=== PATIENT | male | born 1970 | race Caucasian/White ===

== ENCOUNTER 2016-10-22 10:48 | Inpatient (IN) | payer OTHER ==
[2016-10-04 09:49] VITALS: BMI 25.0
--- NOTE | 2016-10-04 10:17 | PAT Medication Instructions ---
Service Date Oct 04, 2016. Current Home Medication List Cholecalciferol (Vitamin D), 2 TAB PO QAM Diazepam (Valium), 5 MG PO TID PRN for PAIN/ANXIETY Fluoxetine (Prozac), 20 MG PO TID Levetiracetam (Keppra), 500 MG PO BID [place] Carbonate ([place] Carbonate), 1,200 MG PO BID Naproxen (Aleve), 220 MG PO BID PRN for Pain Quetiapine Fumarate Xr (Seroquel Xr), 200 MG PO HS [Tylenol #4], 1 TAB PO QID Medication Instructions For Your Scheduled Surgery - Hold the following medications the morning of surgery: Cholecalciferol (Vitamin D), 2 TAB PO QAM Naproxen (Aleve), 220 MG PO BID PRN for Pain - Take the following medications the morning of surgery with a sip of water OTHERWISE NOTHING TO EAT OR DRINK AFTER MIDNIGHT: [Tylenol #4], 1 TAB PO QID (may take if needed up to 4 hours prior to surgery) Diazepam (Valium), 5 MG PO TID PRN for PAIN/ANXIETY Fluoxetine (Prozac), 20 MG PO TID Levetiracetam (Keppra), 500 MG PO BID [place] Carbonate ([place] Carbonate), 1,200 MG PO BID - Take the following medications as scheduled the night before surgery: [Tylenol #4], 1 TAB PO QID Diazepam (Valium), 5 MG PO TID PRN for PAIN/ANXIETY Fluoxetine (Prozac), 20 MG PO TID Levetiracetam (Keppra), 500 MG PO BID [place] Carbonate ([place] Carbonate), 1,200 MG PO BID Quetiapine Fumarate Xr (Seroquel Xr), 200 MG PO HS Naproxen (Aleve), 220 MG PO BID PRN for Pain If you have any questions please call us at [phone] or [phone] or [phone]
--- NOTE | 2016-10-04 10:46 | DIAGNOSTIC IMAGING REPORT ---
CHEST PREADMISSION(PA/LAT) CLINICAL HISTORY: Preoperative evaluation. COMPARISON STUDY: No previous studies for comparison. FINDINGS: Intracanalicular electrodes and a cervical spine fusion are noted. There is no pneumothorax or pleural effusion. Cardiac size is normal. Mediastinal contours are normal. There is no evidence of pulmonary edema. IMPRESSION: No acute cardiopulmonary findings. Electronically signed by: Castro Méndez M.D. 10/04/2016 10:44 AM Dictated Date/Time: 10/04/2016 10:43 AM
[2016-10-04 11:07] LABS: BASO % 0.3 %; BASO ABS # 0.04 K/uL (0-0.2); COMPLETE YES; HEMATOCRIT 37.5 % (42-52); IG% 0.3 %; LYMPH % 24.4 %; LYMPH ABS # 2.89 K/uL (1.2-3.4); MEAN CELL VOLUME 94.7 fL (80-100); MEAN CORPUSCULAR HEMOGLOBIN 31.8 pg (25-34); MEAN CORPUSCULAR HGB CONC 33.6 g/dl (32-36); MEAN PLATELET VOLUME 10.3 fL (7.4-10.4); MONO % 8.8 %; NEUT % 63.2 %; PLATELET COUNT 271 K/uL (130-400); RED BLOOD COUNT 3.96 M/uL (4.7-6.1); WHITE BLOOD COUNT 11.84 K/uL (4.8-10.8)
[2016-10-04 11:12] LABS: URINE APPEARANCE CLEAR (CLEAR); URINE BILIRUBIN NEG (NEG); URINE COLOR YELLOW; URINE NITRITE NEG (NEG); URINE SPECIFIC GRAVITY 1.026 (1.000-1.030); UROBILINOGEN NEG (NEG)
[2016-10-04 11:19] LABS: PARTIAL THROMBOPLASTIN RATIO 1.1; PROTHROMBIN TIME (PATIENT) 10.7 SECONDS (9.0-12.0)
[2016-10-04 11:24] LABS: MANUAL MICROSCOPIC REQUIRED? NO; REVIEW REQ? NO
[2016-10-04 11:25] LABS: BUN/CREATININE RATIO 19.9 (10-20); CALCIUM 8.5 mg/dl (8.5-10.1); CREATININE 0.72 mg/dl (0.60-1.40); POTASSIUM 4.6 mmol/L (3.5-5.1)
--- NOTE | 2016-10-16 10:49 | HISTORY & PHYSICAL EXAMINATION ---
DATE OF ADMISSION: 10/17/2016 CHIEF COMPLAINT: Back pain, working diagnosis and accurate diagnosis of a severely degenerative segment lumbar spine L4-L5 above a prior fusion. Also, a spinal pain stimulator pump in place as well. HISTORY OF PRESENT ILLNESS: Artie is a pleasant gentleman. He is only 46. Fairly debilitating low back pain severely degenerative segment L4-L5. Prior surgery lumbar spinal elements. He is being preoped for tomorrow's removal of spinal cord stimulator, removal of hardware, and posterior lumbar interbody fusion at L4-5 and L5-S1. He has had ongoing pain for multiple years, failing to improve, mechanical in nature, some radicular component. PAST SURGICAL HISTORY: Include lumbar spine and cervical surgery, appendectomy. ALLERGIES: No allergies. MEDICATIONS: Include lithium, Keppra, Tylenol #4, Prozac and valium. PAST MEDICAL HISTORY: Positive for osteoarthritis, spine and neck problems. No kidney issues or liver problems. No history of carcinoma. Some nausea and vomiting after anesthesia. No cardiac disease, no diabetes, thyroid disease or blood disorder. Does have a seizure disorder and depression. REVIEW OF SYSTEMS: Denies any blurred vision, double vision, tinnitus, vertigo. No angina, palpitations. No asthma, wheezing. No nausea, vomiting or bowel and bladder incontinence. PHYSICAL EXAMINATION: GENERAL: 5' 7, 155 pounds in distress with regard to his spine. VITAL SIGNS: Blood pressure 130/80, pulse of 80, respiratory rate 16. HEAD, EYES, EARS, NOSE, AND THROAT: Normal. HEART AND LUNGS: Normal. ABDOMEN: Soft, nontender. NEUROLOGIC: He has a palpable spinal cord stimulator off the midline cervical inches. He also has a well-healed lumbar spine incision. He has pain with flexion and extension. He has no gross deficit neurologically. Images reviewed demonstrating good fusion of L5-S1, severely degenerative segment at L4-L5, some instability and the stimulator in place. DISPOSITION: Includes surgery tomorrow [facility], removal of stimulator battery pack at the very least along with a PLIF procedure L4-5 and L5-S1, which is a posterior lumbar interbody fusion L4-L5 and L5-S1. In addition will be removal of hardware from a posterior approach.
[2016-10-16 15:04] VITALS: BMI 25.0
[~2016-10-22] VITALS: Ht 170.2 cm; Wt 74.5 kg
[~2016-10-22 10:48] MED LIST: CEFAZOLIN 2000 MG/60 ML D5W 60 ML IV SCH; CEFAZOLIN 2000 MG/60 ML D5W IV SCH; CHOL100010 PO; DIAZ-165 PO; FLUO20CA35 PO; LACTATED RINGER'S 1000ML 1,000 ML IV SCH; LEVE500T13 PO; LITH600C PO; NAPR1TAB9 PO; NSS 1000ML IV SCH; QUET200T2 PO; SODIUM CHLORIDE 0.9% 1000ML 1,000 ML IV SCH; TYLENOL #4 PO
[2016-10-22] MEDS ORDERED: LIDOCAINE HCL 2% 2 ML VIAL (20MG/ML) ONE (11:13)
[2016-10-22] MEDS ORDERED: PROPOFOL IV EMULSION 10 MG/ML 20 ML VIAL IV ONE (11:13)
[2016-10-22] MEDS ORDERED: DEXAMETHASONE SOD INJ 4 MG/ML VIAL ONE (11:13)
[2016-10-22] MEDS ORDERED: GLYCOPYRROLATE INJ 0.2 MG/ML VIAL ONE ×2 (11:13→15:26)
[2016-10-22] MEDS ORDERED: FENTANYL CITRATE INJ 50 MCG/1 ML 2 ML VIAL ONE ×2 (11:13→14:55)
[2016-10-22] MEDS ORDERED: MIDAZOLAM HCL 1 MG/ML 2ML VIAL ONE (11:13)
[2016-10-22] MEDS ORDERED: ONDANSETRON INJ 2 MG/ML 2 ML VIAL ONE (11:13)
[2016-10-22] MEDS ORDERED: ROCURONIUM BROMIDE 10 MG/ML 5 ML VIAL ONE ×2 (11:13→15:00)
[2016-10-22] MEDS ORDERED: EpHEDrine SULFATE INJ 50 MG/ML AMP IV PRN (11:15)
[2016-10-22] MEDS ORDERED: ONDANSETRON INJ 2 MG/ML 2 ML VIAL IV PRN ×2 (11:15→16:30)
[2016-10-22] MEDS ORDERED: ATROPINE SULFATE 0.1 MG/ML 5ML SYR IV PRN (11:15)
[2016-10-22 11:25] VITALS: BP 113/70; PULSE 61; TEMP 36.7; O2SAT 96; Ht 170.2 cm; Wt 74.5 kg
[2016-10-22] MEDS ORDERED: NEOSTIGMINE METHYLSULFATE 5 MG/5 ML SYR ONE (11:29)
--- NOTE | 2016-10-22 13:00 | History & Physical Bridge Note ---
H&P Re-Evaluation Bridge Note: I have examined the patient, reviewed the History & Physical and in the interval since the performance of the History & Physical I have noted the following changes of clinical significance: No changes noted
[2016-10-22] MEDS ORDERED: GELATIN SPONGE SZ 100 ONE ×2 (13:15→14:47)
[2016-10-22] MEDS ORDERED: BUPIVACAINE/EPINEPHRINE 0.5% MPF 1:200,000 30 ML VIAL ONE (13:15)
[2016-10-22] MEDS ORDERED: THROMBIN FOR SOLN 20000 UNIT KIT ONE (13:15)
[2016-10-22] MEDS ORDERED: BACITRACIN 50000 UNIT VIAL ONE (13:15)
[2016-10-22] MEDS ORDERED: VANCOMYCIN HCL 1000MG/20ML VIAL ONE (13:15)
[2016-10-22] MEDS ORDERED: ACETAMINOPHEN 1000 MG/100 ML IV IV ONE (13:56)
[2016-10-22] MEDS ORDERED: HYDROmorphone INJ 2 MG/ML SYR/VIAL ONE (14:51)
--- NOTE | 2016-10-22 16:17 | DIAGNOSTIC IMAGING REPORT ---
LUMBAR SPINE, INTRAOPERATIVE FLUOROSCOPY HISTORY: Lumbar laminectomy/fusion. FLUOROSCOPY TIME: 8 seconds. FINDINGS: Intraoperative fluoroscopy was provided for the lumbar spine. 1 fluoroscopic spot images were obtained. IMPRESSION: Fluoroscopy provided for a low lumbar laminectomy/fusion.. Electronically signed by: Ion Simmons M.D. 10/22/2016 4:15 PM Dictated Date/Time: 10/22/2016 4:15 PM
[2016-10-22] MEDS ORDERED: METOCLOPRAMIDE HCL INJ 5 MG/ML 2 ML VIAL IV PRN (16:30)
[2016-10-22] MEDS ORDERED: ACETAMINOPHEN 325 MG TAB PO PRN (16:30)
[2016-10-22] MEDS ORDERED: HYDROmorphone HCL 0.5MG/ML 50 ML CASSETTE IV PRN (16:30)
[2016-10-22] MEDS ORDERED: MAGNESIUM HYDROXIDE SUSP 30 ML UDC PO PRN (16:30)
[2016-10-22] MEDS ORDERED: SODIUM CHLORIDE 0.9% 1000ML 1,000 ML IV SCH (16:30)
[2016-10-22] MEDS ORDERED: NALOXONE HCL 0.4 MG/1 ML VIAL/CARP IV PRN (16:30)
[2016-10-22] MEDS ORDERED: PROMETHAZINE HCL INJ 12.5 MG in SODIUM CHLORIDE 0.9% 50ML 50 ML IV PRN (16:30)
--- NOTE | 2016-10-22 16:31 | [facility] Post Operative Brief Note ---
Immediate Operative Summary Operative Date Oct 22, 2016. Pre-Operative Diagnosis Severely degenerative segment lumbar spine L4-L5 Post-Operative Diagnosis Severely degenerative segment lumbar spine L4-L5 Procedure(s) Performed Spinal Cord Stimulator Removal; Hardware Removal; L4-L5, L5-S1 Posterior Lumbar Interbody Fusion L4-L5, Reinstrumentation at L4-S1 Surgeon Dr. Alcala Sales Engineer Account Manager Surgeon(s) Leonel Barnett PA-C Estimated Blood Loss 450 ml Findings stenosis and instability Specimens A: Explanted Spine hardware B: Stimulator Complication(s) None Disposition Recovery Room / PACU
[2016-10-22] MEDS ORDERED: ESMOLOL HCL 10 MG/ML 10 ML VIAL ONE (16:33)
[2016-10-22] MEDS: FENTANYL CITRATE INJ 50 MCG/1 ML 2 ML VIAL IV PRN ×4 (16:42→16:57)
[2016-10-22] MEDS ORDERED: HYDROmorphone HCL 0.5MG/ML 50 ML CASSETTE ONE (16:54)
[2016-10-22] MEDS: HYDROmorphone INJ 1 MG/ML SYR IV PRN ×4 (17:05→17:25)
[2016-10-22] MEDS ORDERED: HYDROmorphone INJ 1 MG/ML SYR ONE (17:19)
--- NOTE | 2016-10-22 17:45 | Anesthesiology Progress Note ---
Anesthesia Post Op Note Date & Time Oct 22, 2016 at 17:45 Vital Signs Pain Intensity: 5 Vital Signs Past 12 Hours Date Time Temp Pulse Resp B/P Pulse Ox O2 Delivery O2 Flow Rate FiO2 10/22/16 17:40 78 14 129/74 97 Nasal Cannula 4 10/22/16 17:30 70 12 119/68 96 Nasal Cannula 4 10/22/16 17:20 82 14 114/66 97 Nasal Cannula 4 10/22/16 17:10 80 12 129/77 97 Nasal Cannula 4 10/22/16 17:00 72 12 128/74 95 Nasal Cannula 4 10/22/16 16:50 82 13 136/76 98 Mask 10 10/22/16 16:40 82 18 143/69 100 Mask 10 10/22/16 16:31 37.3 80 17 134/76 98 Mask 10 10/22/16 11:25 36.7 61 18 113/70 96 Room Air Notes Mental Status: alert / awake / arousable, participated in evaluation Pt Amnestic to Procedure: Yes Nausea / Vomiting: adequately controlled Pain: adequately controlled Airway Patency, RR, SpO2: stable & adequate BP & HR: stable & adequate Hydration State: stable & adequate Anesthetic Complications: no major complications apparent
[2016-10-22 19:30] VITALS: BP 115/68; PULSE 56; TEMP 36.7; O2SAT 97
[2016-10-22 20:00] VITALS: BP 110/68; PULSE 54; TEMP 36.5; O2SAT 98
[2016-10-22] MEDS ORDERED: NURSING VERBAL MED ORDER ONE (20:30)
[2016-10-22] MEDS: LORAZEPAM INJ 1 MG in SYRINGE 0 ML IV PRN (20:49)
[2016-10-22] MEDS: NICOTINE 21 MG/24 HR TDSY TD SCH (20:54)
[2016-10-22] MEDS: SODIUM CHLORIDE 0.9% 1000ML 1,000 ML IV SCH (20:54)
[2016-10-22 20:57] VITALS: BP 111/70; PULSE 57; TEMP 36.5; O2SAT 97
[2016-10-22] MEDS: FLUOXETINE HCL 20 MG CAP PO SCH (20:59)
[2016-10-22] MEDS: LEVETIRACETAM 500 MG TAB PO SCH (21:00)
[2016-10-22] MEDS: QUETIAPINE FUMARATE 200 MG TABCR PO SCH (21:00)
[2016-10-22] MEDS: DIAZEPAM 5MG TAB PO PRN (21:04)
[2016-10-22] MEDS: KETOROLAC TROMETHAMINE 30 MG/ML VIAL IV. SCH (21:06)
[2016-10-22] MEDS: DEXAMETHASONE INJ 10 MG in SYRINGE 0 ML IV SCH (21:07)
[2016-10-22] MEDS: CEFAZOLIN IV 1,000 MG in DEXTROSE 5% 50ML 50 ML IV SCH (21:07)
[2016-10-22] MEDS: LITHIUM CARBONATE 300 MG TAB PO SCH (21:08)
[2016-10-22 22:00] VITALS: BP 111/65; PULSE 56; TEMP 36.7; O2SAT 97
[2016-10-22 23:30] VITALS: BP 106/55; PULSE 55; TEMP 36.7; O2SAT 96
[2016-10-23 03:00] VITALS: BP 97/61; PULSE 58; TEMP 36.8; O2SAT 97
[2016-10-23] MEDS: KETOROLAC TROMETHAMINE 30 MG/ML VIAL IV. SCH ×4 (03:22→21:55)
[2016-10-23] MEDS: LORAZEPAM INJ 1 MG in SYRINGE 0 ML IV PRN ×2 (03:22→10:00)
[2016-10-23] MEDS: CEFAZOLIN IV 1,000 MG in DEXTROSE 5% 50ML 50 ML IV SCH ×2 (05:44→14:05)
[2016-10-23] MEDS: DEXAMETHASONE INJ 10 MG in SYRINGE 0 ML IV SCH ×3 (05:56→21:53)
[2016-10-23] MEDS: DIAZEPAM 5MG TAB PO PRN ×2 (05:57→14:02)
[2016-10-23] MEDS ORDERED: BISACODYL 5 MG TABEC PO PRN (06:00)
[2016-10-23] MEDS ORDERED: BISACODYL 10 MG SUPP PR PRN (06:00)
[2016-10-23 06:23] LABS: HEMATOCRIT 32.6 % (42-52)
[2016-10-23 07:05] VITALS: BP 94/56; PULSE 51; TEMP 36.7; O2SAT 95
--- NOTE | 2016-10-23 07:06 | OPERATIVE REPORT ---
DATE OF OPERATION: 10/22/2016 PREOPERATIVE DIAGNOSIS: Instability L4-L5, loosened hardware L4-L5, L5-S1, stenosis L4-L5. Painful spinal implants, lumbar spine. Painful spinal cord stimulator. ESTIMATED BLOOD LOSS: 400 mL. SURGEON: Michael Alcala DO [employer] OPERATOR: Leonel Barnett PA-C PROCEDURE: Removal of prior implants including the spinal cord stimulator, removal of pedicle screw instrumentation and reinsertion and pedicle screw instrumentation of sacrum L5 and L4. Posterior lumbar interbody fusion L4-L5, posterolateral fusion L4-L5 and sacrum. DESCRIPTION OF PROCEDURE: The patient was taken to the operating room, a general intubated anesthetic provided to the patient, placed prone, prepped and draped sterile. We made a skin incision, fascial incision. We dissected down to the spine itself, taking soft tissue out over the facet joints and transverse processes plus the old implants. I put in a deep self-retaining retractor. We performed our removal of the implants first, this was at L5 and S1. They were slightly loose in inspection. We then were able to decompress the spine which was decompression of L3 and L4, and L4 to L5 lumbar spine, which should be decompression of L4 and L5 nerve roots bilaterally, partial facetectomy. We then were able to retract the dura over the left hand side, do a discectomy at L4-L5, foraminotomy, we also took out the disc at this level, we put an interbody cage at this level; it was 26 mm length, it was 8 mm in height and 10 mm across. It filled nicely the vacated discectomy site. We then went over the left hand side and soft tissue, made a skin incision, fascial incision and removed a prominent, old spinal cord stimulator. We irrigated and closed that wound with Vicryl and staple gun. After we instrumented the spine safely at sacrum 5 and 4 we locked down the construct. The construct was by the [employer]. We secured the notch. We double-tightened everything, irrigated and debrided. We then put bone graft out of the transverse process to a 4-5 to initiate diffusion. This was done bilaterally, posterolateral fusion. We then placed some vancomycin deep to the wound; the Hemovac drain deep as well. Closed fascia with #1 Vicryl suture, 2-0 in the subcuticular layer and 3-0 nylon on the skin. Sterile dressings were applied. The patient returned to the PACU stable. No complications. I attest to the content of the Intraoperative Record and any orders documented therein. Any exceptio ns are noted below.
[2016-10-23] MEDS ORDERED: OXYCODONE/ACETAMINOPHEN 5-325 TAB PO PRN (08:00)
[2016-10-23] MEDS ORDERED: DC PCA PRN (08:00)
[2016-10-23] MEDS ORDERED: HYDROmorphone INJ 1 MG/ML SYR IV PRN (08:00)
[2016-10-23] MEDS: LITHIUM CARBONATE 300 MG TAB PO SCH ×2 (08:07→21:54)
[2016-10-23] MEDS: FLUOXETINE HCL 20 MG CAP PO SCH ×3 (08:07→21:53)
[2016-10-23] MEDS: NICOTINE 21 MG/24 HR TDSY TD SCH (08:07)
[2016-10-23] MEDS: LEVETIRACETAM 500 MG TAB PO SCH ×2 (08:08→21:53)
[2016-10-23] MEDS: SODIUM CHLORIDE 0.9% 1000ML 1,000 ML IV SCH ×2 (08:08→21:00)
[2016-10-23] MEDS: POLYETHYLENE (MIRALAX) 17 GM PACK PO SCH (08:13)
[2016-10-23] MEDS: OXYCODONE/ACETAMINOPHEN 5-325 TAB PO PRN ×3 (08:14→18:26)
[2016-10-23] MEDS: LORAZEPAM 1 MG TAB PO PRN (10:00)
--- NOTE | 2016-10-23 10:02 | Anesthesiology Progress Note ---
Anesthesia Post Op Note Date & Time Oct 23, 2016 at 10:02 Vital Signs Pain Intensity: 7.0 Vital Signs Past 12 Hours Date Time Temp Pulse Resp B/P Pulse Ox O2 Delivery O2 Flow Rate FiO2 10/23/16 07:05 36.7 51 19 94/56 95 10/23/16 03:00 36.8 58 16 97/61 97 Room Air 10/22/16 23:30 36.7 55 16 106/55 96 Nasal Cannula 2.0 Notes Mental Status: alert / awake / arousable, participated in evaluation Pt Amnestic to Procedure: Yes Nausea / Vomiting: adequately controlled Pain: adequately controlled Airway Patency, RR, SpO2: stable & adequate BP & HR: stable & adequate Hydration State: stable & adequate Anesthetic Complications: no major complications apparent
--- NOTE | 2016-10-23 10:32 | Discharge Instructions ---
Discharge Instructions Date of Service Oct 23, 2016. Admission Reason for Admission: Lumbar Spondylosis, Lumbar Spinal Stenosis Discharge Discharge Diagnosis / Problem: instability Discharge Goals Goal(s): Improve function Activity Recommendations Activity Limitations: as noted below Lifting Limitations: gradually increase as tolerated Exercise/Sports Limitations: until after follow-up appointment May Resume Sexual Activity: after follow-up appointment Shower/Bathe: keep incision dry . Instructions / Follow-Up Instructions / Follow-Up MEDICATIONS: Please take your prescriptions as instructed at your pre-op appointment. SPECIAL CARE: The following information is intended to answer some of the common questions and concerns regarding your surgery. Each patient is an individual and receives individual counselling throughout the course of treatment, from diagnosis to surgery all the way through recovery. What follows is not an exhaustive list, but should be a useful guide to some of the common questions and concerns patients have regarding their surgeries. These are not provided to keep you from calling us; rather, they give you something accurate and concrete to reference as you recover from your procedure. If you need us, we are available to you. As always, if you are not sure about something, call us at [phone]. MEDICAL EMERGENCIES: For these conditions, call 911 or go to your local hospital-based Emergency Department - not [facility] or equivalent. * Paralysis * Severe chest pain or difficulty breathing * Swelling or redness of either leg Spine procedures can be rather complex and though complications are rare, they do occur. In such cases, effective advice regarding emergency situations cannot always be addressed over the telephone. You may be referred to the emergency department for more effective management of your problem. Activity Limitations: It is important to give your body time to heal, so please limit your activities : * In general, don't do anything that moves your spine too much. You should avoid contact sports, twisting or heavy lifting while you recover. * 5-10 pounds is all you should attempt to lift. * You should not plan on driving for approximately 3 weeks and you should avoid traveling more than 30-45 minutes at a time. Longer trips should be broken down with walking breaks spaced appropriately. * Physical therapy is not usually required. * Walking and good posture practices will help you recover and regain your function. * Avoid straining or sudden changes in position. * In general, the goal is to take it easy and recover. Don't cause any new problems. Just relax. Showers: * Do not take a bath, use a Jacuzzi or hot tub or otherwise submerge your incision. * It is usually safe to take a shower 4-5 days after your surgery. * Your incision does not require any special creams or ointments. * Simply clean it with soap and water, dry and re-dress with a clean bandage afterwards. Incision: * Keep incision clean, dry and protected until your first follow-up appointment. * Some amount of drainage and redness is normal. Any drainage should be fairly clear and not have a foul odor. * If you feel anything is wrong or you have excessive drainage, please call us. * Your stitches and chace will be removed 10-14 days after your surgery. At the time of your first post-op visit. * Neck surgeries are typically closed with a suture underneath the skin. The steri-strips over the incision should be maintained until we see you in the office. Bracing: * You may be provided with a back or neck brace to encourage good posture and prevent injury. It will remind you not to do too much as you heal and will alert others to the fact that you have had a surgery. * Back braces may be removed for showers and when you are resting at home. They must be worn when you are walking around for any period of time or for travel. * For neck surgery, you will likely be provided with two cervical collars. The soft collar ([place] or foam rubber) is worn most commonly throughout the day and while sleeping. The plastic collar (provided at the hospital) is for showering/bathing. * Except while eating, collars should remain in place. More specifically, bracing is provided for a purpose and should be worn. * Please obtain your brace or collars prior to your operation and bring them to the hospital with you on the day of surgery. * You should also bring your collars to your post-op appointment with Dr. Alcala. You should always take good care of your body and practice healthy habits, especially following surgery. You should: * Follow your doctor's treatment plan * Sit and stand properly with good posture (ears over shoulders, shoulders over hips) Don't slouch * Learn to lift correctly * Exercise regularly (low-impact aerobic exercise is especially good, but check with your doctor first) * Generally, be up and walking for 5-10 minutes at a time at least 3-4 times per day from the day you get home * Increasing walking to tolerance until you can walk for 20-30 minutes at a time * Attain and maintain a healthy body weight * Eat healthy foods ( a well-balanced, low-fat diet rich in fruits and vegetables) and get enough calcium * Avoid excessive use of alcohol When to call our office - If you notice any of the following: * Increased pain not relieve by pain medicine * Fevers greater then 100 degrees F, chills or flu symptoms * Increased redness around incision * Drainage from the incision that is not clear * Any foul smelling drainage * Swelling or fluid collection beneath the skin Miscellaneous: * In the hospital, you may be given a walker or cane for support while walking. These are temporary needs and are intended to prevent injuries due to falls. You may discontinue them when you feel strong and steady enough on your feet. * Sleep in a comfortable position. We find that many patients find a lounge chair or recliner with several pillows to be beneficial in the early post-operative period. * The support stockings should be used for 7-10 days and may be discontinued when you are back to walking more and conducting usual household activities. No problem is insignificant. We are here to help you and get you well. Contact us at [phone]. Definitions: Foraminotomy: If part of the disc or a bone spur (osteophyte) is pressing on a nerve as it leaves the vertebra (through an exit called the foramen), a foraminotomy may be done. Otomy means "to make an opening." A foraminotomy is making the opening of the foramen larger, so the nerve can exit without being compressed. Laminotomy: Similar to the foraminotomy, a laminotomy makes a larger opening, this time in your bony plate protecting your spinal canal and spinal cord (the lamina). The lamina may be pressing on your nerve, so the surgeon may make more room for the nerves using a laminotomy. Laminectomy: Sometimes, a laminotomy is not sufficient. The surgeon may need to remove all or part of the lamina. This procedure is called a laminectomy. This can often be done at many levels without any harmful effects. Current Hospital Diet Patient's current hospital diet: Regular Diet Discharge Diet Recommended Diet: Regular Diet Procedures Procedures Performed: Spinal Cord Stimulator Removal; Hardware Removal; L4-L5, L5-S1 Posterior Lumbar Interbody Fusion L4-L5, Reinstrumentation at L4-S1 Pending Studies Studies pending at discharge: no Medical Emergencies . Who to Call and When: Medical Emergencies: If at any time you feel your situation is an emergency, please call 911 immediately. . Non-Emergent Contact Non-Emergency issues call your: Surgeon . "Provider Documentation" section prepared by Michael Alcala. VTE Core Measure Inpt VTE Proph given/why not?: Treatment not indicated
--- NOTE | 2016-10-23 10:44 | PROGRESS NOTE ---
DATE: 10/23/2016 SUBJECTIVE: No chest pain, shortness of breath, confusion. Calf tenderness negative. OBJECTIVE: Temperature 36.7. Hematocrit 32.6. ASSESSMENT: Status post lumbar spine reconstructive surgery. DISPOSITION: Includes up and ambulatory today. Dressings change tomorrow. We will hopefully get him home tomorrow, 10/24/2016.
[2016-10-23 15:20] VITALS: BP 120/70; PULSE 85; TEMP 36.9; O2SAT 96
[2016-10-23] MEDS: HYDROmorphone INJ 1 MG/ML SYR IV PRN ×2 (19:50→23:12)
[2016-10-23] MEDS: QUETIAPINE FUMARATE 200 MG TABCR PO SCH (21:53)
[2016-10-23] MEDS ORDERED: NURSING VERBAL MED ORDER ONE (22:30)
[2016-10-23 23:36] VITALS: BP 123/68; PULSE 61; TEMP 37.1; O2SAT 97
[2016-10-24] MEDS: LORAZEPAM INJ 1 MG in SYRINGE 0 ML IV PRN (00:43)
[2016-10-24] MEDS: DEXAMETHASONE INJ 10 MG in SYRINGE 0 ML IV SCH (05:42)
[2016-10-24] MEDS: HYDROmorphone INJ 1 MG/ML SYR IV PRN ×2 (05:44→10:44)
[2016-10-24 07:09] VITALS: BP 124/74; PULSE 66; TEMP 36.4; O2SAT 99
[2016-10-24] MEDS: FLUOXETINE HCL 20 MG CAP PO SCH ×2 (07:25→14:34)
[2016-10-24] MEDS: LITHIUM CARBONATE 300 MG TAB PO SCH (07:26)
[2016-10-24] MEDS: LEVETIRACETAM 500 MG TAB PO SCH (07:26)
[2016-10-24] MEDS: DIAZEPAM 5MG TAB PO PRN (07:26)
[2016-10-24] MEDS: OXYCODONE/ACETAMINOPHEN 5-325 TAB PO PRN (07:27)
[2016-10-24] MEDS: POLYETHYLENE (MIRALAX) 17 GM PACK PO SCH (07:30)
[2016-10-24] MEDS: LORAZEPAM 1 MG TAB PO PRN (09:55)
[2016-10-24] MEDS: NICOTINE 21 MG/24 HR TDSY TD SCH (10:29)
[2016-10-24] MEDS ORDERED: NURSING VERBAL MED ORDER ONE (10:45)
[2016-10-24] MEDS ORDERED: HYDR4TAB78 PO (10:47)
[2016-10-24] MEDS ORDERED: KETOROLAC TROMETHAMINE 30 MG/ML VIAL IV. SCH (11:00)
[2016-10-24] MEDS ORDERED: HYDROmorphone HCL 2 MG TAB PO PRN (11:00)
[2016-10-24] MEDS ORDERED: ATV/1 PO (14:13)
--- NOTE | 2016-10-24 14:44 | DISCHARGE SUMMARY ---
DATE OF DISCHARGE: 10/22/2016. Alert, oriented. Pain controlled. No shortness of breath or chest pain. Neurologically intact, some decreased range of motion. ASSESSMENT: Status post lumbar spine reconstructive surgery. DISPOSITION: Includes instructions, precautions, education to the patient in the office and here. Discharged home with medications, support, dressing to be kept clean and dry at all times. We will see him back in the office in approximately 10 days. He should have a follow-up appointment.
[2016-10-24 15:18] VITALS: BP 119/68; PULSE 81; TEMP 36.9; O2SAT 96
[2016-10-24 15:49] VITALS: BP 119/68; PULSE 81; TEMP 36.9; O2SAT 96
[2017-06-23] MEDS ORDERED: OXYC-57 PO (11:53)
[2017-06-23] MEDS ORDERED: LEVE500T13 PO (11:53)
[2017-06-23] MEDS ORDERED: LMC25 PO (11:53)
== END 2016-10-24 16:45 | disposition home or self-care (01) | DRG 460 ==
LOC: ENRESERVTM → ENRESERVDT → C.ACU 10:48 → C.3E 13:00
PROVIDERS: ADMIT Orthopaedic Surgery Orthopaedic Surgery of the Spine; ATTEND Orthopaedic Surgery Orthopaedic Surgery of the Spine
PROC: 0SG0071 Fusion of Lumbar Vertebral Joint with Autologous Tissue Substitute, Posterior Approach, Posterior Column, Open Approach (ICD-10-PCS; principal; 2016-10-22 12:30)
PROC: 0ST20ZZ Resection of Lumbar Vertebral Disc, Open Approach (ICD-10-PCS; principal; 2016-10-22 12:30)
PROC: 00PV0MZ Removal of Neurostimulator Lead from Spinal Cord, Open Approach (ICD-10-PCS; principal; 2016-10-22 12:30)
PROC: 0SG00AJ Fusion of Lumbar Vertebral Joint with Interbody Fusion Device, Posterior Approach, Anterior Column, Open Approach (ICD-10-PCS; principal; 2016-10-22 12:30)
PROC: 0SG3071 Fusion of Lumbosacral Joint with Autologous Tissue Substitute, Posterior Approach, Posterior Column, Open Approach (ICD-10-PCS; principal; 2016-10-22 12:30)
PROC: 01NB0ZZ Release Lumbar Nerve, Open Approach (ICD-10-PCS; principal; 2016-10-22 12:30)
PROC: 0SP304Z Removal of Internal Fixation Device from Lumbosacral Joint, Open Approach (ICD-10-PCS; principal; 2016-10-22 12:30)
DX: T84.038A Mechanical loosening of other internal prosthetic joint, initial encounter (principal); Y79.2 Prosthetic and other implants, materials and accessory orthopedic devices associated with adverse incidents; M51.36 Other intervertebral disc degeneration, lumbar region; M53.2X6 Spinal instabilities, lumbar region; M48.06 Spinal stenosis, lumbar region; Z46.2 Encounter for fitting and adjustment of other devices related to nervous system and special senses; G40.909 Epilepsy, unspecified, not intractable, without status epilepticus; M19.90 Unspecified osteoarthritis, unspecified site; F41.9 Anxiety disorder, unspecified; F32.9 Major depressive disorder, single episode, unspecified; F17.200 Nicotine dependence, unspecified, uncomplicated; Z98.1 Arthrodesis status; Z79.899 Other long term (current) drug therapy

== ENCOUNTER 2017-06-21 15:54 | Inpatient (IN) | payer OTHER ==
[~2017-06-21] VITALS: Ht 172.7 cm; Wt 68.0 kg
[~2017-06-21 15:54] MED LIST changes: -CEFAZOLIN 2000 MG/60 ML D5W 60 ML IV SCH; -CEFAZOLIN 2000 MG/60 ML D5W IV SCH; -LACTATED RINGER'S 1000ML 1,000 ML IV SCH; -NSS 1000ML IV SCH; -SODIUM CHLORIDE 0.9% 1000ML 1,000 ML IV SCH
[2017-06-21] MEDS ORDERED: LEVETIRACETAM IV 1,000 MG in DEXTROSE 5% 100ML 100 ML IV ONE (16:15)
--- NOTE | 2017-06-21 16:33 | DIAGNOSTIC IMAGING REPORT ---
CHEST ONE VIEW PORTABLE HISTORY: 46 years-old Male SEIZURE acute seizure COMPARISON: Chest radiograph 10/04/2016. TECHNIQUE: Portable AP view of the chest FINDINGS: Cardiomediastinal and hilar silhouettes are within normal limits. Stimulator lead is noted overlying the spine with distal tip at the level of T9. No pneumothorax, pleural effusion, focal airspace consolidation or overt pulmonary edema. Bones of the chest appear grossly intact. IMPRESSION: No acute cardiopulmonary process. The above report was generated using voice recognition software. It may contain grammatical, syntax or spelling errors. Electronically signed by: Kash Messer M.D. 06/21/2017 4:32 PM Dictated Date/Time: 06/21/2017 4:30 PM
[2017-06-21 16:56] LABS: BASO % 0.2 %; BASO ABS # 0.02 K/uL (0-0.2); COMPLETE YES; EOS % 1.1 %; IG% 0.3 %; LYMPH % 20.4 %; LYMPH ABS # 2.41 K/uL (1.2-3.4); MEAN CORPUSCULAR HEMOGLOBIN 31.3 pg (25-34); MEAN PLATELET VOLUME 9.5 fL (7.4-10.4); MONO % 8.6 %; NEUT % 69.4 %; PLATELET COUNT 369 K/uL (130-400); RED BLOOD COUNT 4.35 M/uL (4.7-6.1); WHITE BLOOD COUNT 11.81 K/uL (4.8-10.8)
[2017-06-21 17:14] LABS: BUN/CREATININE RATIO 10.7 (10-20); CALCIUM 9.4 mg/dl (8.5-10.1); CREATININE 0.78 mg/dl (0.60-1.40); MAGNESIUM 2.1 mg/dl (1.8-2.4)
[2017-06-21] MEDS ORDERED: FOLI1TAB7 PO (17:16)
[2017-06-21] MEDS ORDERED: LAMO25TA PO (17:19)
[2017-06-21 17:25] LABS: THYROID STIMULATING HORMONE 0.652 uIu/ml (0.300-4.500)
[2017-06-21] MEDS ORDERED: LORA-741 PO (17:29)
[2017-06-21] MEDS ORDERED: MELO15TA4 PO (17:30)
[2017-06-21] MEDS ORDERED: PANT40TA PO (17:31)
[2017-06-21] MEDS ORDERED: QUET400T PO (17:33)
[2017-06-21] MEDS ORDERED: CHOL20007 PO (17:35)
[2017-06-21] MEDS ORDERED: KETOROLAC TROMETHAMINE 30 MG/ML VIAL IV STA (18:28)
--- NOTE | 2017-06-21 18:30 | DIAGNOSTIC IMAGING REPORT ---
HEAD WITHOUT CONTRAST (CT) CLINICAL HISTORY: 46 years-old Male with SEIZURE. Acute seizure TECHNIQUE: Multiple axial CT images of the head were obtained without contrast. A dose lowering technique was utilized adhering to the principles of ALARA. CT DOSE: 537.48 mGy.cm COMPARISON: None. FINDINGS: No acute intracranial hemorrhage, midline shift, intracranial mass, hydrocephalus, territorial ischemia or abnormal extra-axial collection. The calvarium is intact. The mastoid air cells, and middle ear cavities are clear. Mild mucosal thickening of the ethmoid air cells. IMPRESSION: No acute intracranial abnormality. The above report was generated using voice recognition software. It may contain grammatical, syntax or spelling errors. Electronically signed by: Kash Messer M.D. 06/21/2017 6:29 PM Dictated Date/Time: 06/21/2017 6:28 PM
[2017-06-21 18:31] LABS: INR 0.9 (0.9-1.1); PARTIAL THROMBOPLASTIN RATIO 1.1; PROTHROMBIN TIME (PATIENT) 10.1 SECONDS (9.0-12.0)
[2017-06-21] MEDS ORDERED: ONDANSETRON INJ 2 MG/ML 2 ML VIAL IV STA (19:39)
--- NOTE | 2017-06-21 20:10 | EMERGENCY ROOM VISIT NOTE ---
History Report prepared by Demetris: Shiv Bravo Under the Supervision of: Dr. Colin Alonso D.O. First contact with patient: 15:56 Chief Complaint: SEIZURE Stated Complaint: SEIZURE / EVAL History of Present Illness The patient is a 46 year old male who presents to the Emergency Room with complaints of intermittent seizures for the past couple of days. The patient states that he has had 9 grand mal seizures since last night, and his last seizure was this morning just prior to arrival. The patient's states that they last 3-5 minutes, and he does not lose control of his bladder. He additionally states that he has a headache, blurry vision, and some nausea. The patient states that he was admitted to [facility] for a week for his seizures last week for a week, and he states that his Keppra dosing was increased to 1000mg twice a day, and he was recently started on 25mg Lamictal, and he is decreasing his lithium and is currently on 300mg. He states that his seizures started in 1999, and they think that they are due to the multiple concussions that he has had. Prior to the past few weeks, the patient has not had a seizure in the past while. Pt denies weakness, numbness, fevers, chest pain, shortness of breath, vomiting, diarrhea, pain with urination, and melena. Source of History: patient Onset: past couple of days Position: other (global) Quality: other (seizure) Timing: intermittent Associated Symptoms: + headache, + nausea Note: Associated symptoms: Blurry vision Review of Systems Pt denies headache, change in vision, fevers, chest pain, shortness of breath, nausea, vomiting, diarrhea, pain with urination, and melena. Past Medical & Surgical Medical Problems: (1) Lumbar stenosis Social History Smoking Status: Current Every Day Smoker Marital Status: Housing Status: lives with family Occupation Status: disabled Current/Historical Medications Scheduled Cholecalciferol (Vitamin D3), 2,000 UNITS PO DAILY Folic Acid (Folvite), 1 MG PO DAILY Lamotrigine (Lamictal), 25 MG PO BID Levetiracetam (Keppra), 1,000 MG PO BID [place] Carbonate ([place] Carbonate), 600 MG PO HS Meloxicam (Mobic), 15 MG PO DAILY Pantoprazole (Protonix), 40 MG PO DAILY Quetiapine Fumarate Xr (Seroquel Xr Tab), 400 MG PO HS Scheduled PRN Lorazepam (Ativan), 0.5 MG PO BID PRN for Anxiety Allergies Coded Allergies: Bupropion (Verified Allergy, Mild, SEIZURE, 10/22/16) Sucralfate (Verified Allergy, Mild, HIVES, 10/22/16) Topiramate (Verified Allergy, Mild, SEVERE HEADACHE, 10/22/16) Valproic Acid (Verified Allergy, Mild, MAKE HIM FEEL LIKE HE GOES CRAZY AND UNABLE TO FUNCTION, 10/22/16) Physical Exam Vital Signs Date Time Temp Pulse Resp B/P (MAP) Pulse Ox O2 Delivery O2 Flow Rate FiO2 06/21/17 18:34 82 18 129/76 98 Room Air 06/21/17 16:16 99 Room Air 06/21/17 16:15 99 Room Air 06/21/17 16:10 84 06/21/17 16:01 37.4 82 20 138/82 97 Room Air Physical Exam GENERAL: Sitting up in bed, alert, well appearing, well nourished, no distress, non-toxic EYE EXAM: normal conjunctiva. PERRL and EOM's intact. OROPHARYNX: no exudate, no erythema, lips, buccal mucosa, and tongue normal and mucous membranes are moist HEAD: Small abrasion over the right occiput. NECK: supple, no nuchal rigidity, no adenopathy, non-tender LUNGS: Clear to auscultation. Normal chest wall mechanics HEART: no murmurs, S1 normal and S2 normal ABDOMEN: abdomen soft, non-tender, normo-active bowel sounds, no masses, no rebound or guarding. BACK: Back is symmetrical on inspection and there is no deformity, no midline tenderness, no CVA tenderness. SKIN: no rashes and no bruising UPPER EXTREMITIES: upper extremities are grossly normal. LOWER EXTREMITIES: No pitting edema. NEURO EXAM: Normal sensorium, cranial nerves II-XII intact, normal speech, no weakness of arms, no weakness of legs. Gross sensation intact. Medical Decision & Procedures ER Provider Diagnostic Interpretation: Radiology results as stated below per my review and the radiologist's interpretation: HEAD WITHOUT CONTRAST (CT) CLINICAL HISTORY: 46 years-old Male with SEIZURE. Acute seizure TECHNIQUE: Multiple axial CT images of the head were obtained without contrast. A dose lowering technique was utilized adhering to the principles of ALARA. CT DOSE: 537.48 mGy.cm COMPARISON: None. FINDINGS: No acute intracranial hemorrhage, midline shift, intracranial mass, hydrocephalus, territorial ischemia or abnormal extra-axial collection. The calvarium is intact. The mastoid air cells, and middle ear cavities are clear. Mild mucosal thickening of the ethmoid air cells. IMPRESSION: No acute intracranial abnormality. The above report was generated using voice recognition software. It may contain grammatical, syntax or spelling errors. Electronically signed by: Kash Messer M.D. 06/21/2017 6:29 PM Dictated Date/Time: 06/21/2017 6:28 PM CHEST ONE VIEW PORTABLE HISTORY: 46 years-old Male SEIZURE acute seizure COMPARISON: Chest radiograph 10/04/2016. TECHNIQUE: Portable AP view of the chest FINDINGS: Cardiomediastinal and hilar silhouettes are within normal limits. Stimulator lead is noted overlying the spine with distal tip at the level of T9. No pneumothorax, pleural effusion, focal airspace consolidation or overt pulmonary edema. Bones of the chest appear grossly intact. IMPRESSION: No acute cardiopulmonary process. The above report was generated using voice recognition software. It may contain grammatical, syntax or spelling errors. Electronically signed by: Kash Messer M.D. 06/21/2017 4:32 PM Dictated Date/Time: 06/21/2017 4:30 PM Laboratory Results 06/21/17 16:41 Red Blood Count 4.35, Mean Corpuscular Volume 92.0, Mean Corpuscular Hemoglobin 31.3, Mean Corpuscular Hemoglobin Concent 34.0, Mean Platelet Volume 9.5, Neutrophils (%) (Auto) 69.4, Lymphocytes (%) (Auto) 20.4, Monocytes (%) (Auto) 8.6, Eosinophils (%) (Auto) 1.1, Basophils (%) (Auto) 0.2, Neutrophils # (Auto) 8.19, Lymphocytes # (Auto) 2.41, Monocytes # (Auto) 1.02, Eosinophils # (Auto) 0.13, Basophils # (Auto) 0.02 06/21/17 16:41 Test 06/21/17 16:41 White Blood Count 11.81 K/uL (4.8-10.8) Red Blood Count 4.35 M/uL (4.7-6.1) Hemoglobin 13.6 g/dL (14.0-18.0) Hematocrit 40.0 % (42-52) Mean Corpuscular Volume 92.0 fL (80-100) Mean Corpuscular Hemoglobin 31.3 pg (25-34) Mean Corpuscular Hemoglobin Concent 34.0 g/dl (32-36) Platelet Count 369 K/uL (130-400) Mean Platelet Volume 9.5 fL (7.4-10.4) Neutrophils (%) (Auto) 69.4 % Lymphocytes (%) (Auto) 20.4 % Monocytes (%) (Auto) 8.6 % Eosinophils (%) (Auto) 1.1 % Basophils (%) (Auto) 0.2 % Neutrophils # (Auto) 8.19 K/uL (1.4-6.5) Lymphocytes # (Auto) 2.41 K/uL (1.2-3.4) Monocytes # (Auto) 1.02 K/uL (0.11-0.59) Eosinophils # (Auto) 0.13 K/uL (0-0.5) Basophils # (Auto) 0.02 K/uL (0-0.2) RDW Standard Deviation 44.1 fL (36.4-46.3) RDW Coefficient of Variation 13.1 % (11.5-14.5) Immature Granulocyte % (Auto) 0.3 % Immature Granulocyte # (Auto) 0.04 K/uL (0.00-0.02) Prothrombin Time 10.1 SECONDS (9.0-12.0) Prothromb Time International Ratio 0.9 (0.9-1.1) Activated Partial Thromboplast Time 27.6 SECONDS (21.0-31.0) Partial Thromboplastin Ratio 1.1 Anion Gap 5.0 mmol/L (3-11) Est Creatinine Clear Calc Drug Dose 108.1 ml/min Estimated GFR () 125.5 Estimated GFR (Non- 108.3 BUN/Creatinine Ratio 10.7 (10-20) Calcium Level 9.4 mg/dl (8.5-10.1) Magnesium Level 2.1 mg/dl (1.8-2.4) Total Creatine Kinase 53 U/L (39-308) Thyroid Stimulating Hormone (TSH) 0.652 uIu/ml (0.300-4.500) [place] Level 0.5 mMOL/L (0.6-1.2) Laboratory results per my review. Medications Administered Medications (Trade) Dose Ordered Sig/Guido Route Start Time Stop Time Status Last Admin Dose Admin Levetiracetam 1000 mg/Dextrose 110 ml @ 440 mls/hr ONE ONCE IV 06/21/17 16:15 06/21/17 16:29 DC 06/21/17 16:45 440 MLS/HR Ketorolac Tromethamine (Toradol Inj) 30 mg NOW STAT IV 06/21/17 18:28 06/21/17 18:29 DC 06/21/17 18:32 30 MG Ondansetron HCl (Zofran Inj) 4 mg NOW STAT IV 06/21/17 19:39 06/21/17 19:40 DC 06/21/17 19:42 4 MG ECG Indication: other (seizure) Rate (beats per minute): 83 Rhythm: sinus rhythm Findings: peaked T-waves (anterior), other (normal axis) ED Course ED COURSE: Vital signs were reviewed and showed situational hypertension The patients medical record was reviewed The above diagnostic studies were performed and reviewed. ED treatments and interventions as stated above. 1556: The patient was evaluated in room A9. A complete history and physical examination was performed. 1737: I discussed the patient's case with the neurologist. They recommend increasing the Keppra to 1500mg and for the patient to be evaluated by the hospitalist. 1806: I reevaluated the patient, and he was doing well 181: I discussed the patient's case with Dr. Donnelly, and he recommends holding off until the night doctor comes in for evaluation. 1820: Upon reevaluation, the patient is doing well.I discussed my findings with the patient and he understands and agrees with the treatment plan. Based on the patients age, coexisting illnesses, exam and lab findings the decision to treat as an inpatient was made. The patient remained stable while under my care. The patient will be evaluated for further management. 1934: I reviewed the patient's case with Dr. Vickers. He will evaluate the patient for further management. Medical Decision Differential diagnosis includes etiologies such as infection, hypoglycemia, electrolyte abnormalities, cardiac sources, intracerebral event, trauma, toxicologic, neurologic, as well as others were entertained. Patient is a 46-year-old male who presents to ER with family. He has a seizure disorder and has been seizure free for several years up until about 2 weeks. Last week he had multiple seizures and admission to [place]. Today he presents following having about 9 seizures over the course of 24 hours. These are tonic- clonic seizures. Witnessed by and mom. Patient fully intact. No seizure activity in the ER. CBC along with BMP, TSH and CK is normal. Sandborn was 0.5. CT head was negative. EKG unremarkable. Discussed with family. Patient was bolused/loaded with Keppra. Discussed with neurology and internal medicine patient was admitted for status epilepticus. Medication Reconcilliation Current Medication List: was personally reviewed by me Blood Pressure Screening Patient's blood pressure: Elevated blood pressure Blood pressure disposition: Elevated BP felt to be situational Consults Time Called: 1931 Consulting Physician: Dr. Vickers Returned Call: 1934 I reviewed the patient's case with Dr. Vickers. He will evaluate the patient for further management. Impression Primary Impression: Status epilepticus Scribe Attestation The scribe's documentation has been prepared under my direction and personally reviewed by me in its entirety. I confirm that the note above accurately reflects all work, treatment, procedures, and medical decision making performed by me. Departure Information Dispostion Being Evaluated By Hospitalist Michael Brandon D.O. (PCP) Patient Instructions My [facility]
[2017-06-21] MEDS ORDERED: MAGNESIUM HYDROXIDE SUSP 30 ML UDC PO PRN (20:30)
[2017-06-21] MEDS ORDERED: ACETAMINOPHEN 325 MG TAB PO PRN (20:30)
[2017-06-21] MEDS ORDERED: POLYETHYLENE (MIRALAX) 17 GM PACK PO PRN (20:30)
[2017-06-21] MEDS ORDERED: ONDANSETRON INJ 2 MG/ML 2 ML VIAL IV PRN (20:30)
[2017-06-21] MEDS ORDERED: ALUMINUM/MAGNESIUM/SIMETH (MAALOX MAX) 30 ML UDC PO PRN (20:30)
--- NOTE | 2017-06-21 21:03 | Critical Care Consultation ---
Critical Care Consultation Date of Consultation: Jun 21, 2017. Attending Physician: Social History Smoking Status: Current Every Day Smoker Marital Status: Housing Status: lives with family Occupation Status: disabled Allergies Coded Allergies: Bupropion (Verified Allergy, Mild, SEIZURE, 10/22/16) Sucralfate (Verified Allergy, Mild, HIVES, 10/22/16) Topiramate (Verified Allergy, Mild, SEVERE HEADACHE, 10/22/16) Valproic Acid (Verified Allergy, Mild, MAKE HIM FEEL LIKE HE GOES CRAZY AND UNABLE TO FUNCTION, 10/22/16) Home Medications Scheduled Cholecalciferol (Vitamin D3), 2,000 UNITS PO DAILY Folic Acid (Folvite), 1 MG PO DAILY Lamotrigine (Lamictal), 25 MG PO BID Levetiracetam (Keppra), 1,000 MG PO BID [place] Carbonate ([place] Carbonate), 600 MG PO HS Meloxicam (Mobic), 15 MG PO DAILY Pantoprazole (Protonix), 40 MG PO DAILY Quetiapine Fumarate Xr (Seroquel Xr Tab), 400 MG PO HS Scheduled PRN Lorazepam (Ativan), 0.5 MG PO BID PRN for Anxiety Current Inpatient Medications Current Inpatient Medications Medications (Trade) Dose Ordered Sig/Guido Route Start Time Stop Time Status Last Admin Dose Admin Acetaminophen (Tylenol Tab) 650 mg Q4H PRN PO 06/21/17 20:30 07/21/17 20:29 UNV Al Hydrox/Mg Hydrox/Simethicone (Maalox Max Susp) 15 ml Q4H PRN PO 06/21/17 20:30 07/21/17 20:29 UNV Magnesium Hydroxide (Milk Of Magnesia Susp) 30 ml Q12H PRN PO 06/21/17 20:30 07/21/17 20:29 UNV Zolpidem Tartrate (Ambien Tab) 5 mg HSZ PRN PO 06/21/17 20:30 07/21/17 20:29 UNV Ondansetron HCl (Zofran Inj) 4 mg Q6H PRN IV 06/21/17 20:30 07/21/17 20:29 UNV Polyethylene (Miralax Powder Packet) 17 gm DAILY PRN PO 06/21/17 20:30 07/21/17 20:29 UNV Ketorolac Tromethamine (Toradol Inj) 30 mg Q6H PRN IV 06/21/17 20:30 06/26/17 20:29 UNV Folic Acid (Folvite Tab) 1 mg DAILY PO 06/22/17 09:00 07/22/17 08:59 UNV Lamotrigine (Lamictal Tab) 25 mg BID PO 06/21/17 21:00 07/21/17 20:59 UNV Levetiracetam (Keppra Tab) 1,000 mg BID PO 06/21/17 21:00 07/21/17 20:59 UNV Lorazepam (Ativan Tab) 0.5 mg BID PRN PO 06/21/17 20:30 07/21/17 20:29 UNV Pantoprazole Sodium (Protonix Tab) 40 mg DAILY PO 06/22/17 09:00 07/22/17 08:59 UNV Quetiapine Fumarate (seroQUEL XR TAB) 400 mg HS PO 06/21/17 21:00 07/21/17 20:59 UNV Non-Formulary Medication (Cholecalciferol (Vitamin D3)) 2,000 units DAILY PO 06/22/17 09:00 07/22/17 08:59 UNV Non-Formulary Medication ([place] Carbonate ) 600 mg HS PO 06/21/17 21:00 07/21/17 20:59 UNV Physical Exam Date Time Temp Pulse Resp B/P (MAP) Pulse Ox O2 Delivery O2 Flow Rate FiO2 06/21/17 20:41 88 20 117/75 96 Room Air 06/21/17 18:34 82 18 129/76 98 Room Air 06/21/17 16:16 99 Room Air 06/21/17 16:15 99 Room Air 06/21/17 16:10 84 06/21/17 16:01 37.4 82 20 138/82 97 Room Air Laboratory Results Last 24 Hours Test 06/21/17 16:23 06/21/17 16:41 Bedside Glucose 108 mg/dl White Blood Count 11.81 K/uL Red Blood Count 4.35 M/uL Hemoglobin 13.6 g/dL Hematocrit 40.0 % Mean Corpuscular Volume 92.0 fL Mean Corpuscular Hemoglobin 31.3 pg Mean Corpuscular Hemoglobin Concent 34.0 g/dl Platelet Count 369 K/uL Mean Platelet Volume 9.5 fL Neutrophils (%) (Auto) 69.4 % Lymphocytes (%) (Auto) 20.4 % Monocytes (%) (Auto) 8.6 % Eosinophils (%) (Auto) 1.1 % Basophils (%) (Auto) 0.2 % Neutrophils # (Auto) 8.19 K/uL Lymphocytes # (Auto) 2.41 K/uL Monocytes # (Auto) 1.02 K/uL Eosinophils # (Auto) 0.13 K/uL Basophils # (Auto) 0.02 K/uL RDW Standard Deviation 44.1 fL RDW Coefficient of Variation 13.1 % Immature Granulocyte % (Auto) 0.3 % Immature Granulocyte # (Auto) 0.04 K/uL Prothrombin Time 10.1 SECONDS Prothromb Time International Ratio 0.9 Activated Partial Thromboplast Time 27.6 SECONDS Partial Thromboplastin Ratio 1.1 Sodium Level 138 mmol/L Potassium Level 4.0 mmol/L Chloride Level 103 mmol/L Carbon Dioxide Level 30 mmol/L Anion Gap 5.0 mmol/L Blood Urea Nitrogen 8 mg/dl Creatinine 0.78 mg/dl Est Creatinine Clear Calc Drug Dose 108.1 ml/min Estimated GFR () 125.5 Estimated GFR (Non- 108.3 BUN/Creatinine Ratio 10.7 Random Glucose 97 mg/dl Calcium Level 9.4 mg/dl Magnesium Level 2.1 mg/dl Total Creatine Kinase 53 U/L Thyroid Stimulating Hormone (TSH) 0.652 uIu/ml [place] Level 0.5 mMOL/L
[2017-06-21 21:30] VITALS: BP 115/75; PULSE 83; TEMP 37.3; O2SAT 98; Ht 172.7 cm; Wt 68.0 kg
[2017-06-21 21:58] LABS: URINE APPEARANCE CLEAR (CLEAR); URINE BILIRUBIN NEG (NEG); URINE COLOR YELLOW; URINE NITRITE NEG (NEG); URINE PH 7.5 (4.5-7.5); URINE SPECIFIC GRAVITY 1.017 (1.000-1.030); UROBILINOGEN NEG (NEG)
[2017-06-21 22:08] LABS: MANUAL MICROSCOPIC REQUIRED? NO; REVIEW REQ? NO
[2017-06-21] MEDS: LEVETIRACETAM 500 MG TAB PO SCH (22:15)
[2017-06-21] MEDS: QUETIAPINE FUMARATE 200 MG TABCR PO SCH (22:15)
[2017-06-21] MEDS: LITHIUM CARBONATE 300 MG TAB PO SCH (22:15)
[2017-06-21] MEDS: ZOLPIDEM TARTRATE 5 MG TAB PO PRN (22:18)
[2017-06-21] MEDS: KETOROLAC TROMETHAMINE 30 MG/ML VIAL IV PRN (22:19)
[2017-06-22] VITALS (7 sets, daily range): BP systolic 94–117; BP diastolic 58–68; PULSE 68–89; TEMP 36.5–37.1; O2SAT 96–99
--- NOTE | 2017-06-22 00:56 | History and Physical ---
History & Physical Date & Time of Service: Jun 22, 2017 at 00:37 Chief Complaint: Seizure Primary Care Physician: Michael Velasquez D.O. History of Present Illness Source: patient, hospital records This is a 46 yo m that is presenting to us after suffering from multiple seizures over the past 24 hours. The patient was diagnosed with seizure disorder in 1999 and has been relatively well controlled. In the recent weeks patient has been suffering from more frequent seizures. He was recently admitted to [facility] for these seizures and patient's medications were changed. He is currently being changed from lithium ( for his bipolar disorder) to lamictal ( doses are not per standard dose pack but lower). Since his discharge the patient has not been sleeping at all, the notes that he has had probably 5 hours of sleep over the past 5 days. He does have bouts of insomnia like this however he has been archer during this time as well. He and family notes this is not reflective of his "typical law". Last night he started to have frequent seizure and were either grand mal or a "smaller seizure". He would have a post ictal state after each episode. Patient had 9 overnight and when the patient had another in the afternoon the family decided to bring him to the hospital for evaluation. Family notes he had an EEG at [facility] which was [facility] and he is unable to obtain an MRI as he has a history of severe DDD requiring a stimulator. This was removed however the remnants of the stimulator are not MRI compatible. Patient was oriented x 3 during the interview. Past Medical/Surgical History Seizure disorder Bipolar disorder DDD with radiculopathy h/o back surgery and stimulator placement Family History Patient reports no known family medical history. Social History Smoking Status: Current Every Day Smoker Smokeless Tobacco Use: No Drug Use: none Marital Status: Housing status: lives with family Occupational Status: disabled Immunizations History of Influenza Vaccine: Unknown History of Tetanus Vaccine?: Unknown History of Pneumococcal: Unknown History of Hepatitis B Vaccine: Unknown Multi-Drug Resistant Organisms History of MDRO: No Allergies Coded Allergies: Bupropion (Verified Allergy, Mild, SEIZURE, 10/22/16) Sucralfate (Verified Allergy, Mild, HIVES, 10/22/16) Topiramate (Verified Allergy, Mild, SEVERE HEADACHE, 10/22/16) Valproic Acid (Verified Allergy, Mild, MAKE HIM FEEL LIKE HE GOES CRAZY AND UNABLE TO FUNCTION, 10/22/16) Home Medications Scheduled Cholecalciferol (Vitamin D3), 2,000 UNITS PO DAILY Folic Acid (Folvite), 1 MG PO DAILY Lamotrigine (Lamictal), 25 MG PO BID Levetiracetam (Keppra), 1,000 MG PO BID [place] Carbonate ([place] Carbonate), 600 MG PO HS Meloxicam (Mobic), 15 MG PO DAILY Pantoprazole (Protonix), 40 MG PO DAILY Quetiapine Fumarate Xr (Seroquel Xr Tab), 400 MG PO HS Scheduled PRN Lorazepam (Ativan), 0.5 MG PO BID PRN for Anxiety Review of Systems Constitutional: No fever Eyes: No worsening of vision ENT: No hearing loss Respiratory: No cough, No sputum, No wheezing, No shortness of breath, No dyspnea on exertion, No dyspnea at rest Cardiovascular: No chest pain Abdomen: No pain, No nausea, No vomiting, No diarrhea, No constipation Musculoskeletal: + joint pain, + muscle pain, + problem reported (left LE radiculopathy BL) Neurologic: + weakness, + numbness/tingling, + balance problems, No memory loss Psychiatric: No depression symptoms Endocrine: + fatigue Hematologic / Lymphatic: No abnormal bleeding/bruising Integumentary: No rash Physical Exam Vital Signs Date Time Temp Pulse Resp B/P (MAP) Pulse Ox O2 Delivery O2 Flow Rate FiO2 06/22/17 00:23 37.0 77 20 117/65 (82) 97 Room Air 06/22/17 00:00 Room Air 06/21/17 22:00 Room Air 06/21/17 21:30 37.3 83 18 115/75 98 Room Air 06/21/17 20:41 88 20 117/75 96 Room Air 06/21/17 18:34 82 18 129/76 98 Room Air 06/21/17 16:16 99 Room Air 06/21/17 16:15 99 Room Air 06/21/17 16:10 84 06/21/17 16:01 37.4 82 20 138/82 97 Room Air General Appearance: no apparent distress Head: normocephalic, atraumatic Eyes: normal inspection, PERRL, EOMI, sclerae normal ENT: normal ENT inspection Neck: supple Respiratory/Chest: normal breath sounds, no respiratory distress, no accessory muscle use Cardiovascular: regular rate, rhythm, no murmur, normal peripheral pulses Abdomen/GI: normal bowel sounds, non tender, soft Back: no CVA tenderness Extremities/Musculoskelatal: no calf tenderness, no pedal edema, normal range of motion Neurologic/Psych: inter com servicer II-XII nml as tested, alert, normal mood/affect, oriented x 3, + pertinent finding (altered sensation in the left LE which is BL ) Skin: normal color, warm/dry, no rash Lymphatic: no adenopathy Diagnostics Laboratory Results Results Past 24 Hours Test 06/21/17 16:23 06/21/17 16:41 06/21/17 21:16 Range/Units Bedside Glucose 108 70-99 mg/dl White Blood Count 11.81 4.8-10.8 K/uL Red Blood Count 4.35 4.7-6.1 M/uL Hemoglobin 13.6 14.0-18.0 g/dL Hematocrit 40.0 42-52 % Mean Corpuscular Volume 92.0 80-100 fL Mean Corpuscular Hemoglobin 31.3 25-34 pg Mean Corpuscular Hemoglobin Concent 34.0 32-36 g/dl Platelet Count 369 130-400 K/uL Mean Platelet Volume 9.5 7.4-10.4 fL Neutrophils (%) (Auto) 69.4 % Lymphocytes (%) (Auto) 20.4 % Monocytes (%) (Auto) 8.6 % Eosinophils (%) (Auto) 1.1 % Basophils (%) (Auto) 0.2 % Neutrophils # (Auto) 8.19 1.4-6.5 K/uL Lymphocytes # (Auto) 2.41 1.2-3.4 K/uL Monocytes # (Auto) 1.02 0.11-0.59 K/uL Eosinophils # (Auto) 0.13 0-0.5 K/uL Basophils # (Auto) 0.02 0-0.2 K/uL RDW Standard Deviation 44.1 36.4-46.3 fL RDW Coefficient of Variation 13.1 11.5-14.5 % Immature Granulocyte % (Auto) 0.3 % Immature Granulocyte # (Auto) 0.04 0.00-0.02 K/uL Prothrombin Time 10.1 9.0-12.0 SECONDS Prothromb Time International Ratio 0.9 0.9-1.1 Activated Partial Thromboplast Time 27.6 21.0-31.0 SECONDS Partial Thromboplastin Ratio 1.1 Sodium Level 138 136-145 mmol/L Potassium Level 4.0 3.5-5.1 mmol/L Chloride Level 103 98-107 mmol/L Carbon Dioxide Level 30 21-32 mmol/L Anion Gap 5.0 3-11 mmol/L Blood Urea Nitrogen 8 7-18 mg/dl Creatinine 0.78 0.60-1.40 mg/dl Est Creatinine Clear Calc Drug Dose 108.1 ml/min Estimated GFR () 125.5 Estimated GFR (Non- 108.3 BUN/Creatinine Ratio 10.7 10-20 Random Glucose 97 70-99 mg/dl Calcium Level 9.4 8.5-10.1 mg/dl Magnesium Level 2.1 1.8-2.4 mg/dl Total Creatine Kinase 53 39-308 U/L Thyroid Stimulating Hormone (TSH) 0.652 0.300-4.500 uIu/ml [place] Level 0.5 0.6-1.2 mMOL/L Urine Color YELLOW Urine Appearance CLEAR CLEAR Urine pH 7.5 4.5-7.5 Urine Specific [place] 1.017 1.000-1.030 Urine Protein NEG NEG Urine Glucose (UA) NEG NEG Urine Ketones NEG NEG Urine Occult Blood NEG NEG Urine Nitrite NEG NEG Urine Bilirubin NEG NEG Urine Urobilinogen NEG NEG Urine Leukocyte Esterase NEG NEG Diagnostic Radiology CHEST ONE VIEW PORTABLE HISTORY: 46 years-old Male SEIZURE acute seizure COMPARISON: Chest radiograph 10/04/2016. TECHNIQUE: Portable AP view of the chest FINDINGS: Cardiomediastinal and hilar silhouettes are within normal limits. Stimulator lead is noted overlying the spine with distal tip at the level of T9. No pneumothorax, pleural effusion, focal airspace consolidation or overt pulmonary edema. Bones of the chest appear grossly intact. IMPRESSION: No acute cardiopulmonary process. HEAD WITHOUT CONTRAST (CT) CLINICAL HISTORY: 46 years-old Male with SEIZURE. Acute seizure TECHNIQUE: Multiple axial CT images of the head were obtained without contrast. A dose lowering technique was utilized adhering to the principles of ALARA. CT DOSE: 537.48 mGy.cm COMPARISON: None. FINDINGS: No acute intracranial hemorrhage, midline shift, intracranial mass, hydrocephalus, territorial ischemia or abnormal extra-axial collection. The calvarium is intact. The mastoid air cells, and middle ear cavities are clear. Mild mucosal thickening of the ethmoid air cells. IMPRESSION: No acute intracranial abnormality. Impression Assessment and Plan This is a 46 yo m that is suffering from uncontrolled seizure disorder Seizure disorder, uncontrolled - Tele admission - neuro checks and seizure precautions - unable to obtain MRI based on contraindications - EEG in am - Keppra 1000 mg bid - Ativan prn Bipolar disorder/ Anxiety - Continue Seroquel 400 mg daily - Continue with the taper for [place] and scheduled increase in Lamictal DDD with radiculopathy - Toradol prn - patient may benefit from Lyrica vs gabapentin - pain clinic consult GERD - continue protonix DVT prophylaxis - SCD Attending Addendum: I have physically seen and examined this patient, have directed the resident's medical activities, and agree with the H&P as noted above with the following exceptions as noted. The patient is awake, alert and oriented 3, looks unkempt, normocephalic and atraumatic, lying in bed and in no acute distress. HEENT--PERRL, EOMI, mucous membranes and oropharynx normal. Neck--supple, no JVD or bruits, thyroid normal, trachea midline, no adenopathy. Heart--normal S1 and S2, no extra beats, no murmurs, rubs or gallops. Lungs--clear bilaterally with good air movement, no respiratory distress, no accessory muscle use. Abdomen--normal bowel sounds and soft, nontender and nondistended, no hernias or masses, no organomegaly. Extremities--no cyanosis, clubbing or edema. There are good distal pulses b/l. Dermatologic--normal skin turgor, normal color, warm and dry, no abnormal lymph nodes, no rash. Neurologic--cranial nerves II through XII grossly intact. Rheumatologic--normal range of motion. Psychiatric--normal affect. Assessment and Plan: Seizure disorder was observed seizure activity-- The patient will be admitted to telemetry for frequent neuro checks and monitoring Outpatient dosing is been Keppra 1000 mg by mouth twice a day Neurology recommendation to the ED was to give 1000 mg IV loading dose, and then increase Keppra to 1500 mg by mouth twice a day starting tomorrow. Continue Lamictal at current dose Neurology consult Bipolar disorder-- Continue Seroquel 20 mg by mouth daily Plans for lithium is to continue taper Plan for Lamictal is to gradually increase Lumbar degenerative disc disease with radiculopathy-- Given Toradol 30 mg IV every 6 hours when necessary Reported morphine has no effect on him Patient prefers and requests Dilaudid GERD-- Continue Protonix Level of Care Telemetry Advanced Directives Existing Advance Directive: No Existing Living Will: No Existing Power of Aids Social Worker: No Resuscitation Status FULL RESUSCITATION VTE Prophylaxis VTE Risk Assessment Done? Y/N: Yes Risk Level: Moderate Given or contraindicated: SCD's Social Service Consult None Apply Note Total Time: Critical Care 30 - 74 minutes Additional Copies To Michael Velasquez D.O.
[2017-06-22 01:45] LABS: BENZODIAZEPINE, URINE NEG (NEG); COCAINE,URINE NEG (NEG); PHENCYCLIDINE, URINE NEG (NEG)
[2017-06-22] MEDS ORDERED: INFLUENZA ADMINISTRATION CHARGE ONE (03:00)
[2017-06-22] MEDS ORDERED: INFLUENZA VIRUS QUAD VACCINE 0.5 ML SYR IM. ONE (03:00)
[2017-06-22] MEDS: LORAZEPAM 0.5 MG TAB PO PRN ×2 (03:25→17:10)
[2017-06-22] MEDS: KETOROLAC TROMETHAMINE 30 MG/ML VIAL IV PRN ×4 (03:49→22:59)
[2017-06-22] MEDS ORDERED: HYDROmorphone INJ 0.5 MG/0.5 ML SYR IV STA (06:23)
[2017-06-22] MEDS ORDERED: NURSING VERBAL MED ORDER ONE ×3 (06:30→11:15)
[2017-06-22 06:55] LABS: BASO % 0.3 %; BASO ABS # 0.03 K/uL (0-0.2); COMPLETE YES; EOS % 2.7 %; HEMATOCRIT 38.3 % (42-52); IG% 0.3 %; LYMPH % 28.8 %; LYMPH ABS # 3.43 K/uL (1.2-3.4); MEAN CELL VOLUME 92.3 fL (80-100); MEAN CORPUSCULAR HEMOGLOBIN 31.1 pg (25-34); MEAN CORPUSCULAR HGB CONC 33.7 g/dl (32-36); MEAN PLATELET VOLUME 9.7 fL (7.4-10.4); MONO % 11.9 %; PLATELET COUNT 347 K/uL (130-400); RED BLOOD COUNT 4.15 M/uL (4.7-6.1); WHITE BLOOD COUNT 11.89 K/uL (4.8-10.8)
[2017-06-22 07:33] LABS: ALB/GLOB RATIO 1.1 (0.9-2); BUN/CREATININE RATIO 14.5 (10-20); CALCIUM 8.5 mg/dl (8.5-10.1); CREATININE 0.77 mg/dl (0.60-1.40); MAGNESIUM 2.2 mg/dl (1.8-2.4); POTASSIUM 3.7 mmol/L (3.5-5.1)
[2017-06-22] MEDS: CHOLECALCIFEROL 1000 INTER.UNIT TAB PO SCH (08:03)
[2017-06-22] MEDS: PANTOprazole SOD 40 MG TAB PO SCH (08:03)
[2017-06-22] MEDS: LEVETIRACETAM 500 MG TAB PO SCH (08:04)
[2017-06-22] MEDS: MAGNESIUM OXIDE 400 MG TAB PO PRN ×3 (08:14→22:59)
--- NOTE | 2017-06-22 10:03 | Neurology Consultation ---
Neurology Consultation Date of Consultation: Jun 22, 2017. Attending Physician: Mark Vickers M.D. Primary Care Physician: Michael Velasquez D.O. Reason for Consultation: Seizure disorder History of Present Illness Source: patient, family, hospital records The patient is a 46-year-old male with a history of seizure disorder diagnosed 17 years ago and characterized by a variety of seizure types including generalized tonic-clonic seizures as well as suspected partial complex seizures. He has followed previously with the [facility] neurology practice and has been prescribed Keppra for many years. The patient and family reports that his seizures have typically been fairly well-controlled. However, over the past few weeks, he has been experiencing some increase in seizure activity. According to his , who is at bedside, his partial seizure characterized by intermittent lapse in awareness, lasting up to about 1 minute, and followed by some confusion. No obvious convulsive activity occurs during these particular spells, however. She also describes generalized tonic-clonic seizures which consists of stiffening of the limbs followed by violent shaking of the arms and legs. These episodes are rarely associated with significant injury although he has hit his head with some of these. He may have bit his tongue with one of these episodes in the past as well. No incontinence. The etiology of his seizures remains uncertain although he does have a history of multiple concussions. The patient and family deny any known family history of epilepsy or seizure disorder in any immediate family member. He was admitted to [facility] recently for seizures. His Keppra was reportedly increased at that time. History also notable for bipolar disorder for which the patient is prescribed lithium, Seroquel, and most recently Lamictal. There are plans to taper down the lithium. The patient and family admit that there had been some ongoing problems with noncompliance with his medications further complicated by chronic insomnia. The patient is uncertain whether or not he has been taking his Keppra as recommended. His family reports that they were told his Keppra level was 0 during his recent admission to [facility]. These records are not available. Past medical history also notable for chronic low back pain with a history of 2 lumbar spinal surgeries including spinal fusion. He has also undergone placement of a spinal cord stimulator which was subsequently removed although he reports a history of retained stimulator wires which reportedly precluded obtaining a brain MRI. He is currently disabled on the basis of his chronic low back pain. 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 The patient and family recall having an EEG completed recently at [place]. They were told this study was normal. The patient and family also indicate they were not very pleased with his care at [facility] recently and they are probably not going to follow-up with Dr. Banuelos. A CT of the head completed in the emergency department is unremarkable. Please see imaging below for further details. CBC and basic metabolic panel are normal. Electrocardiogram reveals sinus rhythm, 83 bpm. Past Medical/Surgical History Medical Problems: (1) Status epilepticus Status: Acute Family History No known family history of epilepsy or seizure disorder Social History Smokeless Tobacco Use: No Drug Use: none Marital Status: Housing Status: lives with family Occupation Status: disabled Allergies Coded Allergies: Bupropion (Verified Allergy, Mild, SEIZURE, 10/22/16) Sucralfate (Verified Allergy, Mild, HIVES, 10/22/16) Topiramate (Verified Allergy, Mild, SEVERE HEADACHE, 10/22/16) Valproic Acid (Verified Allergy, Mild, MAKE HIM FEEL LIKE HE GOES CRAZY AND UNABLE TO FUNCTION, 10/22/16) Current Inpatient Medications Current Inpatient Medications Medications (Trade) Dose Ordered Sig/Guido Route Start Time Stop Time Status Last Admin Dose Admin Acetaminophen (Tylenol Tab) 650 mg Q4H PRN PO 06/21/17 20:30 07/21/17 20:29 06/22/17 04:51 650 MG Al Hydrox/Mg Hydrox/Simethicone (Maalox Max Susp) 15 ml Q4H PRN PO 06/21/17 20:30 07/21/17 20:29 Magnesium Hydroxide (Milk Of Magnesia Susp) 30 ml Q12H PRN PO 06/21/17 20:30 07/21/17 20:29 Zolpidem Tartrate (Ambien Tab) 5 mg HSZ PRN PO 06/21/17 20:30 07/21/17 20:29 06/21/17 22:18 5 MG Ondansetron HCl (Zofran Inj) 4 mg Q6H PRN IV 06/21/17 20:30 07/21/17 20:29 Polyethylene (Miralax Powder Packet) 17 gm DAILY PRN PO 06/21/17 20:30 07/21/17 20:29 Ketorolac Tromethamine (Toradol Inj) 30 mg Q6H PRN IV 06/21/17 20:30 06/26/17 20:29 06/22/17 08:15 30 MG Folic Acid (Folvite Tab) 1 mg DAILY PO 06/22/17 09:00 07/22/17 08:59 06/22/17 08:04 1 MG Lamotrigine (Lamictal Tab) 25 mg BID PO 06/21/17 21:00 07/21/17 20:59 06/22/17 08:04 25 MG Levetiracetam (Keppra Tab) 1,000 mg BID PO 06/21/17 21:00 07/21/17 20:59 06/22/17 08:04 1,000 MG Lorazepam (Ativan Tab) 0.5 mg BID PRN PO 06/21/17 20:30 07/21/17 20:29 06/22/17 03:25 0.5 MG Pantoprazole Sodium (Protonix Tab) 40 mg DAILY PO 06/22/17 09:00 07/22/17 08:59 06/22/17 08:03 40 MG Quetiapine Fumarate (seroQUEL XR TAB) 400 mg HS PO 06/21/17 21:00 07/21/17 20:59 06/21/17 22:15 400 MG Cholecalciferol (Vitamin D Tab) 2,000 inter.unit DAILY PO 06/22/17 09:00 07/22/17 08:59 06/22/17 08:03 2,000 INTER.UNIT Portis Carbonate (Portis Carbonate Tab) 600 mg HS PO 06/21/17 21:00 07/21/17 20:59 06/21/17 22:15 600 MG Magnesium Oxide (Mag-Ox Tab) 400 mg Q6H PRN PO 06/22/17 08:15 07/22/17 08:14 06/22/17 08:14 400 MG Review of Systems Constitutional: No fever or chills Eyes: Patient complains of blurry vision, both eyes, no diplopia or eye pain ENT: No vertigo or hearing loss Cardiovascular: No chest pain or palpitations Respiratory: No coughing wheezing or shortness of breath Musculoskeletal: Chronic low back pain as described in the history of present illness Neurological: As per history of present illness, patient also complains of frequent headaches Psychiatric: Patient endorses history of bipolar disorder which she believes has been fairly stable recently, on medication Skin: No rash Hematologic: No excessive bruising or swollen glands The full 10 point review of systems was obtained in this patient with pertinent positives and negatives as described in the history of present illness and otherwise listed above. All remaining systems reviewed and are negative. Physical Exam Vital Signs (Past 24 Hrs): Date Time Temp Pulse Resp B/P (MAP) Pulse Ox O2 Delivery O2 Flow Rate FiO2 06/22/17 08:55 36.5 80 16 109/68 (82) 96 Room Air 06/22/17 04:06 37.1 83 16 94/58 (70) 99 Room Air 06/22/17 04:05 Room Air 06/22/17 00:23 37.0 77 20 117/65 (82) 97 Room Air 06/22/17 00:00 Room Air 06/21/17 22:00 Room Air 06/21/17 21:30 37.3 83 18 115/75 98 Room Air 06/21/17 20:41 88 20 117/75 96 Room Air 06/21/17 18:34 82 18 129/76 98 Room Air 06/21/17 16:16 99 Room Air 06/21/17 16:15 99 Room Air 06/21/17 16:10 84 06/21/17 16:01 37.4 82 20 138/82 97 Room Air The patient is a well-developed, well-nourished, middle-aged male. He is lying comfortably in bed, no acute distress. Patient is alert and oriented to person place and time. Recent and remote memory intact. Attention and concentration normal. Patient exhibits a normal spontaneous speech pattern and age appropriate fund of knowledge and normal vocabulary. Visual carrion full to confrontation. Visual acuity normal. Pupils equal round reactive to light and accommodation. Eye movements normal. Facial sensation intact. There is normal facial symmetry and strength. Hearing intact to finger rub bilaterally. Palate elevates to midline. Shoulder shrug intact bilaterally. Tongue protrudes to midline. Sensation intact to vibration, temperature, light touch, and proprioception in all 4 limbs. Deep tendon reflexes are intact and symmetrical for the arms and legs bilaterally. There is no dysdiadochokinesia or dysmetria with finger to nose or heel to ferro bilaterally. Ophthalmoscopic examination reveals normal-appearing optic nerves and posterior segments. No papilledema or hemorrhages. Carotid pulses normal bilaterally, no bruits to auscultation. Gait and station not tested due to safety concerns. Muscle strength and tone normal for the arms and legs bilaterally. No atrophy. No abnormal movements observed. Laboratory Results Past 24 Hours: 06/22/17 06:09 Red Blood Count 4.15, Mean Corpuscular Volume 92.3, Mean Corpuscular Hemoglobin 31.1, Mean Corpuscular Hemoglobin Concent 33.7, Mean Platelet Volume 9.7, Neutrophils (%) (Auto) 56.0, Lymphocytes (%) (Auto) 28.8, Monocytes (%) (Auto) 11.9, Eosinophils (%) (Auto) 2.7, Basophils (%) (Auto) 0.3, Neutrophils # (Auto ) 6.67, Lymphocytes # (Auto) 3.43, Monocytes # (Auto) 1.41, Eosinophils # (Auto ) 0.32, Basophils # (Auto) 0.03 06/22/17 06:09 Test 06/21/17 16:23 06/21/17 16:41 06/21/17 21:16 06/22/17 01:15 Bedside Glucose 108 mg/dl (70-99) Prothrombin Time 10.1 SECONDS (9.0-12.0) Prothromb Time International Ratio 0.9 (0.9-1.1) Activated Partial Thromboplast Time 27.6 SECONDS (21.0-31.0) Partial Thromboplastin Ratio 1.1 Total Creatine Kinase 53 U/L (39-308) Thyroid Stimulating Hormone (TSH) 0.652 uIu/ml (0.300-4.500) Portis Level 0.5 mMOL/L (0.6-1.2) Urine Color YELLOW Urine Appearance CLEAR (CLEAR) Urine pH 7.5 (4.5-7.5) Urine Specific Penelope 1.017 (1.000-1.030) Urine Protein NEG (NEG) Urine Glucose (UA) NEG (NEG) Urine Ketones NEG (NEG) Urine Occult Blood NEG (NEG) Urine Nitrite NEG (NEG) Urine Bilirubin NEG (NEG) Urine Urobilinogen NEG (NEG) Urine Leukocyte Esterase NEG (NEG) Urine Opiates Screen NEG (NEG) Urine Methadone, Qualitative NEG (NEG) Urine Barbiturates NEG (NEG) Urine Phencyclidine (PCP) Level NEG (NEG) Ur Amphetamine/Methamphetamine NEG (NEG) MDMA (Ecstasy) Screen NEG (NEG) Urine Benzodiazepines Screen NEG (NEG) Urine Cocaine Metabolite NEG (NEG) Urine Marijuana (THC) POS (NEG) Test 06/22/17 06:09 White Blood Count 11.89 K/uL (4.8-10.8) Red Blood Count 4.15 M/uL (4.7-6.1) Hemoglobin 12.9 g/dL (14.0-18.0) Hematocrit 38.3 % (42-52) Mean Corpuscular Volume 92.3 fL (80-100) Mean Corpuscular Hemoglobin 31.1 pg (25-34) Mean Corpuscular Hemoglobin Concent 33.7 g/dl (32-36) Platelet Count 347 K/uL (130-400) Mean Platelet Volume 9.7 fL (7.4-10.4) Neutrophils (%) (Auto) 56.0 % Lymphocytes (%) (Auto) 28.8 % Monocytes (%) (Auto) 11.9 % Eosinophils (%) (Auto) 2.7 % Basophils (%) (Auto) 0.3 % Neutrophils # (Auto) 6.67 K/uL (1.4-6.5) Lymphocytes # (Auto) 3.43 K/uL (1.2-3.4) Monocytes # (Auto) 1.41 K/uL (0.11-0.59) Eosinophils # (Auto) 0.32 K/uL (0-0.5) Basophils # (Auto) 0.03 K/uL (0-0.2) RDW Standard Deviation 44.7 fL (36.4-46.3) RDW Coefficient of Variation 13.4 % (11.5-14.5) Immature Granulocyte % (Auto) 0.3 % Immature Granulocyte # (Auto) 0.03 K/uL (0.00-0.02) Anion Gap 7.0 mmol/L (3-11) Est Creatinine Clear Calc Drug Dose 115.9 ml/min Estimated GFR () 126.1 Estimated GFR (Non- 108.8 BUN/Creatinine Ratio 14.5 (10-20) Calcium Level 8.5 mg/dl (8.5-10.1) Magnesium Level 2.2 mg/dl (1.8-2.4) Total Bilirubin 0.4 mg/dl (0.2-1) Aspartate Amino Transf (AST/SGOT) 10 U/L (15-37) Alanine Aminotransferase (ALT/SGPT) 23 U/L (12-78) Alkaline Phosphatase 73 U/L (45-117) Total Protein 6.3 gm/dl (6.4-8.2) Albumin 3.3 gm/dl (3.4-5.0) Globulin 3.0 gm/dl (2.5-4.0) Albumin/Globulin Ratio 1.1 (0.9-2) Imaging I reviewed the images swells and radiologist's interpretation of the CT of the head completed in the emergency department. There is no evidence of hemorrhage or acute process. There is no hydrocephalus. Brain parenchyma appears normal. Impression This is a 46-year-old male with a history of seizure disorder diagnosed 17 years ago. His history suggests that he experiences both generalized tonic- clonic seizures as well as partial complex seizures. It does not sound like his epilepsy has been electrically diagnosed or confirmed with a positive EEG previously. The etiology of his seizures is presumed to be related to his history of multiple concussions. Of course, nonepileptic seizures cannot be excluded in this patient. His history is also notable for bipolar disorder, chronic insomnia, medication noncompliance, and chronic low back pain for which he is disabled. Plan Although medication compliance has been questioned this patient, I would increase his dosage of Keppra to 1500 mg twice daily. He will need a follow-up Keppra level in 5-7 days. Although a routine inpatient EEG has been ordered for this patient, this test is probably not going to be very helpful. I would recommend that he have an outpatient ambulatory EEG. As this patient has a history of spinal cord stimulator placement and removal, with retained stimulator wires, we are unable to obtain a brain MRI. He does not require additional inpatient testing from a neurological standpoint. His medications for bipolar disorder should be continued. Lamictal is reportedly a recent addition and should be uptitrated according to his existing instructions. It sounds like this medication will be managed by his primary care physician. The importance of medication compliance needs to be stressed with this patient given the complexity of his neurological and psychiatric illness. Unfortunately, I do not have anything to offer this patient for his chronic low back pain. He reports that he has already been prescribed gabapentin, Lyrica, and Cymbalta in the past and has not done very well with epidural steroid injections or physical therapy. He will need to establish with a comprehensive pain management clinic.
[2017-06-22] MEDS ORDERED: MoRPHine SULFATE 2 MG/ML CARP ONE (11:17)
--- NOTE | 2017-06-22 14:13 | EEG Procedure Note ---
EEG Procedure Note Date of Service Jun 22, 2017. Start / End Times Start Time: 11:31 End Time: 11:[address] Nowak History seizure disorder, recent seizures Home Medication List Scheduled Cholecalciferol (Vitamin D3), 2,000 UNITS PO DAILY Folic Acid (Folvite), 1 MG PO DAILY Lamotrigine (Lamictal), 25 MG PO BID Levetiracetam (Keppra), 1,000 MG PO BID [place] Carbonate ([place] Carbonate), 600 MG PO HS Meloxicam (Mobic), 15 MG PO DAILY Pantoprazole (Protonix), 40 MG PO DAILY Quetiapine Fumarate Xr (Seroquel Xr Tab), 400 MG PO HS Scheduled PRN Lorazepam (Ativan), 0.5 MG PO BID PRN for Anxiety Inpatient Medication List Current Inpatient Medications Medications (Trade) Dose Ordered Sig/Guido Route Start Time Stop Time Status Last Admin Dose Admin Acetaminophen (Tylenol Tab) 650 mg Q4H PRN PO 06/21/17 20:30 07/21/17 20:29 06/22/17 04:51 650 MG Al Hydrox/Mg Hydrox/Simethicone (Maalox Max Susp) 15 ml Q4H PRN PO 06/21/17 20:30 07/21/17 20:29 Magnesium Hydroxide (Milk Of Magnesia Susp) 30 ml Q12H PRN PO 06/21/17 20:30 07/21/17 20:29 Zolpidem Tartrate (Ambien Tab) 5 mg HSZ PRN PO 06/21/17 20:30 07/21/17 20:29 06/21/17 22:18 5 MG Ondansetron HCl (Zofran Inj) 4 mg Q6H PRN IV 06/21/17 20:30 07/21/17 20:29 Polyethylene (Miralax Powder Packet) 17 gm DAILY PRN PO 06/21/17 20:30 07/21/17 20:29 Ketorolac Tromethamine (Toradol Inj) 30 mg Q6H PRN IV 06/21/17 20:30 06/26/17 20:29 06/22/17 08:15 30 MG Folic Acid (Folvite Tab) 1 mg DAILY PO 06/22/17 09:00 07/22/17 08:59 12/3/17 08:04 1 MG Lamotrigine (Lamictal Tab) 25 mg BID PO 06/21/17 21:00 07/21/17 20:59 06/22/17 08:04 25 MG Lorazepam (Ativan Tab) 0.5 mg BID PRN PO 06/21/17 20:30 07/21/17 20:29 06/22/17 03:25 0.5 MG Pantoprazole Sodium (Protonix Tab) 40 mg DAILY PO 06/22/17 09:00 07/22/17 08:59 06/22/17 08:03 40 MG Quetiapine Fumarate (seroQUEL XR TAB) 400 mg HS PO 06/21/17 21:00 07/21/17 20:59 06/21/17 22:15 400 MG Cholecalciferol (Vitamin D Tab) 2,000 inter.unit DAILY PO 06/22/17 09:00 07/22/17 08:59 06/22/17 08:03 2,000 INTER.UNIT [place] Carbonate ([place] Carbonate Tab) 600 mg HS PO 06/21/17 21:00 07/21/17 20:59 06/21/17 22:15 600 MG Magnesium Oxide (Mag-Ox Tab) 400 mg Q6H PRN PO 06/22/17 08:15 07/22/17 08:14 06/22/17 08:14 400 MG Levetiracetam (Keppra Tab) 1,500 mg BID PO 06/22/17 21:00 07/21/17 20:59 Description This is a 21 electrode EEG with a single channel dedicated to limited EKG. The electrodes were placed in accordance with the International 10-20 system. There is a posterior dominant background rhythm of 9-10 Hz that is symmetrically distributed and attenuates with eye opening. Photic stimulation is unremarkable. There is a minimal degree of admixed theta activity in the latter part of the recording. There is no focal slowing. There are no epileptiform abnormalities. Interpretation This is a normal appearing awake EEG. Clinical Correlation This normal awake EEG does not exclude a diagnosis of epilepsy. Please see today's neurology consultation for further details.
[2017-06-22] MEDS ORDERED: MoRPHine SULFATE 2 MG/ML CARP IV PRN (16:45)
--- NOTE | 2017-06-22 17:52 | Progress Note ---
Subjective Date of Service: Jun 22, 2017. Subjective Pt evaluation today including: conversation w/ patient, conversation w/ family , physical exam, chart review, lab review, review of studies, review of inpatient medication list Problem List Medical Problems: (1) Status epilepticus Status: Acute Review of Systems Constitutional: No see HPI, No fever, No chills, No sweats, No weight loss, No weakness, No fatigue, No problem reported Eyes: No see HPI, No worsening of vision, No eye pain, No redness, No discharge , No diplopia, No problem reported ENT: No see HPI, No hearing loss, No unusual epistaxis, No nasal symptoms, No sore throat, No tinnitus, No dental problems, No trouble swallowing, No problem reported Respiratory: No see HPI, No cough, No sputum, No wheezing, No shortness of breath, No dyspnea on exertion, No dyspnea at rest, No hemoptysis, No problem reported Cardiac: No see HPI, No chest pain, No orthopnea, No PND, No edema, No claudication, No palpitations, No problem reported Abdomen: No see HPI, No pain, No nausea, No vomiting, No diarrhea, No constipation, No GI bleeding, No problem reported Musculoskeletal: + joint pain, + muscle pain, + problem reported (back pain), No see HPI, No swelling, No calf pain Male : No see HPI, No dysuria, No urinary frequency, No incontinence, No nocturia more than once/night, No slowing stream, No hematuria, No sexual dysfunction, No problem reported Neurologic: No see HPI, No memory loss, No paralysis, No weakness, No numbness/ tingling, No vertigo, No balance problems, No problem reported Psychiatric: + depression symptoms, No see HPI, No anhedonism, No anxiety, No insomnia, No substance abuse, No problem reported Heme: No see HPI, No abnormal bleeding/bruising, No clotting problems, No swollen lymph nodes, No night sweats, No problem reported Endo: No see HPI, No fatigue, No excessive thirst, No excessive urination, No problem reported Skin: No see HPI, No rash, No itch, No new/changing skin lesions, No color change, No bleeding, No problem reported Medications Current Inpatient Medications Medications (Trade) Dose Ordered Sig/Guido Route Start Time Stop Time Status Last Admin Dose Admin Acetaminophen (Tylenol Tab) 650 mg Q4H PRN PO 12/2/17 20:30 07/21/17 20:29 06/22/17 04:51 650 MG Al Hydrox/Mg Hydrox/Simethicone (Maalox Max Susp) 15 ml Q4H PRN PO 06/21/17 20:30 07/21/17 20:29 Magnesium Hydroxide (Milk Of Magnesia Susp) 30 ml Q12H PRN PO 06/21/17 20:30 07/21/17 20:29 Zolpidem Tartrate (Ambien Tab) 5 mg HSZ PRN PO 06/21/17 20:30 07/21/17 20:29 06/21/17 22:18 5 MG Ondansetron HCl (Zofran Inj) 4 mg Q6H PRN IV 06/21/17 20:30 07/21/17 20:29 06/22/17 15:39 4 MG Polyethylene (Miralax Powder Packet) 17 gm DAILY PRN PO 06/21/17 20:30 07/21/17 20:29 Ketorolac Tromethamine (Toradol Inj) 30 mg Q6H PRN IV 06/21/17 20:30 06/26/17 20:29 06/22/17 15:46 30 MG Folic Acid (Folvite Tab) 1 mg DAILY PO 06/22/17 09:00 07/22/17 08:59 06/22/17 08:04 1 MG Lamotrigine (Lamictal Tab) 25 mg BID PO 06/21/17 21:00 07/21/17 20:59 06/22/17 08:04 25 MG Lorazepam (Ativan Tab) 0.5 mg BID PRN PO 06/21/17 20:30 07/21/17 20:29 06/22/17 17:10 0.5 MG Pantoprazole Sodium (Protonix Tab) 40 mg DAILY PO 06/22/17 09:00 07/22/17 08:59 06/22/17 08:03 40 MG Quetiapine Fumarate (seroQUEL XR TAB) 400 mg HS PO 06/21/17 21:00 07/21/17 20:59 06/21/17 22:15 400 MG Cholecalciferol (Vitamin D Tab) 2,000 inter.unit DAILY PO 06/22/17 09:00 07/22/17 08:59 06/22/17 08:03 2,000 INTER.UNIT [place] Carbonate ([place] Carbonate Tab) 600 mg HS PO 06/21/17 21:00 07/21/17 20:59 06/21/17 22:15 600 MG Magnesium Oxide (Mag-Ox Tab) 400 mg Q6H PRN PO 06/22/17 08:15 07/22/17 08:14 06/22/17 15:46 400 MG Levetiracetam (Keppra Tab) 1,500 mg BID PO 06/22/17 21:00 07/21/17 20:59 Morphine Sulfate (MoRPHine SULFATE INJ) 2 mg Q24H PRN IV 06/22/17 16:45 07/06/17 16:44 Objective Vital Signs Date Time Temp Pulse Resp B/P (MAP) Pulse Ox O2 Delivery O2 Flow Rate FiO2 06/22/17 16:00 Room Air 06/22/17 15:34 36.8 78 18 107/64 (78) 98 Room Air 06/22/17 12:00 36.5 68 16 105/65 (78) 98 Room Air 06/22/17 12:00 Room Air 06/22/17 08:55 36.5 80 16 109/68 (82) 96 Room Air 06/22/17 08:00 Room Air 06/22/17 04:06 37.1 83 16 94/58 (70) 99 Room Air 06/22/17 04:05 Room Air 06/22/17 00:23 37.0 77 20 117/65 (82) 97 Room Air 06/22/17 00:00 Room Air 06/21/17 22:00 Room Air 06/21/17 21:30 37.3 83 18 115/75 98 Room Air 06/21/17 20:41 88 20 117/75 96 Room Air 06/21/17 18:34 82 18 129/76 98 Room Air Physical Exam General Appearance: WD/WN, no apparent distress Eyes: normal inspection, EOMI ENT: normal ENT inspection, hearing grossly normal Neck: supple Respiratory/Chest: chest non-tender, lungs clear, normal breath sounds, no respiratory distress, no accessory muscle use Cardiovascular: regular rate, rhythm, no edema, no gallop, no JVD, no murmur Abdomen: non tender, soft, no organomegaly, no pulsatile mass Extremities: normal range of motion, non-tender, normal inspection, no pedal edema, no calf tenderness 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, no motor/sensory deficits, alert, normal mood/affect, oriented x 3 Skin: normal color, warm/dry, no rash Laboratory Results Last 24 Hours Test 06/21/17 21:16 06/22/17 01:15 06/22/17 06:09 Urine Color YELLOW Urine Appearance CLEAR Urine pH 7.5 Urine Specific [place] 1.017 Urine Protein NEG Urine Glucose (UA) NEG Urine Ketones NEG Urine Occult Blood NEG Urine Nitrite NEG Urine Bilirubin NEG Urine Urobilinogen NEG Urine Leukocyte Esterase NEG Urine Opiates Screen NEG Urine Methadone, Qualitative NEG Urine Barbiturates NEG Urine Phencyclidine (PCP) Level NEG Ur Amphetamine/Methamphetamine NEG MDMA (Ecstasy) Screen NEG Urine Benzodiazepines Screen NEG Urine Cocaine Metabolite NEG Urine Marijuana (THC) POS White Blood Count 11.89 K/uL Red Blood Count 4.15 M/uL Hemoglobin 12.9 g/dL Hematocrit 38.3 % Mean Corpuscular Volume 92.3 fL Mean Corpuscular Hemoglobin 31.1 pg Mean Corpuscular Hemoglobin Concent 33.7 g/dl Platelet Count 347 K/uL Mean Platelet Volume 9.7 fL Neutrophils (%) (Auto) 56.0 % Lymphocytes (%) (Auto) 28.8 % Monocytes (%) (Auto) 11.9 % Eosinophils (%) (Auto) 2.7 % Basophils (%) (Auto) 0.3 % Neutrophils # (Auto) 6.67 K/uL Lymphocytes # (Auto) 3.43 K/uL Monocytes # (Auto) 1.41 K/uL Eosinophils # (Auto) 0.32 K/uL Basophils # (Auto) 0.03 K/uL RDW Standard Deviation 44.7 fL RDW Coefficient of Variation 13.4 % Immature Granulocyte % (Auto) 0.3 % Immature Granulocyte # (Auto) 0.03 K/uL Sodium Level 135 mmol/L Potassium Level 3.7 mmol/L Chloride Level 102 mmol/L Carbon Dioxide Level 26 mmol/L Anion Gap 7.0 mmol/L Blood Urea Nitrogen 11 mg/dl Creatinine 0.77 mg/dl Est Creatinine Clear Calc Drug Dose 115.9 ml/min Estimated GFR () 126.1 Estimated GFR (Non- 108.8 BUN/Creatinine Ratio 14.5 Random Glucose 104 mg/dl Calcium Level 8.5 mg/dl Magnesium Level 2.2 mg/dl Total Bilirubin 0.4 mg/dl Aspartate Amino Transf (AST/SGOT) 10 U/L Alanine Aminotransferase (ALT/SGPT) 23 U/L Alkaline Phosphatase 73 U/L Total Protein 6.3 gm/dl Albumin 3.3 gm/dl Globulin 3.0 gm/dl Albumin/Globulin Ratio 1.1 Assessment and Plan 46 years old man presented with breakthrough seizures Uncontrolled seizure disorder with breakthrough seizures Neurologist consult appreciated increased Keppra to 1500 mg twice daily. Keppra level in 5-7 days. neuro check Ativan prn seizure seizure precautions ambulatory EEG unable to obtain MRI based on contraindications Bipolar disorder / anxiety continue seroquel , slowly taper lithium after obtaining level, and can increase lamictal lithium level is ordered Chronic lower back pain Toradol prn consult pain management GERD, continue PPI DVT prophylaxis , heparin SQ / SCD
[2017-06-22] MEDS ORDERED: LORAZEPAM 2 MG/ML 1 ML VIAL IV PRN (18:00)
[2017-06-22] MEDS: LEVETIRACETAM 250 MG TAB PO SCH (20:53)
[2017-06-22] MEDS: QUETIAPINE FUMARATE 200 MG TABCR PO SCH (20:54)
[2017-06-22] MEDS: LITHIUM CARBONATE 300 MG TAB PO SCH (20:54)
[2017-06-22] MEDS: ZOLPIDEM TARTRATE 5 MG TAB PO PRN (20:54)
[2017-06-23] MEDS: ZOLPIDEM TARTRATE 5 MG TAB PO PRN (00:05)
[2017-06-23 03:33] VITALS: BP 113/63; PULSE 82; TEMP 36.5; O2SAT 98
[2017-06-23] MEDS: OXYCODONE/ACETAMINOPHEN 5-325 TAB PO PRN ×2 (06:04→11:09)
[2017-06-23 06:12] LABS: BASO % 0.1 %; BASO ABS # 0.02 K/uL (0-0.2); COMPLETE YES; EOS % 2.2 %; IG% 0.3 %; LYMPH ABS # 1.92 K/uL (1.2-3.4); MEAN CELL VOLUME 92.7 fL (80-100); MEAN CORPUSCULAR HEMOGLOBIN 31.8 pg (25-34); MEAN CORPUSCULAR HGB CONC 34.3 g/dl (32-36); MEAN PLATELET VOLUME 9.6 fL (7.4-10.4); MONO % 9.2 %; NEUT % 77.2 %; PLATELET COUNT 328 K/uL (130-400); RED BLOOD COUNT 3.99 M/uL (4.7-6.1); WHITE BLOOD COUNT 17.53 K/uL (4.8-10.8)
[2017-06-23 06:44] LABS: CALCIUM 8.4 mg/dl (8.5-10.1); CREATININE 0.8 mg/dl (0.60-1.40); POTASSIUM 3.9 mmol/L (3.5-5.1)
[2017-06-23 06:47] LABS: ALB/GLOB RATIO 1.2 (0.9-2)
[2017-06-23 07:08] VITALS: BP 106/59; PULSE 71; TEMP 36.5; O2SAT 97
[2017-06-23] MEDS: CHOLECALCIFEROL 1000 INTER.UNIT TAB PO SCH (08:22)
[2017-06-23] MEDS: PANTOprazole SOD 40 MG TAB PO SCH (08:22)
[2017-06-23] MEDS: LEVETIRACETAM 250 MG TAB PO SCH (08:23)
[2017-06-23] MEDS ORDERED: NICOTINE 21 MG/24 HR TDSY TD SCH (09:00)
[2017-06-23] MEDS: KETOROLAC TROMETHAMINE 30 MG/ML VIAL IV PRN (09:16)
[2017-06-23] MEDS: MAGNESIUM OXIDE 400 MG TAB PO PRN (09:16)
--- NOTE | 2017-06-23 09:25 | Pain Management Consultation ---
Pain Management Consultation Date of Consultation Jun 23, 2017. Reason for Consultation Chronic low back pain Pain Location 1 - 2 - History Mr. Concepcion is a 46-year-old white male who is admitted due to multiple seizures over the preceding 24 hours prior to admission. Patient has history of chronic seizure disorder diagnosed in 1999. Patient also has chronic history of bipolar disorder. He reports a history of chronic low back and left lower extremity pain. He most recently underwent a repeat surgical intervention performed by Dr. Alcala in October 2016. Dr. Alcala performed hardware removal with revision and an L4-S1 interbody fusion as well as spinal cord stimulator removal. Patient reports no improvement in his low back or left lower extremity radicular pain since the time of the surgical intervention. He indicates his pain is 80% axial 20% radicular nature right greater than left-sided. He reported stimulator was implanted many years ago which failed to provide him with symptomatic pain relief upon implantation. He further reported malfunctioning of the stimulator which led to the removal by Dr. Alcala. There is reportedly residual stimulator lead present and therefore is unable to pursue MRI scanning. He describes his pain as deep and aching and fairly constant the axial lumbar spine and intermittent in the left lower extremity traveling in the lateral and anterior thigh stopping at the level of the knee. Aggravating factors include all of his ADL activities. He reports multiple prior injection procedures performed in his lumbar spine without relief of symptoms or only temporary relief. He reports prior history of use of multiple opiates and multiple anti-neuropathic medications in an attempt to diminish his symptoms. He had reported some benefit from use of OxyContin in the past but reported all of the medications had failed. He reports prior use of Lyrica and gabapentin and currently remains on Keppra therapy due to his seizure disorder. He was recently prescribed Tylenol No. 4 by his PCP for approximate one week upon discharge from [facility] but denies chronic opiate therapy at this time. Patient reports some chronic weakness the left lower extremity but he denies footdrop or falling. Patient has no bowel or bladder incontinence and denies saddle anesthesias. He denies right lower extremity radicular symptoms. Patient has no further constitutional complaints at this time. Plan of care discussed with Dr. Mcmahon. Past Medical/Surgical History (1) Bipolar disorder (2) History of lumbosacral spine surgery (3) history of spinal cord stimulator with removal (4) Lumbar stenosis (5) Status epilepticus (6) Seizure Family History Patient reports no known family medical history. Social / Work History Smoking Status: Current every day smoker Smokeless Tobacco Use: No Alcohol Use: none Drug Use: marijuana Marital Status: Housing Status: lives with family Occupation: disabled Allergies Coded Allergies: Bupropion (Verified Allergy, Mild, SEIZURE, 10/22/16) Sucralfate (Verified Allergy, Mild, HIVES, 10/22/16) Topiramate (Verified Allergy, Mild, SEVERE HEADACHE, 10/22/16) Valproic Acid (Verified Allergy, Mild, MAKE HIM FEEL LIKE HE GOES CRAZY AND UNABLE TO FUNCTION, 10/22/16) Medications Current Inpatient Medications Medications (Trade) Dose Ordered Sig/Guido Route Start Time Stop Time Status Last Admin Dose Admin Acetaminophen (Tylenol Tab) 650 mg Q4H PRN PO 06/21/17 20:30 07/21/17 20:29 06/22/17 04:51 650 MG Al Hydrox/Mg Hydrox/Simethicone (Maalox Max Susp) 15 ml Q4H PRN PO 06/21/17 20:30 07/21/17 20:29 Magnesium Hydroxide (Milk Of Magnesia Susp) 30 ml Q12H PRN PO 06/21/17 20:30 07/21/17 20:29 Zolpidem Tartrate (Ambien Tab) 5 mg HSZ PRN PO 06/21/17 20:30 07/21/17 20:29 06/23/17 00:05 5 MG Ondansetron HCl (Zofran Inj) 4 mg Q6H PRN IV 06/21/17 20:30 07/21/17 20:29 06/22/17 15:39 4 MG Polyethylene (Miralax Powder Packet) 17 gm DAILY PRN PO 06/21/17 20:30 07/21/17 20:29 Ketorolac Tromethamine (Toradol Inj) 30 mg Q6H PRN IV 06/21/17 20:30 06/26/17 20:29 06/22/17 22:59 30 MG Folic Acid (Folvite Tab) 1 mg DAILY PO 06/22/17 09:00 07/22/17 08:59 06/23/17 08:22 1 MG Lamotrigine (Lamictal Tab) 25 mg BID PO 06/21/17 21:00 07/21/17 20:59 06/23/17 08:22 25 MG Lorazepam (Ativan Tab) 0.5 mg BID PRN PO 06/21/17 20:30 07/21/17 20:29 06/22/17 17:10 0.5 MG Pantoprazole Sodium (Protonix Tab) 40 mg DAILY PO 06/22/17 09:00 07/22/17 08:59 06/23/17 08:22 40 MG Quetiapine Fumarate (seroQUEL XR TAB) 400 mg HS PO 06/21/17 21:00 07/21/17 20:59 06/22/17 20:54 400 MG Cholecalciferol (Vitamin D Tab) 2,000 inter.unit DAILY PO 06/22/17 09:00 07/22/17 08:59 06/23/17 08:22 2,000 INTER.UNIT [place] Carbonate ([place] Carbonate Tab) 600 mg HS PO 06/21/17 21:00 07/21/17 20:59 06/22/17 20:54 600 MG Magnesium Oxide (Mag-Ox Tab) 400 mg Q6H PRN PO 06/22/17 08:15 07/22/17 08:14 06/22/17 22:59 400 MG Levetiracetam (Keppra Tab) 1,500 mg BID PO 06/22/17 21:00 07/21/17 20:59 06/23/17 08:23 1,500 MG Morphine Sulfate (MoRPHine SULFATE INJ) 2 mg Q24H PRN IV 06/22/17 16:45 07/06/17 16:44 06/22/17 19:46 2 MG Lorazepam (Ativan Inj) 0.5 mg Q4H PRN IV 06/22/17 18:00 07/22/17 17:59 Nicotine (Nicoderm Cq 21MG Patch) 1 patch QAM TD 06/23/17 09:00 07/23/17 08:59 06/23/17 08:23 1 PATCH Miscellaneous (Remove Nicoderm Patch) 1 ea HS N/A 06/23/17 21:00 07/23/17 20:59 Oxycodone/ Acetaminophen (Percocet 5-325mg Tab) 1 tab Q4H PRN PO 06/23/17 00:15 07/07/17 00:14 06/23/17 06:04 1 TAB Review of Systems Patient denies complaints related to cardiac, pulmonary, GI, , endocrine, neurologic, hepatic, renal, ENT, dermatologic or musculoskeletal other than those described above in history of present illness. Physical Exam Height & Weight: Height 5 feet, 8.00 inches. Weight 68.000 (Kilograms) 149 (Pounds) Last Vital Signs Documentation Date Time Temp Pulse Resp B/P (MAP) Pulse Ox O2 Delivery O2 Flow Rate FiO2 06/23/17 07:08 36.5 71 14 106/59 (75) 97 Room Air Exam: General: Patient is lying quietly upon entering the room in no acute distress. Speech and thought process appropriate. Alert and oriented 3. Cognition intact. Mood and affect appropriate. Back/spine: Complete loss of lumbar lordosis. Well-healed midline surgical incision extending of the entire lumbar spine without evidence of skin breakdown. Moderately tender over the right paravertebral lumbar region with no focal facet joint tenderness. No evidence facet joint tenderness bilaterally. No appreciable spasm. Nontender in the quadratus lumborum or gluteal musculature. Spinal cord stimulator generator removal incisional site of pressure in the left lumbosacral region without evidence of skin breakdown. Patient was able to logroll without limitation or obvious discomfort towards the left. Lower extremities: SLR negative bilaterally with slight increased axial low back pain. Sensation intact without deficits. Strength testing 4+/5 with dorsiflexion on the left. All other strength appeared to be 5/5 and equal bilaterally. Nontender over the greater trochanter. No evidence of edema, erythema or skin breakdown. Neurologic: Cranial nerves grossly intact. Ambulatory function not witnessed. Laboratory Laboratory Results (Last CBC): 06/23/17 05:51 Red Blood Count 3.99 L, Mean Corpuscular Volume 92.7, Mean Corpuscular Hemoglobin 31.8, Mean Corpuscular Hemoglobin Concent 34.3, Mean Platelet Volume 9.6, Neutrophils (%) (Auto) 77.2, Lymphocytes (%) (Auto) 11.0, Monocytes (%) ( Auto) 9.2, Eosinophils (%) (Auto) 2.2, Basophils (%) (Auto) 0.1, Neutrophils # ( Auto) 13.53 H, Lymphocytes # (Auto) 1.92, Monocytes # (Auto) 1.61 H, Eosinophils # (Auto) 0.39, Basophils # (Auto) 0.02 Past Records Previous Records: personally reviewed by me [facility] Monitoring [facility] Search Results: patient reviewed within database Drug Monitoring Findings: Patient has evidence of 31 prescription was over the past 12 months with 7 prescribers and 2 pharmacy utilized upon review of PDMP. Opioid Risk Assessment Risk assessment performed, moderate risk identified Patient is at increased risk of opiate misuse/abuse due to his comorbid medical conditions as well as recent urine screening testing positive for marijuana. Assessment 1. Chronic lumbago secondary to lumbar postlaminectomy syndrome 2. History of spinal cord simulator implantation with recent removal with residual lead 3. Seizure disorder 4. Bipolar disorder 5. Marijuana use Recommendations 1. Patient is a poor candidate for interventional procedure as he has failed multiple interventional treatments in the past. 2. Due to ongoing use of Keppra 1500 mg twice a day would not recommend initiating Lyrica versus gabapentin 3. Would caution chronic opiate therapy use in this patient due to her comorbid medical conditions as he has increased risk of opiate misuse/abuse. Close monitoring with frequent pill count and urine screening would be recommended. 4. Would not recommend changing current inpatient analgesic regimen. 5. Would recommend he undergo reevaluation with his surgeon upon discharge. Additional Copies To Michael Velasquez D.O.
--- NOTE | 2017-06-23 11:11 | Neurology Progress Notes ---
Neurology Progress Note Date of Service Jun 23, 2017. Subjective Patient has had no seizures since his loading dose of increase levetiracetam yesterday. He has no side effects and is not feeling sleepy are groggy. He does get intermittent migrainous headaches and has headache currently. Nursing reports no seizures over night or this morning. Objective Date Time Temp Pulse Resp B/P (MAP) Pulse Ox O2 Delivery O2 Flow Rate FiO2 06/23/17 08:00 Room Air 06/23/17 07:08 36.5 71 14 106/59 (75) 97 Room Air 06/23/17 04:02 Room Air 06/23/17 03:33 36.5 82 15 113/63 (80) 98 Room Air 06/23/17 00:00 Room Air 06/22/17 23:55 36.9 89 23 116/66 (83) 97 Room Air 06/22/17 20:04 Room Air 06/22/17 19:21 36.9 77 18 94/60 (71) 96 Room Air 06/22/17 16:00 Room Air 06/22/17 15:34 36.8 78 18 107/64 (78) 98 Room Air 06/22/17 12:00 36.5 68 16 105/65 (78) 98 Room Air 06/22/17 12:00 Room Air Last 24 Hours Test 06/22/17 18:09 06/23/17 05:51 [place] Level 0.6 mMOL/L White Blood Count 17.53 K/uL Red Blood Count 3.99 M/uL Hemoglobin 12.7 g/dL Hematocrit 37.0 % Mean Corpuscular Volume 92.7 fL Mean Corpuscular Hemoglobin 31.8 pg Mean Corpuscular Hemoglobin Concent 34.3 g/dl Platelet Count 328 K/uL Mean Platelet Volume 9.6 fL Neutrophils (%) (Auto) 77.2 % Lymphocytes (%) (Auto) 11.0 % Monocytes (%) (Auto) 9.2 % Eosinophils (%) (Auto) 2.2 % Basophils (%) (Auto) 0.1 % Neutrophils # (Auto) 13.53 K/uL Lymphocytes # (Auto) 1.92 K/uL Monocytes # (Auto) 1.61 K/uL Eosinophils # (Auto) 0.39 K/uL Basophils # (Auto) 0.02 K/uL RDW Standard Deviation 45.2 fL RDW Coefficient of Variation 13.2 % Immature Granulocyte % (Auto) 0.3 % Immature Granulocyte # (Auto) 0.06 K/uL Sodium Level 136 mmol/L Potassium Level 3.9 mmol/L Chloride Level 104 mmol/L Carbon Dioxide Level 27 mmol/L Anion Gap 5.0 mmol/L Blood Urea Nitrogen 14 mg/dl Creatinine 0.80 mg/dl Est Creatinine Clear Calc Drug Dose 111.0 ml/min Estimated GFR () 124.2 Estimated GFR (Non- 107.1 BUN/Creatinine Ratio 17.0 Random Glucose 107 mg/dl Calcium Level 8.4 mg/dl Total Bilirubin 0.4 mg/dl Aspartate Amino Transf (AST/SGOT) 8 U/L Alanine Aminotransferase (ALT/SGPT) 23 U/L Alkaline Phosphatase 71 U/L Total Protein 5.9 gm/dl Albumin 3.2 gm/dl Globulin 2.7 gm/dl Albumin/Globulin Ratio 1.2 Exam: He is awake and alert. Speech is normal without aphasia or dysarthria. Mood and affect are normal appropriate. Thought processes are intact. He has no facial droop. Extraocular muscles are intact without nystagmus. He has no abnormal involuntary movements. Limb movement seem symmetrical. Current Inpatient Medications Medications (Trade) Dose Ordered Sig/Guido Route Start Time Stop Time Status Last Admin Dose Admin Acetaminophen (Tylenol Tab) 650 mg Q4H PRN PO 06/21/17 20:30 07/21/17 20:29 06/22/17 04:51 650 MG Al Hydrox/Mg Hydrox/Simethicone (Maalox Max Susp) 15 ml Q4H PRN PO 06/21/17 20:30 07/21/17 20:29 Magnesium Hydroxide (Milk Of Magnesia Susp) 30 ml Q12H PRN PO 06/21/17 20:30 07/21/17 20:29 Zolpidem Tartrate (Ambien Tab) 5 mg HSZ PRN PO 06/21/17 20:30 07/21/17 20:29 06/23/17 00:05 5 MG Ondansetron HCl (Zofran Inj) 4 mg Q6H PRN IV 06/21/17 20:30 07/21/17 20:29 06/22/17 15:39 4 MG Polyethylene (Miralax Powder Packet) 17 gm DAILY PRN PO 06/21/17 20:30 07/21/17 20:29 Ketorolac Tromethamine (Toradol Inj) 30 mg Q6H PRN IV 06/21/17 20:30 06/26/17 20:29 06/23/17 09:16 30 MG Folic Acid (Folvite Tab) 1 mg DAILY PO 06/22/17 09:00 07/22/17 08:59 06/23/17 08:22 1 MG Lorazepam (Ativan Tab) 0.5 mg BID PRN PO 06/21/17 20:30 07/21/17 20:29 06/22/17 17:10 0.5 MG Pantoprazole Sodium (Protonix Tab) 40 mg DAILY PO 06/22/17 09:00 07/22/17 08:59 06/23/17 08:22 40 MG Quetiapine Fumarate (seroQUEL XR TAB) 400 mg HS PO 06/21/17 21:00 07/21/17 20:59 06/22/17 20:54 400 MG Cholecalciferol (Vitamin D Tab) 2,000 inter.unit DAILY PO 06/22/17 09:00 07/22/17 08:59 06/23/17 08:22 2,000 INTER.UNIT [place] Carbonate ([place] Carbonate Tab) 600 mg HS PO 06/21/17 21:00 07/21/17 20:59 06/22/17 20:54 600 MG Magnesium Oxide (Mag-Ox Tab) 400 mg Q6H PRN PO 06/22/17 08:15 07/22/17 08:14 06/23/17 09:16 400 MG Morphine Sulfate (MoRPHine SULFATE INJ) 2 mg Q24H PRN IV 06/22/17 16:45 07/06/17 16:44 06/22/17 19:46 2 MG Lorazepam (Ativan Inj) 0.5 mg Q4H PRN IV 06/22/17 18:00 07/22/17 17:59 Nicotine (Nicoderm Cq 21MG Patch) 1 patch QAM TD 06/23/17 09:00 07/23/17 08:59 06/23/17 08:23 1 PATCH Miscellaneous (Remove Nicoderm Patch) 1 ea HS N/A 06/23/17 21:00 07/23/17 20:59 Oxycodone/ Acetaminophen (Percocet 5-325mg Tab) 1 tab Q4H PRN PO 06/23/17 00:15 07/07/17 00:14 06/23/17 06:04 1 TAB Levetiracetam (Keppra Tab) 1,500 mg BID PO 06/23/17 21:00 07/23/17 20:59 Lamotrigine (Lamictal Tab) 50 mg BID PO 06/23/17 21:00 07/23/17 20:59 Impression 1. Epilepsy The patient has a history of seizure disorder not adequately controlled recently. He had been on tramadol which likely resulted in increased seizures but this was discontinued a week or so ago. Levetiracetam has been increased to 1500 milligrams twice daily. No seizures have been since then. He is also on lamotrigine 25 milligrams twice daily for psychiatric issues. 2. Bipolar disorder on lithium chronically. 3. History of migrainous headaches. Plan 1. Increase lamotrigine to 50 milligrams twice daily. Do this for 1 week, then increase to 75 milligrams twice daily for 1 week, then increase to 100 milligrams twice daily. This could help prevent seizures, stabilizes mood, and prevent headaches. 2. For now, keep levetiracetam 1500 milligrams twice daily. As an outpatient, once stabilized this could be lowered if needed. 3. Return to clinic within the next week or so for follow-up. Consider additional testing and monitoring then. I have spoken with regarding this case I spent a total of 35 minutes, reviewing records, and at the bedside discussing his case and treatment options with the patient, his , and his mother.
[2017-06-23] MEDS ORDERED: LMC25 PO (11:53)
[2017-06-23] MEDS ORDERED: OXYC-57 PO (11:53)
[2017-06-23] MEDS ORDERED: LEVE500T13 PO (11:53)
--- NOTE | 2017-06-23 11:58 | Discharge Summary ---
Discharge Summary Date of Service Jun 23, 2017. Discharge Summary Admission Date: Jun 21, 2017 at 20:29 Discharge Date: Jun 23, 2017 Discharge Disposition: Home Principal Diagnosis: Generalized Tonic Clonic Seizures (Epilepsy) Problems/Secondary Diagnoses: Chronic Lumbalgo secondary to lumbar postlaminectomy syndrome, Seizure disorder , Bipolar disorder, marijuana use Immunizations: Have You Had Influenza Vaccine: Unknown History of Tetanus Vaccine?: Unknown History of Pneumococcal: Unknown History of Hepatitis B Vaccine: Unknown Consultations: Neurology Consultation Date of Consultation: Jun 22, 2017. Attending Physician: Mark Vickers M.D. Primary Care Physician: Michael Velasquez D.O. Reason for Consultation: Seizure disorder History of Present Illness Source: patient, family, hospital records The patient is a 46-year-old male with a history of seizure disorder diagnosed 17 years ago and characterized by a variety of seizure types including generalized tonic-clonic seizures as well as suspected partial complex seizures. He has followed previously with the [facility] neurology practice and has been prescribed Keppra for many years. The patient and family reports that his seizures have typically been fairly well-controlled. However, over the past few weeks, he has been experiencing some increase in seizure activity. According to his , who is at bedside, his partial seizure characterized by intermittent lapse in awareness, lasting up to about 1 minute, and followed by some confusion. No obvious convulsive activity occurs during these particular spells, however. She also describes generalized tonic-clonic seizures which consists of stiffening of the limbs followed by violent shaking of the arms and legs. These episodes are rarely associated with significant injury although he has hit his head with some of these. He may have bit his tongue with one of these episodes in the past as well. No incontinence. The etiology of his seizures remains uncertain although he does have a history of multiple concussions. The patient and family deny any known family history of epilepsy or seizure disorder in any immediate family member. He was admitted to [facility] recently for seizures. His Keppra was reportedly increased at that time. History also notable for bipolar disorder for which the patient is prescribed lithium, Seroquel, and most recently Lamictal. There are plans to taper down the lithium. The patient and family admit that there had been some ongoing problems with noncompliance with his medications further complicated by chronic insomnia. The patient is uncertain whether or not he has been taking his Keppra as recommended. His family reports that they were told his Keppra level was 0 during his recent admission to [facility]. These records are not available. Past medical history also notable for chronic low back pain with a history of 2 lumbar spinal surgeries including spinal fusion. He has also undergone placement of a spinal cord stimulator which was subsequently removed although he reports a history of retained stimulator wires which reportedly precluded obtaining a brain MRI. He is currently disabled on the basis of his chronic low back pain. 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 The patient and family recall having an EEG completed recently at [place]. They were told this study was normal. The patient and family also indicate they were not very pleased with his care at [facility] recently and they are probably not going to follow-up with Dr. Banuelos. A CT of the head completed in the emergency department is unremarkable. Please see imaging below for further details. CBC and basic metabolic panel are normal. Electrocardiogram reveals sinus rhythm, 83 bpm. 1. Epilepsy The patient has a history of seizure disorder not adequately controlled recently. He had been on tramadol which likely resulted in increased seizures but this was discontinued a week or so ago. Levetiracetam has been increased to 1500 milligrams twice daily. No seizures have been since then. He is also on lamotrigine 25 milligrams twice daily for psychiatric issues. 2. Bipolar disorder on lithium chronically. 3. History of migrainous headaches. Plan 1. Increase lamotrigine to 50 milligrams twice daily. Do this for 1 week, then increase to 75 milligrams twice daily for 1 week, then increase to 100 milligrams twice daily. This could help prevent seizures, stabilizes mood, and prevent headaches. 2. For now, keep levetiracetam 1500 milligrams twice daily. As an outpatient, once stabilized this could be lowered if needed. 3. Return to clinic within the next week or so for follow-up. Consider additional testing and monitoring then. I have spoken with regarding this case I spent a total of 35 minutes, reviewing records, and at the bedside discussing his case and treatment options with the patient, his , and his mother. Note From Dr. Lim Although medication compliance has been questioned this patient, I would increase his dosage of Keppra to 1500 mg twice daily. He will need a follow-up Keppra level in 5-7 days. Although a routine inpatient EEG has been ordered for this patient, this test is probably not going to be very helpful. I would recommend that he have an outpatient ambulatory EEG. As this patient has a history of spinal cord stimulator placement and removal, with retained stimulator wires, we are unable to obtain a brain MRI. He does not require additional inpatient testing from a neurological standpoint. His medications for bipolar disorder should be continued. Lamictal is reportedly a recent addition and should be uptitrated according to his existing instructions. It sounds like this medication will be managed by his primary care physician. The importance of medication compliance needs to be stressed with this patient given the complexity of his neurological and psychiatric illness. Unfortunately, I do not have anything to offer this patient for his chronic low back pain. He reports that he has already been prescribed gabapentin, Lyrica, and Cymbalta in the past and has not done very well with epidural steroid injections or physical therapy. He will need to establish with a comprehensive pain management clinic. Pain Medicine Assessment 1. Chronic lumbago secondary to lumbar postlaminectomy syndrome 2. History of spinal cord simulator implantation with recent removal with residual lead 3. Seizure disorder 4. Bipolar disorder 5. Marijuana use Recommendations 1. Patient is a poor candidate for interventional procedure as he has failed multiple interventional treatments in the past. 2. Due to ongoing use of Keppra 1500 mg twice a day would not recommend initiating Lyrica versus gabapentin 3. Would caution chronic opiate therapy use in this patient due to her comorbid medical conditions as he has increased risk of opiate misuse/abuse. Close monitoring with frequent pill count and urine screening would be recommended. 4. Would not recommend changing current inpatient analgesic regimen. 5. Would recommend he undergo reevaluation with his surgeon upon discharge. Medication Reconciliation New Medications: Lamotrigine (Lamotrigine) 25 Mg Tab 50 MG PO BID for 30 Days, #120 TAB 0 Refills 50mg Twice a day for 1 week, then up it to 75 milligrams twice daily for 1 week, then up it to 100 milligrams twice daily. Levetiracetam (Keppra) 500 Mg Tab 1500 MG PO BID for 30 Days, #180 TAB 1 Refill Take 3 tablets BY MOUTH 2 TIMES A DAY Oxycodone/Acetaminophen 5MG/325MG (Percocet 5MG/325MG) Tab 1 TAB PO Q6H PRN for Pain for 10 Days, #30 TAB Take 1 tablet by mouth q6h prn for severe pain Continued Medications: Cholecalciferol (Vitamin D3) 2,000 Unit Tab 2000 UNITS PO DAILY, TAB Folic Acid (Folvite) 1 Mg Tab 1 MG PO DAILY, TAB Dresden Carbonate (Dresden Carbonate) 600 Mg Cap 600 MG PO HS, CAP BEGIN 06/16/17 : ONE TAB @ BEDTIME X 2 WEEKS, THEN DECREASE TO 300MG @ BEDTIME X 2 WEEKS, THEN STOP. Lorazepam (Ativan) 0.5 Mg Tab 0.5 MG PO BID PRN for Anxiety, TAB Meloxicam (Mobic) 15 Mg Tab 15 MG PO DAILY, TAB TAKE WITH FOOD Pantoprazole (Protonix) 40 Mg Tab 40 MG PO DAILY Quetiapine Fumarate Xr (Seroquel Xr Tab) 400 Mg Tabcr 400 MG PO HS, TAB Discontinued Medications: Lamotrigine (Lamictal) 25 Mg Tab 25 MG PO BID, TAB BEGIN 06/18/17, TAKE ONE TWICE DAILY X 2 WEEKS, THEN INCREASE TO 2 TABS TWICE DAILY X 2 WEEKS, THE INCREASE TO 100MG TWICE DAILY. Levetiracetam (Keppra) 500 Mg Tab 1000 MG PO BID, TAB Discharge Exam Review of Systems: Constitutional: No fever, No chills Respiratory: No cough, No sputum Cardiovascular: No chest pain, No orthopnea Abdomen: No pain, No nausea Musculoskeletal: + joint pain, + muscle pain Genitourinary - Male: No hematuria Neurologic: No memory loss, No paralysis Psychiatric: No depression symptoms Endocrine: No fatigue, No excessive thirst Integumentary: No rash Hospital Course History of Present Illness Source: patient, hospital records This is a 46 yo m that is presenting to us after suffering from multiple seizures over the past 24 hours. The patient was diagnosed with seizure disorder in 1999 and has been relatively well controlled. In the recent weeks patient has been suffering from more frequent seizures. He was recently admitted to [facility] for these seizures and patient's medications were changed. He is currently being changed from lithium ( for his bipolar disorder) to lamictal ( doses are not per standard dose pack but lower). Since his discharge the patient has not been sleeping at all, the notes that he has had probably 5 hours of sleep over the past 5 days. He does have bouts of insomnia like this however he has been archer during this time as well. He and family notes this is not reflective of his "typical law". Last night he started to have frequent seizure and were either grand mal or a "smaller seizure". He would have a post ictal state after each episode. Patient had 9 overnight and when the patient had another in the afternoon the family decided to bring him to the hospital for evaluation. Family notes he had an EEG at [facility] which was WNl and he is unable to obtain an MRI as he has a history of severe DDD requiring a stimulator. This was removed however the remnants of the stimulator are not MRI compatible. Patient was oriented x 3 during the interview Total Time Spent: Greater than 30 minutes This includes examination of the patient, discharge planning, medication reconciliation, and communication with other providers. Discharge Instructions Please refer to the electronic Patient Visit Report (Discharge Instructions) for additional information.
--- NOTE | 2017-06-23 12:04 | Discharge Instructions ---
Discharge Instructions Date of Service Jun 23, 2017. Admission Reason for Admission: Seizure Discharge Discharge Diagnosis / Problem: Seizure Discharge Goals Goal(s): Decrease discomfort, Improve function, Increase independence Activity Recommendations Activity Limitations: resume your previous activity No driving. Instructions / Follow-Up Instructions / Follow-Up F/U with neurology Dr. Lim Neurology may order EEG as outpatient. F/U with Primary care provider in about 10 days. Current Hospital Diet Patient's current hospital diet: Regular Diet Discharge Diet Recommended Diet: Regular Diet Pending Studies Studies pending at discharge: no Medical Emergencies . Who to Call and When: Medical Emergencies: If at any time you feel your situation is an emergency, please call 911 immediately. . Non-Emergent Contact Non-Emergency issues call your: Primary Care Provider Call Non-Emergent contact if: your pain is not controlled . . "Provider Documentation" section prepared by Jovani Celaya. . VTE Core Measure Inpt VTE Proph given/why not?: SCD's [place] Drug Monitoring Program Search Results: patient reviewed within database
[2017-06-23 12:08] VITALS: BP 106/59; PULSE 71; TEMP 36.5; O2SAT 97
[2017-06-23] MEDS ORDERED: LEVETIRACETAM 500 MG TAB PO SCH (21:00)
== END 2017-06-23 12:43 | disposition home or self-care (01) | DRG 101 ==
LOC: EDBD 15:54 → C.EDA 15:55 → EEVIPCON 20:29 → C.2E 20:29 → ENRESERV 20:32
PROVIDERS: ADMIT Hospitalist; ATTEND Internal Medicine Sports Medicine
DX: G40.401 Other generalized epilepsy and epileptic syndromes, not intractable, with status epilepticus (principal); M48.061 Spinal stenosis, lumbar region without neurogenic claudication; F17.200 Nicotine dependence, unspecified, uncomplicated; F31.9 Bipolar disorder, unspecified; K21.9 Gastro-esophageal reflux disease without esophagitis; M96.1 Postlaminectomy syndrome, not elsewhere classified; F12.10 Cannabis abuse, uncomplicated

== ENCOUNTER → 2017-10-07 | Outpatient (CLI) | payer OTHER ==
[~2017-10-07] MED LIST changes: -CHOL100010 PO; -DIAZ-165 PO; +ESZO1TAB16 PO; -FLUO20CA35 PO; +IBUP-1459 PO; +LAMO100T PO; -LEVE500T13 PO; +LEVE750T PO; -LITH600C PO; +LORA-741 PO; -NAPR1TAB9 PO; -QUET200T2 PO; -TYLENOL #4 PO
--- NOTE | 2017-10-07 11:50 | DIAGNOSTIC IMAGING REPORT ---
LUMBAR SPINE WITHOUT CLINICAL HISTORY: 47 years-old Male presenting with LUMBAR RADICULOPATHY. TECHNIQUE: Multidetector CT of the lumbar spine was performed without the use of intravenous contrast. IV contrast: None. A dose lowering technique was used consistent with the principles of ALARA (as low as reasonably achievable). COMPARISON: None. CT DOSE (mGy.cm): The estimated cumulative dose is 623.25 mGy.cm. FINDINGS: Summer Clerk topogram: Posterior lumbar fusion hardware noted. Posterior transpedicular screw and cornelia fixation of L4-S1. No hardware complication. The operative levels demonstrate normal height and alignment. Partial osseous fusion across the surgically fused levels. Postsurgical changes of L4-5 laminectomy is also noted. The vertebral bodies levels are labeled on the images for purposes of reporting. There is slight retrolisthesis of L3 on L4. The nonoperative levels otherwise maintain normal height and alignment. Intervertebral disc spaces at the nonoperative levels are preserved though anterior osteophytosis is noted at L3-4. No osseous neural foraminal narrowing. No osseous spinal canal narrowing. An epidural catheter enters the spinal canal at the L1-2 level. The catheter terminates superior to the [id number]. Paraspinal soft tissues within normal limits allowing for noncontrast technique. IMPRESSION: Postsurgical changes of L4-S1 posterior lumbar fusion with L4-5 laminectomies. No osseous neural foraminal or spinal canal narrowing. Mild adjacent level degenerative change at L3-4. Electronically signed by: Abhay Braun M.D. 10/07/2017 11:49 AM Dictated Date/Time: 10/07/2017 11:44 AM
== END | disposition home or self-care (01) ==
LOC: C.CTS 11:24
PROVIDERS: ATTEND Physician Assistant Medical
DX: M54.16 Radiculopathy, lumbar region (principal)

== ENCOUNTER 2017-11-23 17:09 | Emergency (ER) | payer OTHER ==
[~2017-11-23] VITALS: Ht 170.2 cm; Wt 71.0 kg
[~2017-11-23 17:09] MED LIST changes: -ESZO1TAB16 PO; -IBUP-1459 PO; -LAMO100T PO; -LORA-741 PO
[2017-11-23 17:13] VITALS: TEMP 37.3; Ht 170.2 cm; Wt 71.0 kg
[2017-11-23] MEDS ORDERED: LIDODERM (LIDOCAINE) PATCH 5% TD STA (17:34)
[2017-11-23] MEDS ORDERED: SODIUM CHLORIDE 0.9% 1000ML 1,000 ML IV STA (17:34)
[2017-11-23] MEDS ORDERED: ACETAMINOPHEN IV 100 ML IV STA (17:34)
[2017-11-23] MEDS ORDERED: OPTIRAY 320 IV PRN (17:45)
--- NOTE | 2017-11-23 17:59 | EMERGENCY ROOM VISIT NOTE ---
History Report prepared by Demetris: Yolanda Cat Under the Supervision of: Dr. Josh Mckeon M.D. First contact with patient: 17:22 Chief Complaint: FALL Stated Complaint: FELL DOWN STAIRS, LOSS OF CONSCIOUSNESS, VOMITING History of Present Illness The patient is a 47 year old male who presents to the Emergency Room with complaints of episode of a fall occurring this afternoon between 2 and 3 pm. The patient reports he woke up at the bottom of his basement stairs which is 8 stairs in length. Per , the patient and her were taking a nap at around 2 pm. The patient woke up before her to go do laundry in their basement. The patient woke up his from her nap at around 3 pm to tell her that he fell down the stairs. The patient is unsure of how long he was at the bottom of the stairs. The patient reports the last thing he remembers is waking up at the bottom of the stairs. Per , the patient is more confused and "quiet" than his baseline. The patient has a spinal fusion in his lower back and problems with his hip. He reports sometimes his hip "gets weak" and he falls. He reports he is going to start going to go to the pain clinic to get "shots" in his hip. The patient has a history of seizures and he takes Keppra and Lamictal. The patient does not believe he had a seizure. He believes his hip caused him to fall down the stairs. He notes neck pain, hip pain, right toe pain, and back pain. He denies any abdominal pain. Source of History: patient, spouse/significant other Onset: between 2-3 pm Position: other (generalized) Quality: other (fall) Timing: other (episode) Associated Symptoms: + LOC, + neck pain, + back pain, No abdominal pain Review of Systems See HPI for pertinent positives and negatives. A total of ten systems were reviewed and were otherwise negative. Past Medical & Surgical Medical Problems: (1) Anxiety disorder (2) Arthritis (3) Bipolar disorder (4) Depression (5) Gastroesophageal reflux (6) history of spinal cord stimulator with removal (7) Lumbar stenosis (8) Seizure Surgical Problems: (1) History of appendectomy (2) History of cervical spinal surgery (3) History of lumbosacral spine surgery Family History Patient reports no known family medical history. Social History Smoking Status: Current Every Day Smoker Drug Use: none Marital Status: Housing Status: lives with family Occupation Status: disabled Current/Historical Medications Scheduled Eszopiclone (Lunesta), 3 MG PO HS Lamotrigine (Lamictal), 200 MG PO BID Levetiracetam (Keppra), 500 MG PO BID Scheduled PRN Ibuprofen (Motrin), 400 MG PO BID PRN for Pain Lidocaine (Lidocaine), 1 PATCH TD DAILY PRN for Pain Lorazepam (Ativan), 0.5 MG PO BID PRN for Anxiety Allergies Coded Allergies: Buspirone (Verified Allergy, Intermediate, Dizziness and agitation, 11/23/17 ) Bupropion (Verified Allergy, Mild, SEIZURE, 10/14/17) Sucralfate (Verified Allergy, Mild, HIVES, 10/14/17) Topiramate (Verified Allergy, Mild, SEVERE HEADACHE, 10/14/17) Valproic Acid (Verified Allergy, Mild, MAKE HIM FEEL LIKE HE GOES CRAZY AND UNABLE TO FUNCTION, 10/14/17) Tramadol (Verified Allergy, Unknown, Seizure, 11/23/17) Physical Exam Vital Signs Date Time Temp Pulse Resp B/P (MAP) Pulse Ox O2 Delivery O2 Flow Rate FiO2 11/23/17 20:45 73 16 110/77 97 11/23/17 20:03 64 16 106/65 94 Room Air 11/23/17 19:28 68 20 111/75 97 Room Air 11/23/17 18:43 56 18 118/66 96 Room Air 11/23/17 18:12 77 18 101/94 97 Room Air 11/23/17 18:01 61 11/23/17 17:13 37.3 66 18 118/73 97 Room Air Physical Exam GENERAL: Awake, alert, fatigued and uncomfortable-appearing, in no distress HENT: Normocephalic, atraumatic. Oropharynx unremarkable. Dry MM. EYES: Normal conjunctiva. Sclera non-icteric. NECK: Supple. No nuchal rigidity. FROM. No JVD. RESPIRATORY: Clear to auscultation. CARDIAC: Regular rate, normal rhythm. Extremities warm and well perfused. Pulses equal. ABDOMEN: Soft, non-distended. No tenderness to palpation. No rebound or guarding. No masses. RECTAL: Deferred. MUSCULOSKELETAL:Mild tenderness to the left hip with full ROM. Chest examination reveals no tenderness. Tenderness throughout CTL spine as well as upper bilateral back. The back is symmetrical on inspection without obvious abnormality. There is no CVA tenderness to palpation. No joint edema. LOWER EXTREMITIES: Calves are equal size bilaterally and non-tender. No edema. No discoloration. NEURO: Normal sensorium. No sensory or motor deficits noted. Tenderness to right great toe. SKIN: No rash or jaundice noted. Medical Decision & Procedures ER Provider Diagnostic Interpretation: Radiology results as stated below per my review and radiologist interpretation: R TOE(S) MIN 2 VIEWS FINDINGS: Mild to moderate degenerative changes of the first MTP joint. Bipartite medial hallux sesamoid. Mild soft tissue swelling about the first digit without acute fracture, dislocation or opaque foreign body. IMPRESSION: 1. Soft tissue swelling without acute fracture or dislocation. 2. Degenerative changes as above. The above report was generated using voice recognition software. It may contain grammatical, syntax or spelling errors. Electronically signed by: Kash Messer M.D. CHEST CT WITH CONTRAST, ABDOMEN AND PELVIS CT WITH CONTRAST HISTORY: Acute abdominal and chest pain status post fall pain fall TECHNIQUE: Multiaxial CT images of the chest, abdomen and pelvis were performed following the intravenous administration of contrast. A dose lowering technique was utilized adhering to the principles of ALARA. COMPARISON: None. FINDINGS: CT CHEST: Thyroid is homogeneous. No pathologic adenopathy. Heart is normal in size without pericardial effusion. Coronary arterial calcifications are noted. No thoracic aortic aneurysm or dissection. The imaged great vessels appear patent. The opacified pulmonary arterial tree is unremarkable. No pneumothorax or pleural effusion. Minimal paraseptal emphysematous changes of the lung apices with mild upper lobe prominent centrilobular emphysema. Mild dependent subsegmental bibasilar atelectasis. Central airways are patent. Soft tissues are unremarkable. No acute fracture. The ribs appear intact. No spinal or sternal fracture. Single lead from a spinal stenotic device is noted within the region of the posterior pleural space with distal tip terminating at the level of T10. The lead appears intact. CT ABDOMEN/PELVIS: Contracted gallbladder. Mild periportal edema, likely related to overhydration. Subcentimeter calcified granuloma of the hepatic dome. Spleen, pancreas and adrenal glands are within normal limits. Kidneys, ureters and bladder are unremarkable. Small bilateral fat filled hernias. No aortic aneurysm or pathologic adenopathy. No bowel obstruction or focal bowel wall thickening. No ascites or mesenteric inflammatory changes. Mild to moderate stool volume throughout the colon. Posterior changes about the cecum suggests prior appendectomy. Multiple nondilated fluid-filled loops of small bowel the central abdomen suggest ileus or enteritis. Bones appear intact. Discectomy changes with posterior interbody cornelia and screw fusion at L4-S1. Spinal stimulator lead is noted entering the region of the posterior epidural space at T12-L1. No associated battery pack. Hardware appears intact without fracture or malalignment. No acute fracture or dislocation. IMPRESSION: 1. No acute intrathoracic, intra-abdominal or intrapelvic abnormality identified. 2. No pneumoperitoneum or pneumothorax. No evidence of acute solid organ injury. 3. Mild emphysema. 4. Prior appendectomy. 5. Additional findings as above. Electronically signed by: Kash Messer M.D. CERVICAL SPINE W/O CT DOSE: 1048.49 mGy.cm CLINICAL HISTORY: 47 years-old Male with pain fall. Acute neck pain status post fall COMPARISON: CT head of same day. TECHNIQUE: Multiple axial CT images of the cervical spine were obtained without contrast. A dose lowering technique was utilized adhering to the principles of ALARA. FINDINGS: Anterior fusion with second changes at C5-C6 with bony fusion of the vertebral bodies. Moderate intervertebral disc space narrowing with circumferential disc osteophyte complex at C4-C5. Moderate to severe left-sided facet arthrosis at C7-T1 and T1-T2. Slight kyphotic curvature centered at C4-C5. No acute fracture or subluxation. Mastoid air cells and middle ear cavities are clear. No high-grade central canal narrowing. Lung apices are clear with minimal paraseptal emphysematous changes. Soft tissues are unremarkable. No prevertebral soft tissue swelling. IMPRESSION: 1. No acute fracture or subluxation. 2. Anterior fusion with discectomy changes at C5-C6. 3. Minimal paraseptal emphysema of the lung apices. The above report was generated using voice recognition software. It may contain grammatical, syntax or spelling errors. Electronically signed by: Kash Messer M.D. ] CHEST CT WITH CONTRAST, ABDOMEN AND PELVIS CT WITH CONTRAST HISTORY: Acute abdominal and chest pain status post fall pain fall TECHNIQUE: Multiaxial CT images of the chest, abdomen and pelvis were performed following the intravenous administration of contrast. A dose lowering technique was utilized adhering to the principles of ALARA. COMPARISON: None. FINDINGS: CT CHEST: Thyroid is homogeneous. No pathologic adenopathy. Heart is normal in size without pericardial effusion. Coronary arterial calcifications are noted. No thoracic aortic aneurysm or dissection. The imaged great vessels appear patent. The opacified pulmonary arterial tree is unremarkable. No pneumothorax or pleural effusion. Minimal paraseptal emphysematous changes of the lung apices with mild upper lobe prominent centrilobular emphysema. Mild dependent subsegmental bibasilar atelectasis. Central airways are patent. Soft tissues are unremarkable. No acute fracture. The ribs appear intact. No spinal or sternal fracture. Single lead from a spinal stenotic device is noted within the region of the posterior pleural space with distal tip terminating at the level of T10. The lead appears intact. CT ABDOMEN/PELVIS: Contracted gallbladder. Mild periportal edema, likely related to overhydration. Subcentimeter calcified granuloma of the hepatic dome. Spleen, pancreas and adrenal glands are within normal limits. Kidneys, ureters and bladder are unremarkable. Small bilateral fat filled hernias. No aortic aneurysm or pathologic adenopathy. No bowel obstruction or focal bowel wall thickening. No ascites or mesenteric inflammatory changes. Mild to moderate stool volume throughout the colon. Posterior changes about the cecum suggests prior appendectomy. Multiple nondilated fluid-filled loops of small bowel the central abdomen suggest ileus or enteritis. Bones appear intact. Discectomy changes with posterior interbody cornelia and screw fusion at L4-S1. Spinal stimulator lead is noted entering the region of the posterior epidural space at T12-L1. No associated battery pack. Hardware appears intact without fracture or malalignment. No acute fracture or dislocation. IMPRESSION: 1. No acute intrathoracic, intra-abdominal or intrapelvic abnormality identified. 2. No pneumoperitoneum or pneumothorax. No evidence of acute solid organ injury. 3. Mild emphysema. 4. Prior appendectomy. 5. Additional findings as above. Electronically signed by: Kash Messer M.D. HEAD WITHOUT CONTRAST (CT) CLINICAL HISTORY: 47 years-old Male with pain fall. Acute head injury status post fall TECHNIQUE: Multiple axial CT images of the head were obtained without contrast. A dose lowering technique was utilized adhering to the principles of ALARA. COMPARISON: CT head 06/21/2017. FINDINGS: No acute intracranial hemorrhage, midline shift, intracranial mass, hydrocephalus, territorial ischemia or abnormal extra-axial collection. The calvarium is intact. The paranasal sinuses, mastoid air cells, and middle ear cavities are clear. IMPRESSION: No acute intracranial abnormality. The above report was generated using voice recognition software. It may contain grammatical, syntax or spelling errors. Electronically signed by: Kash Messer M.D. THORACIC SPINE WITHOUT, LUMBAR SPINE WITHOUT HISTORY: 47 years-old Male pain fall acute thoracic lumbar spine pain status post fall COMPARISON: CT chest, abdomen and pelvis of same day TECHNIQUE: Multiple axial CT images of the thoracic and lumbar spine were obtained without the use of IV contrast. A dose lowering technique was used consistent with the principals of ALARA. FINDINGS: CT THORACIC SPINE: Mild levoscoliosis of the upper thoracic spine. No acute fracture or subluxation identified. Imaged ribs also appear intact. Mild multilevel endplate spurring without significant intervertebral disc space narrowing, central canal or foraminal narrowing identified. Single spinal stimulator lead overlies the posterior epidural space of the thoracic spine entering the central canal at T12-L1 with distal tip at the level of T8-T9. Mild edematous changes of the lungs. No acute paraspinal or intrathoracic abnormality. Fusion hardware of the cervical spine partially imaged. CT LUMBAR SPINE: Prior posterior decompression with discectomy and interbody cornelia and screw fusion at L4-S1. The hardware appears intact without evidence of complication. Moderate endplate spurring at L4. Mild multilevel endplate spurring with small posterior disc bulging and minimal facet arthrosis. Posterior disc bulge at L3-L4 flattens the ventral thecal sac without central canal narrowing. There is however mild to moderate left and moderate right foraminal narrowing at this level. No sacral fracture. The iliac bones appear intact. Single Spinal stimulator lead as above is noted with proximal portion within the subcutaneous tissues posterior to L3. There is an additional fractured catheter fragment measuring 3.2 cm within the adjacent subcutaneous tissues nicely seen on image 132 series 5. No acute process of the imaged intra-abdominal or intrapelvic structures. IMPRESSION: 1. No acute fracture or subluxation of the thoracic or lumbar spine. 2. Mild levoscoliosis of the upper thoracic spine with mild multilevel degenerative changes as above. 3. Prior posterior decompression with discectomy and interbody cornelia and screw fusion at L4-S1. No evidence of hardware complication or malalignment. 4. Fractured spinal stimulator lead within the region of the posterior epidural space of the thoracic spine as above with 3.2 cm fractured catheter component within the subcutaneous tissues posterior to the L3 vertebral body as above. 5. Mild emphysema. The above report was generated using voice recognition software. It may contain grammatical, syntax or spelling errors. Electronically signed by: Kash Messer M.D THORACIC SPINE WITHOUT, LUMBAR SPINE WITHOUT HISTORY: 47 years-old Male pain fall acute thoracic lumbar spine pain status post fall COMPARISON: CT chest, abdomen and pelvis of same day TECHNIQUE: Multiple axial CT images of the thoracic and lumbar spine were obtained without the use of IV contrast. A dose lowering technique was used consistent with the principals of JIMBO. FINDINGS: CT THORACIC SPINE: Mild levoscoliosis of the upper thoracic spine. No acute fracture or subluxation identified. Imaged ribs also appear intact. Mild multilevel endplate spurring without significant intervertebral disc space narrowing, central canal or foraminal narrowing identified. Single spinal stimulator lead overlies the posterior epidural space of the thoracic spine entering the central canal at T12-L1 with distal tip at the level of T8-T9. Mild edematous changes of the lungs. No acute paraspinal or intrathoracic abnormality. Fusion hardware of the cervical spine partially imaged. CT LUMBAR SPINE: Prior posterior decompression with discectomy and interbody cornelia and screw fusion at L4-S1. The hardware appears intact without evidence of complication. Moderate endplate spurring at L4. Mild multilevel endplate spurring with small posterior disc bulging and minimal facet arthrosis. Posterior disc bulge at L3-L4 flattens the ventral thecal sac without central canal narrowing. There is however mild to moderate left and moderate right foraminal narrowing at this level. No sacral fracture. The iliac bones appear intact. Single Spinal stimulator lead as above is noted with proximal portion within the subcutaneous tissues posterior to L3. There is an additional fractured catheter fragment measuring 3.2 cm within the adjacent subcutaneous tissues nicely seen on image 132 series 5. No acute process of the imaged intra-abdominal or intrapelvic structures. IMPRESSION: 1. No acute fracture or subluxation of the thoracic or lumbar spine. 2. Mild levoscoliosis of the upper thoracic spine with mild multilevel degenerative changes as above. 3. Prior posterior decompression with discectomy and interbody cornelia and screw fusion at L4-S1. No evidence of hardware complication or malalignment. 4. Fractured spinal stimulator lead within the region of the posterior epidural space of the thoracic spine as above with 3.2 cm fractured catheter component within the subcutaneous tissues posterior to the L3 vertebral body as above. 5. Mild emphysema. The above report was generated using voice recognition software. It may contain grammatical, syntax or spelling errors. Electronically signed by: Kash Messer M.D. Laboratory Results 11/23/17 17:49 Red Blood Count 4.27, Mean Corpuscular Volume 92.0, Mean Corpuscular Hemoglobin 31.9, Mean Corpuscular Hemoglobin Concent 34.6, Mean Platelet Volume 9.5, Neutrophils (%) (Auto) 59.5, Lymphocytes (%) (Auto) 27.2, Monocytes (%) (Auto) 11.8, Eosinophils (%) (Auto) 1.1, Basophils (%) (Auto) 0.3, Neutrophils # (Auto ) 4.43, Lymphocytes # (Auto) 2.02, Monocytes # (Auto) 0.88, Eosinophils # (Auto ) 0.08, Basophils # (Auto) 0.02 11/23/17 17:49 Test 11/23/17 17:49 11/23/17 18:30 White Blood Count 7.44 K/uL (4.8-10.8) Red Blood Count 4.27 M/uL (4.7-6.1) Hemoglobin 13.6 g/dL (14.0-18.0) Hematocrit 39.3 % (42-52) Mean Corpuscular Volume 92.0 fL (80-100) Mean Corpuscular Hemoglobin 31.9 pg (25-34) Mean Corpuscular Hemoglobin Concent 34.6 g/dl (32-36) Platelet Count 288 K/uL (130-400) Mean Platelet Volume 9.5 fL (7.4-10.4) Neutrophils (%) (Auto) 59.5 % Lymphocytes (%) (Auto) 27.2 % Monocytes (%) (Auto) 11.8 % Eosinophils (%) (Auto) 1.1 % Basophils (%) (Auto) 0.3 % Neutrophils # (Auto) 4.43 K/uL (1.4-6.5) Lymphocytes # (Auto) 2.02 K/uL (1.2-3.4) Monocytes # (Auto) 0.88 K/uL (0.11-0.59) Eosinophils # (Auto) 0.08 K/uL (0-0.5) Basophils # (Auto) 0.02 K/uL (0-0.2) RDW Standard Deviation 43.5 fL (36.4-46.3) RDW Coefficient of Variation 13.1 % (11.5-14.5) Immature Granulocyte % (Auto) 0.1 % Immature Granulocyte # (Auto) 0.01 K/uL (0.00-0.02) Anion Gap 6.0 mmol/L (3-11) Est Creatinine Clear Calc Drug Dose 99.3 ml/min Estimated GFR () 119.7 Estimated GFR (Non- 103.3 BUN/Creatinine Ratio 12.2 (10-20) Calcium Level 9.3 mg/dl (8.5-10.1) Total Bilirubin 0.4 mg/dl (0.2-1) Direct Bilirubin 0.2 mg/dl (0-0.2) Aspartate Amino Transf (AST/SGOT) 16 U/L (15-37) Alanine Aminotransferase (ALT/SGPT) 27 U/L (12-78) Alkaline Phosphatase 81 U/L (45-117) Total Protein 7.8 gm/dl (6.4-8.2) Albumin 4.6 gm/dl (3.4-5.0) Lipase 92 U/L (73-393) Urine Color YELLOW Urine Appearance CLEAR (CLEAR) Urine pH 7.5 (4.5-7.5) Urine Specific [place] 1.010 (1.000-1.030) Urine Protein NEG (NEG) Urine Glucose (UA) NEG (NEG) Urine Ketones NEG (NEG) Urine Occult Blood NEG (NEG) Urine Nitrite NEG (NEG) Urine Bilirubin NEG (NEG) Urine Urobilinogen NEG (NEG) Urine Leukocyte Esterase NEG (NEG) Laboratory results reviewed by me Medications Administered Medications (Trade) Dose Ordered Sig/Guido Route Start Time Stop Time Status Last Admin Dose Admin Sodium Chloride 1,000 ml @ 999 mls/hr Q1H1M STAT IV 11/23/17 17:34 5/6/18 18:34 DC 11/23/17 17:51 999 MLS/HR Acetaminophen 100 ml @ 400 mls/hr NOW STAT IV 11/23/17 17:34 11/23/17 17:48 DC 11/23/17 17:51 400 MLS/HR Lidocaine (Lidoderm Patch 5%) 1 patch NOW STAT TD 11/23/17 17:34 11/23/17 17:39 DC 11/23/17 17:50 1 PATCH Ketorolac Tromethamine (Toradol Inj) 15 mg NOW STAT IV 11/23/17 19:46 11/23/17 19:47 DC 11/23/17 20:01 15 MG ECG Per My Interpretation Indication: syncope Rate (beats per minute): 64 Rhythm: sinus with SA Findings: no acute ischemic change, other (normal axis) ED Course 1722: The patient was evaluated in room C4. A complete history and physical exam was performed. 2014: I updated the patient on his test results. He is resting comfortably. 2023: I reevaluated the patient. Discussed results and discharge instructions: He verbalized understanding and agreement. The patient is ready for discharge. Medical Decision I reviewed the patient's past medical history, medications, and the nursing notes as described above. Differential diagnosis: Etiologies such as fracture, dislocation, intra-abdominal, pneumothorax, intrathoracic , intracranial, neurologic, vasovagal event, infection, hypoglycemia, electrolyte abnormalities, cardiac sources, intracerebral event, toxicologic, neurologic, as well as others were entertained. The patient is a 47-year-old gentleman with a past medical history of seizure disorder as well as chronic back pain status post multiple fusions and failed pain stimulator followed by pain clinic who presents emergency department after having a fall down his eighth steps with LOC per hpi. While the patient is fatigued and uncomfortable but no acute distress, afebrile stable vital signs. EKG unremarkable. 5 out of 5 strength and SILT bilateral lower extremities. Patient has tenderness throughout the CTL spine. No step-offs. No contusions or hematomas. Patient is neuro intact including insert exam cerebellar. CT of the head, chest, abdomen pelvis and CT L-spine unremarkable for acute findings. Labs unremarkable. Plan for PCP follow-up. Findings and plan for follow-up reviewed with patient. Patient agreeable and d/c'd per discharge instructions. Medication Reconcilliation Current Medication List: was personally reviewed by me Blood Pressure Screening Patient's blood pressure: Normal blood pressure Impression Primary Impression: Fall Additional Impressions: Muscular aches Concussion Scribe Attestation The scribe's documentation has been prepared under my direction and personally reviewed by me in its entirety. I confirm that the note above accurately reflects all work, treatment, procedures, and medical decision making performed by me. Departure Information Dispostion Home / Self-Care Prescriptions Lidocaine (Lidocaine) 1 Patch Tdsy 1 PATCH TD DAILY Y for Pain, #10 PATCH Prov: Josh Mckeon M.D. 11/23/17 Referrals Michael Velasquez D.O. (PCP) Forms HOME CARE DOCUMENTATION FORM, IMPORTANT VISIT INFORMATION Patient Instructions ED Concussion, ED Fall Uncertain Cause, ED Muscle Aching, My [facility] Additional Instructions Please follow up with your primary care physician in the next 1-3 days for re- evaluation. Your symptoms most likely related to muscular strain/aching after fall. The cause of your fall is unclear at this time but may be related to your chronic back pain. You may also have a mild concussion. Otherwise, your exam, EKG, lab results, and CT scan of your head, chest, abdomen and pelvis, entire spine did not show signs of an emergent condition at this time. Continue your current medications. Lidoderm patch for additional pain relief as needed. Avoid sensory stimulus to minimize concussion symptoms. Drink plenty of fluids to ensure hydration. Return to the emergency department for worsening symptoms as described in the accompanying instructions. Problem Qualifiers
[2017-11-23 18:02] LABS: BASO % 0.3 %; BASO ABS # 0.02 K/uL (0-0.2); EOS % 1.1 %; EOS ABS # 0.08 K/uL (0-0.5); HEMATOCRIT 39.3 % (42-52); HEMOGLOBIN 13.6 g/dL (14.0-18.0); IG# 0.01 K/uL (0.00-0.02); LYMPH % 27.2 %; LYMPH ABS # 2.02 K/uL (1.2-3.4); MEAN CORPUSCULAR HEMOGLOBIN 31.9 pg (25-34); MEAN CORPUSCULAR HGB CONC 34.6 g/dl (32-36); MEAN PLATELET VOLUME 9.5 fL (7.4-10.4); MONO % 11.8 %; MONO ABS # 0.88 K/uL (0.11-0.59); NEUT % 59.5 %; NEUT ABS # 4.43 K/uL (1.4-6.5); PLATELET COUNT 288 K/uL (130-400); RED CELL DISTRIBUTION WIDTH CV 13.1 % (11.5-14.5); RED CELL DISTRIBUTION WIDTH SD 43.5 fL (36.4-46.3); WHITE BLOOD COUNT 7.44 K/uL (4.8-10.8)
--- NOTE | 2017-11-23 18:15 | DIAGNOSTIC IMAGING REPORT ---
R TOE(S) MIN 2 VIEWS HISTORY: 47 years-old Male right great toe pain fall acute right great toe pain status post fall COMPARISON: None available TECHNIQUE: 3 views of the right great toe FINDINGS: Mild to moderate degenerative changes of the first MTP joint. Bipartite medial hallux sesamoid. Mild soft tissue swelling about the first digit without acute fracture, dislocation or opaque foreign body. IMPRESSION: 1. Soft tissue swelling without acute fracture or dislocation. 2. Degenerative changes as above. The above report was generated using voice recognition software. It may contain grammatical, syntax or spelling errors. Electronically signed by: Kash Messer M.D. 11/23/2017 6:14 PM Dictated Date/Time: 11/23/2017 6:13 PM
[2017-11-23 18:18] LABS: ALBUMIN 4.6 gm/dl (3.4-5.0); CALCIUM 9.3 mg/dl (8.5-10.1); CREATININE 0.86 mg/dl (0.60-1.40); POTASSIUM 3.8 mmol/L (3.5-5.1)
[2017-11-23 18:21] LABS: TOTAL PROTEIN 7.8 gm/dl (6.4-8.2)
--- NOTE | 2017-11-23 19:31 | DIAGNOSTIC IMAGING REPORT ---
HEAD WITHOUT CONTRAST (CT) CLINICAL HISTORY: 47 years-old Male with pain fall. Acute head injury status post fall TECHNIQUE: Multiple axial CT images of the head were obtained without contrast. A dose lowering technique was utilized adhering to the principles of ALARA. COMPARISON: CT head 06/21/2017. FINDINGS: No acute intracranial hemorrhage, midline shift, intracranial mass, hydrocephalus, territorial ischemia or abnormal extra-axial collection. The calvarium is intact. The paranasal sinuses, mastoid air cells, and middle ear cavities are clear. IMPRESSION: No acute intracranial abnormality. The above report was generated using voice recognition software. It may contain grammatical, syntax or spelling errors. Electronically signed by: Kash Messer M.D. 11/23/2017 7:29 PM Dictated Date/Time: 11/23/2017 7:28 PM
--- NOTE | 2017-11-23 19:34 | DIAGNOSTIC IMAGING REPORT ---
CERVICAL SPINE W/O CT DOSE: 1048.49 mGy.cm CLINICAL HISTORY: 47 years-old Male with pain fall. Acute neck pain status post fall COMPARISON: CT head of same day. TECHNIQUE: Multiple axial CT images of the cervical spine were obtained without contrast. A dose lowering technique was utilized adhering to the principles of ALARA. FINDINGS: Anterior fusion with second changes at C5-C6 with bony fusion of the vertebral bodies. Moderate intervertebral disc space narrowing with circumferential disc osteophyte complex at C4-C5. Moderate to severe left-sided facet arthrosis at C7-T1 and T1-T2. Slight kyphotic curvature centered at C4-C5. No acute fracture or subluxation. Mastoid air cells and middle ear cavities are clear. No high-grade central canal narrowing. Lung apices are clear with minimal paraseptal emphysematous changes. Soft tissues are unremarkable. No prevertebral soft tissue swelling. IMPRESSION: 1. No acute fracture or subluxation. 2. Anterior fusion with discectomy changes at C5-C6. 3. Minimal paraseptal emphysema of the lung apices. The above report was generated using voice recognition software. It may contain grammatical, syntax or spelling errors. Electronically signed by: Kash Messer M.D. 11/23/2017 7:33 PM Dictated Date/Time: 11/23/2017 7:30 PM
[2017-11-23] MEDS ORDERED: KETOROLAC TROMETHAMINE 30 MG/ML VIAL IV STA (19:46)
--- NOTE | 2017-11-23 19:55 | DIAGNOSTIC IMAGING REPORT ---
CHEST CT WITH CONTRAST, ABDOMEN AND PELVIS CT WITH CONTRAST HISTORY: Acute abdominal and chest pain status post fall pain fall TECHNIQUE: Multiaxial CT images of the chest, abdomen and pelvis were performed following the intravenous administration of contrast. A dose lowering technique was utilized adhering to the principles of ALARA. COMPARISON: None. FINDINGS: CT CHEST: Thyroid is homogeneous. No pathologic adenopathy. Heart is normal in size without pericardial effusion. Coronary arterial calcifications are noted. No thoracic aortic aneurysm or dissection. The imaged great vessels appear patent. The opacified pulmonary arterial tree is unremarkable. No pneumothorax or pleural effusion. Minimal paraseptal emphysematous changes of the lung apices with mild upper lobe prominent centrilobular emphysema. Mild dependent subsegmental bibasilar atelectasis. Central airways are patent. Soft tissues are unremarkable. No acute fracture. The ribs appear intact. No spinal or sternal fracture. Single lead from a spinal stenotic device is noted within the region of the posterior pleural space with distal tip terminating at the level of T10. The lead appears intact. CT ABDOMEN/PELVIS: Contracted gallbladder. Mild periportal edema, likely related to overhydration. Subcentimeter calcified granuloma of the hepatic dome. Spleen, pancreas and adrenal glands are within normal limits. Kidneys, ureters and bladder are unremarkable. Small bilateral fat filled hernias. No aortic aneurysm or pathologic adenopathy. No bowel obstruction or focal bowel wall thickening. No ascites or mesenteric inflammatory changes. Mild to moderate stool volume throughout the colon. Posterior changes about the cecum suggests prior appendectomy. Multiple nondilated fluid-filled loops of small bowel the central abdomen suggest ileus or enteritis. Bones appear intact. Discectomy changes with posterior interbody cornelia and screw fusion at L4-S1. Spinal stimulator lead is noted entering the region of the posterior epidural space at T12-L1. No associated battery pack. Hardware appears intact without fracture or malalignment. No acute fracture or dislocation. IMPRESSION: 1. No acute intrathoracic, intra-abdominal or intrapelvic abnormality identified. 2. No pneumoperitoneum or pneumothorax. No evidence of acute solid organ injury. 3. Mild emphysema. 4. Prior appendectomy. 5. Additional findings as above. Electronically signed by: Kash Messer M.D. 11/23/2017 7:53 PM Dictated Date/Time: 11/23/2017 7:43 PM
--- NOTE | 2017-11-23 20:04 | DIAGNOSTIC IMAGING REPORT ---
THORACIC SPINE WITHOUT, LUMBAR SPINE WITHOUT HISTORY: 47 years-old Male pain fall acute thoracic lumbar spine pain status post fall COMPARISON: CT chest, abdomen and pelvis of same day TECHNIQUE: Multiple axial CT images of the thoracic and lumbar spine were obtained without the use of IV contrast. A dose lowering technique was used consistent with the principals of JIMBO. FINDINGS: CT THORACIC SPINE: Mild levoscoliosis of the upper thoracic spine. No acute fracture or subluxation identified. Imaged ribs also appear intact. Mild multilevel endplate spurring without significant intervertebral disc space narrowing, central canal or foraminal narrowing identified. Single spinal stimulator lead overlies the posterior epidural space of the thoracic spine entering the central canal at T12-L1 with distal tip at the level of T8-T9. Mild edematous changes of the lungs. No acute paraspinal or intrathoracic abnormality. Fusion hardware of the cervical spine partially imaged. CT LUMBAR SPINE: Prior posterior decompression with discectomy and interbody cornelia and screw fusion at L4-S1. The hardware appears intact without evidence of complication. Moderate endplate spurring at L4. Mild multilevel endplate spurring with small posterior disc bulging and minimal facet arthrosis. Posterior disc bulge at L3-L4 flattens the ventral thecal sac without central canal narrowing. There is however mild to moderate left and moderate right foraminal narrowing at this level. No sacral fracture. The iliac bones appear intact. Single Spinal stimulator lead as above is noted with proximal portion within the subcutaneous tissues posterior to L3. There is an additional fractured catheter fragment measuring 3.2 cm within the adjacent subcutaneous tissues nicely seen on image 132 series 5. No acute process of the imaged intra-abdominal or intrapelvic structures. IMPRESSION: 1. No acute fracture or subluxation of the thoracic or lumbar spine. 2. Mild levoscoliosis of the upper thoracic spine with mild multilevel degenerative changes as above. 3. Prior posterior decompression with discectomy and interbody cornelia and screw fusion at L4-S1. No evidence of hardware complication or malalignment. 4. Fractured spinal stimulator lead within the region of the posterior epidural space of the thoracic spine as above with 3.2 cm fractured catheter component within the subcutaneous tissues posterior to the L3 vertebral body as above. 5. Mild emphysema. The above report was generated using voice recognition software. It may contain grammatical, syntax or spelling errors. Electronically signed by: Kash Messer M.D. 11/23/2017 8:03 PM Dictated Date/Time: 11/23/2017 7:54 PM
[2017-11-23] MEDS ORDERED: LDDP5 TD (20:13)
[2017-11-23 20:45] VITALS: BP 110/77; PULSE 73; O2SAT 97
[2017-11-25] MEDS ORDERED: ESZO1TAB16 PO (13:21)
[2017-11-25] MEDS ORDERED: LAMO100T PO (13:21)
[2017-11-25] MEDS ORDERED: IBUP-1459 PO (14:03)
[2017-11-25] MEDS ORDERED: LORA-741 PO (17:29)
[2017-11-25] MEDS ORDERED: LEVE500T13 PO (17:48)
== END 2017-11-23 20:46 | disposition home or self-care (01) ==
LOC: C.EDB 17:10 → C.EDC 20:46
DX: S06.0X9A Concussion with loss of consciousness of unspecified duration, initial encounter (principal); W10.9XXA Fall (on) (from) unspecified stairs and steps, initial encounter; Y92.008 Other place in unspecified non-institutional (private) residence as the place of occurrence of the external cause; M79.1 Myalgia; Z98.1 Arthrodesis status; M54.5 Low back pain; G89.29 Other chronic pain; G40.909 Epilepsy, unspecified, not intractable, without status epilepticus; Z79.899 Other long term (current) drug therapy; F41.9 Anxiety disorder, unspecified; F31.9 Bipolar disorder, unspecified; M19.90 Unspecified osteoarthritis, unspecified site; K21.9 Gastro-esophageal reflux disease without esophagitis; F17.210 Nicotine dependence, cigarettes, uncomplicated; Z88.8 Allergy status to other drugs, medicaments and biological substances

== ENCOUNTER 2017-11-25 20:22 | Emergency (ER) | payer OTHER ==
[~2017-11-25] VITALS: Ht 170.2 cm; Wt 67.3 kg
[~2017-11-25 20:22] MED LIST changes: +ESZO1TAB16 PO; +IBUP-1459 PO; +LAMO100T PO; +LDDP5 TD; +LEVE500T13 PO; -LEVE750T PO; +LORA-741 PO
[2017-11-25 20:26] VITALS: TEMP 36.8; Ht 170.2 cm; Wt 67.3 kg
[2017-11-25] MEDS ORDERED: MoRPHine SULFATE 4 MG/ML 1 ML CARP\\VIAL IV STA (20:38)
[2017-11-25] MEDS ORDERED: ONDANSETRON INJ 2 MG/ML 2 ML VIAL IV STA (20:38)
[2017-11-25] MEDS ORDERED: ACETAMINOPHEN 325 MG TAB PO STA (20:38)
[2017-11-25] MEDS ORDERED: SODIUM CHLORIDE 0.9% 1000ML 1,000 ML IV STA (20:38)
[2017-11-25 21:20] LABS: HEMATOCRIT 39.9 % (42-52); HEMOGLOBIN 14.1 g/dL (14.0-18.0); MEAN CELL VOLUME 91.7 fL (80-100); MEAN CORPUSCULAR HEMOGLOBIN 32.4 pg (25-34); MEAN CORPUSCULAR HGB CONC 35.3 g/dl (32-36); MEAN PLATELET VOLUME 9.7 fL (7.4-10.4); PLATELET COUNT 298 K/uL (130-400); RED CELL DISTRIBUTION WIDTH SD 43.7 fL (36.4-46.3); WHITE BLOOD COUNT 7.44 K/uL (4.8-10.8)
--- NOTE | 2017-11-25 21:25 | EMERGENCY ROOM VISIT NOTE ---
History Report prepared by Demetris: Rashi Rodriguez Under the Supervision of: Dr. Filippo Overton M.D. First contact with patient: 20:29 Chief Complaint: HEADACHE Stated Complaint: HEADACHE, VOMITING, CONFUSION, DIZZY History of Present Illness The patient is a 47 year old male who presents to the Emergency Room with complaints of a constant headache beginning a few days ago. The patient states he was evaluated in the ED two days ago. He reports he is back because his symptoms have been constant and have not gone away. The patient notes in addition to his headache, he has been experiencing confusion, vision changes, vomiting, and the inability to sleep. He states he cannot eat anything because he vomits it back up. The patient reports he called his neurologist and PCP and was told to come back to the ED. The patient states he has been taking Motrin for pain, and it is not working. Review of EMR states the patient was here on the 23 of November. He had a CT of the head, neck, chest, abdomen/pelvis, thoracic spine, and lumbar spine. All of his scans were negative for acute injury. Source of History: patient Onset: few days ago Position: head Quality: ache Timing: constant Associated Symptoms: + vomiting Note: Associated symptoms: vision changes, confusion, inability to sleep Review of Systems See HPI for pertinent positives & negatives. A total of 10 systems reviewed and were otherwise negative. Past Medical & Surgical Medical Problems: (1) Anxiety disorder (2) Arthritis (3) Bipolar disorder (4) Depression (5) Gastroesophageal reflux (6) history of spinal cord stimulator with removal (7) Lumbar stenosis (8) Seizure Surgical Problems: (1) History of appendectomy (2) History of cervical spinal surgery (3) History of lumbosacral spine surgery Family History Cancer FH: heart disease Hypertension Kidney disease Kidney stones Social History Smoking Status: Current Every Day Smoker Drug Use: none Marital Status: Housing Status: lives with family Occupation Status: disabled Current/Historical Medications Scheduled Eszopiclone (Lunesta), 3 MG PO HS Lamotrigine (Lamictal), 200 MG PO BID Levetiracetam (Keppra), 500 MG PO BID Ondasetron Odt (Zofran Odt), 4 MG SL Q6H Scheduled PRN Ibuprofen (Motrin), 400 MG PO BID PRN for Pain Lorazepam (Ativan), 0.5 MG PO BID PRN for Anxiety Allergies Coded Allergies: Buspirone (Verified Allergy, Intermediate, Dizziness and agitation, 11/23/17 ) Bupropion (Verified Allergy, Mild, SEIZURE, 10/14/17) Sucralfate (Verified Allergy, Mild, HIVES, 10/14/17) Topiramate (Verified Allergy, Mild, SEVERE HEADACHE, 10/14/17) Valproic Acid (Verified Allergy, Mild, MAKE HIM FEEL LIKE HE GOES CRAZY AND UNABLE TO FUNCTION, 10/14/17) Tramadol (Verified Allergy, Unknown, Seizure, 11/23/17) Physical Exam Vital Signs Date Time Temp Pulse Resp B/P (MAP) Pulse Ox O2 Delivery O2 Flow Rate FiO2 11/25/17 23:15 57 15 107/64 95 11/25/17 22:12 57 20 101/63 95 Room Air 11/25/17 20:26 36.8 66 20 118/75 96 Room Air Physical Exam GENERAL: Patient is in no acute distress. HEENT: No acute trauma, normocephalic atraumatic, mucous membranes moist, no nasal congestion, no scleral icterus. Pupils are equal and reactive to light. NECK: No stridor, no adenopathy, no meningismus, trachea is midline. LUNGS: Clear to auscultation bilaterally, no wheeze, no rhonchi, breath sounds equal. HEART: Without murmurs gallops or rubs, regular rate and rhythm. ABDOMEN: Soft, nontender, bowel sounds positive, no hernias, no peritonitis. EXTREMITIES: No cyanosis or edema, full range of motion of all the joints without pain or difficulty, no signs for acute trauma. NEUROLOGIC: Oriented x 3, no acute motor or sensory deficits, no focal weakness. No cerebellar deficit. SKIN: No rash, no jaundice, no diaphoresis. Medical Decision & Procedures ER Provider Diagnostic Interpretation: CT results as stated below per my review and radiologist interpretation: CT HEAD WITHOUT CONTRAST (CT) CLINICAL HISTORY: headache, trauma COMPARISON STUDY: 11/23/2017 TECHNIQUE: Axial CT of the brain is performed from the vertex to the skull base. IV contrast was not administered for this examination. A dose lowering technique was utilized adhering to the principles of ALARA. CT DOSE: 614.27 mGy.cm FINDINGS: No intra or extra-axial mass lesions are visualized. There is no CT evidence of acute cortical infarction. There is no evidence of midline shift. There is no acute hemorrhage. No calvarial fractures are visualized. There is no evidence of pathologic ventricular dilatation. There is no evidence of acute sinusitis IMPRESSION: No acute intracranial findings Electronically signed by: Wally Perez M.D. 11/25/2017 9:37 PM Dictated Date/Time: 11/25/2017 9:35 PM Laboratory Results 11/25/17 21:07 11/25/17 21:07 Test 11/25/17 21:07 Red Blood Count 4.35 M/uL (4.7-6.1) Mean Corpuscular Volume 91.7 fL (80-100) Mean Corpuscular Hemoglobin 32.4 pg (25-34) Mean Corpuscular Hemoglobin Concent 35.3 g/dl (32-36) RDW Standard Deviation 43.7 fL (36.4-46.3) RDW Coefficient of Variation 13.0 % (11.5-14.5) Mean Platelet Volume 9.7 fL (7.4-10.4) Anion Gap 6.0 mmol/L (3-11) Est Creatinine Clear Calc Drug Dose 93.8 ml/min Estimated GFR () 115.9 Estimated GFR (Non- 100.0 BUN/Creatinine Ratio 13.0 (10-20) Calcium Level 9.1 mg/dl (8.5-10.1) Laboratory results reviewed by me. Medications Administered Medications (Trade) Dose Ordered Sig/Guido Route Start Time Stop Time Status Last Admin Dose Admin Sodium Chloride 1,000 ml @ 999 mls/hr Q1H1M STAT IV 11/25/17 20:38 11/25/17 21:38 DC 11/25/17 21:10 999 MLS/HR Ondansetron HCl (Zofran Inj) 4 mg NOW STAT IV 11/25/17 20:38 11/25/17 20:41 DC 11/25/17 21:11 4 MG Acetaminophen (Tylenol Tab) 650 mg NOW STAT PO 11/25/17 20:38 11/25/17 20:41 DC 11/25/17 21:11 650 MG Morphine Sulfate (MoRPHine SULFATE INJ) 4 mg NOW STAT IV 11/25/17 20:38 11/25/17 20:41 DC 11/25/17 21:10 4 MG Ondansetron HCl (ZOFRAN ODT 4MG Home Pack) 1 homepack UD ONCE PO 11/25/17 23:00 11/25/17 23:01 DC 11/25/17 23:09 1 HOMEPACK Oxycodone HCl (Roxicodone Immediate Rel 5MG Home Pack) 1 homepack UD ONCE PO 11/25/17 23:00 11/25/17 23:01 DC 11/25/17 23:09 1 HOMEPACK ED Course 2033: The patient was evaluated in room C06. A complete history and physical exam was performed. 2037: Ordered Morphine Sulfate 4mg IV, Acetaminophen 650mg PO, Ondansetron HCl 4mg IV, Sodium Chloride 1000 ml @ 999 mls/hr IV 2251: Reevaluated the patient. Discussed results and discharge instructions: he verbalized understanding and agreement. The patient is ready for discharge when he receives his medication. 2299: Ordered Oxycodone HCl 1 homepack PO, Ondansetron HCl 1 homepack PO Medical Decision The patient is a 47 year old male who presents to the ED with complaints of constant headache. Differential diagnoses considered include concussion, dehydration, electrolyte imbalance, intracranial bleeding, skull fracture, post concussive syndrome. There is no leukocytosis or concerning anemia. No significant electrolyte abnormality, no kidney failure. Brain CT shows no acute bleed or mass-effect. On exam, the patient had no focal neurologic deficits. He was not febrile or toxic. The patient was given IV saline, IV Zofran and IV morphine. He seems more comfortable. He did receive oral Tylenol. The patient has a headache and symptoms from what I believe is a concussion. He was referred back to neurology and I did suggest seeing a concussion clinic. Patient was given a prescription for Zofran, he will use [id number] pain meds as before. He was given a home pack of oxycodone for severe discomfort. No narcotic prescriptions were written. Patient was encouraged to return if worsening. Medication Reconcilliation Current Medication List: was personally reviewed by me Blood Pressure Screening Patient's blood pressure: Normal blood pressure Blood pressure disposition: Did not require urgent referral Impression Primary Impression: Concussion Additional Impression: Headache Scribe Attestation The scribe's documentation has been prepared under my direction and personally reviewed by me in its entirety. I confirm that the note above accurately reflects all work, treatment, procedures, and medical decision making performed by me. Departure Information Dispostion Home / Self-Care Prescriptions Ondasetron Odt (ZOFRAN ODT) 4 Mg Tab 4 MG SL Q6H for Nausea, #15 TAB Prov: Filippo Overton M.D. 11/25/17 Referrals No Doctor, Assigned (PCP) Forms HOME CARE DOCUMENTATION FORM, IMPORTANT VISIT INFORMATION Patient Instructions Concussion, My [facility] Additional Instructions motrin or tylenol for pain oxy ir 1 tab as needed for severe pain every 4 hours stay well hydrated rest zofran 1 tab every 6 hours for nausea follow with neurology consider talking with [place] or [facility] orthopedics for there concussion treatments Problem Qualifiers
--- NOTE | 2017-11-25 21:38 | DIAGNOSTIC IMAGING REPORT ---
CT HEAD WITHOUT CONTRAST (CT) CLINICAL HISTORY: headache, trauma COMPARISON STUDY: 11/23/2017 TECHNIQUE: Axial CT of the brain is performed from the vertex to the skull base. IV contrast was not administered for this examination. A dose lowering technique was utilized adhering to the principles of ALARA. CT DOSE: 614.27 mGy.cm FINDINGS: No intra or extra-axial mass lesions are visualized. There is no CT evidence of acute cortical infarction. There is no evidence of midline shift. There is no acute hemorrhage. No calvarial fractures are visualized. There is no evidence of pathologic ventricular dilatation. There is no evidence of acute sinusitis IMPRESSION: No acute intracranial findings Electronically signed by: Wally Perez M.D. 11/25/2017 9:37 PM Dictated Date/Time: 11/25/2017 9:35 PM
[2017-11-25 22:08] LABS: CALCIUM 9.1 mg/dl (8.5-10.1); CREATININE 0.91 mg/dl (0.60-1.40)
[2017-11-25] MEDS ORDERED: ONDA4TAB10 SL (22:58)
[2017-11-25] MEDS ORDERED: ONDANSETRON HOME PACK 4MG OD TAB PO ONE (23:00)
[2017-11-25] MEDS ORDERED: OXYCODONE IR HOME PACK PO ONE (23:00)
[2017-11-25 23:15] VITALS: BP 107/64; PULSE 57; O2SAT 95
== END 2017-11-25 23:15 | disposition home or self-care (01) ==
LOC: C.EDB 20:23 → C.EDC 23:15
DX: S06.0X0D Concussion without loss of consciousness, subsequent encounter (principal); X58.XXXD Exposure to other specified factors, subsequent encounter; F41.9 Anxiety disorder, unspecified; F31.9 Bipolar disorder, unspecified; K21.9 Gastro-esophageal reflux disease without esophagitis; G40.909 Epilepsy, unspecified, not intractable, without status epilepticus; F17.210 Nicotine dependence, cigarettes, uncomplicated; Z79.899 Other long term (current) drug therapy; Z88.8 Allergy status to other drugs, medicaments and biological substances

== ENCOUNTER 2018-03-03 14:13 | Emergency (ER) | payer OTHER ==
[~2018-03-03] VITALS: Ht 170.2 cm; Wt 65.1 kg
[~2018-03-03 14:13] MED LIST changes: -LDDP5 TD; +ONDA4TAB10 SL
[2018-03-03 14:25] VITALS: Ht 170.2 cm; Wt 65.1 kg
[2018-03-03 15:00] LABS: BASO % 0.4 %; BASO ABS # 0.02 K/uL (0-0.2); EOS ABS # 0.11 K/uL (0-0.5); HEMATOCRIT 42.4 % (42-52); HEMOGLOBIN 14.9 g/dL (14.0-18.0); IG# 0.01 K/uL (0.00-0.02); LYMPH % 32.2 %; LYMPH ABS # 1.73 K/uL (1.2-3.4); MEAN CELL VOLUME 95.3 fL (80-100); MEAN CORPUSCULAR HEMOGLOBIN 33.5 pg (25-34); MEAN CORPUSCULAR HGB CONC 35.1 g/dl (32-36); MEAN PLATELET VOLUME 9.6 fL (7.4-10.4); MONO % 12.7 %; MONO ABS # 0.68 K/uL (0.11-0.59); NEUT % 52.5 %; NEUT ABS # 2.82 K/uL (1.4-6.5); PLATELET COUNT 274 K/uL (130-400); RED CELL DISTRIBUTION WIDTH CV 13.2 % (11.5-14.5); RED CELL DISTRIBUTION WIDTH SD 45.7 fL (36.4-46.3); WHITE BLOOD COUNT 5.37 K/uL (4.8-10.8)
[2018-03-03 15:28] LABS: ALBUMIN 4.1 gm/dl (3.4-5.0); CALCIUM 8.9 mg/dl (8.5-10.1); CREATININE 0.78 mg/dl (0.60-1.40); POTASSIUM 3.8 mmol/L (3.5-5.1); TOTAL PROTEIN 7.3 gm/dl (6.4-8.2)
[2018-03-03] MEDS ORDERED: QUET1TAB11 PO (16:33)
[2018-03-03] MEDS ORDERED: QUET1TAB34 PO (16:35)
[2018-03-03] MEDS ORDERED: LORAZEPAM 1 MG TAB SL STA (16:42)
--- NOTE | 2018-03-03 16:42 | EMERGENCY ROOM VISIT NOTE ---
History Report prepared by Demetris: Jean Carlos Vergara Under the Supervision of: Dr. Colin Alonso D.O. First contact with patient: 14:29 Chief Complaint: MENTAL HEALTH EVALUATION Stated Complaint: DEPRESSION, HALLUCINATIONS History of Present Illness The patient is a 47 year old male who presents to the Emergency Room with complaints of worsening auditory hallucinations that he has been experiencing for the past month. The patient's fiance notes that he has been following with a psychologist and was recently referred to a psychiatrist who started him on Seroquel. This dosage was then increased further and he is still having problems with insomnia. The patient notes that he is hearing voices that are telling him to hurt people, but not kill them. The states that the patient told her tearfully this morning that the voices were "more commanding as to hurt people." He adds that the voices are telling to hurt anybody he sees. The patient has a history of PTSD, bipolar disorder, depression, and OCD. He has absolutely no physical complaints at this time. He is voluntary for a psychiatric inpatient stay. Source of History: patient Onset: 1 month Position: head Quality: other (auditory hallucinations) Timing: worsening Note: No physical complaints. Review of Systems See HPI for pertinent positives & negatives. A total of 10 systems reviewed and were otherwise negative. Past Medical & Surgical Medical Problems: (1) Anxiety disorder (2) Arthritis (3) Bipolar disorder (4) Depression (5) Gastroesophageal reflux (6) history of spinal cord stimulator with removal (7) Lumbar stenosis (8) Seizure Surgical Problems: (1) History of appendectomy (2) History of cervical spinal surgery (3) History of lumbosacral spine surgery Family History Cancer FH: heart disease Hypertension Kidney disease Kidney stones Social History Smoking Status: Current Every Day Smoker Drug Use: none Marital Status: Housing Status: lives with family Occupation Status: disabled Current/Historical Medications Scheduled Lamotrigine (Lamictal), 200 MG PO BID Levetiracetam (Keppra), 500 MG PO BID Quetiapine Fumarate (Seroquel), 600 MG PO HS Scheduled PRN Quetiapine Fumarate (Seroquel), 100 MG PO Q8 PRN for UNDECIDED Allergies Coded Allergies: Buspirone (Verified Allergy, Intermediate, Dizziness and agitation, ) Bupropion (Verified Allergy, Mild, SEIZURE, 01/14/18) Sucralfate (Verified Allergy, Mild, HIVES, 01/14/18) Topiramate (Verified Allergy, Mild, SEVERE HEADACHE, 01/14/18) Valproic Acid (Verified Allergy, Mild, MAKE HIM FEEL LIKE HE GOES CRAZY AND UNABLE TO FUNCTION, 01/14/18) Tramadol (Verified Allergy, Unknown, Seizure, 01/14/18) Physical Exam Vital Signs Date Time Temp Pulse Resp B/P (MAP) Pulse Ox O2 Delivery O2 Flow Rate FiO2 03/03/18 14:25 36.8 72 16 123/78 98 Room Air Physical Exam GENERAL: Sitting up in bed, alert, well appearing, well nourished, no distress, non-toxic EYE EXAM: normal conjunctiva. OROPHARYNX: no exudate, no erythema, lips, buccal mucosa, and tongue normal and mucous membranes are moist NECK: supple, no nuchal rigidity, no adenopathy, non-tender LUNGS: Clear to auscultation. Normal chest wall mechanics HEART: no murmurs, S1 normal and S2 normal ABDOMEN: abdomen soft, non-tender, normo-active bowel sounds, no masses, no rebound or guarding. BACK: Back is symmetrical on inspection and there is no deformity, no midline tenderness, no CVA tenderness. SKIN: no rashes and no bruising UPPER EXTREMITIES: upper extremities are grossly normal. LOWER EXTREMITIES: No pitting edema. NEURO EXAM: Normal sensorium, cranial nerves II-XII grossly intact, normal speech, no gross weakness of arms, no gross weakness of legs. PSYCH: Flat affect. Patient confirms auditory hallucinations. Positive homicidal , negative suicidal. Medical Decision & Procedures Laboratory Results 03/03/18 14:47 Red Blood Count 4.45, Mean Corpuscular Volume 95.3, Mean Corpuscular Hemoglobin 33.5, Mean Corpuscular Hemoglobin Concent 35.1, Mean Platelet Volume 9.6, Neutrophils (%) (Auto) 52.5, Lymphocytes (%) (Auto) 32.2, Monocytes (%) (Auto) 12.7, Eosinophils (%) (Auto) 2.0, Basophils (%) (Auto) 0.4, Neutrophils # (Auto ) 2.82, Lymphocytes # (Auto) 1.73, Monocytes # (Auto) 0.68, Eosinophils # (Auto ) 0.11, Basophils # (Auto) 0.02 03/03/18 14:47 Test 03/03/18 14:33 03/03/18 14:47 Urine Color YELLOW Urine Appearance CLEAR (CLEAR) Urine pH 7.5 (4.5-7.5) Urine Specific [place] 1.004 (1.000-1.030) Urine Protein NEG (NEG) Urine Glucose (UA) NEG (NEG) Urine Ketones NEG (NEG) Urine Occult Blood NEG (NEG) Urine Nitrite NEG (NEG) Urine Bilirubin NEG (NEG) Urine Urobilinogen NEG (NEG) Urine Leukocyte Esterase NEG (NEG) Urine Opiates Screen NEG (NEG) Urine Methadone, Qualitative NEG (NEG) Urine Barbiturates NEG (NEG) Urine Phencyclidine (PCP) Level NEG (NEG) Ur Amphetamine/Methamphetamine NEG (NEG) MDMA (Ecstasy) Screen NEG (NEG) Urine Benzodiazepines Screen NEG (NEG) Urine Cocaine Metabolite NEG (NEG) Urine Marijuana (THC) NEG (NEG) White Blood Count 5.37 K/uL (4.8-10.8) Red Blood Count 4.45 M/uL (4.7-6.1) Hemoglobin 14.9 g/dL (14.0-18.0) Hematocrit 42.4 % (42-52) Mean Corpuscular Volume 95.3 fL (80-100) Mean Corpuscular Hemoglobin 33.5 pg (25-34) Mean Corpuscular Hemoglobin Concent 35.1 g/dl (32-36) Platelet Count 274 K/uL (130-400) Mean Platelet Volume 9.6 fL (7.4-10.4) Neutrophils (%) (Auto) 52.5 % Lymphocytes (%) (Auto) 32.2 % Monocytes (%) (Auto) 12.7 % Eosinophils (%) (Auto) 2.0 % Basophils (%) (Auto) 0.4 % Neutrophils # (Auto) 2.82 K/uL (1.4-6.5) Lymphocytes # (Auto) 1.73 K/uL (1.2-3.4) Monocytes # (Auto) 0.68 K/uL (0.11-0.59) Eosinophils # (Auto) 0.11 K/uL (0-0.5) Basophils # (Auto) 0.02 K/uL (0-0.2) RDW Standard Deviation 45.7 fL (36.4-46.3) RDW Coefficient of Variation 13.2 % (11.5-14.5) Immature Granulocyte % (Auto) 0.2 % Immature Granulocyte # (Auto) 0.01 K/uL (0.00-0.02) Anion Gap 7.0 mmol/L (3-11) Est Creatinine Clear Calc Drug Dose 107.8 ml/min Estimated GFR () 124.6 Estimated GFR (Non- 107.5 BUN/Creatinine Ratio 8.5 (10-20) Calcium Level 8.9 mg/dl (8.5-10.1) Total Bilirubin 0.3 mg/dl (0.2-1) Direct Bilirubin 0.1 mg/dl (0-0.2) Aspartate Amino Transf (AST/SGOT) 13 U/L (15-37) Alanine Aminotransferase (ALT/SGPT) 27 U/L (12-78) Alkaline Phosphatase 79 U/L (45-117) Total Protein 7.3 gm/dl (6.4-8.2) Albumin 4.1 gm/dl (3.4-5.0) Thyroid Stimulating Hormone (TSH) 0.558 uIu/ml (0.300-4.500) Ethyl Alcohol mg/dL < 3.0 mg/dl (0-3) Laboratory results per my review. Medications Administered Medications (Trade) Dose Ordered Sig/Guido Route Start Time Stop Time Status Last Admin Dose Admin Lorazepam (Ativan Tab) 1 mg NOW STAT SL 03/03/18 16:42 03/03/18 16:43 DC 03/03/18 17:06 1 MG ED Course ED COURSE: Vital signs were reviewed and showed normal vitals. The patients medical record was reviewed The above diagnostic studies were performed and reviewed. ED treatments and interventions as stated above. 1432: The patient was evaluated in room A6. A complete history and physical examination was performed. 1624: the patient has been accepted by [facility] facility. The patient will be transferred 1630: Upon reevaluation, the patient is comfortable. I discussed my findings with the patient and he understands and agrees with the treatment plan. Based on the patients age, coexisting illnesses, exam and lab findings the decision to treat as an inpatient was made. He will go to [place] for inpatient psych. Medical Decision Patient is a 47-year-old male who presents the ER for homicidal ideations associated with depression and not sleeping. Patient does have a history of bipolar disorder. Labs were obtained. CBC along with BMP, LFTs, bilirubin TSH were unremarkable. Alcohol negative. Urine tox negative. UA was negative. Patient was updated at bedside. Agreeable on 2 1. Patient was referred to [place] and once except will be transferred on a 201 for homicidal ideations. Patient was not aggressive on the ER. He was given a dose of Ativan due to anxiety. Currently awaiting placement. Medication Reconcilliation Current Medication List: was personally reviewed by me Blood Pressure Screening Patient's blood pressure: Normal blood pressure Impression Primary Impression: Mood disorder Additional Impression: Homicidal thoughts Scribe Attestation The scribe's documentation has been prepared under my direction and personally reviewed by me in its entirety. I confirm that the note above accurately reflects all work, treatment, procedures, and medical decision making performed by me. Departure Information Dispostion Mental Health Acute Care Referrals Michael Velasquez D.O. (PCP) Patient Instructions My [facility] Problem Qualifiers
--- NOTE | 2018-03-03 17:45 | EMERGENCY ROOM VISIT NOTE ---
ED Visit Note First contact with patient: 17:[address] Alonso. Patient having auditory hallucinations. Awaiting psych placement. 190: Vital signs stable. Patient accepted to the [facility]. Awaiting transport.
[2018-03-03 19:32] VITALS: BP 123/78; PULSE 72; TEMP 36.8; O2SAT 98
== END 2018-03-03 19:32 ==
LOC: C.EDB 14:14 → C.EDA 19:32
DX: Z00.8 Encounter for other general examination (principal); R45.850 Homicidal ideations; F41.9 Anxiety disorder, unspecified; F31.9 Bipolar disorder, unspecified; G40.909 Epilepsy, unspecified, not intractable, without status epilepticus; Z79.899 Other long term (current) drug therapy; F32.9 Major depressive disorder, single episode, unspecified; F17.210 Nicotine dependence, cigarettes, uncomplicated; Z88.8 Allergy status to other drugs, medicaments and biological substances

== ENCOUNTER 2018-09-07 22:24 | Inpatient (IN) ==
[2018-09-07] MEDS ORDERED: SODIUM CHLORIDE 0.9% 1000ML 1,000 ML IV SCH (23:00)
[2018-09-07 23:15] LABS: Basophils # (auto) 0.02 K/uL (0-0.2); Basophils % (auto) 0.2 %; Eosinophils # (auto) 0.07 K/uL (0-0.5); Eosinophils % (auto) 0.7 %; Hematocrit (blood only) 37.4 % (42-52); Hemoglobin 12.8 g/dL (14.0-18.0); Immature Granulocytes # (auto) 0.02 K/uL (0.00-0.02); Immature Granulocytes % (auto) 0.2 %; Lymphocytes # (auto) 1.61 K/uL (1.2-3.4); Lymphocytes % (auto) 16.2 %; Mean Corpuscular Hgb Conc 34.2 g/dL (32-36); Mean Corpuscular Volume 91.9 fL (80-100); Mean Platelet Volume 9.6 fL (7.4-10.4); Monocytes # (auto) 0.88 K/uL (0.11-0.59); Monocytes % (auto) 8.9 %; Neutrophils # (auto) 7.32 K/uL (1.4-6.5); Neutrophils % (auto) 73.8 %; Platelet Count 256 K/uL (130-400); RDW Coefficient of Variation 13.4 % (11.5-14.5); RDW Standard Deviation 44.6 fL (36.4-46.3); Red Blood Count 4.07 M/uL (4.7-6.1); White Blood Count 9.92 K/uL (4.8-10.8)
[2018-09-07 23:41] LABS: Alanine Aminotransferase 24 U/L (12-78); Albumin Globulin Ratio 1.4 (0.9-2); Alkaline Phosphatase 88 U/L (45-117); Aspartate Aminotransferase 16 U/L (15-37); Bilirubin,Total 0.3 mg/dl (0.2-1); Blood Urea Nitrogen 6 mg/dl (7-18); Calcium 8.2 mg/dl (8.5-10.1); Carbon Dioxide 28 mmol/L (21-32); Chloride 106 mmol/L (98-107); Creatine Kinase 178 U/L (39-308); Est GFR (African American) 128.6; Globulin 2.8 gm/dl (2.5-4.0); Glucose 95 mg/dl (70-99); Magnesium 1.8 mg/dl (1.8-2.4); Potassium 3.6 mmol/L (3.5-5.1); Sodium 141 mmol/L (136-145); Total Protein 6.8 gm/dl (6.4-8.2)
[2018-09-07 23:43] LABS: Troponin I < 0.015 ng/ml (0-0.045)
[2018-09-07] MEDS ORDERED: levETIRAcetam 500 MG TAB PO ONE (23:57)
[2018-09-08] MEDS ORDERED: ONDANSETRON INJ 2 MG/ML 2 ML VIAL IV STA (00:05)
[2018-09-08] MEDS ORDERED: ONDANSETRON HOME PACK 4MG OD TAB PO ONE (00:05)
[2018-09-08] MEDS ORDERED: lamoTRIgine 100 MG TAB PO STA (03:38)
[2018-09-08] MEDS ORDERED: QUETIAPINE FUMARATE 300 MG TABLET PO ONE (03:39)
[2018-09-08 04:46] LABS: Appearance Urine Clear (Clear); Bilirubin Urine Negative (Negative); Blood Urine Negative (Negative); Color Urine Yellow; Glucose Urine UA Negative (Negative); Ketones Urine 1+ (Negative); Leukocyte Esterase Urine Negative (Negative); Nitrite Urine Negative (Negative); Protein Urine Negative (Negative); Specific Gravity Urine 1.018 (1.000-1.030); Urobilinogen Urine Negative (Negative)
[2018-09-08] MEDS: ACETAMINOPHEN SOL 650 MG/20.3 ML UDC PO PRN ×2 (04:54→21:32)
[2018-09-08 05:09] LABS: Amphetamines+Metham, Urine Neg (Neg); Barbiturates, Urine Neg (Neg); Benzodiazepine, Urine Neg (Neg); Cocaine, Urine Neg (Neg); MDMA (Ecstacy), Urine Neg (Neg); Methadone, Urine Neg (Neg); Opiate, Urine Neg (Neg); Phencyclidine, Urine Neg (Neg)
--- NOTE | 2018-09-08 05:29 | History & Physical Report ---
Date of Service September 08, 2018 Assessment & Plan (1) Seizure disorder: Seizure disorder/bipolar disorder with anxiety and depression-- The general feeling is patient's increased seizures today were related to smoking marijuana. Continue usual medications of lamotrigine, levetiracetam and quetapine. At Dr. Up's direction, the ED is given patient additional 500 mg orally of Keppra tonight. He will be placed in observation to the telemetry unit with seizure precautions. Present on Admission?: Yes (2) Bipolar disorder: See above Present on Admission?: Yes (3) Anxiety disorder: See above Present on Admission?: Yes (4) Depression: See above Present on Admission?: Yes History of Present Illness Chief Complaint: The patient presented to the emergency department with a reported number of 4 seizures prior to arrival, and then had an additional seizure while in the ED. Primary Care Provider: NO PCP The patient is a 48-year-old male with a past medical history including seizure disorder, who had a total of 5 seizures today. He reports he took his antiseizure medications as directed. He also admits to smoking marijuana today , which he thought would help his seizure disorder. Dr. Montejo was contacted by the ED staff, and his feeling was the patient should be admitted to the hospital for follow-up. Allergies Allergy/AdvReac Type Severity Reaction Status Date / Time buspirone Allergy Intermediate Dizziness Verified 09/07/18 23:30 and agitation bupropion Allergy Mild SEIZURE Verified 09/07/18 23:30 sucralfate Allergy Mild HIVES Verified 09/07/18 23:30 topiramate Allergy Mild SEVERE Verified 09/07/18 23:30 HEADACHE valproic acid Allergy Mild MAKE HIM Verified 09/07/18 23:30 FEEL LIKE HE GOES CRAZY AND UNABLE TO FUNCTION tramadol Allergy Unknown Seizure Verified 09/07/18 23:30 Home Medications Home Medications Medication Instructions Recorded Confirmed Type lamotrigine 100 mg PO BID 09/07/18 09/07/18 History lamotrigine 400 mg PO BID 09/07/18 09/07/18 History levetiracetam 500 mg PO BID 09/07/18 09/07/18 History levetiracetam [Keppra] 750 mg PO BID #60 tab 09/07/18 Rx quetiapine 900 mg PO HS 09/07/18 09/07/18 History Past Med/Surg History Social History Current Living Situation: Spouse Feels Safe at Home: Yes Safety Concerns: Feels Safe At This Time Smoking Status: Current every day smoker Tobacco Type: cigarettes Cigarettes per Day: 20 Hx Alcohol Use: No Hx Substance Use: No Beliefs That Will Affect Care: None Preferred Language: Filipino Communication Ability: Effective Housefellow Required: No Review of Systems The patient denies chest pain, palpitations, shortness of breath, dyspnea on exertion, cough, lower extremity swelling, sore throat, fevers, chills, sweats, nausea, vomiting, diarrhea , constipation, abdominal pain, pelvic pain, blood in urine or stool, dysuria, urinary frequency or urgency, rash, abnormal bruising or bleeding, imbalance, focal or generalized weakness, numbness or tingling in arms or legs, generalized arthralgias or myalgias, back or neck pain, or night sweats. The review of systems is otherwise negative other than for that already noted above, and at least 10 systems have been reviewed. Physical Exam 2 Vital Signs (Past 24 Hours): Last Vital Signs Temp 36.8 C 09/08/18 03:29 Pulse 71 09/08/18 03:29 Resp 16 09/08/18 03:29 BP 126/80 09/08/18 03:29 Pulse Ox 97 09/08/18 03:29 Physical Exam: The patient is awake, alert and oriented 3, normocephalic and atraumatic, lying in bed and in no acute distress. HEENT--PERRL, EOMI, mucous membranes and oropharynx normal. Neck--supple. No JVD. No bruits. Thyroid normal, trachea midline, no adenopathy. Heart--normal S1 and S2. No murmurs, rubs or gallops. Lungs--clear bilaterally, no respiratory distress, no accessory muscle use. Abdomen--normal bowel sounds and soft. Nontender. Nondistended. Extremities--no cyanosis or clubbing. No edema. There are good distal pulses b/ l. Dermatologic--normal skin turgor, normal color, no abnormal lymph nodes, no rash. Neurologic--cranial nerves II through XII grossly intact. Rheumatologic--normal range of motion. Psychiatric--normal affect. Results & Data Laboratory Results Laboratory Results WBC 9.92 K/uL (4.8-10.8) 09/07/18 23:02 RBC 4.07 M/uL (4.7-6.1) L 09/07/18 23:02 Hgb 12.8 g/dL (14.0-18.0) L 09/07/18 23:02 Hct 37.4 % (42-52) L 09/07/18 23:02 MCV 91.9 fL (80-100) 09/07/18 23:02 MCH 31.4 pg (25-34) 09/07/18 23:02 MCHC 34.2 g/dL (32-36) 09/07/18 23:02 RDW Std Deviation 44.6 fL (36.4-46.3) 09/07/18 23:02 RDW Coeff of [place] 13.4 % (11.5-14.5) 09/07/18 23:02 Plt Count 256 K/uL (130-400) 09/07/18 23:02 MPV 9.6 fL (7.4-10.4) 09/07/18 23:02 Immature Gran % (Auto) 0.2 % 09/07/18 23:02 Neut % (Auto) 73.8 % 09/07/18 23:02 Lymph % (Auto) 16.2 % 09/07/18 23:02 [place] % (Auto) 8.9 % 09/07/18 23:02 Eos % (Auto) 0.7 % 09/07/18 23:02 Baso % (Auto) 0.2 % 09/07/18 23:02 Immature Gran # (Auto) 0.02 K/uL (0.00-0.02) 09/07/18 23:02 Neut # (Auto) 7.32 K/uL (1.4-6.5) H 09/07/18 23:02 Lymph # (Auto) 1.61 K/uL (1.2-3.4) 09/07/18 23:02 [place] # (Auto) 0.88 K/uL (0.11-0.59) H 09/07/18 23:02 Eos # (Auto) 0.07 K/uL (0-0.5) 09/07/18 23:02 Baso # (Auto) 0.02 K/uL (0-0.2) 09/07/18 23:02 Sodium 141 mmol/L (136-145) 09/07/18 23:02 Potassium 3.6 mmol/L (3.5-5.1) 09/07/18 23:02 Chloride 106 mmol/L (98-107) 09/07/18 23:02 Carbon Dioxide 28 mmol/L (21-32) 09/07/18 23:02 Anion Gap 7.0 (3-11) 09/07/18 23:02 BUN 6 mg/dl (7-18) L 09/07/18 23:02 Creatinine 0.71 mg/dl (0.6-1.4) 09/07/18 23:02 Est Cr Clr Drug Dosing Not Reportable 09/07/18 23:02 Est GFR ( Amer) 128.6 09/07/18 23:02 Est GFR (Non-Af Amer) 111.0 09/07/18 23:02 BUN/Creatinine Ratio 9.0 (10-20) L 09/07/18 23:02 Glucose 95 mg/dl (70-99) 09/07/18 23:02 Calcium 8.2 mg/dl (8.5-10.1) L 09/07/18 23:02 Magnesium 1.8 mg/dl (1.8-2.4) 09/07/18 23:02 Total Bilirubin 0.3 mg/dl (0.2-1) 09/07/18 23:02 AST 16 U/L (15-37) 09/07/18 23:02 ALT 24 U/L (12-78) 09/07/18 23:02 Alkaline Phosphatase 88 U/L (45-117) 09/07/18 23:02 Total Creatine Kinase 178 U/L (39-308) 09/07/18 23:02 Troponin I < 0.015 ng/ml (0-0.045) 09/07/18 23:02 Total Protein 6.8 gm/dl (6.4-8.2) 09/07/18 23:02 Albumin 4.0 gm/dl (3.4-5.0) 09/07/18 23:02 Globulin 2.8 gm/dl (2.5-4.0) 09/07/18 23:02 Albumin/Globulin Ratio 1.4 (0.9-2) 09/07/18 23:02 Urine Color Yellow 09/08/18 04:30 Urine Appearance Clear (Clear) 09/08/18 04:30 Urine pH 7.0 (4.5-7.5) 09/08/18 04:30 Ur Specific [place] 1.018 (1.000-1.030) 09/08/18 04:30 Urine Protein Negative (Negative) 09/08/18 04:30 Urine Glucose (UA) Negative (Negative) 09/08/18 04:30 Urine Ketones 1+ (Negative) H 09/08/18 04:30 Urine Blood Negative (Negative) 09/08/18 04:30 Urine Nitrite Negative (Negative) 09/08/18 04:30 Urine Bilirubin Negative (Negative) 09/08/18 04:30 Urine Urobilinogen Negative (Negative) 09/08/18 04:30 Ur Leukocyte Esterase Negative (Negative) 09/08/18 04:30 Urine Opiates Screen Neg (Neg) 09/08/18 04:30 Ur Methadone, Qual Neg (Neg) 09/08/18 04:30 Urine Barbiturates Neg (Neg) 09/08/18 04:30 Ur Phencyclidine (PCP) Neg (Neg) 09/08/18 04:30 U Amphetamin/Meth Scrn Neg (Neg) 09/08/18 04:30 MDMA (Ecstasy) Screen Neg (Neg) 09/08/18 04:30 U Benzodiazepines Scrn Neg (Neg) 09/08/18 04:30 Ur Cocaine Metabolite Neg (Neg) 09/08/18 04:30 U Marijuana (THC) Screen Pos (Neg) H 09/08/18 04:30 Medications Administered Home Medications Medication Instructions Recorded Confirmed lamotrigine 100 mg PO BID 09/07/18 09/07/18 lamotrigine 400 mg PO BID 09/07/18 09/07/18 levetiracetam 500 mg PO BID 09/07/18 09/07/18 quetiapine 900 mg PO HS 09/07/18 09/07/18 Previous Rx's Medication Instructions Recorded levetiracetam [Keppra] 750 mg PO BID #60 tab 09/07/18 Code Status & VTE Plan Code Status Full code VTE Prophylaxis Plan VTE Prophylaxis will be ordered: Yes
[2018-09-08] MEDS ORDERED: ONDANSETRON INJ 2 MG/ML 2 ML VIAL ONE (05:37)
--- NOTE | 2018-09-08 06:02 | Emergency Department Note ---
History of Present Illness General Chief complaint: Headache Stated complaint: SEIZURES, VOMITING, HEADACHE, DIZZINESS History of Present Illness Maximum Pain Intensity: 8 This 48 yo presents to the ER complaining of seizures and headache Location: Generalized Quality: Shaky Severity: Moderate Duration: Tonight Timing: Tonight Context: Patient had 4 seizures and came in Modifying factors: better with nothing; worse with nothing Patient is on Lamictal and Keppra. He has not missed a dose. Patient states he is on medical marijuana for his PTSD and chronic pain. He smokes this every few days. He did this this morning. Patient states tonight around 8 PM his whole body started shaking and jerking. This lasted for a few minutes and happened 4 times. He was concerned and came in. Patient denies illness, chest pain, dyspnea, abdominal pain, fevers, cough, congestion or any other medical complaints. He does have a headache. Patient states he did not fall. He did not lose consciousness. He was not postictal. Home Medications Home Medications Medication Instructions Recorded Confirmed Type lamotrigine 100 mg PO BID 09/07/18 09/07/18 History lamotrigine 400 mg PO BID 09/07/18 09/07/18 History levetiracetam 500 mg PO BID 09/07/18 09/07/18 History levetiracetam [Keppra] 750 mg PO BID #60 tab 09/07/18 Rx quetiapine 900 mg PO HS 09/07/18 09/07/18 History Allergies Allergy/AdvReac Type Severity Reaction Status Date / Time buspirone Allergy Intermediate Dizziness Verified 09/07/18 23:30 and agitation bupropion Allergy Mild SEIZURE Verified 09/07/18 23:30 sucralfate Allergy Mild HIVES Verified 09/07/18 23:30 topiramate Allergy Mild SEVERE Verified 09/07/18 23:30 HEADACHE valproic acid Allergy Mild MAKE HIM Verified 09/07/18 23:30 FEEL LIKE HE GOES CRAZY AND UNABLE TO FUNCTION tramadol Allergy Unknown Seizure Verified 09/07/18 23:30 Past Med/Surg History Medical History Seizure disorder Anxiety disorder Social History Current Living Situation: Spouse Feels Safe at Home: Yes Safety Concerns: Feels Safe At This Time Smoking Status: Current every day smoker Tobacco Type: cigarettes Cigarettes per Day: 20 Hx Alcohol Use: No Hx Substance Use: No Beliefs That Will Affect Care: None Preferred Language: Bruneian Communication Ability: Effective Dye Operator Required: No Review of Systems All systems reviewed & are unremarkable except as noted in HPI & below Physical Exam Vital Signs Vital Signs - 24 hr 09/07/18 22:28 09/08/18 00:15 09/08/18 00:30 Temperature 36.9 C Temperature Source Oral Sepsis Recent Fever Within 48 Hours No Sepsis Action Taken by Nursing No Action Required Pulse Rate 86 79 Pulse Rate [Apical] 85 Pulse Rhythm [Apical] Pulse Strength [Apical] Respiratory Rate 20 20 13 Respiratory Effort / Characteristics Non-Labored Spontaneous Respiratory Depth Normal Respiratory Pattern Blood Pressure 130/82 133/86 Blood Pressure [Right Arm] 123/80 Blood Pressure Mean 98 101 Blood Pressure Mean [Right Arm] 94 Blood Pressure Position Sitting Blood Pressure Position [Right Arm] Pulse Oximetry 98 96 95 Oxygen Delivery Method Room Air Room Air 09/08/18 01:00 09/08/18 01:30 09/08/18 02:00 Temperature Temperature Source Sepsis Recent Fever Within 48 Hours Sepsis Action Taken by Nursing Pulse Rate 83 82 80 Pulse Rate [Apical] Pulse Rhythm [Apical] Pulse Strength [Apical] Respiratory Rate 21 22 Respiratory Effort / Characteristics Respiratory Depth Respiratory Pattern Blood Pressure 121/76 118/73 113/76 Blood Pressure [Right Arm] Blood Pressure Mean 91 88 88 Blood Pressure Mean [Right Arm] Blood Pressure Position Blood Pressure Position [Right Arm] Pulse Oximetry 94 94 94 Oxygen Delivery Method Room Air Room Air Room Air 09/08/18 03:29 Temperature 36.8 C Temperature Source Oral Sepsis Recent Fever Within 48 Hours Sepsis Action Taken by Nursing Pulse Rate Pulse Rate [Apical] 71 Pulse Rhythm [Apical] Regular Pulse Strength [Apical] Normal Respiratory Rate 16 Respiratory Effort / Characteristics Non-Labored Spontaneous Respiratory Depth Normal Respiratory Pattern Regular Blood Pressure Blood Pressure [Right Arm] 126/80 Blood Pressure Mean Blood Pressure Mean [Right Arm] 95 Blood Pressure Position Blood Pressure Position [Right Arm] Lying Pulse Oximetry 97 Oxygen Delivery Method Room Air VITALS: Vitals are noted on the nurse's note and reviewed by myself. Vital signs stable. GENERAL: White male, in no acute distress, nondiaphoretic, well-developed well- nourished. SKIN: The skin was without rashes, erythema, edema, or bruising. There is no tenting of the skin. Capillary reflex less than 2 seconds. HEAD: Normocephalic atraumatic. EARS: External auditory canals clear, tympanic membranes pearly flowers without erythema or effusion bilaterally. EYES: Pupils equal round and reactive to light and accommodation. Conjunctivae without injection, sclerae without icterus. Extraocular movements intact. NOSE: Patent, turbinates without inflammation or discharge. MOUTH: Mucous membranes moist. Pharynx without erythema or exudate. Uvula midline. Airway patent. Tongue does not deviate. NECK: Supple without nuchal rigidity. No lymphadenopathy. No thyromegaly. Cervical spine is nontender. No JVD. HEART: Regular rate and rhythm LUNGS: Clear to auscultation bilaterally without wheezes, rales or rhonchi. No retractions or accessory muscle use. ABDOMEN: Positive bowel sounds x 4. Normal tympanic percussion. Soft, nontender, without masses or organomegaly. Meehan sign negative. No guarding or rebound tenderness. No CVA tenderness MUSCULOSKELETAL: No muscle atrophy, erythema, or edema noted. NEURO: Patient was alert and oriented to person place and time. Normal sensation to light and sharp touch. No focal neurological deficits. Course Administered Medications Acetaminophen (Tylenol) 650 mg PO Q6 PRN PRN Reason: Pain Stop: 10/08/18 04:40 Last Admin: 09/08/18 04:54 Dose: 650 mg Discontinued Medications Sodium Chloride (Nss 1000ml) 1,000 mls @ 999 mls/hr IV .Q1H1M MELISSA Stop: 09/08/18 00:00 Last Infusion: 09/08/18 00:05 Dose: 0 mls/hr Admin: 09/07/18 23:07 Dose: 999 mls/hr Lamotrigine (Lamictal) 500 mg PO NOW STA Stop: 09/08/18 03:39 Last Admin: 09/08/18 04:34 Dose: 500 mg Levetiracetam (Keppra) 500 mg PO ONE ONE Stop: 09/07/18 23:58 Last Admin: 09/08/18 00:44 Dose: 500 mg Ondansetron HCl (Zofran Odt 4mg Home Pack) 1 homepack PO NOW ONE Stop: 09/08/18 00:06 Last Admin: 09/08/18 00:10 Dose: 1 homepack Ondansetron HCl (Zofran) 4 mg IV NOW STA Stop: 09/08/18 00:06 Last Admin: 09/08/18 00:10 Dose: 4 mg Ondansetron HCl (Zofran) Confirm Administered Dose 4 mg .ROUTE .STK-MED ONE Stop: 09/08/18 05:38 Last Admin: 09/08/18 05:39 Dose: 4 mg Quetiapine Fumarate (Seroquel) 900 mg PO ONE ONE Stop: 09/08/18 03:40 Last Admin: 09/08/18 04:33 Dose: 900 mg Medical Decision Making Medical Records Attestation: I reviewed the patient's medical records. Home Medications Current Medication List: was personally reviewed by me Laboratory Data Attestation: I reviewed the patient's lab results. Result diagrams: 09/07/18 23:02 09/07/18 23:02 Lab Results 09/07/18 09/07/18 09/08/18 Range/Units 23:02 23:02 04:30 WBC 9.92 (4.8-10.8) K/uL RBC 4.07 L (4.7-6.1) M/uL Hgb 12.8 L (14.0-18.0) g/dL Hct 37.4 L (42-52) % MCV 91.9 (80-100) fL MCH 31.4 (25-34) pg MCHC 34.2 (32-36) g/dL RDW Std Deviation 44.6 (36.4-46.3) fL RDW Coeff of Argelia 13.4 (11.5-14.5) % Plt Count 256 (130-400) K/uL MPV 9.6 (7.4-10.4) fL Immature Gran % (Auto) 0.2 % Neut % (Auto) 73.8 % Lymph % (Auto) 16.2 % Sumner % (Auto) 8.9 % Eos % (Auto) 0.7 % Baso % (Auto) 0.2 % Immature Gran # (Auto) 0.02 (0.00-0.02) K/uL Neut # (Auto) 7.32 H (1.4-6.5) K/uL Lymph # (Auto) 1.61 (1.2-3.4) K/uL Sumner # (Auto) 0.88 H (0.11-0.59) K/uL Eos # (Auto) 0.07 (0-0.5) K/uL Baso # (Auto) 0.02 (0-0.2) K/uL Sodium 141 (136-145) mmol/L Potassium 3.6 (3.5-5.1) mmol/L Chloride 106 (98-107) mmol/L Carbon Dioxide 28 (21-32) mmol/L Anion Gap 7.0 (3-11) BUN 6 L (7-18) mg/dl Creatinine 0.71 (0.6-1.4) mg/dl Est Cr Clr Drug Dosing Not Reportable Est GFR ( Amer) 128.6 Est GFR (Non-Af Amer) 111.0 BUN/Creatinine Ratio 9.0 L (10-20) Glucose 95 (70-99) mg/dl Calcium 8.2 L (8.5-10.1) mg/dl Magnesium 1.8 (1.8-2.4) mg/dl Total Bilirubin 0.3 (0.2-1) mg/dl AST 16 (15-37) U/L ALT 24 (12-78) U/L Alkaline Phosphatase 88 (45-117) U/L Total Creatine Kinase 178 (39-308) U/L Troponin I < 0.015 (0-0.045) ng/ml Total Protein 6.8 (6.4-8.2) gm/dl Albumin 4.0 (3.4-5.0) gm/dl Globulin 2.8 (2.5-4.0) gm/dl Albumin/Globulin Ratio 1.4 (0.9-2) Urine Color Urine Appearance (Clear) Urine pH (4.5-7.5) Ur Specific [place] (1.000-1.030) Urine Protein (Negative) Urine Glucose (UA) (Negative) Urine Ketones (Negative) Urine Blood (Negative) Urine Nitrite (Negative) Urine Bilirubin (Negative) Urine Urobilinogen (Negative) Ur Leukocyte Esterase (Negative) Urine Opiates Screen Neg (Neg) Ur Methadone, Qual Neg (Neg) Urine Barbiturates Neg (Neg) Ur Phencyclidine (PCP) Neg (Neg) U Amphetamin/Meth Scrn Neg (Neg) MDMA (Ecstasy) Screen Neg (Neg) U Benzodiazepines Scrn Neg (Neg) Ur Cocaine Metabolite Neg (Neg) U Marijuana (THC) Screen Pos H (Neg) 09/08/18 Range/Units 04:30 WBC (4.8-10.8) K/uL RBC (4.7-6.1) M/uL Hgb (14.0-18.0) g/dL Hct (42-52) % MCV (80-100) fL MCH (25-34) pg MCHC (32-36) g/dL RDW Std Deviation (36.4-46.3) fL RDW Coeff of Argelia (11.5-14.5) % Plt Count (130-400) K/uL MPV (7.4-10.4) fL Immature Gran % (Auto) % Neut % (Auto) % Lymph % (Auto) % Sumner % (Auto) % Eos % (Auto) % Baso % (Auto) % Immature Gran # (Auto) (0.00-0.02) K/uL Neut # (Auto) (1.4-6.5) K/uL Lymph # (Auto) (1.2-3.4) K/uL Sumner # (Auto) (0.11-0.59) K/uL Eos # (Auto) (0-0.5) K/uL Baso # (Auto) (0-0.2) K/uL Sodium (136-145) mmol/L Potassium (3.5-5.1) mmol/L Chloride (98-107) mmol/L Carbon Dioxide (21-32) mmol/L Anion Gap (3-11) BUN (7-18) mg/dl Creatinine (0.6-1.4) mg/dl Est Cr Clr Drug Dosing Est GFR ( Amer) Est GFR (Non-Af Amer) BUN/Creatinine Ratio (10-20) Glucose (70-99) mg/dl Calcium (8.5-10.1) mg/dl Magnesium (1.8-2.4) mg/dl Total Bilirubin (0.2-1) mg/dl AST (15-37) U/L ALT (12-78) U/L Alkaline Phosphatase (45-117) U/L Total Creatine Kinase (39-308) U/L Troponin I (0-0.045) ng/ml Total Protein (6.4-8.2) gm/dl Albumin (3.4-5.0) gm/dl Globulin (2.5-4.0) gm/dl Albumin/Globulin Ratio (0.9-2) Urine Color Yellow Urine Appearance Clear (Clear) Urine pH 7.0 (4.5-7.5) Ur Specific [place] 1.018 (1.000-1.030) Urine Protein Negative (Negative) Urine Glucose (UA) Negative (Negative) Urine Ketones 1+ H (Negative) Urine Blood Negative (Negative) Urine Nitrite Negative (Negative) Urine Bilirubin Negative (Negative) Urine Urobilinogen Negative (Negative) Ur Leukocyte Esterase Negative (Negative) Urine Opiates Screen (Neg) Ur Methadone, Qual (Neg) Urine Barbiturates (Neg) Ur Phencyclidine (PCP) (Neg) U Amphetamin/Meth Scrn (Neg) MDMA (Ecstasy) Screen (Neg) U Benzodiazepines Scrn (Neg) Ur Cocaine Metabolite (Neg) U Marijuana (THC) Screen (Neg) MDM Narrative Prior records/ancillary studies reviewed. Patient placed in seizure precautions immediately upon arrival. Nursing notes reviewed. Additional history obtained from family The patient's history was concerning for a possible seizure. Differential diagnosis: Etiologies such as infection, hypoglycemia, electrolyte abnormalities, cardiac sources, intracerebral event, trauma, toxicologic, neurologic, as well as others were entertained. Physical examination: As above. No signs of trauma. ER treatment provided: IV fluids, Keppra On reassessment the patient felt better. Diagnostics interpretation by me: ECG: Normal sinus, normal intervals, no acute ST-T wave changes. Impression normal sinus rhythm interpreted by myself. I think arrhythmia is unlikely. EKG shows normal sinus rhythm with no interval abnormalities such as QT prolongation or WPW. There are no findings to suggest Brugada syndrome. Cardiac monitoring in the emergency department reveals no tachycardic or bradycardic dysrhythmia. Hypertrophic cardiomyopathy was considered but there are no clear historical elements pointing toward this. EKG is not suggestive. The QRS voltage is not extremely large and there are no suggestive Q waves. The labs revealed stable H&H Imaging studies: Head scan with no acute findings per radiology Consultation: A consultation was placed with the neurologist, Dr. Up. The case was discussed and diagnostics were reviewed. He recommends increasing the Keppra to 750 twice daily and outpatient follow-up.. Dr. Matt was consulted and will evaluate the patient for possible admission. The patient has a history of seizures and experienced another episode. Patient was getting ready for discharge but had another shaking episode and refused to leave. Medicine was consulted. Patient is requesting admission. Patient will be evaluated by medicine. No concerning physical findings or historical points were noted. Advanced diagnostics were deemed unnecessary. By the evaluation outlined above emergent etiologies such as infection, hypoglycemia, electrolyte abnormalities, cardiac sources, intracerebral event, toxicologic, neurologic,as well as others were deemed relatively unlikely. The pt informed about the findings as listed above. All questions were answered and pleased with the treatment. Case reviewed with my attending The chart was completed utilizing [employer] Speech voice recognition software. Grammatical errors, random word insertions, pronoun errors, and incomplete sentences are an occassional consequence of this system due to software limitations, ambient noise, and hardware issues. Any formal questions or concerns about the content, text, or information contained within the body of this dictation should be directly addressed to the physician engineer third assistant for clarification. Impression & Plan Seizure Discharge Plan Visit Data *Final* Discharge Date/Time: 09/08/18 02:31 Chief Complaint: Headache Stated Complaint: SEIZURES, VOMITING, HEADACHE, DIZZINESS ED Provider: Colin Alonso ED Midlevel Provider: Veronica Mark Discharge Problem: Seizure Patient Disposition: Admitted As Inpatient Condition: Good Discharge Instructions Interventions: ED Discharge Assessment Last Done: 09/08/18 02:31
[2018-09-08] MEDS ORDERED: PROMETHAZINE HCL 12.5 MG in SODIUM CHLORIDE 0.9% 50 ML IV STA (06:35)
--- NOTE | 2018-09-08 06:35 | CT Scan Report ---
CT head/brain wo con CLINICAL HISTORY: Headache, seizure. COMPARISON STUDY: 11/25/2017 TECHNIQUE: Axial CT of the brain is performed from the vertex to the skull base. IV contrast was not administered for this examination. A dose lowering technique was utilized adhering to the principles of ALARA. CT DOSE: 537.48 mGy.cm FINDINGS: No intra or extra-axial mass lesions are visualized. There is no CT evidence of acute cortical infarc tion. There is no evidence of midline shift. There is no acute hemorrhage. No calvarial fractures ar e visualized. There is no evidence of pathologic ventricular dilatation. There is no evidence of acute sinusitis IMPRESSION: No acute intracranial findings Electronically signed by: Wally Perez M.D. 09/08/2018 6:34 AM
--- NOTE | 2018-09-08 08:31 | Neurology Consultation ---
Date of Consultation September 08, 2018 Assessment & Plan (1) Seizure disorder: Patient has a history of seizure disorder, mostly generalized tonic- clonic type, but also history of complex partial seizures. His seizures over the last 24 hours do not seem to be epileptic and are likely pseudoseizures or myoclonic jerking (he was awake and alert with positive recall during generalized tonic-clonic events). He has never had a positive EEG as an outpatient. Nevertheless, seizures will more likely occur with high doses of Seroquel or other neuroleptics/antidepressants. Smoking marijuana a earlier in the day likely did not affect his seizures or spells. Pseudoseizures could be increased because the patient was by himself for the last few days and in pain and not sleeping well. He has had a history of head trauma and this could have triggered a seizure disorder. (2) Bipolar disorder: Patient has a history of bipolar disorder, depression and anxiety, and PTSD. He has trouble sleeping because of chronic pain and this as to his mood issues and desire to take medication in order to sleep. I suspect he is sleeping a lot during the day because of all the Seroquel. He is certainly sleepy this morning and this is more likely events over the last 24 hours as opposed to a true postictal state (although this cannot entirely be excluded). He is followed by Psychiatry, Dr. Kaiser. I am not certain why he is allowed to take up to 900 milligrams of Seroquel each day for sleep. There may be something not the correctly interpreted from his psychiatrist regarding the medication. His mother and , however, verify the this is the case. (3) Lumbar stenosis: Patient has a history of lumbar spine surgery and chronic low back pain. He has had a history of multiple procedures, surgeries, and pain management techniques for his lumbar spine. He is known to have L4 radiculopathy bilaterally by EMG about 1 year ago. Currently his neurologic examination is stable without focal deficits. However , he has a little brisker reflexes on the left than the right. He has no meningeal signs or encephalopathy. Recommendations: 1. Decrease levetiracetam to 500 milligrams twice daily. 2. Increase lamotrigine to 225 milligrams twice daily (he was only on 200 milligrams twice a day as an outpatient). 3. Decrease Seroquel to no more than 50-100 milligrams each evening. This should be more than adequate to help his mood/psychosis. Otherwise more would increase his likelihood of having seizures and create significant sedation particularly during the day. 4. Consider other alternatives for sleep including low-dose benzodiazepine such as clonazepam. 5. Hold off on Psychiatry consultation for now until we see how he does over the next couple of days but could consider psychiatry consult in future if needed. 6. Hold on spine consultation for now, but may want to obtain MRI of the lumbar spine with without contrast to evaluate deficits. 7. Increase activity including physical therapy. Overall, I spent a total of 120 minutes with this case including records review , direct evaluation the patient at bedside, and discussion of the case with the patient at bedside, his mother at bedside, his over the phone at bedside, clinical staff, and Dr. Alvarado regarding differential diagnosis and treatment options. History of Present Illness Reason for Consultation: Patient is a 48-year-old, who I was asked to see the request of Dr. Vickers, for neurologic consultation regarding seizures and other issues. Requesting Physician: Dr. Vickers Attending Physician: Dr. Alvarado History of Present Illness His mother is present at the bedside and helps add to the history. His is in [place] and I have spoken to her over the phone and she adds history. Seizure started somewhere around 1998. The consensus is they started when he was on Wellbutrin for his mood. He has had a history of multiple head injuries over time and he is not able to give details regarding his head injury or seizures. In 2006 he was involved in a work incident. He was in a ditch when a very large [place] fell on injuring his back. He has been on disability since 2007. In 2007 he underwent a lumbar fusion procedure at L4-5 by a doctor Maggie (?) From [facility]. He has had chronic low back pain since. He had nerves burned in the past by pain management which were of some help initially and he had a spinal stimulator implanted which ultimately did not help. In October of 2016, Dr. Alcala removed the spinal stimulator and Re-did the screws at L4-5. In June of 2017, the patient was admitted to our institution for generalized tonic-clonic seizures. EEG was unremarkable. He was on Lamictal low dose and high doses of levetiracetam. It was noted that increase levetiracetam gave him irritability and this was lowered as Lamictal was increased. I saw the patient at that time and he was stable with no seizures and discharged. EMG and nerve conduction studies of both legs in June of 2017 showed L4 radiculopathy of a chronic active nature bilaterally. 24 hour ambulatory EEG in August of 2017 was unremarkable as well. Patient last saw Dr. Lim April 22, 2018. He has not had a seizure since June of 2017. He has been on Lamictal 200 milligrams twice daily and levetiracetam 500 milligrams twice daily. In February of 2018, the patient was put on low-dose Seroquel by his psychiatrist Dr. Kaiser because of decreased sleep and some auditory hallucinations. The low -dose Seroquel resolved his auditory hallucinations but as time went by the Seroquel dose was escalated because of lack of sleep. Currently, he has been allowed to take up to a total of 900 milligrams each night for sleep. His mother and and even the patient himself were not sure how much he takes each night. He does not sleep because he has pain in his back. Pain in his back also creates anxiety of not sleeping. In the morning of September 07, 2018, he smoked marijuana because of pain. He does this every few days. That evening around 2000 hours, while he was sitting watching TV, he had the 1st of 4 episodes over 30 minutes. Each episode consisted of generalized shaking of all 4 limbs legs greater than arms lasting a minute or 2. He was perfectly awake and alert and recalled everything during the events. After the 1st event he noted a bifrontal headache and some nausea. He does not have vomiting. After the 4th episode he came to the emergency room. He arrived September 07 at 2228 with a temperature 36.9, pulse 86 and regular, respiratory rate 20, blood pressure 130/82, and O2 saturation 98 percent. He was described as having a normal mental status and no focal neurologic signs. His speech was unremarkable. Laboratory studies revealed some mild anemia on CBC and a glucose of 130 but a normal CK of 178 and normal urinalysis. All other chemistry was normal. CT scan of the head was unremarkable. Tox screen was positive for marijuana. I discussed the case with Kami Mark PA-C, and we elected to increase Keppra to 750 milligrams twice a day and keep Lamictal alone (but we were under the misinterpretation that the patient was taking 500 milligrams of Lamictal twice daily). However, the patient had another spell and refused to go home. They are not certain how much Seroquel he has been taking each night the last few nights because his left to visit a grandchild several days ago. Patient's mother has been with the patient since admission in claims he had another spell in the middle of the night. Nursing has no knowledge of this event. They have not noticed any abnormal involuntary movements. The patient complains of low back pain and a mild bifrontal headache. Allergies Allergy/AdvReac Type Severity Reaction Status Date / Time buspirone Allergy Intermediate Dizziness Verified 09/07/18 23:30 and agitation bupropion Allergy Mild SEIZURE Verified 09/07/18 23:30 sucralfate Allergy Mild HIVES Verified 09/07/18 23:30 topiramate Allergy Mild SEVERE Verified 09/07/18 23:30 HEADACHE valproic acid Allergy Mild MAKE HIM Verified 09/07/18 23:30 FEEL LIKE HE GOES CRAZY AND UNABLE TO FUNCTION tramadol Allergy Unknown Seizure Verified 09/07/18 23:30 Home Medications Home Medications Medication Instructions Recorded Confirmed Type lamotrigine 100 mg PO BID 09/07/18 09/07/18 History lamotrigine 400 mg PO BID 09/07/18 09/07/18 History levetiracetam 500 mg PO BID 09/07/18 09/07/18 History levetiracetam [Keppra] 750 mg PO BID #60 tab 09/07/18 Rx quetiapine 900 mg PO HS 09/07/18 09/07/18 History Patient History Medical History Seizure disorder Anxiety disorder Surgical History History of lumbar fusion Family History Mother Hypertension Father Osteoarthritis Social History Current Living Situation: Spouse current occupational status: disabled current occupation: [employer] in 2007 Feels Safe at Home: Yes Safety Concerns: Feels Safe At This Time Smoking Status: Current every day smoker Tobacco Type: cigarettes Years Smoked : 30 Cigarettes per Day: 20 Hx Alcohol Use: Yes Alcohol Intake Frequency Comment: Six-pack of beer every 1- 2 months. Hx Substance Use: Yes substance use type: marijuana Beliefs That Will Affect Care: None Preferred Language: Georgian Communication Ability: Effective Technology Professional Required: No Review of Systems Constitutional: + fatigue and + daytime sleepiness; no fever Eyes: no diplopia, no eye pain and no worsening vision Ear, Nose, Mouth, Throat: no ear pain, no tinnitus, no hearing loss and no dysphagia Respiratory: no cough and no dyspnea Cardiovascular: no chest pain, no dyspnea and no palpitations Gastrointestinal: no abdominal pain, no nausea and no vomiting Genitourinary (Male): no dysuria, no urinary frequency and no urinary incontinence Musculoskeletal: + back pain, + neck pain and + radicular pain; no myalgia, no muscle weakness and no muscle atrophy Integumentary: no rash and no lesions Neurologic: + headache(s); no gait abnormality, no falls, no localized weakness , no generalized weakness, no tingling, no numbness, no tremor(s), no abnormal movements, no dizziness, no abnormal speech, no behavioral changes, no confusion and no memory loss Psychiatric: + depression, + abnormal sleep pattern and + anxiety; no difficulty concentrating, no confusion and no hallucinations Endocrine: + fatigue; no flushing Hematologic / Lymphatic: no easy bleeding and no easy bruising Allergy / Immunological: no urticaria Physical Exam 2 Vital Signs (Past 24 Hours): Last Vital Signs Temp 36.4 C L 09/08/18 07:14 Pulse 81 09/08/18 07:14 Resp 16 09/08/18 07:14 BP 138/82 09/08/18 07:14 Pulse Ox 98 09/08/18 07:14 Physical Exam: The patient is right-handed. The patient is drowsy/sleepy, but easily aroused with voice. He will answer questions but when left alone he drifts back to sleep. Speech is normal without any aphasia or dysarthria. Mentation and thought processes seem intact, with full orientation and normal fund of knowledge. Attention and concentration are normal. Mood and affect are normal and appropriate. General appearance and grooming are normal. Short and long-term memory seem intact to conversation. The discs are sharp with positive venous pulsations bilaterally. There are no exudates, hemorrhages, or blood vessel changes seen. Pupils are 4 mm bilaterally and reactive to light. Extraocular eye muscles are intact without nystagmus. Visual acuity and visual carrion seem normal grossly to confrontation. There are no deficits to sensation in the face in all 3 distributions of the fifth cranial nerve bilaterally. Corneal reflexes are positive bilaterally. Facial strength and symmetry was normal bilaterally. Hearing seems intact grossly to voice and finger rub bilaterally. Palate moves well without asymmetry. There is normal sternocleidomastoid and trapezius (shoulder shrug) strength bilaterally. Tongue is midline with good strength bilaterally. Neck has a full range of motion without discomfort. There are no cervical bruits bilaterally. There are no cranial or ocular bruits. Heart is without murmur. There is a regular rhythm and rate. Cervical, thoracic, and lumbar spine are mildly tender to palpation in the paraspinal muscles. Gait is not tested but stance sitting up in bed is quite good. The With outstretched arms there is no drift. There are no resting, postural, or action tremors. There is no ataxia with finger to nose testing. There is good facility in the hands. No other abnormal involuntary movements are noted. Motor strength is 5/5 diffusely in the arms bilaterally including deltoids, biceps, triceps, brachioradialis, wrist flexors and extensors, gi tech, and intrinsic hand muscles. Motor strength is 5/5 diffusely in the legs bilaterally including hip flexors, quadriceps, hamstrings, gastrocnemius, tibialis anterior , tibialis posterior, and Peroneii muscles bilaterally. Toe extensors are normal and there is good bulk in the extensor digitorum brevis muscles bilaterally. The limbs have good tone without rigidity or spasticity. There is no atrophy noted in the muscles. Muscle bulk is normal, there is no tenderness to palpation , no myotonia to percussion, and no fasciculations seen. Sensory examination is intact to touch and pin throughout all 4 limbs diffusely. Reflexes are 2/4 in the right biceps, triceps, brachioradialis, quadriceps, and Achilles tendons and on the left reflexes are closer to 3/4 diffusely. Toes are downgoing with plantar stimulation bilaterally. Peripheral pulses are present and of normal quality distally in all 4 limbs. There is no peripheral edema noted in the limbs.
[2018-09-08 08:33] LABS: Basophils # (auto) 0.01 K/uL (0-0.2); Basophils % (auto) 0.1 %; Eosinophils # (auto) 0.04 K/uL (0-0.5); Eosinophils % (auto) 0.4 %; Hemoglobin 12.4 g/dL (14.0-18.0); Immature Granulocytes # (auto) 0.03 K/uL (0.00-0.02); Immature Granulocytes % (auto) 0.3 %; Lymphocytes # (auto) 1.06 K/uL (1.2-3.4); Lymphocytes % (auto) 10.6 %; Mean Corpuscular Hgb Conc 33.5 g/dL (32-36); Mean Platelet Volume 9.3 fL (7.4-10.4); Monocytes # (auto) 0.81 K/uL (0.11-0.59); Monocytes % (auto) 8.1 %; Neutrophils # (auto) 8.09 K/uL (1.4-6.5); Neutrophils % (auto) 80.5 %; Platelet Count 212 K/uL (130-400); RDW Coefficient of Variation 13.6 % (11.5-14.5); RDW Standard Deviation 46.4 fL (36.4-46.3); Red Blood Count 3.98 M/uL (4.7-6.1); White Blood Count 10.04 K/uL (4.8-10.8)
[2018-09-08 08:42] LABS: Partial Thromboplastin Ratio 0.9; Partial Thromboplastin Time 24.3 Seconds (21.0-31.0); Prothrombin Time 10.4 Seconds (9.0-12.0)
[2018-09-08] MEDS ORDERED: lamoTRIgine 100 MG TAB PO SCH ×2 (09:00)
[2018-09-08 09:07] LABS: Albumin Level 3.8 gm/dl (3.4-5.0); BUN Creatinine Ratio 7.8 (10-20); Calcium 8.2 mg/dl (8.5-10.1); Creatinine Clr Calc Pharmacy 121.4 ml/min; Est GFR (African American) 127.8; Est GFR (Non-African American) 110.3; Potassium 3.4 mmol/L (3.5-5.1)
[2018-09-08 09:10] LABS: Albumin Globulin Ratio 1.4 (0.9-2); Bilirubin,Total 0.5 mg/dl (0.2-1); Globulin 2.7 gm/dl (2.5-4.0); Total Protein 6.5 gm/dl (6.4-8.2)
[2018-09-08] MEDS: levETIRAcetam 500 MG TAB PO SCH ×2 (09:42→21:26)
[2018-09-08] MEDS: NICOTINE 7 MG/24 HR TDSY TD SCH (09:43)
[2018-09-08] MEDS: ONDANSETRON INJ 2 MG/ML 2 ML VIAL IV PRN ×3 (09:52→22:28)
--- NOTE | 2018-09-08 18:01 | Hospitalist Progress Note ---
Date of Service September 08, 2018 Assessment & Plan (1) Seizure disorder: Appreciate neurology input. Patient seems to have multiple reasons to have a seizure threshold lower, and may or may not have been taking his medications correctly. We will restart his meds at the prescribed dosing by neurology. Follow him closely. (2) Bipolar disorder: Need to discuss this more with the patient, but the mother notes that the patient was diagnosed as bipolar just because of getting angry easily. She does not recall a manic episode, and it sounds like she is always been in doubt of whether or not this was his real diagnosis. Certainly will be reducing the Seroquel for now and following (3) Anxiety disorder: See above (4) Depression: See above (5) Insomnia: Continue Seroquel at reduced dose. We will add Valium as a short-term backup plan for insomnia given that this would also hopefully help with the back pain some. (6) Chronic back pain: He was too somnolent to really get a good history or exam from him today. I do harbor suspicion is that he probably has a lot of biomechanical pain that if this is addressed he may have improvement in his symptoms. Valium as above, once every chance to talk to him about it Voltaren gel. Anticipate a trial of OMT (7) Nausea and vomiting: Follow, this easily could be related to medication as well. Subjective Seen in follow-up from electronic tech admission. Patient quite sleepy and does not really wake up, mother talks to me for a solid 40 minutes, noting that he has been dizzy and weak and not acting like himself and vomiting, she notes that she thinks she is on too much Seroquel, and she is not sure if he is taking his antiseizure medicines right either. She notes that previously he had pillboxes but lately he and his have been just taking their medicines more or less by memory, and she is not sure if that is working well. She notes that she saw him have seizures last night in the ER. She notes that he has been suffering with chronic back pain for quite a while, and mostly because of this he has a lot of difficulty with insomnia, sometimes going for a week without sleeping. Physical Exam 2 Vital Signs (Past 24 Hours): Last Vital Signs Temp 36.8 C 09/08/18 14:32 Pulse 92 H 09/08/18 14:32 Resp 18 09/08/18 14:32 BP 127/78 09/08/18 14:32 Pulse Ox 96 09/08/18 14:32 Physical Exam: He is sleeping in no distress, she has no focal neuro deficits. Breathing is unlabored without accessory muscles good effort. Skin shows no rashes no pallor or icterus.
[2018-09-08] MEDS ORDERED: QUETIAPINE FUMARATE 300 MG TABLET PO SCH (21:00)
[2018-09-08] MEDS: lamoTRIgine 100 MG TAB PO SCH (21:26)
[2018-09-08] MEDS: QUETIAPINE FUMARATE 200 MG TAB PO SCH (21:30)
[2018-09-09] MEDS: ONDANSETRON INJ 2 MG/ML 2 ML VIAL IV PRN ×2 (03:39→09:43)
[2018-09-09] MEDS: lamoTRIgine 100 MG TAB PO SCH ×3 (08:04→21:26)
[2018-09-09] MEDS: levETIRAcetam 500 MG TAB PO SCH ×2 (08:04→21:26)
[2018-09-09] MEDS: NICOTINE 7 MG/24 HR TDSY TD SCH (08:06)
[2018-09-09 08:22] LABS: Basophils # (auto) 0.01 K/uL (0-0.2); Basophils % (auto) 0.1 %; Eosinophils % (auto) 1.3 %; Hematocrit (blood only) 36.9 % (42-52); Hemoglobin 12.5 g/dL (14.0-18.0); Immature Granulocytes # (auto) 0.02 K/uL (0.00-0.02); Immature Granulocytes % (auto) 0.3 %; Lymphocytes # (auto) 2.44 K/uL (1.2-3.4); Lymphocytes % (auto) 32.3 %; Mean Corpuscular Hgb Conc 33.9 g/dL (32-36); Mean Corpuscular Volume 91.8 fL (80-100); Mean Platelet Volume 9.7 fL (7.4-10.4); Monocytes # (auto) 0.76 K/uL (0.11-0.59); Monocytes % (auto) 10.1 %; Neutrophils # (auto) 4.23 K/uL (1.4-6.5); Neutrophils % (auto) 55.9 %; Platelet Count 265 K/uL (130-400); RDW Coefficient of Variation 13.5 % (11.5-14.5); RDW Standard Deviation 44.9 fL (36.4-46.3); Red Blood Count 4.02 M/uL (4.7-6.1); White Blood Count 7.56 K/uL (4.8-10.8)
[2018-09-09 08:35] LABS: BUN Creatinine Ratio 6.7 (10-20); Calcium 8.6 mg/dl (8.5-10.1); Creatinine Clr Calc Pharmacy 113.5 ml/min; Est GFR (African American) 124.4; Est GFR (Non-African American) 107.3; Potassium 3.1 mmol/L (3.5-5.1)
[2018-09-09] MEDS: lamoTRIgine 25 MG TAB PO SCH ×2 (09:40→21:25)
--- NOTE | 2018-09-09 12:07 | Neurology Progress Note ---
Date of Service September 09, 2018 Assessment & Plan (1) Seizure disorder: Patient has a history of seizure disorder, mostly generalized tonic- clonic type, but also history of complex partial seizures. His seizures over the last 24 hours do not seem to be epileptic and are likely pseudoseizures or myoclonic jerking (he was awake and alert with positive recall during generalized tonic-clonic events). He had another brief spell this morning witnessed by his mother, and I cannot be sure if this was a pseudo seizure or actual brief seizure. I certainly suspect pseudoseizures as the prime diagnosis. He has never had a positive EEG as an outpatient. Nevertheless, seizures will more likely occur with high doses of Seroquel or other neuroleptics/antidepressants. Smoking marijuana a earlier in the day likely did not affect his seizures or spells. Pseudoseizures could be increased because the patient was by himself for the last few days and in pain and not sleeping well. He has had a history of head trauma and this could have triggered a seizure disorder. (2) Bipolar disorder: Patient has a history of bipolar disorder, depression and anxiety, and PTSD. He has trouble sleeping because of chronic pain and this as to his mood issues and desire to take medication in order to sleep. I suspect he is sleeping a lot during the day because of all the Seroquel. He is certainly sleepy this morning and this is more likely events over the last 24 hours as opposed to a true postictal state (although this cannot entirely be excluded). He is followed by Psychiatry, Dr. Kaiser. I am not certain why he is allowed to take up to 900 milligrams of Seroquel each day for sleep. There may be something not the correctly interpreted from his psychiatrist regarding the medication. His mother and , however, verify the this is the case. His mood seems stable since admission. (3) Lumbar stenosis: Patient has a history of lumbar spine surgery and chronic low back pain. He has had a history of multiple procedures, surgeries, and pain management techniques for his lumbar spine. He is known to have L4 radiculopathy bilaterally by EMG about 1 year ago. Currently his neurologic examination is stable without focal deficits. However , he has a little brisker reflexes on the left than the right. He has no meningeal signs or encephalopathy. Recommendations: 1. Continue levetiracetam at 500 milligrams twice daily. 2. Increase lamotrigine to 250 milligrams twice daily. I would keep it at this dose for the next 2-3 weeks. 3. Seroquel can be continued at 4 milligrams at bedtime. 4. Valium can be continued as needed for sleep. 5. Hold off on Psychiatry consultation for now until we see how he does over the next couple of days but could consider psychiatry consult in future if needed. 6. Hold on spine consultation for now, but may want to obtain MRI of the lumbar spine with without contrast to evaluate deficits. 7. Increase activity including physical therapy. Overall, I spent a total of 35 minutes with this case including records review, direct evaluation the patient at bedside, and discussion of the case with the patient at bedside, his mother at bedside, clinical staff, and Dr. Alvarado regarding differential diagnosis and treatment options. Subjective The patient has had an episode of brief stiffening and posturing , noted by the mother, at around 6 a.m. today. Nursing did not notice anything and there was no reports of seizures overnight anyway. He was reportedly groggy after this. He started to get a headache and some nausea and some tunnel vision like a typical migraine. Vital signs are stable. CBC was unremarkable. Chem profile was unremarkable although potassium was slightly low. Physical Exam 2 Vital Signs (Past 24 Hours): Last Vital Signs Temp 36.6 C 09/09/18 11:19 Pulse 90 09/09/18 11:19 Resp 18 09/09/18 11:19 BP 141/81 H 09/09/18 11:19 Pulse Ox 93 09/09/18 11:19 Physical Exam: He is awake and alert. Speech is without aphasia or dysarthria. He is much more alert and oriented and cooperative than he was yesterday. Extraocular eye muscles are intact without nystagmus. There is no facial droop. With outstretched arms there is no drift. Strength is 5/5 diffusely in all major muscle groups. There is no tremor or ataxia. He has no abnormal involuntary activity.
[2018-09-09] MEDS ORDERED: POTASSIUM CHLORIDE 10 MEQ TABCR PO STA (15:59)
[2018-09-09] MEDS ORDERED: FAMOTIDINE 20 MG TAB PO ONE (16:24)
--- NOTE | 2018-09-09 16:28 | Hospitalist Progress Note ---
Date of Service September 09, 2018 Assessment & Plan (1) Seizure disorder: Appreciate neurology input. Ongoing workup and management per neurology. (2) Bipolar disorder: On Seroquel for this. He did seem to be suffering side effects from the higher dosing, this is been reduced to 400 mg and so far is doing okay. Obviously follow his mood closely. Also follow his sleep. (3) Anxiety disorder: See above (4) Depression: See above (5) Insomnia: Continue Seroquel at reduced dose as above noted. He did sleep well last night. Valium is a short-term backup as needed refractory insomnia, especially because it will hopefully help with back spasms. 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 -Trial of OMT -Voltaren gel (7) Nausea and vomiting: Follow, this easily could be related to medication as well. Continue supportive care. For now give Zofran scheduled, okay to give Phenergan as needed refractory nausea, will also give a dose of Pepcid. (8) Somatic dysfunction of lumbar region: As well as cervical -OMT as above -Anticipate outpatient referral for ongoing OMT Subjective Awake and alert. Slept fairly well last night. Does have some nausea, but has not vomited today. He is able to drink water without nausea, he notes kemal chasity made him nauseated, he also notes nausea after eating. The nausea and vomiting is only ongoing since Friday. He has no abdominal pain. He has no diarrhea no hematemesis. Today is a headache, it is frontal and intense, he has intermittent double vision and blurred vision, however he does note that his glasses help the blurred vision. The glasses do not seem to help the double vision. He has not had a migraine in about 15 years His back pain is chronic and ongoing for years, he relates it is mostly in his low back in the lumbar region, some of it does radiate down his left leg pretty much everywhere and occasionally his left leg gets numb and weak Review of Systems All systems reviewed & are unremarkable except as noted in HPI & below Physical Exam 2 Vital Signs (Past 24 Hours): Last Vital Signs Temp 37.0 C 09/09/18 14:49 Pulse 83 09/09/18 15:29 Resp 18 09/09/18 14:49 BP 112/71 09/09/18 14:49 Pulse Ox 95 09/09/18 14:49 Physical Exam: In general he is awake alert oriented x3, fatigued appearing but no distress. HEENT normocephalic atraumatic mucous membranes are moist. Abdomen is soft nondistended nontender no masses or organomegaly, no guarding no rebound no rigidity. Neuro shows no focal deficits, EOMI. Osteopathic/ musculoskeletal shows right greater than left suboccipital hypertonicity and decreased range of motion/tendernessinhibitory pressure with improvement in soft tissue texture but not pain or headache. Bilateral left worse than right lumbar paraspinals hypertonic, tender, decreased range of motioninhibitory pressure/ligamentous articular strainsome improvement in tissue texture. He also had a tight left piriformis.
[2018-09-09] MEDS: ONDANSETRON INJ 2 MG/ML 2 ML VIAL IV SCH ×2 (16:49→22:14)
[2018-09-09] MEDS: DICLOFENAC SOD 1% GEL 100 GM TUBE EXT SCH ×2 (17:41→21:23)
[2018-09-09] MEDS: QUETIAPINE FUMARATE 200 MG TAB PO SCH (21:24)
[2018-09-10] MEDS: ONDANSETRON INJ 2 MG/ML 2 ML VIAL IV SCH ×4 (03:54→21:17)
[2018-09-10] MEDS ORDERED: ACETAMINOPHEN 325 MG TAB PO ONE (09:07)
[2018-09-10] MEDS ORDERED: methylPREDNISolone 80 MG in SYRINGE 0 ML IV ONE (09:15)
--- NOTE | 2018-09-10 09:16 | Neurology Progress Note ---
Date of Service September 10, 2018 Assessment & Plan (1) Seizure disorder: Patient has a history of seizure disorder, mostly generalized tonic- clonic type, but also history of complex partial seizures. He has had no seizure activity over the last 24 hours. His seizures on admission did not seem to be epileptic and are likely pseudoseizures or some type of myoclonic jerking (he was awake and alert with positive recall during generalized tonic-clonic events). He has never had a positive EEG as an outpatient. Nevertheless, seizures will more likely occur with high doses of Seroquel or other neuroleptics/antidepressants. Smoking marijuana a earlier in the day of his admission likely did not affect his seizures or spells. Pseudoseizures could be increased because the patient was by himself for the last few days, in pain, and not sleeping well. He has had a history of head trauma and this could have triggered a seizure disorder. Patient has had migrainous like symptomatology with headache pain and nausea over the last 24 hours. Zofran helps nauseous some but he still has the headache. (2) Bipolar disorder: Patient has a history of bipolar disorder, depression and anxiety, and PTSD. He has trouble sleeping because of chronic pain and this adds to his mood issues and desire to take medication in order to sleep. I suspect he was sleeping a lot during the day because of all the Seroquel. He is certainly much more alert today even compared to yesterday which was improved compared to admission. He is followed by Psychiatry, Dr. Kaiser. I am not certain why he was allowed to take up to 900 milligrams of Seroquel each day for sleep. He is doing very well on 400 milligrams of Seroquel each evening and he has been sleeping reasonably well in the hospital. There may be something incorrectly interpreted from his psychiatrist regarding the medication. His mother and , however, verify the this is the case. His mood has been stable since admission. (3) Lumbar stenosis: Patient has a history of lumbar spine surgery and chronic low back pain. He has had a history of multiple procedures, surgeries, and pain management techniques for his lumbar spine. He is known to have L4 radiculopathy bilaterally by EMG about 1 year ago. Currently his neurologic examination is stable without focal deficits. He has no meningeal signs or encephalopathy. Recommendations: 1. Continue levetiracetam at 500 milligrams twice daily. 2. Continue lamotrigine to 250 milligrams twice daily. I would keep it at this dose for now. 3. Seroquel can be continued at 400 milligrams at bedtime. 4. Avoid benzodiazepines as an outpatient. 5. Steroids to break the headache cycle. I have discussed this with Dr. Alvarado (equivalent of 60 milligrams prednisone IV). Continue Zofran as needed. 6. Hold on spine consultation for now, but may want to obtain MRI of the lumbar spine, as an outpatient, with without contrast to evaluate deficits. 7. Increase activity including physical therapy. 8. I can follow up as outpatient if desired. Overall, I spent a total of 45 minutes with this case including records review, direct evaluation the patient at bedside, and discussion of the case with the patient at bedside, his mother at bedside, clinical staff, and Dr. Alvarado regarding differential diagnosis and treatment options. Subjective The patient has had seizure-like episodes over the last 24 hours. His mother confirms this. Nursing did not notice anything and there was no reports of seizures overnight. He admits to be more weak and alert this morning. He continues to have headache pain of a bifrontal stabbing nature which radiates cross the top of the head posteriorly. When he stands up he feels lightheaded a but he does not have any significant photophobia or sonophobia. He does have the persistent nausea and Zofran helps some. Vital signs are stable and he is afebrile. Physical Exam 2 Vital Signs (Past 24 Hours): Last Vital Signs Temp 36.8 C 09/10/18 07:15 Pulse 78 09/10/18 07:15 Resp 18 09/10/18 07:15 BP 106/65 09/10/18 07:15 Pulse Ox 96 09/10/18 07:15 Physical Exam: He is awake and alert. Speech is without aphasia or dysarthria. Mood and affect seem normal appropriate any is pleasant and cooperative. Thought processes seem quite intact to conversation today. Extraocular eye muscles are intact without nystagmus. Pupils are symmetrical and reactive. There is no facial droop. Tongue is midline. Visual field examination seems normal. There is normal sternocleidomastoid and trapezius strength. Sensory examination seems unremarkable bilaterally in the face. Gait is narrow base and he limps favoring each leg (back pain). Turns are cautious but stable. Stance with eyes open is reasonable although he has some lightheadedness. Coordination in the arms is normal without tremor or ataxia. Tone is symmetrical in the limbs and strength is 5/5 diffusely in all major muscle groups both proximally distally. Reflexes are symmetrical and toes are neutral to downgoing to plantar stimulation bilaterally.
[2018-09-10] MEDS ORDERED: PROMETHAZINE HCL 12.5 MG in SODIUM CHLORIDE 0.9% 50 ML IV ONE (09:30)
[2018-09-10] MEDS: lamoTRIgine 100 MG TAB PO SCH ×2 (09:35→21:16)
[2018-09-10] MEDS: DICLOFENAC SOD 1% GEL 100 GM TUBE EXT SCH ×5 (09:35→21:18)
[2018-09-10] MEDS: levETIRAcetam 500 MG TAB PO SCH ×2 (09:35→21:16)
[2018-09-10] MEDS: lamoTRIgine 25 MG TAB PO SCH ×2 (09:35→21:17)
[2018-09-10] MEDS: NICOTINE 7 MG/24 HR TDSY TD SCH (10:04)
[2018-09-10] MEDS ORDERED: KETOROLAC 30 MG/ML VIAL IV STA ×2 (12:00→19:31)
[2018-09-10] MEDS ORDERED: methylPREDNISolone 40 MG in SYRINGE 0 ML IV SCH (12:30)
[2018-09-10] MEDS: PROMETHAZINE HCL 12.5 MG in SODIUM CHLORIDE 0.9% 50 ML IV PRN (16:17)
--- NOTE | 2018-09-10 17:33 | Hospitalist Progress Note ---
Date of Service September 10, 2018 Assessment & Plan (1) Seizure disorder: Appreciate neurology input. Ongoing anticonvulsants. (2) Bipolar disorder: On Seroquel for this. Appears to be doing well on the lower dosing of 400 mg at bedtime. Obviously follow his mood closely, follow his sleep. So far he appears well (3) Anxiety disorder: See above (4) Depression: See above (5) Insomnia: Continue Seroquel at reduced dose as above noted. He did sleep well last night. Discussed Valium and Benadryl as alternative as needed backups for his insomnia. Discussed that the benefit of the Valium would be that it would also act as a muscle relaxant and possibly help the back some, but the downside would be the people can very quickly develop physical dependency. Discussed Benadryl as a different backup, that would be sedating but would not really have much of any effect on his back, and that it may slightly lower the seizure threshold. However we discussed that this would be about balanced out by the fact that lack of sleep can also lower the seizure threshold. Dr. Up and I felt this would be a reasonable alternative. Patient and agree. (6) Chronic back pain: Appears multifactorial, with the bone and disc pain being the root cause, but now likely with a significant overlay of muscular and ligamentous pain, as well as more than likely nervous system facilitation (both peripheral and central) -Given his psychiatric disorders and seizure disorders, at this point in time I would hold off on anything that would treat PNS or HIDE CURER facilitation, as medications to address this may be more problematic with him, and definitely titrations would need to be in conjunction with psychiatry and/or neurology. -Trial of OMT ongoing, and we will have him referred to Dr. Markel Jimenez DO for ongoing OMT after discharge -Voltaren gel 4 times daily (7) Nausea and vomiting: Improving probably multifactorial. Initially this was likely related to the Seroquel and/or other medications, now it appears to be related to the migraine (8) Somatic dysfunction of lumbar region: As well as pelvic and cervical -OMT as above -Anticipate outpatient referral for ongoing OMT (9) Migraine: Medication management, appears to be slowly improving. Subjective Patient seen multiple times today. This morning he noted headache, seem to be causing some blurred and double vision at times. He was also nauseated, although this was better than yesterday. He was able to eat more even though he was feeling a bit nauseated. Later this evening his headache persists but seems to be letting up some however he is dizzy with ongoing blurred vision. The nausea has improved quite considerably His back pain is ongoing, we do give a trial of more OMT. He slept well He is a bit dizzy and unsteady on his feet No more seizures Case discussed with Dr. Up Physical Exam 2 Vital Signs (Past 24 Hours): Last Vital Signs Temp 36.8 C 09/10/18 07:15 Pulse 78 09/10/18 07:15 Resp 18 09/10/18 07:15 BP 106/65 09/10/18 07:15 Pulse Ox 96 09/10/18 07:15 Physical Exam: In general he is awake alert oriented x3, fatigued appearing but no distress. HEENT normocephalic atraumatic mucous membranes are moist. Abdomen is soft nondistended nontender no masses or organomegaly, no guarding no rebound no rigidity. Neuro shows no focal deficits, EOMI. Osteopathic/ musculoskeletal shows left greater than right suboccipital hypertonicity and decreased range of motion/tendernessinhibitory pressure with improvement in soft tissue texture, paraspinal and wondering done as well. Bilateral left worse than right lumbar paraspinals hypertonic, tender, decreased range of motioninhibitory pressure/ligamentous articular strainsome improvement in tissue texture, patient tolerated well. He also had a tight left piriformis, decreased range of motion and tenderligamentous articular strain, improved. Patient tolerated well.
[2018-09-10] MEDS ORDERED: PROCHLORPERAZINE 10 MG in SYRINGE 8 ML IV ONE (20:45)
[2018-09-10] MEDS: QUETIAPINE FUMARATE 200 MG TAB PO SCH (21:16)
[2018-09-11] MEDS: ACETAMINOPHEN SOL 650 MG/20.3 ML UDC PO PRN (00:03)
[2018-09-11] MEDS: diazePAM 5 MG TABLET PO PRN ×2 (00:06→21:06)
[2018-09-11] MEDS: ONDANSETRON INJ 2 MG/ML 2 ML VIAL IV PRN (00:15)
[2018-09-11] MEDS: ONDANSETRON INJ 2 MG/ML 2 ML VIAL IV SCH ×4 (04:07→21:06)
[2018-09-11] MEDS: PROMETHAZINE HCL 12.5 MG in SODIUM CHLORIDE 0.9% 50 ML IV PRN ×2 (04:52→13:20)
[2018-09-11] MEDS: lamoTRIgine 25 MG TAB PO SCH ×2 (07:58→20:37)
[2018-09-11] MEDS: levETIRAcetam 500 MG TAB PO SCH ×2 (07:59→20:36)
[2018-09-11] MEDS: lamoTRIgine 100 MG TAB PO SCH ×2 (07:59→20:36)
[2018-09-11] MEDS: DICLOFENAC SOD 1% GEL 100 GM TUBE EXT SCH ×4 (08:00→20:38)
[2018-09-11] MEDS: NICOTINE 7 MG/24 HR TDSY TD SCH (08:00)
[2018-09-11] MEDS ORDERED: KETOROLAC 30 MG/ML VIAL ONE (09:37)
[2018-09-11] MEDS ORDERED: methylPREDNISolone 125 MG in SYRINGE 0 ML IV ONE (13:30)
[2018-09-11 17:00] LABS: Lamictal(Lamotrigine) 16.1 mcg/mL (4.0-18.0); Levetiracetam Keppra 11.3 mcg/mL
--- NOTE | 2018-09-11 18:04 | Hospitalist Progress Note ---
Date of Service September 11, 2018 Assessment & Plan (1) Seizure disorder: Appreciate neurology input. Ongoing anticonvulsants. (2) Bipolar disorder: On Seroquel for this. Appears to be doing well on the lower dosing of 400 mg at bedtime. Obviously follow his mood closely, follow his sleep. So far he appears well, updated his psychiatry office in this regard. They have him set up for counseling early next week and a visit with a psychiatrist on Friday. (3) Anxiety disorder: See above (4) Depression: See above (5) Insomnia: Continue Seroquel at reduced dose as above noted. He did sleep well last night. As previously discussed, we will utilize Valium as an alternative backup to the Seroquel for refractory insomnia, given that it can act as a muscle relaxant. However to avoid any physical dependency, this will be utilized a maximum of 1 out of every 3 nights, the other 2 nights he notes that Atarax did well formed compared to Benadryl. (6) Chronic back pain: Appears multifactorial, with the bone and disc pain being the root cause, but now likely with a significant overlay of muscular and ligamentous pain, as well as more than likely nervous system facilitation (both peripheral and central) -Given his psychiatric disorders and seizure disorders, at this point in time I would hold off on anything that would treat PNS or CERTIFIED PHYSICIAN ASSISTANT facilitation, as medications to address this may be more problematic with him, and definitely titrations would need to be in conjunction with psychiatry and/or neurology. -Trial of OMT ongoing, and we will have him referred to Dr. Markel Jimenez DO for ongoing OMT after discharge -Voltaren gel 4 times daily -This will likely take several months to see improvement, but in previous experiences with folks with similar back issues, this approach has helped significantly improve pain and quality of life (7) Nausea and vomiting: Improving probably multifactorial. Initially this was likely related to the Seroquel and/or other medications, now it appears to be related to the migraine, continue supportive care and as needed's (8) Somatic dysfunction of lumbar region: As well as pelvic and cervical -OMT done the last several days, rested today -Anticipate outpatient referral for ongoing OMT (9) Migraine: Medication management, appears to be slowly improving. Additional steroids and Toradol today. *Late addendum, in my revisit with the patient in addition to them asking if I called psychiatry, they noted that he did not get the steroid. In chart review it appears it was given at approximately 2:30 PM, I called pharmacy to verify they noted to the best that they can see it was given as well. To avoid inadvertently giving him excess steroid, and given that his migraine does seem to be slowly improving, we will hold off on further dosing and reassess tomorrow (10) Weakness: PT/OT eval and treat Subjective Feeling about the same. Headache about the same. Toradol seems to help. Back pain about the same. Nausea seems to be slowly improving but does have some on again off again quality to it. Not postprandial, no abdominal pain. No vomiting. Visited twice today. First from approximately 930 to 10 AM, then a revisit approximately 440 to 4:45 PM, with an immediate thereafter phone call to his primary psychiatrist office. Review of Systems All systems reviewed & are unremarkable except as noted in HPI & below Physical Exam 2 Vital Signs (Past 24 Hours): Last Vital Signs Temp 36.6 C 09/11/18 15:06 Pulse 79 09/11/18 15:06 Resp 18 09/11/18 15:06 BP 122/72 09/11/18 15:06 Pulse Ox 95 09/11/18 15:06 Physical Exam: General he is awake alert oriented x3 pleasant no acute distress. HEENT normocephalic atraumatic mucous membranes are moist. Breathing is unlabored no accessory muscle use good effort. Neuro shows cranial nerves II through XII be grossly intact gross motor and sensory intact. Skin shows no rashes no pallor or icterus.
[2018-09-11] MEDS: KETOROLAC 30 MG/ML VIAL IV PRN (18:36)
[2018-09-11] MEDS: QUETIAPINE FUMARATE 200 MG TAB PO SCH (20:37)
[2018-09-12] MEDS: KETOROLAC 30 MG/ML VIAL IV PRN ×3 (03:29→21:26)
[2018-09-12] MEDS: ONDANSETRON INJ 2 MG/ML 2 ML VIAL IV SCH ×4 (03:30→21:27)
[2018-09-12] MEDS: PROMETHAZINE HCL 12.5 MG in SODIUM CHLORIDE 0.9% 50 ML IV PRN (03:57)
[2018-09-12] MEDS: lamoTRIgine 100 MG TAB PO SCH ×2 (09:11→21:28)
[2018-09-12] MEDS: lamoTRIgine 25 MG TAB PO SCH ×2 (09:11→21:27)
[2018-09-12] MEDS: DICLOFENAC SOD 1% GEL 100 GM TUBE EXT SCH ×4 (09:12→21:38)
[2018-09-12] MEDS: levETIRAcetam 500 MG TAB PO SCH ×2 (09:12→21:28)
[2018-09-12] MEDS: NICOTINE 7 MG/24 HR TDSY TD SCH (09:12)
[2018-09-12] MEDS ORDERED: methylPREDNISolone 1,000 MG in DEXTROSE 5% 250 ML IV ONE (10:30)
[2018-09-12] MEDS ORDERED: SUMAtriptan succinate 6 MG/0.5 ML VIAL SQ ONE (17:19)
[2018-09-12] MEDS: diazePAM 5 MG TABLET PO PRN (17:47)
--- NOTE | 2018-09-12 19:07 | Hospitalist Progress Note ---
Date of Service September 12, 2018 Assessment & Plan (1) Seizure disorder: Appreciate neurology input. Ongoing anticonvulsants. This is been stable (2) Bipolar disorder: On Seroquel for this. Appears to be doing well on the lower dosing of 400 mg at bedtime. Mood appears to be stable. He has follow-up as an outpatient with a psychiatrist on Friday, his counselor earlier in the week. (3) Anxiety disorder: See above (4) Depression: See above (5) Insomnia: Continue Seroquel at reduced dose as above noted. He actually continues to sleep surprisingly well in the hospital. As previously discussed, we will utilize Valium as an alternative backup to the Seroquel for refractory insomnia , given that it can act as a muscle relaxant. However to avoid any physical dependency, this will be utilized a maximum of 1 out of every 3 nights, the other 2 nights he notes that Atarax did well formed compared to Benadryl. (6) Chronic back pain: Appears multifactorial, with the bone and disc pain being the root cause, but now likely with a significant overlay of muscular and ligamentous pain, as well as more than likely nervous system facilitation (both peripheral and central) -Given his psychiatric disorders and seizure disorders, at this point in time I would hold off on anything that would treat PNS or WINTERIZER facilitation, as medications to address this may be more problematic with him, and definitely titrations would need to be in conjunction with psychiatry and/or neurology. -Trial of OMT ongoing, and we will have him referred to Dr. Markel Jimenez DO for ongoing OMT after discharge -Voltaren gel 4 times daily to continue -This will likely take several months to see improvement, but in previous experiences with folks with similar back issues, this approach has helped significantly improve pain and quality of life (7) Nausea and vomiting: Improving probably multifactorial. Initially this was likely related to the Seroquel and/or other medications, now it appears to be related to the migraine, continue supportive care, today he has been able to eat. (8) Somatic dysfunction of lumbar region: Cervical region todaynot lumbarOMT as above. (9) Migraine: Medication management, appears to be slowly improving. Steroids, Toradol , oxygen, Zofran, supportive care. (10) Weakness: PT/OT eval and treat ongoing Subjective Ongoing headache. Nausea with the headache. Some blurred and spotty vision. Still feels a little too unsteady on his feet to go home. Appreciates care. Review of Systems All systems reviewed & are unremarkable except as noted in HPI & below Physical Exam 2 Vital Signs (Past 24 Hours): Last Vital Signs Temp 36.9 C 09/12/18 16:10 Pulse 85 09/12/18 16:10 Resp 18 09/12/18 16:10 BP 139/81 09/12/18 16:10 Pulse Ox 96 09/12/18 16:10 Physical Exam: In general he is awake alert oriented x3. Fatigued but no distress. HEENT normocephalic atraumatic mucous membranes moist. Breathing is unlabored no accessory muscle use. Skin shows no rashes no pallor or icterus. Neuro shows cranial nerves II through XII are grossly intact gross motor and sensory intact. Musculoskeletal exam shows left greater than right suboccipitals high tone, tender, decreased range of motioninhibitory pressure and unwinding with some improvement. Patient tolerated well.
[2018-09-12] MEDS: QUETIAPINE FUMARATE 200 MG TAB PO SCH (21:27)
[2018-09-12] MEDS: ACETAMINOPHEN SOL 650 MG/20.3 ML UDC PO PRN (23:53)
[2018-09-13] MEDS: ONDANSETRON INJ 2 MG/ML 2 ML VIAL IV SCH ×3 (02:57→15:26)
[2018-09-13] MEDS: KETOROLAC 30 MG/ML VIAL IV PRN ×4 (02:58→23:50)
[2018-09-13] MEDS: ONDANSETRON INJ 2 MG/ML 2 ML VIAL IV PRN ×2 (04:42→22:07)
[2018-09-13] MEDS ORDERED: LORazepam 1 MG/2 ML VIAL IV STA (05:19)
[2018-09-13] MEDS: LORazepam 1 MG/2 ML VIAL IV PRN ×5 (05:25→21:24)
[2018-09-13] MEDS ORDERED: MoRPHine SULFATE 4 MG/ML 1 ML CARP\\VIAL IV STA (06:56)
[2018-09-13] MEDS: PROMETHAZINE HCL 12.5 MG in SODIUM CHLORIDE 0.9% 50 ML IV PRN ×2 (07:37→17:26)
[2018-09-13] MEDS: NICOTINE 7 MG/24 HR TDSY TD SCH (07:43)
[2018-09-13] MEDS: lamoTRIgine 25 MG TAB PO SCH ×2 (07:44→20:48)
[2018-09-13] MEDS: levETIRAcetam 500 MG TAB PO SCH (07:44)
[2018-09-13] MEDS: lamoTRIgine 100 MG TAB PO SCH ×2 (07:45→20:48)
[2018-09-13 10:28] LABS: Hematocrit (blood only) 39.2 % (42-52); Hemoglobin 13.5 g/dL (14.0-18.0); Mean Corpuscular Volume 91.2 fL (80-100); Mean Platelet Volume 9.8 fL (7.4-10.4); Platelet Count 300 K/uL (130-400); RDW Coefficient of Variation 13.8 % (11.5-14.5); RDW Standard Deviation 45.2 fL (36.4-46.3)
[2018-09-13 10:35] LABS: Mean Corpuscular Hgb Conc 34.4 g/dL (32-36)
[2018-09-13 10:47] LABS: Albumin Level 3.9 gm/dl (3.4-5.0); Basophils # (auto) 0.01 K/uL (0-0.2); Basophils % (auto) 0.1 %; Calcium 9.1 mg/dl (8.5-10.1); Creatinine Clr Calc Pharmacy 113.2 ml/min; Est GFR (Non-African American) 107.9; Immature Granulocytes # (auto) 0.09 K/uL (0.00-0.02); Immature Granulocytes % (auto) 0.5 %; Lymphocytes # (auto) 2.75 K/uL (1.2-3.4); Lymphocytes % (auto) 14.8 %; Monocytes # (auto) 0.79 K/uL (0.11-0.59); Monocytes % (auto) 4.2 %; Neutrophils # (auto) 14.96 K/uL (1.4-6.5); Neutrophils % (auto) 80.4 %; Potassium 3.9 mmol/L (3.5-5.1)
[2018-09-13 10:50] LABS: Albumin Globulin Ratio 1.4 (0.9-2); Bilirubin,Total 0.3 mg/dl (0.2-1); Globulin 2.8 gm/dl (2.5-4.0); Total Protein 6.7 gm/dl (6.4-8.2)
[2018-09-13] MEDS: DICLOFENAC SOD 1% GEL 100 GM TUBE EXT SCH ×4 (11:03→20:45)
[2018-09-13] MEDS ORDERED: [UNRECOGNIZED DRUG - OTHER] PO SCH (11:15)
--- NOTE | 2018-09-13 11:21 | Neurology Progress Note ---
Date of Service September 13, 2018 Assessment & Plan (1) Seizure disorder: Patient has a history of seizure disorder, mostly generalized tonic- clonic type, but also history of complex partial seizures. He has had no seizure activity over the last three days with seizures occurring again this morning of a generalized tonic-clonic nature. His seizures on admission did not seem to be epileptic and are likely pseudoseizures or some type of myoclonic jerking (he was awake and alert with positive recall during generalized tonic-clonic events). Today's events could be actual seizures. He has never had a positive EEG as an outpatient. Nevertheless, seizures will more likely occur with high doses of Seroquel or other neuroleptics/antidepressants. Pseudoseizures could be increased because the patient was by himself for the last few days, in pain, and not sleeping well. He has had a history of head trauma and this could have triggered a seizure disorder. Patient has had migrainous like symptomatology with headache pain and nausea over the last 24 hours. Zofran helps nauseous some but he still has the headache. Patient continues to have severe nausea and vomiting and headache. He has been refractory to most headache medication. (2) Bipolar disorder: Patient has a history of bipolar disorder, depression and anxiety, and PTSD. He has trouble sleeping because of chronic pain and this adds to his mood issues and desire to take medication in order to sleep. I suspect he was sleeping a lot during the day because of all the Seroquel. He is certainly much more alert today even compared to yesterday which was improved compared to admission. He is followed by Psychiatry, Dr. Kaiser. I am not certain why he was allowed to take up to 900 milligrams of Seroquel each day for sleep. He is doing very well from a mood standpoint on 400 milligrams of Seroquel each evening and he has been sleeping reasonably well in the hospital. There may be something incorrectly interpreted from his psychiatrist regarding the medication. His mother and , however, verify the this is the case. His mood has been stable since admission. (3) Lumbar stenosis: Patient has a history of lumbar spine surgery and chronic low back pain. He has had a history of multiple procedures, surgeries, and pain management techniques for his lumbar spine. He is known to have L4 radiculopathy bilaterally by EMG about 1 year ago. Currently his neurologic examination is stable without focal deficits. He has no meningeal signs or encephalopathy. Recommendations: 1. Discontinue levetiracetam 2. Continue lamotrigine to 250 milligrams twice daily. I would keep it at this dose for now. 3. Consider decreasing Seroquel to 200 milligrams at bedtime. 4. Avoid benzodiazepines as an outpatient. 5. Continue headache medication and nausea medicine as needed. 6. Hold on spine consultation for now, but may want to obtain MRI of the lumbar spine, as an outpatient, with without contrast to evaluate deficits. 7. Consider further evaluation of the abdomen because of nausea. 8. We may consider repeat EEG tomorrow or even transfer to place where he can have continuous monitoring 9. Zonisamide 50 milligrams twice daily. Overall, I spent a total of 40 minutes with this case including records review, direct evaluation the patient at bedside, and discussion of the case with the patient at bedside, his and mother at bedside, clinical staff, and Dr. Alvarado, regarding differential diagnosis and treatment options. Subjective Patient had no spells for several days when around 4 o'clock this morning he had several episodes of generalized shaking and bizarre posturing. He was apparently not responsive for talking during these episodes. His witnessed these episodes and he was getting pale leaning forward in the chair and the in an 8 cause him from hitting the ground and he had a 1 minutes episode stiffening and shaking of all 4 limbs. He had no incontinence or tongue biting. He had 2 further episodes similar in the next 10 minutes. He was groggy afterwards. Patient has had headaches intermittently over the last several days. It is a bifrontal sharp stabbing pain. This is worse with vomiting. He has had episodes of significant/violent vomiting over the last several days. He currently has some throat pain and chest pain from the vomiting. Pressure is 147/88 Patient's tells me that in the past topiramate gave him to cognitive side effects and he had significant reactions to Depakote. Physical Exam 2 Vital Signs (Past 24 Hours): Last Vital Signs Temp 36.8 C 09/13/18 08:00 Pulse 76 09/13/18 08:00 Resp 16 09/13/18 08:00 BP 147/88 H 09/13/18 08:00 Pulse Ox 98 09/13/18 08:00 Physical Exam: He is awake and alert. Speech is without aphasia or dysarthria. He is somewhat fatigued but is fairly well oriented and conversant following commands. Extraocular eye muscles are intact without nystagmus. There is no facial droop. Tongue is midline. Neck is supple. Coordination is normal in the arms without ataxia. There is some mild action tremor. Strength is 5/5 in all major muscle groups in arms and legs both proximally distally with good tone.
[2018-09-13] MEDS ORDERED: IOVERSOL 100ml IV PRN (12:51)
--- NOTE | 2018-09-13 13:00 | CT Scan Report ---
CT head/brain wo/w con CLINICAL HISTORY: 48 years-old Male presenting with repeated seizures. TECHNIQUE: Multidetector CT imaging of the head was performed before and after the administration of intravenous contrast. IV contrast: 95 mL of Optiray 320. One or more dose lowering techniques were us ed consistent with the principles of ALARA (as low as reasonably achievable), including automatic exp osure control, mA or kV adjustment to individual patient size, and/or use of iterative reconstruction . COMPARISON: 09/07/2018. CT DOSE (mGy.cm): The estimated cumulative dose is 1676.95 mGy.cm. 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 Ventricles and sulci normal in size. No hemorrhage. Brain parenchyma normal in appearance with preser jessica flowers-white differentiation. No acute territorial infarct. No mass effect or midline shift. No ext ra-axial fluid collection. Paranasal sinuses and mastoid air cells clear. Calvarium intact. No abnorm al parenchymal enhancement. Intracranial vasculature grossly patent. IMPRESSION: 1. No acute intracranial pathology. No abnormal enhancement. Electronically signed by: Abhay Braun M.D. 09/13/2018 12:59 PM
--- NOTE | 2018-09-13 14:40 | Procedure Note ---
EEG Procedure Note Date of Service September 13, 2018 Start / End Times Start Time: 1342 End Time: [address] Alvarado History Patient is a 48 year old with history of seizures and multiple generalized limb shaking events today Home Medication List Home Medications Medication Instructions Recorded Confirmed Type lamotrigine 100 mg PO BID 09/07/18 09/07/18 History lamotrigine 400 mg PO BID 09/07/18 09/07/18 History levetiracetam 500 mg PO BID 09/07/18 09/07/18 History levetiracetam [Keppra] 750 mg PO BID #60 tab 09/07/18 Rx quetiapine 900 mg PO HS 09/07/18 09/07/18 History Inpatient Medication List Acetaminophen (Tylenol) 650 mg PO Q6 PRN PRN Reason: Pain Stop: 10/08/18 04:40 Last Admin: 09/12/18 23:53 Dose: 650 mg Admin: 09/11/18 00:03 Dose: 650 mg Admin: 09/08/18 21:32 Dose: 650 mg Admin: 09/08/18 04:54 Dose: 650 mg Diazepam (Valium) 5 mg PO HS PRN PRN Reason: Insomnia Stop: 10/09/18 08:03 Last Admin: 09/12/18 17:47 Dose: 5 mg Admin: 09/11/18 21:06 Dose: 5 mg Admin: 09/11/18 00:06 Dose: 5 mg Diclofenac Sodium (Voltaren 1% Top) 1 appln EXT QID MELISSA Stop: 10/09/18 16:59 Last Admin: 09/13/18 14:29 Dose: 1 appln Admin: 09/13/18 11:03 Dose: 1 appln Admin: 09/12/18 21:38 Dose: 1 appln Admin: 09/12/18 17:47 Dose: 1 appln Admin: 09/12/18 15:59 Dose: Not Given Admin: 09/12/18 09:12 Dose: 1 appln Admin: 09/11/18 20:38 Dose: 1 appln Admin: 09/11/18 16:30 Dose: 1 appln Admin: 09/11/18 12:54 Dose: 1 appln Admin: 09/11/18 08:00 Dose: 1 appln Admin: 09/10/18 21:18 Dose: 1 appln Admin: 09/10/18 18:24 Dose: Not Given Admin: 09/10/18 12:50 Dose: 1 appln Admin: 09/10/18 09:35 Dose: 1 appln Admin: 09/09/18 21:23 Dose: 1 appln Admin: 09/09/18 17:41 Dose: 1 appln Promethazine HCl 12.5 mg/ (Sodium Chloride) 50.5 mls @ 202 mls/hr IV Q6H PRN PRN Reason: Nausea And Vomiting Stop: 10/09/18 06:14 Last Infusion: 09/13/18 09:17 Dose: 0 mls/hr Admin: 09/13/18 07:37 Dose: 202 mls/hr Infusion: 09/12/18 04:12 Dose: 0 mls/hr Admin: 09/12/18 03:57 Dose: 202 mls/hr Infusion: 09/11/18 13:35 Dose: 0 mls/hr Admin: 09/11/18 13:20 Dose: 202 mls/hr Infusion: 09/11/18 05:47 Dose: 0 mls/hr Admin: 09/11/18 04:52 Dose: 202 mls/hr Infusion: 09/10/18 16:32 Dose: 0 mls/hr Admin: 09/10/18 16:17 Dose: 202 mls/hr Lorazepam (Ativan) 1 mg in 2 mls @ 2 mls/min IV Q10M PRN PRN Reason: Breakthrough Seizures Last Admin: 09/13/18 12:06 Dose: 2 mls/min Admin: 09/13/18 07:38 Dose: 2 mls/min Admin: 09/13/18 05:34 Dose: 2 mls/min Admin: 09/13/18 05:25 Dose: 2 mls/min Ioversol (Optiray 320 100ml) 95 ml IV ONCE PRN PRN Reason: Interaction Checking Stop: 09/17/18 12:50 Last Admin: 09/13/18 12:51 Dose: 95 ml Ketorolac Tromethamine (Toradol) 30 mg IV Q6H PRN PRN Reason: Pain Stop: 09/16/18 09:30 Last Admin: 09/13/18 10:58 Dose: 30 mg Admin: 09/13/18 02:58 Dose: 30 mg Admin: 09/12/18 21:26 Dose: 30 mg Admin: 09/12/18 10:58 Dose: 30 mg Admin: 09/12/18 03:29 Dose: 30 mg Admin: 09/11/18 18:36 Dose: 30 mg Lamotrigine (Lamictal) 200 mg PO BID MELISSA Stop: 10/09/18 08:59 Last Admin: 09/13/18 07:45 Dose: 200 mg Admin: 09/12/18 21:28 Dose: 200 mg Admin: 09/12/18 09:11 Dose: 200 mg Admin: 09/11/18 20:36 Dose: 200 mg Admin: 09/11/18 07:59 Dose: 200 mg Admin: 09/10/18 21:16 Dose: 200 mg Admin: 09/10/18 09:35 Dose: 200 mg Admin: 09/09/18 21:26 Dose: 200 mg Admin: 09/09/18 09:39 Dose: Not Given Miscellaneous (Remove Nicoderm Patch) 1 ea N/A HS MELISSA Stop: 10/08/18 20:59 Last Admin: 09/12/18 21:29 Dose: 1 ea Admin: 09/11/18 20:37 Dose: 1 ea Admin: 09/10/18 21:18 Dose: 1 ea Admin: 09/09/18 21:24 Dose: 1 ea Admin: 09/08/18 21:29 Dose: Not Given Nicotine (Nicoderm Cq) 7 mg TD QAM MELISSA Stop: 10/08/18 04:39 Last Admin: 09/13/18 07:43 Dose: 7 mg Admin: 09/12/18 09:12 Dose: 7 mg Admin: 09/11/18 08:00 Dose: 7 mg Admin: 09/10/18 10:04 Dose: 7 mg Admin: 09/09/18 08:06 Dose: 7 mg Admin: 09/08/18 09:43 Dose: 7 mg Ondansetron HCl (Zofran) 4 mg IV Q6H MELISSA Stop: 10/09/18 15:59 Last Admin: 09/13/18 10:49 Dose: 4 mg Admin: 09/13/18 02:57 Dose: 4 mg Admin: 09/12/18 21:27 Dose: 4 mg Admin: 09/12/18 17:54 Dose: 4 mg Admin: 09/12/18 10:59 Dose: 4 mg Admin: 09/12/18 03:30 Dose: 4 mg Admin: 09/11/18 21:06 Dose: 4 mg Admin: 09/11/18 16:14 Dose: 4 mg Admin: 09/11/18 09:43 Dose: 4 mg Admin: 09/11/18 04:07 Dose: 4 mg Admin: 09/10/18 21:17 Dose: 4 mg Admin: 09/10/18 16:05 Dose: 4 mg Admin: 09/10/18 09:53 Dose: 4 mg Admin: 09/10/18 03:54 Dose: 4 mg Admin: 09/09/18 22:14 Dose: 4 mg Admin: 09/09/18 16:49 Dose: 4 mg Ondansetron HCl (Zofran) 4 mg IV Q6H PRN PRN Reason: Nausea Stop: 10/10/18 15:59 Last Admin: 09/13/18 04:42 Dose: 4 mg Admin: 09/11/18 00:15 Dose: 4 mg Quetiapine Fumarate (Seroquel) 400 mg PO HS MELISSA Stop: 10/08/18 20:59 Last Admin: 09/12/18 21:27 Dose: 400 mg Admin: 09/11/18 20:37 Dose: 400 mg Admin: 09/10/18 21:16 Dose: 400 mg Admin: 09/09/18 21:24 Dose: 400 mg Admin: 09/08/18 21:30 Dose: 400 mg Discontinued Medications Acetaminophen (Tylenol) 650 mg PO ONE ONE Stop: 09/10/18 09:08 Last Admin: 09/10/18 09:35 Dose: 650 mg Famotidine (Pepcid) 20 mg PO ONE ONE Stop: 09/09/18 16:25 Last Admin: 09/09/18 17:41 Dose: 20 mg Sodium Chloride (Nss 1000ml) 1,000 mls @ 999 mls/hr IV .Q1H1M MELISSA Stop: 09/08/18 00:00 Last Infusion: 09/08/18 00:05 Dose: 0 mls/hr Admin: 09/07/18 23:07 Dose: 999 mls/hr Promethazine HCl 12.5 mg/ (Sodium Chloride) 50.5 mls @ 202 mls/hr IV NOW STA Stop: 09/08/18 06:49 Last Infusion: 09/08/18 07:10 Dose: 0 mls/hr Admin: 09/08/18 06:47 Dose: 202 mls/hr Methylprednisolone 80 mg/ (Syringe) 1.28 mls @ 1.5 mls/min IV ONE ONE Stop: 09/10/18 09:16 Last Admin: 09/10/18 09:35 Dose: 1.5 mls/min Promethazine HCl 12.5 mg/ (Sodium Chloride) 50.5 mls @ 202 mls/hr IV 0930 ONE Stop: 09/10/18 09:44 Last Infusion: 09/10/18 10:13 Dose: 0 mls/hr Admin: 09/10/18 09:35 Dose: 202 mls/hr Methylprednisolone 40 mg/ (Syringe) 0.64 mls @ 1.5 mls/min IV 1230 MELISSA Stop: 09/10/18 13:00 Last Admin: 09/10/18 12:50 Dose: 1.5 mls/min Prochlorperazine 10 mg/ (Syringe) 10 mls @ 5 mls/min IV ONE ONE Stop: 09/10/18 20:46 Last Admin: 09/10/18 21:16 Dose: 5 mls/min Methylprednisolone 125 mg/ (Syringe) 2 mls @ 1.5 mls/min IV ONE ONE Stop: 09/11/18 13:31 Last Admin: 09/11/18 14:29 Dose: 1.5 mls/min Methylprednisolone 1,000 mg/ (Dextrose) 266 mls @ 266 mls/hr IV NOW ONE Stop: 09/12/18 11:29 Last Infusion: 09/12/18 12:40 Dose: Admin: 09/12/18 10:59 Dose: 266 mls/hr Lorazepam (Ativan) 1 mg in 2 mls @ 2 mls/min IV NOW STA Stop: 09/13/18 05:20 Last Admin: 09/13/18 05:24 Dose: Not Given Ketorolac Tromethamine (Toradol) 30 mg IV NOW STA Stop: 09/10/18 12:01 Last Admin: 09/10/18 12:49 Dose: 30 mg Ketorolac Tromethamine (Toradol) 30 mg IV ONE STA Stop: 09/10/18 19:32 Last Admin: 09/10/18 20:07 Dose: 30 mg Ketorolac Tromethamine (Toradol) Confirm Administered Dose 30 mg .ROUTE .STK- MED ONE Stop: 09/11/18 09:38 Last Admin: 09/11/18 09:40 Dose: 30 mg Lamotrigine (Lamictal) 100 mg PO BID MELISSA Stop: 10/08/18 08:59 Last Admin: 09/08/18 09:43 Dose: 100 mg Lamotrigine (Lamictal) 400 mg PO BID MELISSA Stop: 10/08/18 08:59 Last Admin: 09/08/18 09:43 Dose: 400 mg Lamotrigine (Lamictal) 500 mg PO NOW STA Stop: 09/08/18 03:39 Last Admin: 09/08/18 04:34 Dose: 500 mg Lamotrigine (Lamictal) 225 mg PO BID MELISSA Stop: 10/08/18 20:59 Last Admin: 09/09/18 08:04 Dose: 225 mg Admin: 09/08/18 21:26 Dose: 225 mg Lamotrigine (Lamictal) 25 mg PO BID [facility] Stop: 10/09/18 08:59 Last Admin: 09/13/18 07:44 Dose: 25 mg Admin: 09/12/18 21:27 Dose: 25 mg Admin: 09/12/18 09:11 Dose: 25 mg Admin: 09/11/18 20:37 Dose: 25 mg Admin: 09/11/18 07:58 Dose: 25 mg Admin: 09/10/18 21:17 Dose: 25 mg Admin: 09/10/18 09:35 Dose: 25 mg Admin: 09/09/18 21:25 Dose: 25 mg Admin: 09/09/18 09:40 Dose: Not Given Levetiracetam (Keppra) 500 mg PO ONE ONE Stop: 09/07/18 23:58 Last Admin: 09/08/18 00:44 Dose: 500 mg Levetiracetam (Keppra) 500 mg PO BID [facility] Stop: 10/08/18 08:59 Last Admin: 09/13/18 07:44 Dose: 500 mg Admin: 09/12/18 21:28 Dose: 500 mg Admin: 09/12/18 09:12 Dose: 500 mg Admin: 09/11/18 20:36 Dose: 500 mg Admin: 09/11/18 07:59 Dose: 500 mg Admin: 09/10/18 21:16 Dose: 500 mg Admin: 09/10/18 09:35 Dose: 500 mg Admin: 09/09/18 21:26 Dose: 500 mg Admin: 09/09/18 08:04 Dose: 500 mg Admin: 09/08/18 21:26 Dose: 500 mg Admin: 09/08/18 09:42 Dose: 500 mg Ondansetron HCl (Zofran Odt 4mg Home Pack) 1 homepack PO NOW ONE Stop: 09/08/18 00:06 Last Admin: 09/08/18 00:10 Dose: 1 homepack Ondansetron HCl (Zofran) 4 mg IV NOW STA Stop: 09/08/18 00:06 Last Admin: 09/08/18 00:10 Dose: 4 mg Ondansetron HCl (Zofran) 4 mg IV Q6H PRN PRN Reason: Nausea Stop: 10/08/18 05:34 Last Admin: 09/09/18 09:43 Dose: 4 mg Admin: 09/09/18 03:39 Dose: 4 mg Admin: 09/08/18 22:28 Dose: 4 mg Admin: 09/08/18 15:49 Dose: 4 mg Admin: 09/08/18 09:52 Dose: 4 mg Ondansetron HCl (Zofran) Confirm Administered Dose 4 mg .ROUTE .STK-MED ONE Stop: 09/08/18 05:38 Last Admin: 09/08/18 05:39 Dose: 4 mg Potassium Chloride (Klor-Con M10) 20 meq PO NOW STA Stop: 09/09/18 16:00 Last Admin: 09/09/18 16:46 Dose: 20 meq Quetiapine Fumarate (Seroquel) 900 mg PO ONE ONE Stop: 09/08/18 03:40 Last Admin: 09/08/18 04:33 Dose: 900 mg Sumatriptan Succinate (Imitrex) 6 mg SQ ONE ONE Stop: 09/12/18 17:20 Last Admin: 09/12/18 17:54 Dose: 6 mg Description This is a 21 electrode EEG with a single channel dedicated to limited EKG. The electrodes were placed in accordance with the International 10-20 system. Interpretation The predominant background activity consists of a fairly well modulated 10 Hz activity, of up to 40 mV in amplitude, seen symmetrically distributed over the posterior head regions bilaterally. This activity attenuates some with eye- opening and other alerting procedures. Photic stimulation was performed and elicited no change in the background activity and no abnormal responses were seen. Hyperventilation was not performed. A significant amount of muscle and movement artifact activity contaminated the recording and hindered interpretation from time to time throughout the recording. Throughout the recording, no focal abnormalities, abnormal slow activity, or potentially epileptogenic discharges are seen. The patient did not enter dfowsiness or sleep. In summary, this EEG was normal during wakefulness, although there was considerable artifact and movement throughout the recording. No focal abnormalities, potentially epileptogenic discharges, or abnormal slow activity was seen. Also, despite his multiple speels today there was no slowing of the background. Clinical Correlation The abscence of potentially epileptogenic activity does not exclude a seizure disorder, since interictally, EEGs can be normal. Clinical correlation is required.
[2018-09-13 16:21] LABS: Hematocrit (blood only) 38.3 % (42-52); Hemoglobin 13.2 g/dL (14.0-18.0); Mean Corpuscular Hgb Conc 34.5 g/dL (32-36); Mean Platelet Volume 9.9 fL (7.4-10.4); Platelet Count 284 K/uL (130-400); RDW Coefficient of Variation 13.8 % (11.5-14.5); RDW Standard Deviation 44.9 fL (36.4-46.3); Red Blood Count 4.21 M/uL (4.7-6.1)
[2018-09-13 16:48] LABS: Basophils # (auto) 0.01 K/uL (0-0.2); Basophils % (auto) 0.1 %; Immature Granulocytes # (auto) 0.05 K/uL (0.00-0.02); Immature Granulocytes % (auto) 0.3 %; Lymphocytes # (auto) 1.99 K/uL (1.2-3.4); Monocytes % (auto) 4.8 %; Neutrophils # (auto) 13.75 K/uL (1.4-6.5); Neutrophils % (auto) 82.8 %
--- NOTE | 2018-09-13 16:49 | Ultrasound Report ---
US abdomen limited CLINICAL HISTORY: 48 years-old Male presenting with nausea/vomiting post ice cream, ?GB pathology. TECHNIQUE: Real-time grayscale and limited color Doppler ultrasound imaging of the abdomen limited to the right upper quadrant was performed. COMPARISON: None. FINDINGS: Pancreas: Visualized portions of the pancreatic head and body normal. Liver: Mildly hyperechogenic parenchyma, although the right hemidiaphragm remains visible, likely ind icating mild steatosis. The liver measures 17.6 cm in maximal sagittal dimension. No sonographic evid ence of hepatic mass. Main portal vein patent with normal directional flow. Biliary: No intrahepatic biliary ductal dilatation. Common bile duct measures up to 6 mm in diameter. Gallbladder: No evidence of gallstones, gallbladder wall thickening, gallbladder distention, or peric holecystic fluid or inflammatory change. Sonographic Meehan's sign negative. Right kidney: Normal in appearance without evidence of hydronephrosis. Ascites: None. Other: None. IMPRESSION: 1. No cholelithiasis or biliary ductal dilatation. 2. Mild hepatic steatosis. Correlate with liver function tests to exclude steatohepatitis as a cause for abdominal pain. Electronically signed by: Abhay Braun M.D. 09/13/2018 4:48 PM
[2018-09-13] MEDS: diazePAM 5 MG TABLET PO PRN (17:05)
[2018-09-13] MEDS: D5W AND 1/2NSS + 20MEQ KCL 20 MEQ/1,000 ML BAG IV SCH (17:25)
--- NOTE | 2018-09-13 20:58 | Hospitalist Progress Note ---
Date of Service September 13, 2018 Assessment & Plan (1) Seizure disorder: Today's episode seemed consistent with a pseudoseizure type pathology, given that is clearly significant and involuntary, but he is able to follow commands in the midst of it and does not seem to have classic postictal state. Repeat head CT was done without pathology. EEG was done, but the episodes had abated by this time. Neurology made recommendations on adjusting anticonvulsants at first, after the episodes early this morning witnessed by family, but after the episodes witnessed more by nursing and myself today, we are all in agreement as well as the family that 24-hour EEG monitoring seems appropriate at this time. I called [facility], and a Dr. Brumfield and neurophysiology was willing to accept in transfer. We discussed outpatient workup, but the acuity of the patient's situation and the fact that he is having more episodes right now makes it incompatible with him being able to go home, as well as making it probably a prime time to be able to capture a diagnosis. (2) Bipolar disorder: On Seroquel for this. Appears to be doing well on the lower dosing of 400 mg at bedtime overall (3) Anxiety disorder: See above (4) Depression: See above (5) Insomnia: Continue Seroquel at reduced dose as above noted. Prior to last night he was sleeping well. Continue to follow closely. 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 -Trial of OMT ongoing, and we will have him referred to Dr. Markel Jimenez DO for ongoing OMT after discharge -Voltaren gel 4 times daily to continue -This will likely take several months to see improvement, but in previous experiences with folks with similar back issues, this approach has helped significantly improve pain and quality of life -See previous days notes as well. (7) Nausea and vomiting: Worsened dramatically today. -Seems to temporally correspond to his episodes, possibly triggered by seizure/ pseudoseizure pathology. -Workup for abdominal pathology low yield. He did have a leukocytosis on his lab work, it is probably better explained by his steroid use. Right upper quadrant ultrasound was negative and his CMP was negative. Continue supportive care, right now diagnostically tie it together with his pseudoseizures/seizure pathology, but ongoing vigilance. Ongoing consideration of alternate differentials. (8) Somatic dysfunction of lumbar region: For outpatient OMT. (9) Migraine: Follow, otherwise manage as before (10) Weakness: PT/OT eval and treat ongoing Probably the better part of 60-90 minutes [id number], and the better part of 2 hours spent on his care today. Subjective Seen repeatedly in multiple times today. Patient initially in bed appearing fatigued and not nearly as conversational as before, noting that he had an episode starting since about 3 in the morning. He woke up at 3 in the morning which actually is a bit of a usual for him, as this is often the time even wakes up at home. He was actually feeling hungry they got him some ice cream. About 45 minutes after that he started vomiting. Shortly thereafter he had seizure-like episodes. They lowered him to the floor, per and mother preference. He apparently was very hypertonic and arching and "posturing" per the as well as appearing at times pale and/or blue. This then self arrested and the patient was very confused for a while thereafter. No tongue biting no loss of bowel or bladder. He is more fatigued on exam today. Later and called to revisit as he is having more episodes. Nursing notes he has had a few through the morning and when they assess while he is not spontaneously responsive and he appears to be tonic all over, he will follow simple commands. When I arrived in the room he is sitting in the bed slightly diagonal arched forward at the waist and extremely tense. It appears involuntary, and he appears somewhat pale. He does not respond immediately to commands. A few seconds later the and mother helped him lay back in bed, and notes that he still "in the middle of an episode" he is able to follow very simple commands on a bit of a delay then. (For instance he will open eyes on command but on about a 2-second lag time, he will squeeze hands on command but somewhat clumsily on a similar lag time) Yet again I revisit later in the afternoon, and now he is back to his baseline just may be feeling a bit fatigued otherwise. He seems to have only a vague recollection of the events of the morning at best. Lastly I revisit around 7 PM, and he is sleeping comfortably and appears in no distress. Review of Systems All systems reviewed & are unremarkable except as noted in HPI & below Physical Exam 2 Vital Signs (Past 24 Hours): Last Vital Signs Temp 37.1 C 09/13/18 20:44 Pulse 78 09/13/18 20:44 Resp 18 09/13/18 20:44 BP 149/82 H 09/13/18 20:44 Pulse Ox 95 09/13/18 20:44 Physical Exam: See above, as far as his episodes. Otherwise he is normocephalic atraumatic mucous membranes moist. Breathing is unlabored no accessory muscle use. Neuro as per in HPI, but no focal deficits otherwise.
[2018-09-13] MEDS: QUETIAPINE FUMARATE 200 MG TAB PO SCH (21:30)
[2018-09-13] MEDS ORDERED: diazePAM 5 MG TABLET PO STA (22:02)
[2018-09-14] MEDS: ACETAMINOPHEN SOL 650 MG/20.3 ML UDC PO PRN (03:33)
[2018-09-14] MEDS: D5W AND 1/2NSS + 20MEQ KCL 20 MEQ/1,000 ML BAG IV SCH ×2 (05:23→18:10)
[2018-09-14] MEDS: KETOROLAC 30 MG/ML VIAL IV PRN ×3 (06:06→19:03)
[2018-09-14] MEDS: ONDANSETRON INJ 2 MG/ML 2 ML VIAL IV PRN ×3 (07:32→23:38)
[2018-09-14] MEDS: lamoTRIgine 100 MG TAB PO SCH ×2 (08:39→21:01)
[2018-09-14] MEDS: DICLOFENAC SOD 1% GEL 100 GM TUBE EXT SCH ×4 (08:39→21:03)
[2018-09-14] MEDS: lamoTRIgine 25 MG TAB PO SCH ×2 (08:39→21:02)
[2018-09-14] MEDS: NICOTINE 7 MG/24 HR TDSY TD SCH (08:40)
--- NOTE | 2018-09-14 09:14 | Neurology Progress Note ---
Date of Service September 14, 2018 Assessment & Plan (1) Seizure: This is a 48-year-old male who presents with recurrent uncontrolled seizure-like activity. Unclear if he has epileptic versus nonepileptic seizures. Recent activity reportedly observed from hospitalist and nursing on Friday were concerning for nonepileptic events. Recommendations: Agree with transfer to hospital that can do continuous EEG monitoring to capture and diagnosis whether these events are epileptic versus nonepileptic events. Continue Lamictal for now. This was just recently increased Agree that could consider adding on zonisamide as an outpatient if needed. Avoid benzodiazepine unless absolutely necessary. No seizures stop on their own within 2 minutes. If having more than 3 seizures in an hour or one seizure lasting longer than 5 minutes without return to baseline, and activity appears convincing for possible epileptic seizure, can give 2 mg of Ativan as needed up to 3 doses in a day (for a limited amount of time until we get better diagnosis). If the patient is found to have psychogenic nonepileptic events, treatment is cognitive behavioral therapy through a psychologist or psychiatrist. Patient already has scheduled neurology follow-up in September which he should keep. Subjective reports the patient seems a little bit more confused this morning. Did not appear to have any additional seizure-like activity after diazepam was given last night. Reports that he was having frequent seizures over yesterday. He reports that his recent round of seizure activity started Friday. Denies any provoking factors. Reports that he first started to have seizures in 2000. Reports previous trials of topiramate with side effects, Depakote with side effects, Keppra made him archer, and currently on Lamictal. Plan was to possibly start zonisamide, but apparently hospital pharmacy does not have this in stock. Patient also has history of migraine headaches. Physical Exam 2 Vital Signs (Past 24 Hours): Last Vital Signs Temp 36.8 C 09/14/18 07:04 Pulse 81 09/14/18 07:35 Resp 16 09/14/18 07:04 BP 129/70 09/14/18 07:04 Pulse Ox 96 09/14/18 07:04 Gen.: Patient is alert and oriented in no acute distress lying in bed Extremities: No gross deformities or rashes noted Neurological examination: Mental status: Patient is alert and oriented to person place and time. Able to give his own history. Attention concentration normal for the situation. Remote and recent memory seen intact Speech is fluent without any dysarthria or aphasia noted Cranial nerves: No facial asymmetry noted. Hearing grossly intact voice. Strength: full in all extremities Station within the bed is normal.
[2018-09-14] MEDS ORDERED: KETOROLAC 30 MG/ML VIAL IV ONE (14:45)
--- NOTE | 2018-09-14 15:42 | Family Medicine Progress Note ---
Date of Service September 14, 2018 Assessment & Plan (1) Seizure: (1) Seizure disorder: Family and patient report numerous events overnight. He did not sustain any tongue or body injury. No bowel or bladder incontinence. Family notes he is back to neuro baseline this morning. Recent head CT was done without pathology. During stay here, EEG was done, but the episodes had abated by this time. Yesterday, Neurology made recommendations on adjusting anticonvulsants at first, after the episodes early this morning witnessed by family, but after the episodes witnessed more by nursing and weekend attending yesterday, team was all in agreement as well as the family that 24-hour EEG monitoring seems appropriate at this time. Yesterday, weekend attending called [facility], and a Dr. Brumfield and neurophysiology was willing to accept in transfer. Patient's transfer is pending bed availability. Prolactin was ordered this morning and was normal but might not have been within window for time capture. Did order Prolactin stat after witnessed seizure activity at bedside. - Appreciated neuro's recs of avoiding benzodiazepine unless absolutely necessary. No seizures stop on their own within 2 minutes. If having more than 3 seizures in an hour or one seizure lasting longer than 5 minutes without return to baseline, and activity appears convincing for possible epileptic seizure, can give 2 mg of Ativan as needed up to 3 doses in a day (for a limited amount of time until we get better diagnosis) (2) Bipolar disorder: On Seroquel for this. Appears to be doing well on the lower dosing of 400 mg at bedtime overall (3) Anxiety disorder: Hydroxyzine ordered PRN (4) Depression: On Seroquel (5) Insomnia: Continue Seroquel at reduced dose as above noted. Prior to last night he was sleeping well. Continue to follow closely. (6) Chronic back pain: Appears multifactorial, with the bone and disc pain being the root cause, but now likely with a significant overlay of muscular and ligamentous pain, as well as more than likely nervous system facilitation (both peripheral and central) -Trial of OMT ongoing, and we will have him referred to Dr. Markel Jimenez DO for ongoing OMT after discharge -Voltaren gel 4 times daily to continue -See previous days notes as well. (7) Nausea and vomiting: No episodes today. -Seems to temporally correspond to his episodes, possibly triggered by seizure/ pseudoseizure pathology. -Workup for abdominal pathology low yield. He did have a leukocytosis on his lab work, it is probably better explained by his steroid use. Right upper quadrant ultrasound was negative and his CMP was negative. Continue supportive care, right now diagnostically tie it together with his pseudoseizures/seizure pathology, but ongoing vigilance. Ongoing consideration of alternate differentials. (8) Somatic dysfunction of lumbar region: For outpatient OMT. (9) Migraine: Follow, otherwise manage as before (10) Weakness: PT/OT eval and treat ongoing Supervising Physician Co-Signing Physician Notes I saw the patient with the resident physician and confirmed hermosillo portions of the history and physical exam. I agree with the impression and plan as noted in the resident documentation. Upon my examination, the patient was without complaints. Family was present at the time of our examination and all questions were answered. The patient currently has been accepted to the [facility] in transfer though he is awaiting bed availability. The case was discussed with neurology and their consultation and input is appreciated. Stephanie Alva reports a headache which has been present for several days that is located in the front and is described as a stabbing pain that is not relieved with medications. He does endorse migraine headache history. He has had two negative CT heads during stay. family and patient report numerous short seizures overnight without injury, fall , tongue injury, or bladder/bowel incontinence. They report that he "postures" and has tonic event. These episodes last 1-2 minutes. PM Note: was called to room around 15:15 for seizure event. Seizure resolved by the time I came to room and Ativan was already given, had another event lasting 20 seconds in room that did not appear to be consistent with epileptic seizure. Physical Exam 2 Vital Signs (Past 24 Hours): Last Vital Signs Temp 37.0 C 09/14/18 15:23 Pulse 80 09/14/18 15:23 Resp 18 09/14/18 15:23 BP 126/69 09/14/18 15:23 Pulse Ox 94 09/14/18 15:23 Constitutional: WD/WN, vitals as above ENMT: Mouth: + edentulous; no tongue abnormality and no mouth trauma Neck: normal visual inspection and trachea midline Respiratory: normal respiratory effort, lungs clear to auscultation Cardiovascular: RRR, no murmur, no edema Gastrointestinal (Abdomen): Inspection/Auscultation: normal bowel sounds Percussion/Palpation: abdomen soft; abdomen nontender Musculoskeletal: Head/Neck/Chest: normocephalic and head atraumatic Extremities: extremities normal to inspection Skin: no rashes, warm and dry Neurologic: moves all extremities and awake Psychiatric: A+Ox3, euthymic affect Results & Data Laboratory Results Laboratory Results - last 24 hr 09/13/18 09/13/18 09/14/18 16:10 16:10 10:53 WBC 16.60 H RBC 4.21 L Hgb 13.2 L Hct 38.3 L MCV 91.0 MCH 31.4 MCHC 34.5 RDW Std Deviation 44.9 RDW Coeff of Argelia 13.8 Plt Count 284 MPV 9.9 Immature Gran % (Auto) 0.3 Neut % (Auto) 82.8 Lymph % (Auto) 12.0 [place] % (Auto) 4.8 Eos % (Auto) 0.0 Baso % (Auto) 0.1 Immature Gran # (Auto) 0.05 H Neut # (Auto) 13.75 H Lymph # (Auto) 1.99 [place] # (Auto) 0.80 H Eos # (Auto) 0.00 Baso # (Auto) 0.01 C-Reactive Protein < 0.29 Prolactin 4.33 Influenza Type A Ag Influenza Type B Ag 09/14/18 11:10 WBC RBC Hgb Hct MCV MCH MCHC RDW Std Deviation RDW Coeff of Argelia Plt Count MPV Immature Gran % (Auto) Neut % (Auto) Lymph % (Auto) [place] % (Auto) Eos % (Auto) Baso % (Auto) Immature Gran # (Auto) Neut # (Auto) Lymph # (Auto) [place] # (Auto) Eos # (Auto) Baso # (Auto) C-Reactive Protein Prolactin Influenza Type A Ag Neg for Influ A Influenza Type B Ag Neg for Influ B Medications Administered Acetaminophen (Tylenol) 650 mg PO Q6 PRN PRN Reason: Pain Stop: 10/08/18 04:40 Last Admin: 09/14/18 03:33 Dose: 650 mg Admin: 09/12/18 23:53 Dose: 650 mg Admin: 09/11/18 00:03 Dose: 650 mg Admin: 09/08/18 21:32 Dose: 650 mg Admin: 09/08/18 04:54 Dose: 650 mg Diazepam (Valium) 5 mg PO HS PRN PRN Reason: Insomnia Stop: 10/09/18 08:03 Last Admin: 09/13/18 17:05 Dose: 5 mg Admin: 09/12/18 17:47 Dose: 5 mg Admin: 09/11/18 21:06 Dose: 5 mg Admin: 09/11/18 00:06 Dose: 5 mg Diclofenac Sodium (Voltaren 1% Top) 1 appln EXT QID MELISSA Stop: 10/09/18 16:59 Last Admin: 09/14/18 12:58 Dose: 1 appln Admin: 09/14/18 08:39 Dose: 1 appln Admin: 09/13/18 20:45 Dose: 1 appln Admin: 09/13/18 18:14 Dose: 1 appln Admin: 09/13/18 14:29 Dose: 1 appln Admin: 09/13/18 11:03 Dose: 1 appln Admin: 09/12/18 21:38 Dose: 1 appln Admin: 09/12/18 17:47 Dose: 1 appln Admin: 09/12/18 15:59 Dose: Not Given Admin: 09/12/18 09:12 Dose: 1 appln Admin: 09/11/18 20:38 Dose: 1 appln Admin: 09/11/18 16:30 Dose: 1 appln Admin: 09/11/18 12:54 Dose: 1 appln Admin: 09/11/18 08:00 Dose: 1 appln Admin: 09/10/18 21:18 Dose: 1 appln Admin: 09/10/18 18:24 Dose: Not Given Admin: 09/10/18 12:50 Dose: 1 appln Admin: 09/10/18 09:35 Dose: 1 appln Admin: 09/09/18 21:23 Dose: 1 appln Admin: 09/09/18 17:41 Dose: 1 appln Hydroxyzine HCl (Vistaril) 25 mg PO Q6H PRN PRN Reason: Anxiety Stop: 10/14/18 08:13 Last Admin: 09/14/18 08:38 Dose: 25 mg Promethazine HCl 12.5 mg/ (Sodium Chloride) 50.5 mls @ 202 mls/hr IV Q6H PRN PRN Reason: Nausea And Vomiting Stop: 10/09/18 06:14 Last Infusion: 09/13/18 17:50 Dose: 0 mls/hr Admin: 09/13/18 17:26 Dose: 202 mls/hr Infusion: 09/13/18 09:17 Dose: 0 mls/hr Admin: 09/13/18 07:37 Dose: 202 mls/hr Infusion: 09/12/18 04:12 Dose: 0 mls/hr Admin: 09/12/18 03:57 Dose: 202 mls/hr Infusion: 09/11/18 13:35 Dose: 0 mls/hr Admin: 09/11/18 13:20 Dose: 202 mls/hr Infusion: 09/11/18 05:47 Dose: 0 mls/hr Admin: 09/11/18 04:52 Dose: 202 mls/hr Infusion: 09/10/18 16:32 Dose: 0 mls/hr Admin: 09/10/18 16:17 Dose: 202 mls/hr Potassium Chloride/Dextrose/Sod Cl (D5w And 1/2nss + 20meq Kcl) 20 meq in 1, 000 mls @ 75 mls/hr IV .[id number] MELISSA Stop: 10/13/18 16:44 Last Admin: 09/14/18 05:23 Dose: 75 mls/hr Infusion: 09/14/18 05:23 Dose: 75 mls/hr Admin: 09/13/18 17:25 Dose: 75 mls/hr Lorazepam (Ativan) 1 mg in 2 mls @ 0.5 mls/min IV Q10M PRN PRN Reason: Breakthrough Seizures Stop: 10/13/18 21:46 Last Admin: 09/14/18 15:47 Dose: 0.5 mls/min Ioversol (Optiray 320 100ml) 95 ml IV ONCE PRN PRN Reason: Interaction Checking Stop: 09/17/18 12:50 Last Admin: 09/13/18 12:51 Dose: 95 ml Ketorolac Tromethamine (Toradol) 30 mg IV Q6H PRN PRN Reason: Pain Stop: 09/16/18 09:30 Last Admin: 09/14/18 12:57 Dose: 30 mg Admin: 09/14/18 06:06 Dose: 30 mg Admin: 09/13/18 23:50 Dose: 30 mg Admin: 09/13/18 18:13 Dose: 30 mg Admin: 09/13/18 10:58 Dose: 30 mg Admin: 09/13/18 02:58 Dose: 30 mg Admin: 09/12/18 21:26 Dose: 30 mg Admin: 09/12/18 10:58 Dose: 30 mg Admin: 09/12/18 03:29 Dose: 30 mg Admin: 09/11/18 18:36 Dose: 30 mg Lamotrigine (Lamictal) 200 mg PO BID MELISSA Stop: 10/09/18 08:59 Last Admin: 09/14/18 08:39 Dose: 200 mg Admin: 09/13/18 20:48 Dose: 200 mg Admin: 09/13/18 07:45 Dose: 200 mg Admin: 09/12/18 21:28 Dose: 200 mg Admin: 09/12/18 09:11 Dose: 200 mg Admin: 09/11/18 20:36 Dose: 200 mg Admin: 09/11/18 07:59 Dose: 200 mg Admin: 09/10/18 21:16 Dose: 200 mg Admin: 09/10/18 09:35 Dose: 200 mg Admin: 09/09/18 21:26 Dose: 200 mg Admin: 09/09/18 09:39 Dose: Not Given Lamotrigine (Lamictal) 50 mg PO BID MELISSA Stop: 10/13/18 20:59 Last Admin: 09/14/18 08:39 Dose: 50 mg Admin: 09/13/18 20:48 Dose: 50 mg Miscellaneous (Remove Nicoderm Patch) 1 ea N/A HS MELISSA Stop: 10/08/18 20:59 Last Admin: 09/13/18 20:52 Dose: 1 ea Admin: 09/12/18 21:29 Dose: 1 ea Admin: 09/11/18 20:37 Dose: 1 ea Admin: 09/10/18 21:18 Dose: 1 ea Admin: 09/09/18 21:24 Dose: 1 ea Admin: 09/08/18 21:29 Dose: Not Given Nicotine (Nicoderm Cq) 7 mg TD QAM MELISSA Stop: 10/08/18 04:39 Last Admin: 09/14/18 08:40 Dose: 7 mg Admin: 09/13/18 07:43 Dose: 7 mg Admin: 09/12/18 09:12 Dose: 7 mg Admin: 09/11/18 08:00 Dose: 7 mg Admin: 09/10/18 10:04 Dose: 7 mg Admin: 09/09/18 08:06 Dose: 7 mg Admin: 09/08/18 09:43 Dose: 7 mg Ondansetron HCl (Zofran) 4 mg IV Q6H PRN PRN Reason: Nausea Stop: 10/10/18 15:59 Last Admin: 09/14/18 16:10 Dose: 4 mg Admin: 09/14/18 07:32 Dose: 4 mg Admin: 09/13/18 22:07 Dose: 4 mg Admin: 09/13/18 04:42 Dose: 4 mg Admin: 09/11/18 00:15 Dose: 4 mg Quetiapine Fumarate (Seroquel) 200 mg PO HS MELISSA Stop: 10/13/18 21:14 Last Admin: 09/13/18 21:30 Dose: 200 mg
[2018-09-14] MEDS: LORazepam 1 MG/2 ML VIAL IV PRN ×3 (15:47→18:09)
[2018-09-14] MEDS: QUETIAPINE FUMARATE 200 MG TAB PO SCH (21:02)
[2018-09-14] MEDS: diazePAM 5 MG TABLET PO PRN (21:38)
[2018-09-15] MEDS: KETOROLAC 30 MG/ML VIAL IV PRN ×2 (03:01→09:38)
[2018-09-15 05:56] LABS: Basophils # (auto) 0.01 K/uL (0-0.2); Basophils % (auto) 0.1 %; Eosinophils # (auto) 0.13 K/uL (0-0.5); Eosinophils % (auto) 1.5 %; Hematocrit (blood only) 40.9 % (42-52); Hemoglobin 13.9 g/dL (14.0-18.0); Immature Granulocytes # (auto) 0.06 K/uL (0.00-0.02); Immature Granulocytes % (auto) 0.7 %; Lymphocytes # (auto) 2.14 K/uL (1.2-3.4); Lymphocytes % (auto) 23.9 %; Mean Corpuscular Volume 93.2 fL (80-100); Mean Platelet Volume 9.5 fL (7.4-10.4); Monocytes # (auto) 1.96 K/uL (0.11-0.59); Monocytes % (auto) 21.9 %; Neutrophils # (auto) 4.65 K/uL (1.4-6.5); Neutrophils % (auto) 51.9 %; Platelet Count 267 K/uL (130-400); RDW Coefficient of Variation 13.9 % (11.5-14.5); RDW Standard Deviation 47.4 fL (36.4-46.3); Red Blood Count 4.39 M/uL (4.7-6.1); White Blood Count 8.95 K/uL (4.8-10.8)
[2018-09-15 06:38] LABS: Creatinine Clr Calc Pharmacy 79.3 ml/min; Est GFR (African American) 93.6; Est GFR (Non-African American) 80.7; Potassium 4.1 mmol/L (3.5-5.1)
[2018-09-15] MEDS: D5W AND 1/2NSS + 20MEQ KCL 20 MEQ/1,000 ML BAG IV SCH (07:51)
[2018-09-15] MEDS: DICLOFENAC SOD 1% GEL 100 GM TUBE EXT SCH ×4 (09:39→20:54)
[2018-09-15] MEDS: lamoTRIgine 100 MG TAB PO SCH ×2 (09:39→20:54)
[2018-09-15] MEDS: NICOTINE 7 MG/24 HR TDSY TD SCH (09:39)
[2018-09-15] MEDS: lamoTRIgine 25 MG TAB PO SCH ×2 (09:39→20:53)
[2018-09-15] MEDS: ONDANSETRON INJ 2 MG/ML 2 ML VIAL IV PRN ×2 (09:42→17:30)
--- NOTE | 2018-09-15 10:28 | Neurology Progress Note ---
Date of Service September 15, 2018 Assessment & Plan (1) Seizure: This is a 48-year-old male who presents with recurrent uncontrolled seizure-like activity. Unclear if he has epileptic versus nonepileptic seizures , Vs combination of both. Aspects concerning for nonepileptic events include talking with generalized shaking, and having eyes closed during seizures. Previous routine EEGs and 1 ambulatory EEG as an outpatient have been normal. Recommendations: Agree with transfer to hospital that can do continuous EEG monitoring to capture and diagnosis whether these events are epileptic versus nonepileptic events. Continue Lamictal for now. This was just recently increased I have started Vimpat 50 mg twice a day for possible epileptic seizures. Avoid benzodiazepine unless absolutely necessary. most seizures stop on their own within 2 minutes. If having more than 3 seizures in an hour or one seizure lasting longer than 5 minutes without return to baseline, and activity appears convincing for possible epileptic seizure, can give 2 mg of Ativan as needed up to 3 doses in a day (for a limited amount of time until we get better diagnosis). If the patient is found to have psychogenic nonepileptic events, treatment is cognitive behavioral therapy through a psychologist or psychiatrist. Agree with ketorolac and nausea medication as needed for headache symptoms. Should follow-up in neurology clinic for management of chronic migraine. Patient already has scheduled neurology follow-up in September which he should keep. Subjective Patient reportedly had multiple seizure-like activities yesterday afternoon and one this morning. Reports 2 of the episodes he felt lightheaded and saw light spots in his vision beforehand. Mother describes episode in which he said that he was in a have a seizure and started shaking bilaterally and continued to be able to talk. Other reports of one event where he seemed to rollover and was trying to get out of bed during the 32nd seizure. All of the events are reported to last around a minute. A few of the events he appeared to describe difficulty breathing at the beginning. He reports that he does not remember anything during the events. Mother reports that eyes are closed during the seizure-like events and nursing confirms this. Mother reports that sometimes he gets tonic and postures before shaking all over. Sz Hx: Denies any provoking factors. Reports that he first started to have seizures in 2000. Reports previous trials of topiramate with side effects, Depakote with side effects, Keppra made him archer, and currently on Lamictal ( dose increased on ). Plan was to possibly start zonisamide, but hospital pharmacy does not have this in stock. Patient also has history of chronic daily migraine headaches. Physical Exam 2 Vital Signs (Past 24 Hours): Last Vital Signs Temp 36.5 C 09/15/18 08:00 Pulse 65 09/15/18 08:00 Resp 16 09/15/18 08:00 BP 110/60 09/15/18 08:00 Pulse Ox 94 09/15/18 08:00 Physical Exam: Gen.: Patient is alert and oriented in no acute distress lying in bed Extremities: No gross deformities or rashes noted Neurological examination: Mental status: Patient is alert and oriented to person place and time. Able to give his own history. Attention concentration normal for the situation. Remote and recent memory seen intact Speech is fluent without any dysarthria or aphasia noted Cranial nerves: No facial asymmetry noted. Hearing grossly intact voice. Strength: full in all extremities Station within the bed is normal.
--- NOTE | 2018-09-15 10:33 | Family Medicine Progress Note ---
Date of Service September 15, 2018 Assessment & Plan (1) Seizure: (1) Seizure disorder: More seizures today lasting 3, 5, and 10 minutes. He did not sustain any tongue or body injury. No bowel or bladder incontinence. Family requesting transfer to [facility] because of probably length for bed availability at [place]. A call was placed to Neurology Dr. Jaya Pearce who accepted patient pending bed availability. Anticipation is that this could be late tonight or tomorrow. - Discussed with Dr. Charles Neurology this morning who recommended to start Vimpat. Patient and mother were present and agreeable to this. I discussed at length need to avoid Ativan/Benzos because of need for diagnostic testing at [place]. I also discussed Risks of benzos like respiratory depression and rebound anxiety. (2) Bipolar disorder: On Seroquel for this. Patient states he was on 900mg at bedtime and was on 100mg TID for anxiety. Review of records in allscripts are consistent with the 100mg TID and 600mg qHS. There were notes from office visits that TID was too sedating and causing insomnia. Beginning of admission, it was explained by Neurology to discontinue the TID and decrease the qHS as medication could be contributing to seizure activity. (3) Anxiety disorder: Hydroxyzine ordered PRN. Patient does not wish to take medication as "it doesn't do anything." Discussed that we were unable to use Benzos. He does not have his medical marijuana that he takes for this at home. Discussed with patient and family to add Seroquel 100mg TID back to his regimen as there could be a withdrawal or tolerance component. Spouse wishes to not re-add the Seroquel. (4) Depression: On Seroquel (5) Insomnia: Continue Seroquel at reduced dose as above noted. Prior to last night he was sleeping well. Continue to follow closely. (6) Chronic back pain: Appears multifactorial, with the bone and disc pain being the root cause, but now likely with a significant overlay of muscular and ligamentous pain, as well as more than likely nervous system facilitation (both peripheral and central) -Trial of OMT ongoing, and we will have him referred to Dr. Mrakel Jimenez DO for ongoing OMT after discharge -Voltaren gel 4 times daily to continue -See previous days notes as well. (7) Nausea and vomiting: No episodes today. -Seems to temporally correspond to his episodes, possibly triggered by seizure/ pseudoseizure pathology. -Workup for abdominal pathology low yield. He did have a leukocytosis on his lab work, it is probably better explained by his steroid use. Right upper quadrant ultrasound was negative and his CMP was negative. Continue supportive care, right now diagnostically tie it together with his pseudoseizures/seizure pathology, but ongoing vigilance. Ongoing consideration of alternate differentials. (8) Somatic dysfunction of lumbar region: For outpatient OMT. (9) Migraine: Follow, otherwise manage as before (10) Weakness: PT/OT eval and treat ongoing Supervising Physician Co-Signing Physician Notes I saw the patient with the resident physician and confirmed hermosillo portions of the history and physical exam. I agree with the impression and plan as noted in the resident documentation. Case discussed with [facility] and transfer is pending bed availability. Continues with seizures - epileptic versus non epileptic - and plan is for continuous EEG monitor to differentiate. I discussed restarting seroquel - at a lower dose - but family would like to hold off. There is a history of bipolar disorder and I suspect his increase anxiety may be related to the lower dose. If he is not transferred as planned, consider psychiatry consultation. Stephanie Alva reports a continues to report same chronic headache that is constant and stabbing, located to the front of his head. He states he drinks 1.5 pots of coffee per day and is drinking 2 cups here in the hospital. He notes caffeine does not improve headache. His overnight was unremarkable but he has had his usual seizure like activity numerous times this after noon. He did not sustain any injury. Family requested transfer to [facility] for epileptic seizure monitoring instead of [place] as bed availability at [facility] looks to be a more timely transfer than [place] which is now at 109% capacity. Patient continues to endorse anxiety. Physical Exam 2 Vital Signs (Past 24 Hours): Last Vital Signs Temp 36.5 C 09/15/18 08:00 Pulse 65 09/15/18 08:00 Resp 16 09/15/18 08:00 BP 110/60 09/15/18 08:00 Pulse Ox 94 09/15/18 08:00 Constitutional: WD/WN, vitals as above ENMT: Mouth: + edentulous; no tongue abnormality and no mouth trauma Neck: normal visual inspection and trachea midline Respiratory: normal respiratory effort, lungs clear to auscultation Cardiovascular: RRR, no murmur, no edema Gastrointestinal (Abdomen): Inspection/Auscultation: normal bowel sounds Percussion/Palpation: abdomen soft; abdomen nontender Musculoskeletal: Head/Neck/Chest: normocephalic and head atraumatic Extremities: extremities normal to inspection Skin: no rashes, warm and dry Neurologic: CN's II-XI intact bilaterally, moves all extremities and awake Psychiatric: A+Ox3, euthymic affect Results & Data Laboratory Results Laboratory Results - last 24 hr 09/14/18 09/15/18 09/15/18 16:02 05:39 05:39 WBC 8.95 RBC 4.39 L Hgb 13.9 L Hct 40.9 L MCV 93.2 MCH 31.7 MCHC 34.0 RDW Std Deviation 47.4 H RDW Coeff of Argelia 13.9 Plt Count 267 MPV 9.5 Immature Gran % (Auto) 0.7 Neut % (Auto) 51.9 Lymph % (Auto) 23.9 Labette % (Auto) 21.9 Eos % (Auto) 1.5 Baso % (Auto) 0.1 Immature Gran # (Auto) 0.06 H Neut # (Auto) 4.65 Lymph # (Auto) 2.14 Labette # (Auto) 1.96 H Eos # (Auto) 0.13 Baso # (Auto) 0.01 Sodium 140 Potassium 4.1 Chloride 107 Carbon Dioxide 27 Anion Gap 6.0 BUN 8 Creatinine 1.08 Est Cr Clr Drug Dosing 79.3 Est GFR ( Amer) 93.6 Est GFR (Non-Af Amer) 80.7 BUN/Creatinine Ratio 7.0 L Glucose 106 H Calcium 8.0 L Prolactin 5.10 Medications Administered Acetaminophen (Tylenol) 650 mg PO Q6 PRN PRN Reason: Pain Stop: 10/08/18 04:40 Last Admin: 09/14/18 03:33 Dose: 650 mg Admin: 09/12/18 23:53 Dose: 650 mg Admin: 09/11/18 00:03 Dose: 650 mg Admin: 09/08/18 21:32 Dose: 650 mg Admin: 09/08/18 04:54 Dose: 650 mg Diazepam (Valium) 5 mg PO HS PRN PRN Reason: Insomnia Stop: 10/09/18 08:03 Last Admin: 09/14/18 21:38 Dose: 5 mg Admin: 09/13/18 17:05 Dose: 5 mg Admin: 09/12/18 17:47 Dose: 5 mg Admin: 09/11/18 21:06 Dose: 5 mg Admin: 09/11/18 00:06 Dose: 5 mg Diclofenac Sodium (Voltaren 1% Top) 1 appln EXT QID MELISSA Stop: 10/09/18 16:59 Last Admin: 09/15/18 14:25 Dose: 1 appln Admin: 09/15/18 09:39 Dose: 1 appln Admin: 09/14/18 21:03 Dose: 1 appln Admin: 09/14/18 19:00 Dose: Not Given Admin: 09/14/18 12:58 Dose: 1 appln Admin: 09/14/18 08:39 Dose: 1 appln Admin: 09/13/18 20:45 Dose: 1 appln Admin: 09/13/18 18:14 Dose: 1 appln Admin: 09/13/18 14:29 Dose: 1 appln Admin: 09/13/18 11:03 Dose: 1 appln Admin: 09/12/18 21:38 Dose: 1 appln Admin: 09/12/18 17:47 Dose: 1 appln Admin: 09/12/18 15:59 Dose: Not Given Admin: 09/12/18 09:12 Dose: 1 appln Admin: 09/11/18 20:38 Dose: 1 appln Admin: 09/11/18 16:30 Dose: 1 appln Admin: 09/11/18 12:54 Dose: 1 appln Admin: 09/11/18 08:00 Dose: 1 appln Admin: 09/10/18 21:18 Dose: 1 appln Admin: 09/10/18 18:24 Dose: Not Given Admin: 09/10/18 12:50 Dose: 1 appln Admin: 09/10/18 09:35 Dose: 1 appln Admin: 09/09/18 21:23 Dose: 1 appln Admin: 09/09/18 17:41 Dose: 1 appln Hydroxyzine HCl (Vistaril) 25 mg PO Q6H PRN PRN Reason: Anxiety Stop: 10/14/18 08:13 Last Admin: 09/14/18 08:38 Dose: 25 mg Promethazine HCl 12.5 mg/ (Sodium Chloride) 50.5 mls @ 202 mls/hr IV Q6H PRN PRN Reason: Nausea And Vomiting Stop: 10/09/18 06:14 Last Infusion: 09/13/18 17:50 Dose: 0 mls/hr Admin: 09/13/18 17:26 Dose: 202 mls/hr Infusion: 09/13/18 09:17 Dose: 0 mls/hr Admin: 09/13/18 07:37 Dose: 202 mls/hr Infusion: 09/12/18 04:12 Dose: 0 mls/hr Admin: 09/12/18 03:57 Dose: 202 mls/hr Infusion: 09/11/18 13:35 Dose: 0 mls/hr Admin: 09/11/18 13:20 Dose: 202 mls/hr Infusion: 09/11/18 05:47 Dose: 0 mls/hr Admin: 09/11/18 04:52 Dose: 202 mls/hr Infusion: 09/10/18 16:32 Dose: 0 mls/hr Admin: 09/10/18 16:17 Dose: 202 mls/hr Lorazepam (Ativan) 1 mg in 2 mls @ 0.5 mls/min IV Q10M PRN PRN Reason: Breakthrough Seizures Stop: 10/13/18 21:46 Last Admin: 09/15/18 12:59 Dose: 0.5 mls/min Admin: 09/14/18 18:09 Dose: 0.5 mls/min Admin: 09/14/18 16:44 Dose: 0.5 mls/min Admin: 09/14/18 15:47 Dose: 0.5 mls/min Ioversol (Optiray 320 100ml) 95 ml IV ONCE PRN PRN Reason: Interaction Checking Stop: 09/17/18 12:50 Last Admin: 09/13/18 12:51 Dose: 95 ml Ketorolac Tromethamine (Toradol) 30 mg IV Q6H PRN PRN Reason: Pain Stop: 09/16/18 09:30 Last Admin: 09/15/18 09:38 Dose: 30 mg Admin: 09/15/18 03:01 Dose: 30 mg Admin: 09/14/18 19:03 Dose: 30 mg Admin: 09/14/18 12:57 Dose: 30 mg Admin: 09/14/18 06:06 Dose: 30 mg Admin: 09/13/18 23:50 Dose: 30 mg Admin: 09/13/18 18:13 Dose: 30 mg Admin: 09/13/18 10:58 Dose: 30 mg Admin: 09/13/18 02:58 Dose: 30 mg Admin: 09/12/18 21:26 Dose: 30 mg Admin: 09/12/18 10:58 Dose: 30 mg Admin: 09/12/18 03:29 Dose: 30 mg Admin: 09/11/18 18:36 Dose: 30 mg Lacosamide (Vimpat) 50 mg PO BID MELISSA Stop: 10/15/18 10:44 Last Admin: 09/15/18 11:51 Dose: 50 mg Lamotrigine (Lamictal) 200 mg PO BID MELISSA Stop: 10/09/18 08:59 Last Admin: 09/15/18 09:39 Dose: 200 mg Admin: 09/14/18 21:01 Dose: 200 mg Admin: 09/14/18 08:39 Dose: 200 mg Admin: 09/13/18 20:48 Dose: 200 mg Admin: 09/13/18 07:45 Dose: 200 mg Admin: 09/12/18 21:28 Dose: 200 mg Admin: 09/12/18 09:11 Dose: 200 mg Admin: 09/11/18 20:36 Dose: 200 mg Admin: 09/11/18 07:59 Dose: 200 mg Admin: 09/10/18 21:16 Dose: 200 mg Admin: 09/10/18 09:35 Dose: 200 mg Admin: 09/09/18 21:26 Dose: 200 mg Admin: 09/09/18 09:39 Dose: Not Given Lamotrigine (Lamictal) 50 mg PO BID MELISSA Stop: 10/13/18 20:59 Last Admin: 09/15/18 09:39 Dose: 50 mg Admin: 09/14/18 21:02 Dose: 50 mg Admin: 09/14/18 08:39 Dose: 50 mg Admin: 09/13/18 20:48 Dose: 50 mg Miscellaneous (Remove Nicoderm Patch) 1 ea N/A HS MELISSA Stop: 10/08/18 20:59 Last Admin: 09/14/18 21:04 Dose: 1 ea Admin: 09/13/18 20:52 Dose: 1 ea Admin: 09/12/18 21:29 Dose: 1 ea Admin: 09/11/18 20:37 Dose: 1 ea Admin: 09/10/18 21:18 Dose: 1 ea Admin: 09/09/18 21:24 Dose: 1 ea Admin: 09/08/18 21:29 Dose: Not Given Nicotine (Nicoderm Cq) 7 mg TD QAM MELISSA Stop: 10/08/18 04:39 Last Admin: 09/15/18 09:39 Dose: 7 mg Admin: 09/14/18 08:40 Dose: 7 mg Admin: 09/13/18 07:43 Dose: 7 mg Admin: 09/12/18 09:12 Dose: 7 mg Admin: 09/11/18 08:00 Dose: 7 mg Admin: 09/10/18 10:04 Dose: 7 mg Admin: 09/09/18 08:06 Dose: 7 mg Admin: 09/08/18 09:43 Dose: 7 mg Ondansetron HCl (Zofran) 4 mg IV Q6H PRN PRN Reason: Nausea Stop: 10/10/18 15:59 Last Admin: 09/15/18 09:42 Dose: 4 mg Admin: 09/14/18 23:38 Dose: 4 mg Admin: 09/14/18 16:10 Dose: 4 mg Admin: 09/14/18 07:32 Dose: 4 mg Admin: 09/13/18 22:07 Dose: 4 mg Admin: 09/13/18 04:42 Dose: 4 mg Admin: 09/11/18 00:15 Dose: 4 mg
[2018-09-15] MEDS ORDERED: QUETIAPINE FUMARATE 100 MG TABLET PO SCH ×2 (11:45→21:00)
[2018-09-15] MEDS: LACOSAMIDE 50 MG TABLET PO SCH ×2 (11:51→20:52)
[2018-09-15] MEDS: LORazepam 1 MG/2 ML VIAL IV PRN ×2 (12:59→18:14)
[2018-09-15] MEDS ORDERED: QUETIAPINE FUMARATE 100 MG TABLET PO PRN (15:28)
--- NOTE | 2018-09-15 18:02 | Discharge Summary ---
Date of Service September 15, 2018 Admission HPI Per Admitting Provider The patient is a 48-year-old male with a past medical history including seizure disorder, who had a total of 5 seizures today. He reports he took his antiseizure medications as directed. He also admits to smoking marijuana today, which he thought would help his seizure disorder. Dr. Montejo was contacted by the ED staff, and his feeling was the patient should be admitted to the hospital for follow-up. Admission Exam Per Admitting Provider The patient is awake, alert and oriented 3, normocephalic and atraumatic, lying in bed and in no acute distress. HEENT--PERRL, EOMI, mucous membranes and oropharynx normal. Neck--supple. No JVD. No bruits. Thyroid normal, trachea midline, no adenopathy. Heart--normal S1 and S2. No murmurs, rubs or gallops. Lungs--clear bilaterally, no respiratory distress, no accessory muscle use. Abdomen--normal bowel sounds and soft. Nontender. Nondistended. Extremities--no cyanosis or clubbing. No edema. There are good distal pulses b/l. Dermatologic--normal skin turgor, normal color, no abnormal lymph nodes, no rash. Neurologic--cranial nerves II through XII grossly intact. Rheumatologic--normal range of motion. Psychiatric--normal affect. Principal Diagnosis Seizures Discharge Exam Constitutional WD/WN, vitals as above ENMT Mouth: + edentulous; no tongue abnormality and no mouth trauma Neck normal visual inspection and trachea midline Respiratory normal respiratory effort, lungs clear to auscultation Cardiovascular RRR, no murmur, no edema Gastrointestinal (Abdomen) Inspection/Auscultation: normal bowel sounds Percussion/Palpation: abdomen soft; abdomen nontender Musculoskeletal Head/Neck/Chest: normocephalic and head atraumatic Extremities: extremities normal to inspection Skin no rashes, warm and dry Neurologic CN's II-XI intact bilaterally, moves all extremities and awake Psychiatric A+Ox3, euthymic affect Discharge Data Allergies Allergy/AdvReac Type Severity Reaction Status Date / Time sucralfate Allergy Mild HIVES Verified 09/07/18 23:30 buspirone AdvReac Intermediate Dizziness Verified 09/09/18 08:24 and agitation bupropion AdvReac Mild SEIZURE Verified 09/09/18 08:24 topiramate AdvReac Mild SEVERE Verified 09/09/18 08:24 HEADACHE valproic acid AdvReac Mild MAKE HIM Verified 09/09/18 08:24 FEEL LIKE HE GOES CRAZY AND UNABLE TO FUNCTION tramadol AdvReac Unknown Seizure Verified 09/09/18 08:24 Consultations 09/08/18 01:10 ED Decision to Admit Stat 09/08/18 02:58 Consult Case Management - Discharge Planning Routine Consult Neurology Routine Ordered Studies 09/07/18 22:53 CT head/brain wo con Urgent - no acute intracranial process 09/13/18 10:10 US abdomen limited Urgent - No gallstones or biliary duct dilation; fatty liver 09/13/18 10:14 CT head/brain wo/w con Urgent - no acute intracranial process Hospital Course (1) Seizure: (1) Seizure disorder: More seizures on day prior to discharge lasting 3, 5, and 10 minutes. He did not sustain any tongue or body injury. No bowel or bladder incontinence. Family requesting transfer to [facility] because of probably length for bed availability at [place]. A call was placed to Neurology Dr. Jaya Pearce who accepted patient pending bed availability. Daily during hospitalization, He has had numerous seizure like episodes where he will turn on left side and pull at IV site and NC. He does not sustain injury with seizures or tongue injuries. - Discussed with Dr. Charles Neurology this morning who recommended to start Vimpat. Patient and mother were present and agreeable to this. I discussed at length need to avoid Ativan/Benzos because of need for diagnostic testing at [place]. I also discussed Risks of benzos like respiratory depression and rebound anxiety. (2) Bipolar disorder: On Seroquel for this. Patient states he was on 900mg at bedtime and was on 100mg TID for anxiety. Review of records in allscripts are consistent with the 100mg TID and 600mg qHS. There were notes from office visits that TID was too sedating and causing insomnia. Beginning of admission, it was explained by Neurology to discontinue the TID and decrease the qHS as medication could be contributing to seizure activity. (3) Anxiety disorder: Hydroxyzine ordered PRN. Patient does not wish to take medication as "it doesn't do anything." Discussed that we were unable to use Benzos. He does not have his medical marijuana that he takes for this at home. Discussed with patient and family to add Seroquel 100mg TID back to his regimen as there could be a withdrawal or tolerance component. Spouse wishes to not re-add the Seroquel. (4) Depression: On Seroquel (5) Insomnia: Continue Seroquel at reduced dose as above noted. Prior to last night he was sleeping well. Continue to follow closely. (6) Chronic back pain: Appears multifactorial, with the bone and disc pain being the root cause, but now likely with a significant overlay of muscular and ligamentous pain, as well as more than likely nervous system facilitation (both peripheral and central) -Trial of OMT ongoing, and we will have him referred to Dr. Markel Jimenez DO for ongoing OMT after discharge -Voltaren gel 4 times daily to continue -See previous days notes as well. (7) Nausea and vomiting: No episodes today. -Seems to temporally correspond to his episodes, possibly triggered by seizure/pseudoseizure pathology. -Workup for abdominal pathology low yield. He did have a leukocytosis on his lab work, it is probably better explained by his steroid use. Right upper quadrant ultrasound was negative and his CMP was negative. Continue supportive care, right now diagnostically tie it together with his pseudoseizures/seizure pathology, but ongoing vigilance. Ongoing consideration of alternate differentials. (8) Somatic dysfunction of lumbar region: For outpatient OMT. (9) Migraine: Follow, otherwise manage as before (10) Weakness: PT/OT eval and treat ongoing Total Time Total Time Spent Total Time Spent (In Minutes): 60 Total Time Includes: Examination of the Patient, Discharge Planning, Medication Reconciliation and Communication With Other Providers Discharge Plan Discharge Items Patient Disposition: Transfer Acute Care Hospital Reason For Visit: SEIZURE Discharge Diagnosis: Seizure Condition: Good Discharge Goals: Diagnostic testing and Therapeutic intervention Activity: Per 'Additional Instructions' section Non-emergency contact: Primary Care Provider and Neurologist Call non-emergency contact if: you have any medication questions and your symptoms worsen Follow-up/Referrals: Leonel Lim MD [Physician] - 10/07/18 2:00 pm (Please, follow up at [facility] Neurology Office with Dr. Lim's criminal legal assistant, Renee Montesinos PA-C, on FridayOctober 07 at 2:00 pm. *This office is located at [address] in [place]. If you need to change this appointment, call the office at [phone].) Markel Jimenez, [Physician] - 09/17/18 7:00 pm (Please, follow up with Dr. Markel Jimenez, for Osteopathic Manipulative Therapy to treat your back pain, on September 17 at 7:00 pm. *This office is located at [address] in [place]. This is across the road from [employer]. If you need to change this appointment, call the office at [phone].) Michael Velasquez D.O. [Primary Care Provider] - 09/28/18 1:30 pm (Please, follow up at Dr. Velasquez's office with his associate, Dr. Vasiliy Bryson, on FridaySeptember 28 at 1:30 pm. *If you need to change/cancel this appointment, call their office at [phone].) Diet: Regular Addtl Provider Instructions: You are being transferred to [facility] for Epileptic seizure monitoring. Unfortunately, this test is not performed here at [facility]. This is for more diagnostic testing to determine if seizure events are epileptic versus another cause like pyschogenic. Per neurology recommendations, if found to have psychogenic nonepileptic events, treatment is cognitive behavioral therapy through a psychologist or psychiatrist. Neurology has made the rollowing recommendations which your inpatient team agrees with of the following: Continue with Lamictal 250mg twice a day. New medication Vimpat was started. Take Vimpat 50mg twice a day for possible epileptic seizures. Follow-up in neurology clinic for management of chronic migraine. Keep scheduled neurology follow-up appointment in September. Also, note that Zonisamide was considered for epileptic seizure management but hospital did not keep in stock. During the course of your stay, you had two separate Head CT scans which did not show any acute intracranial findings. You had normal Prolactin levels following seizure activity that if positive can support Epileptic seizures. You had an Abdominal U/S which showed: 1. No cholelithiasis (gallstones) or biliary ductal dilatation. 2. Mild hepatic steatosis (fatty liver) Please follow up with a primary care doctor for fatty liver. You were hypokalemic (low postassium level) on 09/08 and 09/09 that was corrected with potassium supplementation with normal values thereafter and a value of 4.1 on 09/15. Prescriptions: New quetiapine 100 mg Tablet 200 mg PO HS 30 Days Qty: 60 RF: 0 lamotrigine 25 mg Tablet 50 mg PO BID 30 Days Qty: 120 RF: 0 lamotrigine 100 mg Tablet 200 mg PO BID 30 Days Qty: 120 RF: 0 lacosamide [Vimpat] 50 mg Tablet 50 mg PO BID 30 Days Qty: 60 RF: 0 Discontinued levetiracetam 500 mg tablet 500 mg PO BID RF: 0 lamotrigine 200 mg tablet 400 mg PO BID RF: 0 quetiapine 300 mg tablet 900 mg PO HS RF: 0 lamotrigine 100 mg tablet 100 mg PO BID RF: 0 Stand-Alone Forms: My [facility] Discharge Orders: Discharge Order (Routine); Ordered 09/15/18 Ordered By: Michael Orozco Admission Data Admit Date/Time: 09/08/18 08:38 Attending Provider: Trevon Arzola Admit Provider: Mark Vickers Primary Care Provider: Michael Velasquez Other Providers: Mark Vickers ; Tae Up III Service: Telemetry Other Interventions: Discharge Summary Assessment (RN) Last Done: 09/15/18 23:34 DC Date/Time DO NOT enter until pt leaves facility: 09/16/18 01:20 Supervising Physician Co-Signing Physician Notes I saw the patient with the resident physician and confirmed hermosillo portions of the history and physical exam., and discussed the discharge plan with the resident physician. Please see my attestation in the patient's daily progress notes of the same date. The patient was subsequently transferred to [facility] in [place] when a bed became available.
[2018-09-15] MEDS ORDERED: QUETIAPINE FUMARATE 300 MG TABLET PO SCH (21:00)
[2018-09-15] MEDS ORDERED: ONDANSETRON INJ 2 MG/ML 2 ML VIAL IV ONE (21:25)
[2018-09-16] MEDS: diazePAM 5 MG TABLET PO PRN (00:48)
== END 2018-09-16 01:20 | disposition short-term general hospital (02) | DRG 101 ==
LOC: ED 22:24 → 2W 22:24 → SUATTDRO 09-08 02:11 → 2W 09-08 02:31 → SUATTDRO 09-08 08:38 → 4W 09-10 09:17 → 2E 09-13 12:58

== ENCOUNTER 2020-11-24 15:34 | Inpatient (IN) ==
[2020-11-24 17:31] LABS: Basophils # (auto) 0.02 K/uL (0-0.2); Basophils % (auto) 0.2 %; Eosinophils # (auto) 0.07 K/uL (0-0.5); Eosinophils % (auto) 0.7 %; Hematocrit (blood only) 41.3 % (42-52); Hemoglobin 14.2 g/dL (14.0-18.0); Immature Granulocytes # (auto) 0.05 K/uL (0.00-0.02); Immature Granulocytes % (auto) 0.5 %; Lymphocytes # (auto) 1.75 K/uL (1.2-3.4); Lymphocytes % (auto) 16.9 %; Mean Corpuscular Hemoglobin 32.1 pg (25-34); Mean Corpuscular Hgb Conc 34.4 g/dL (32-36); Mean Corpuscular Volume 93.4 fL (80-100); Monocytes # (auto) 1.14 K/uL (0.11-0.59); Neutrophils % (auto) 70.7 %; Platelet Count 327 K/uL (130-400); RDW Coefficient of Variation 13.3 % (11.5-14.5); RDW Standard Deviation 45.6 fL (36.4-46.3); Red Blood Count 4.42 M/uL (4.7-6.1); White Blood Count 10.33 K/uL (4.8-10.8)
[2020-11-24] MEDS ORDERED: OPTIRAY 350 500ml IV ONE (17:34)
[2020-11-24 17:53] LABS: Partial Thromboplastin Ratio 0.9; Partial Thromboplastin Time 22.7 Seconds (21.0-31.0); Prothrombin Time 9.8 Seconds (9.0-12.0)
--- NOTE | 2020-11-24 17:53 | CT Scan Report ---
UNENHANCED CT OF THE BRAIN; CT ANGIOGRAM OF THE BRAIN; CT ANGIOGRAM OF THE NECK CLINICAL HISTORY: Strokelike symptoms. COMPARISON STUDY: CT of the brain dated 06/04/2020. TECHNIQUE: Unenhanced axial CT scan of the brain is performed. Subsequently, following the IV adminis tration of 108 of [address] 350, CT angiogram of the head and neck was performed from the aortic arch t o the vertex. Images are reviewed in the axial, sagittal, and coronal planes. 3-D MIPS images are cre ated and assessed. IV contrast was administered without complication. All measurements were calculate d based on NASCET criteria. A dose lowering technique was utilized adhering to the principles of ALA RA. CT DOSE: 1216.67 mGy.cm FINDINGS: Brain parenchyma: The brain parenchyma is normal in appearance. There is no hemorrhage, mass effect, or evidence of acute territorial ischemia by CT criteria. There is no evidence of enhancing mass lesi on on the angiogram phase images. The ventricles, sulci, and cisterns are normal in configuration. Gr ay-white matter differentiation is preserved. No extra-axial fluid collection is seen. Thoracic aorta: Visualized portions of the thoracic aorta are normal in caliber. The aortic arch demo nstrates standard 3-vessel anatomy. Right carotid arterial system: The right common carotid artery is widely patent, as are the right int ernal and external carotid arteries. Left carotid arterial system: The left common carotid artery is widely patent, as are the left architect internship al and external carotid arteries. Minimal plaque is noted in the proximal internal carotid artery. Vertebral arteries: The vertebral arteries are widely patent bilaterally and codominant. Subclavian arteries: Widely patent bilaterally. Intracranial vasculature: The internal carotid arteries are patent at the skull base, as are the ante rior and middle cerebral arteries bilaterally. The vertebrobasilar system and posterior cerebral harsh kelly are widely patent. The vertebral arteries are codominant. There is no aneurysm, high-grade steno sis, or focal vessel cut off seen throughout the intracranial circulation. Jugular veins: Patent bilaterally. Dural sinuses: Patent. Lung apices: Partially visualized upper lobe lung parenchyma appears clear. Soft tissues: The visualized pharyngeal soft tissues are normal in appearance noting angiographic pha se technique. The oropharyngeal airway appears widely patent. The salivary and thyroid glands are nor mal in appearance. No cervical lymphadenopathy is seen. Skeletal structures: The calvarium appears intact. The cervical spine is maintained noting mild spond ylosis. There is postoperative change from anterior fusion seen at C5-C6. No lytic or blastic lesion is seen. Orbits: The bony orbits are intact. Orbital contents are normal as visualized. Sinuses and mastoids: There is mild mucosal thickening within the maxillary antra. A 3 cm retention c yst is noted on the left. Trace mucosal thickening is also seen within the frontal, sphenoid, and eth moid sinuses. The mastoid air cells are well pneumatized. IMPRESSION: 1. There is no hemorrhage, mass effect, or evidence of acute territorial ischemia by CT criteria. 2. Unremarkable CT angiogram of the brain. 3. Unremarkable CT angiogram of the neck. ACT 112: Negative or not required by law. Electronically signed by: Filippo Webb M.D. 11/24/2020 5:52 PM
[2020-11-24 18:00] LABS: Alanine Aminotransferase 24 U/L (12-78); Albumin Globulin Ratio 1.3 (0.9-2); Albumin Level 4.1 gm/dl (3.4-5.0); Alkaline Phosphatase 114 U/L (45-117); BUN Creatinine Ratio 9.8 (10-20); Bilirubin,Total 0.3 mg/dl (0.2-1); Blood Urea Nitrogen 9 mg/dl (7-18); Calcium 9.3 mg/dl (8.5-10.1); Carbon Dioxide 27 mmol/L (21-32); Chloride 107 mmol/L (98-107); Est GFR (African American) 115.6; Est GFR (Non-African American) 99.7; Globulin 3.2 gm/dl (2.5-4.0); Glucose 86 mg/dl (70-99); Sodium 138 mmol/L (136-145); Total Protein 7.3 gm/dl (6.4-8.2); Troponin I < 0.015 ng/ml (0-0.045)
[2020-11-24 18:03] LABS: Amphetamines+Metham, Urine Neg (Neg); Barbiturates, Urine Neg (Neg); Benzodiazepine, Urine Neg (Neg); Cocaine, Urine Neg (Neg); MDMA (Ecstacy), Urine Neg (Neg); Methadone, Urine Neg (Neg); Opiate, Urine Neg (Neg); Phencyclidine, Urine Neg (Neg)
[2020-11-24] MEDS ORDERED: fentaNYL citrate 100 MCG/2 ML VIAL IV STA (18:20)
[2020-11-24 19:00] LABS: Influenza A virus by PCR Negative (Neg); Influenza B virus by PCR Negative (Neg); RSV by PCR Negative (Neg); SARS CoV2 RNA(COVID-19) InHosp NEGATIVE (Negative)
[2020-11-24 19:01] LABS: Potassium 4.4 mmol/L (3.5-5.1)
[2020-11-24 19:07] LABS: Magnesium 2.2 mg/dl (1.8-2.4)
--- NOTE | 2020-11-24 19:09 | Emergency Department Note ---
ED Visit Note Patient was seen by our PA/GAS REVERSER. I was involved in the patient's care and did evaluate the patient myself. I was involved in the care throughout the ER stay. The patient presents with difficulty with his balance. CT imaging of the brain, CT angio of the brain and neck were performed. So far, the etiology of his balance issues is unclear. Hospitalization is warranted for further work-up. The hospitalist has been consulted. .
--- NOTE | 2020-11-24 19:54 | History & Physical Report ---
Date of Service November 24, 2020 Assessment & Plan (1) Vertigo: Presents with dizziness that started at 11 AM on 11/24 and is associated with right-sided migraine headache and nausea. Also with a recent low-grade fever on 11/23 at home He has a positive [place]-Hallpike on examination and some horizontal nystagmus as well CT angiogram of the head neck, CT noncontrast of the head without evidence of stroke or large vessel occlusion or stenosis Could perhaps have a small cerebellar stroke although seems more consistent with BPPV or perhaps vertiginous migraine None of his medications have changed recently. Vital signs are stable. No renal abnormalities or electrolyte abnormalities that could be contributing. He cannot have an MRI due to abandoned leads from an old spinal cord stimulator that is not MRI compatible as per his -Admit to medical floor with telemetry -Consult neurology for further evaluation -Check CT head noncontrast 24 hours after vertigo started to see if can find stroke at that point -Start aspirin -Treat with meclizine 25 mg p.o. every 6 hours as needed vertigo, first dose now to see if helps -PT/OT consultations -Check lipid panel, hemoglobin A1c in the morning -Neurochecks (2) Acute encephalopathy: Likely secondary to febrile illness although no fever here, but reported low-grade fever at home on 11/23 He is oriented and no focal neuro deficits Very mild at this point Work-up for fever and infection as below -Supportive care (3) Fever: With a low-grade fever at home to 100.9 on 11/23 as per the , with right sided frontal headache No meningismus on examination and only very mild encephalopathic-do not suspect encephalitis Does not need LP at this time -CT head negative, but does show some trace mucosal thickening in the maxillary antra, frontal, sphenoid, and ethmoid sinuses, but doubt acute sinusitis -Covid/influenza/RSV test is negative -With urinary retention, could have an acute prostatitis despite negative urinalysis -Watch for fevers here -Follow blood cultures -We will begin empiric treatment with antibiotics in the form of ceftriaxone to cover for acute prostatitis -Check Lyme disease titer Check procalcitonin, ESR, CRP Follow urine culture (4) Nausea: Associated with vertigo Zofran as needed Meclizine Clear liquids diet only for now Advance as tolerated Give 2 L of normal saline (5) Urinary retention: Noted to have difficulty with urination in the ER as per his report having to strain to get urine out Bladder scan for 500 and was not able to urinate at all Prakash catheter was placed in the ER Consult urology and start Flomax -He is on multiple medications which could cause anticholinergic effects, however he has never had issues like this before and this may represent an acute prostatitis especially given the fever (6) Migraine: With right-sided headache Has a long history of migraines which have been well controlled on Lamictal for many years Consult neurology Continue Lamictal Give IV Toradol and meclizine now Tylenol 1000 mg p.o. 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 since starting psychotherapy/CBT for this and is on Lamictal and Seroquel (12) PTSD (post-traumatic stress disorder): Continue psychiatric medications as above (13) DVT prophylaxis: SCDs Disposition-admit to medical floor with telemetry Full code Case discussed with his at the bedside in detail History of Present Illness Chief Complaint: Confusion, fever, dizziness Primary Care Provider: Ezequiel Cuellar This patient is a 50-year-old male with a history of nonepileptogenic seizures, chronic migraine, bipolar disorder, anxiety and depression, chronic back pain, who presents to the ER with reports of a fever yesterday of 100.9, confusion, and dizziness along with a right-sided frontal headache. Yesterday, he reports having the low-grade fever and body aches all over, but denied any sinus pressure or nasal congestion, no sore throat, no chest pain or shortness of breath, no cough, no abdominal pain or diarrhea. He does however report having to strain to get his urine out, but denies dysuria. Then he developed a fairly significant right-sided headache in the middle the night last night that has been a 7-8/10 in severity and is throbbing, not associated with photophobia or phonophobia, not associated with nausea or vomiting unless he has vertigo which then causes his nausea. He developed vertigo starting around 11 AM today where he feels the room spinning around him especially with turning his head to the left or right and with going from seated to standing positions or lying to sitting positions. He is not lightheaded or passing out. He has been unable to walk without running into [place]ard and almost falling over. He went to an urgent care today and the thought was to treat him with vertigo me dications, but given that he was having significant issues with headache and inability to walk, he was referred to the ER for rule out stroke. His is very concerned that he is slow to respond and seems a lot more confused than his baseline. For me, while his speech is somewhat slowed, he is completely oriented and remembers details about his recent and remote medical history. He did have some slight difficulty remembering which month it was but was looking for the white board and he knew where to look for this. He was afebrile here in the ER. In the ER, he had a borderline elevated WBC count of 10.3 with neutrophilia, ESR was normal at 2, coags normal, ammonia level less than 10, lactate normal at 1.0, CMP negative, troponin negative, negative urinalysis, and urine drug screen positive for marijuana which he admits to smoking on it daily basis. His Covid test was negative, as was his influenza a/B and RSV test. A urinalysis had not yet been collected and he ended up having to be catheterized 500 mL of urine. UA collected at that time and showed dehydration with an elevated specific gravity, but was otherwise normal. CT angiogram the head and neck were negative. ECG was normal, and blood cultures were drawn which are pending. Allergies Allergy/AdvReac Type Severity Reaction Status Date / Time sucralfate Allergy Mild HIVES Verified 11/24/20 17:14 buspirone AdvReac Intermediate Dizziness Verified 11/24/20 17:14 and agitation divalproex sodium AdvReac Intermediate face Verified 11/24/20 17:14 [From Depakote] drooping bupropion AdvReac Mild SEIZURE Verified 11/24/20 17:14 topiramate AdvReac Mild SEVERE Verified 11/24/20 17:14 HEADACHE valproic acid AdvReac Mild MAKE HIM Verified 11/24/20 17:14 FEEL LIKE HE GOES CRAZY AND UNABLE TO FUNCTION tramadol AdvReac Unknown Seizure Verified 11/24/20 17:14 Home Medications Medication Instructions Recorded Confirmed Type albuterol sulfate [Proventil HFA] 2 inh INHALATION Q6H PRN #18 g 06/04/20 11/24/20 Rx lamotrigine [Lamictal] 50 mg PO BID 06/04/20 11/24/20 History lamotrigine [Lamictal] 200 mg PO BID 06/04/20 11/24/20 History quetiapine [Seroquel] 300 mg PO HS 06/04/20 11/24/20 History trazodone 100 mg PO HS 06/04/20 11/24/20 History Past Med/Surg History Medical History (Updated 11/24/20 @ 22:26 by Demetria Mario MD) Anxiety disorder Chronic back pain Insomnia Migraine Nausea and vomiting Pseudoseizures PTSD (post-traumatic stress disorder) Seizure disorder Somatic dysfunction of lumbar region Weakness Surgical History (Updated 11/24/20 @ 22:20 by Demetria Mario MD) History of appendectomy History of cervical spinal surgery History of lumbar fusion History of lumbosacral spine surgery History of tonsillectomy Family History (Updated 11/24/20 @ 22:21 by Demetria Mario MD) Mother Hypertension Father Osteoarthritis Sister Celiac disease Social History (Updated 11/24/20 @ 22:22 by Demetria Mario MD) Smoking Status: Current every day smoker Years Smoked: 30; Cigarettes Per Day: 10; Hx Alcohol Use: Yes Alcohol Intake Frequency Comment: Six-pack of beer every 1- 2 months. 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 Feels Safe at Home: Yes Assistive Devices: None Review of Systems Review of Systems: All systems reviewed & are unremarkable except as noted in HPI & below No rashes or joint pains Has chronic lower back pain not worse than usual Physical Exam Constitutional: WD/WN, vitals as above Eyes: PERRL, conjunctivae normal, anicteric sclerae + nystagmus (With extraocular movements laterally) ENMT: external ear and nose normal, oropharynx normal Ears: no hearing impairment, no external ear abnormality, no EAC abnormality and no TM abnormality Nose: + sinus tenderness (Over right frontal region); no external nose abnormality, no turbinate abnormality, no nasal mucous membrane abnormality, no foreign body in naris and no facial tenderness Neck: trachea midline, no thyromegaly normal visual inspection; negative Brudzinski's sign and negative Kernig's sign Respiratory: normal respiratory effort, lungs clear to auscultation Cardiovascular: RRR, no murmur, no edema Chest (Breasts): Chest: normal inspection of chest Gastrointestinal (Abdomen): normal bowel sounds, soft, nontender, no hepatosplenomegaly Musculoskeletal: Extremities: extremities normal to inspection; no cyanosis and no clubbing Skin: no rashes, warm and dry Neurologic: PERRL, EOMI, accommodation nl, no face palsy, no dysarthria CN's II-XI intact bilaterally, deep tendon reflexes 2+ bilaterally, moves all extremities, awake and + abnormal [place]; no focal motor deficits and not confused Speech / Cognition: + abnormal speech (Slightly slow to respond to questions but speech is clear); normal cognition Motor/Sensory: no tremor, normal movement, no pronator drift and no sensory deficit Coordination: normal [id number] test, normal [id number] test and normal rapid alternating movements Psychiatric: A+Ox3, euthymic affect Lymphatic: no lymphedema Results & Data Results & Data ([facility]) Vital Signs (Past 12 Hours) Vital Signs Temp Pulse Pulse Resp BP BP Pulse Ox 11/24/20 17:51 77 18 124/87 11/24/20 15:47 37.0 C 83 18 139/82 98 Laboratory Results 11/24/20 11/24/20 11/24/20 Range/Units 18:19 18:10 18:10 WBC (4.8-10.8) K/uL RBC (4.7-6.1) M/uL Hgb (14.0-18.0) g/dL Hct (42-52) % MCV (80-100) fL MCH (25-34) pg MCHC (32-36) g/dL RDW Std Deviation (36.4-46.3) fL RDW Coeff of Argelia (11.5-14.5) % Plt Count (130-400) K/uL MPV (7.4-10.4) fL Immature Gran % (Auto) % Neut % (Auto) % Lymph % (Auto) % Person % (Auto) % Eos % (Auto) % Baso % (Auto) % Neut # (Auto) (1.4-6.5) K/uL Lymph # (Auto) (1.2-3.4) K/uL Person # (Auto) (0.11-0.59) K/uL Eos # (Auto) (0-0.5) K/uL Baso # (Auto) (0-0.2) K/uL Immature Gran # (Auto) (0.00-0.02) K/uL PT (9.0-12.0) Seconds INR (0.9-1.1) APTT (21.0-31.0) Seconds PTT Ratio Sodium (136-145) mmol/L Potassium 4.4 (3.5-5.1) mmol/L Chloride (98-107) mmol/L Carbon Dioxide (21-32) mmol/L Anion Gap (3-11) BUN (7-18) mg/dl Creatinine (0.6-1.4) mg/dl Est Cr Clr Drug Dosing Est GFR ( Amer) Est GFR (Non-Af Amer) BUN/Creatinine Ratio (10-20) Glucose (70-99) mg/dl Lactate (0.4-2.0) mmol/L Calcium (8.5-10.1) mg/dl Magnesium 2.2 (1.8-2.4) mg/dl Total Bilirubin (0.2-1) mg/dl AST 8 L (15-37) U/L ALT (12-78) U/L Alkaline Phosphatase (45-117) U/L Ammonia < 10.0 L (11-32) umol/L Troponin I (0-0.045) ng/ml Total Protein (6.4-8.2) gm/dl Albumin (3.4-5.0) gm/dl Globulin (2.5-4.0) gm/dl Albumin/Globulin Ratio (0.9-2) Urine Opiates Screen (Neg) Ur Methadone, Qual (Neg) Urine Barbiturates (Neg) Ur Phencyclidine (PCP) (Neg) U Amphetamin/Meth Scrn (Neg) MDMA (Ecstasy) Screen (Neg) U Benzodiazepines Scrn (Neg) Ur Cocaine Metabolite (Neg) U Marijuana (THC) Screen (Neg) U Marijuana THC Carboxy COVID-19 Eval Order SARS-CoV-2 (PCR) (Negative) Influenza Type A (PCR) (Neg) Influenza Type B (PCR) (Neg) RSV (RT-PCR) (Neg) Blood Type Pending Antibody Screen Pending 11/24/20 11/24/20 11/24/20 Range/Units 18:10 17:53 17:53 WBC (4.8-10.8) K/uL RBC (4.7-6.1) M/uL Hgb (14.0-18.0) g/dL Hct (42-52) % MCV (80-100) fL MCH (25-34) pg MCHC (32-36) g/dL RDW Std Deviation (36.4-46.3) fL RDW Coeff of Argelia (11.5-14.5) % Plt Count (130-400) K/uL MPV (7.4-10.4) fL Immature Gran % (Auto) % Neut % (Auto) % Lymph % (Auto) % Person % (Auto) % Eos % (Auto) % Baso % (Auto) % Neut # (Auto) (1.4-6.5) K/uL Lymph # (Auto) (1.2-3.4) K/uL Person # (Auto) (0.11-0.59) K/uL Eos # (Auto) (0-0.5) K/uL Baso # (Auto) (0-0.2) K/uL Immature Gran # (Auto) (0.00-0.02) K/uL PT (9.0-12.0) Seconds INR (0.9-1.1) APTT (21.0-31.0) Seconds PTT Ratio Sodium (136-145) mmol/L Potassium (3.5-5.1) mmol/L Chloride (98-107) mmol/L Carbon Dioxide (21-32) mmol/L Anion Gap (3-11) BUN (7-18) mg/dl Creatinine (0.6-1.4) mg/dl Est Cr Clr Drug Dosing Est GFR ( Amer) Est GFR (Non-Af Amer) BUN/Creatinine Ratio (10-20) Glucose (70-99) mg/dl Lactate 1.0 (0.4-2.0) mmol/L Calcium (8.5-10.1) mg/dl Magnesium (1.8-2.4) mg/dl Total Bilirubin (0.2-1) mg/dl AST (15-37) U/L ALT (12-78) U/L Alkaline Phosphatase (45-117) U/L Ammonia (11-32) umol/L Troponin I (0-0.045) ng/ml Total Protein (6.4-8.2) gm/dl Albumin (3.4-5.0) gm/dl Globulin (2.5-4.0) gm/dl Albumin/Globulin Ratio (0.9-2) Urine Opiates Screen (Neg) Ur Methadone, Qual (Neg) Urine Barbiturates (Neg) Ur Phencyclidine (PCP) (Neg) U Amphetamin/Meth Scrn (Neg) MDMA (Ecstasy) Screen (Neg) U Benzodiazepines Scrn (Neg) Ur Cocaine Metabolite (Neg) U Marijuana (THC) Screen (Neg) U Marijuana THC Carboxy COVID-19 Eval Order CovFluRsv at [facility] SARS-CoV-2 (PCR) NEGATIVE (Negative) Influenza Type A (PCR) Negative (Neg) Influenza Type B (PCR) Negative (Neg) RSV (RT-PCR) Negative (Neg) Blood Type Antibody Screen 11/24/20 11/24/20 11/24/20 Range/Units 17:15 17:15 17:15 WBC 10.33 (4.8-10.8) K/uL RBC 4.42 L (4.7-6.1) M/uL Hgb 14.2 (14.0-18.0) g/dL Hct 41.3 L (42-52) % MCV 93.4 (80-100) fL MCH 32.1 (25-34) pg MCHC 34.4 (32-36) g/dL RDW Std Deviation 45.6 (36.4-46.3) fL RDW Coeff of Argelia 13.3 (11.5-14.5) % Plt Count 327 (130-400) K/uL MPV 10.0 (7.4-10.4) fL Immature Gran % (Auto) 0.5 % Neut % (Auto) 70.7 % Lymph % (Auto) 16.9 % Person % (Auto) 11.0 % Eos % (Auto) 0.7 % Baso % (Auto) 0.2 % Neut # (Auto) 7.30 H (1.4-6.5) K/uL Lymph # (Auto) 1.75 (1.2-3.4) K/uL Person # (Auto) 1.14 H (0.11-0.59) K/uL Eos # (Auto) 0.07 (0-0.5) K/uL Baso # (Auto) 0.02 (0-0.2) K/uL Immature Gran # (Auto) 0.05 H (0.00-0.02) K/uL PT 9.8 (9.0-12.0) Seconds INR 1.0 (0.9-1.1) APTT 22.7 (21.0-31.0) Seconds PTT Ratio 0.9 Sodium 138 (136-145) mmol/L Potassium (3.5-5.1) mmol/L Chloride 107 (98-107) mmol/L Carbon Dioxide 27 (21-32) mmol/L Anion Gap 5.0 (3-11) BUN 9 (7-18) mg/dl Creatinine 0.89 (0.6-1.4) mg/dl Est Cr Clr Drug Dosing Not Reportable Est GFR ( Amer) 115.6 Est GFR (Non-Af Amer) 99.7 BUN/Creatinine Ratio 9.8 L (10-20) Glucose 86 (70-99) mg/dl Lactate (0.4-2.0) mmol/L Calcium 9.3 (8.5-10.1) mg/dl Magnesium (1.8-2.4) mg/dl Total Bilirubin 0.3 (0.2-1) mg/dl AST (15-37) U/L ALT 24 (12-78) U/L Alkaline Phosphatase 114 (45-117) U/L Ammonia (11-32) umol/L Troponin I < 0.015 (0-0.045) ng/ml Total Protein 7.3 (6.4-8.2) gm/dl Albumin 4.1 (3.4-5.0) gm/dl Globulin 3.2 (2.5-4.0) gm/dl Albumin/Globulin Ratio 1.3 (0.9-2) Urine Opiates Screen (Neg) Ur Methadone, Qual (Neg) Urine Barbiturates (Neg) Ur Phencyclidine (PCP) (Neg) U Amphetamin/Meth Scrn (Neg) MDMA (Ecstasy) Screen (Neg) U Benzodiazepines Scrn (Neg) Ur Cocaine Metabolite (Neg) U Marijuana (THC) Screen (Neg) U Marijuana THC Carboxy COVID-19 Eval Order SARS-CoV-2 (PCR) (Negative) Influenza Type A (PCR) (Neg) Influenza Type B (PCR) (Neg) RSV (RT-PCR) (Neg) Blood Type Antibody Screen 11/24/20 11/24/20 Range/Units 16:20 16:20 WBC (4.8-10.8) K/uL RBC (4.7-6.1) M/uL Hgb (14.0-18.0) g/dL Hct (42-52) % MCV (80-100) fL MCH (25-34) pg MCHC (32-36) g/dL RDW Std Deviation (36.4-46.3) fL RDW Coeff of Argelia (11.5-14.5) % Plt Count (130-400) K/uL MPV (7.4-10.4) fL Immature Gran % (Auto) % Neut % (Auto) % Lymph % (Auto) % Person % (Auto) % Eos % (Auto) % Baso % (Auto) % Neut # (Auto) (1.4-6.5) K/uL Lymph # (Auto) (1.2-3.4) K/uL Person # (Auto) (0.11-0.59) K/uL Eos # (Auto) (0-0.5) K/uL Baso # (Auto) (0-0.2) K/uL Immature Gran # (Auto) (0.00-0.02) K/uL PT (9.0-12.0) Seconds INR (0.9-1.1) APTT (21.0-31.0) Seconds PTT Ratio Sodium (136-145) mmol/L Potassium (3.5-5.1) mmol/L Chloride (98-107) mmol/L Carbon Dioxide (21-32) mmol/L Anion Gap (3-11) BUN (7-18) mg/dl Creatinine (0.6-1.4) mg/dl Est Cr Clr Drug Dosing Est GFR ( Amer) Est GFR (Non-Af Amer) BUN/Creatinine Ratio (10-20) Glucose (70-99) mg/dl Lactate (0.4-2.0) mmol/L Calcium (8.5-10.1) mg/dl Magnesium (1.8-2.4) mg/dl Total Bilirubin (0.2-1) mg/dl AST (15-37) U/L ALT (12-78) U/L Alkaline Phosphatase (45-117) U/L Ammonia (11-32) umol/L Troponin I (0-0.045) ng/ml Total Protein (6.4-8.2) gm/dl Albumin (3.4-5.0) gm/dl Globulin (2.5-4.0) gm/dl Albumin/Globulin Ratio (0.9-2) Urine Opiates Screen Neg (Neg) Ur Methadone, Qual Neg (Neg) Urine Barbiturates Neg (Neg) Ur Phencyclidine (PCP) Neg (Neg) U Amphetamin/Meth Scrn Neg (Neg) MDMA (Ecstasy) Screen Neg (Neg) U Benzodiazepines Scrn Neg (Neg) Ur Cocaine Metabolite Neg (Neg) U Marijuana (THC) Screen Pos H (Neg) U Marijuana THC Carboxy Pending COVID-19 Eval Order SARS-CoV-2 (PCR) (Negative) Influenza Type A (PCR) (Neg) Influenza Type B (PCR) (Neg) RSV (RT-PCR) (Neg) Blood Type Antibody Screen Diagnostic Findings Head CT 11/24/20 17:[address] OF THE BRAIN; CT ANGIOGRAM OF THE BRAIN; CT ANGIOGRAM OF THE NECK CLINICAL HISTORY: Strokelike symptoms. COMPARISON STUDY: CT of the brain dated 06/04/2020. TECHNIQUE: Unenhanced axial CT scan of the brain is performed. Subsequently, following the IV administration of 108 of Optiray 350, CT angiogram of the head and neck was performed from the aortic arch to the vertex. Images are reviewed in the axial, sagittal, and coronal planes. 3-D MIPS images are created and assessed. IV contrast was administered without complication. All measurements were calculated based on NASCET criteria. A dose lowering technique was utilized adhering to the principles of ALARA. CT DOSE: 1216.67 mGy.cm FINDINGS: Brain parenchyma: The brain parenchyma is normal in appearance. There is no hemorrhage, mass effect, or evidence of acute territorial ischemia by CT criteria. There is no evidence of enhancing mass lesion on the angiogram phase images. The ventricles, sulci, and cisterns are normal in configuration. [place]- white matter differentiation is preserved. No extra-axial fluid collection is seen. Thoracic aorta: Visualized portions of the thoracic aorta are normal in caliber. The aortic arch demonstrates standard 3-vessel anatomy. Right carotid arterial system: The right common carotid artery is widely patent, as are the right internal and external carotid arteries. Left carotid arterial system: The left common carotid artery is widely patent, as are the left internal and external carotid arteries. Minimal plaque is noted in the proximal internal carotid artery. Vertebral arteries: The vertebral arteries are widely patent bilaterally and codominant. Subclavian arteries: Widely patent bilaterally. Intracranial vasculature: The internal carotid arteries are patent at the skull base, as are the anterior and middle cerebral arteries bilaterally. The vertebrobasilar system and posterior cerebral arteries are widely patent. The vertebral arteries are codominant. There is no aneurysm, high-grade stenosis, or focal vessel cut off seen throughout the intracranial circulation. Jugular veins: Patent bilaterally. Dural sinuses: Patent. Lung apices: Partially visualized upper lobe lung parenchyma appears clear. Soft tissues: The visualized pharyngeal soft tissues are normal in appearance noting angiographic phase technique. The oropharyngeal airway appears widely patent. The salivary and thyroid glands are normal in appearance. No cervical lymphadenopathy is seen. Skeletal structures: The calvarium appears intact. The cervical spine is maintained noting mild spondylosis. There is postoperative change from anterior fusion seen at C5-C6. No lytic or blastic lesion is seen. Orbits: The bony orbits are intact. Orbital contents are normal as visualized. Sinuses and mastoids: There is mild mucosal thickening within the maxillary antra. A 3 cm retention cyst is noted on the left. Trace mucosal thickening is also seen within the frontal, sphenoid, and ethmoid sinuses. The mastoid air cells are well pneumatized. IMPRESSION: 1. There is no hemorrhage, mass effect, or evidence of acute territorial ischemia by CT criteria. 2. Unremarkable CT angiogram of the brain. 3. Unremarkable CT angiogram of the neck. ACT 112: Negative or not required by law. Electronically signed by: Filippo Webb M.D. 11/24/2020 5:52 PM Head CTA 11/24/20 17:[address] OF THE BRAIN; CT ANGIOGRAM OF THE BRAIN; CT ANGIOGRAM OF THE NECK CLINICAL HISTORY: Strokelike symptoms. COMPARISON STUDY: CT of the brain dated 06/04/2020. TECHNIQUE: Unenhanced axial CT scan of the brain is performed. Subsequently, following the IV administration of 108 of Optiray 350, CT angiogram of the head and neck was performed from the aortic arch to the vertex. Images are reviewed in the axial, sagittal, and coronal planes. 3-D MIPS images are created and assessed. IV contrast was administered without complication. All measurements were calculated based on NASCET criteria. A dose lowering technique was utilized adhering to the principles of ALARA. CT DOSE: 1216.67 mGy.cm FINDINGS: Brain parenchyma: The brain parenchyma is normal in appearance. There is no hemorrhage, mass effect, or evidence of acute territorial ischemia by CT criteria. There is no evidence of enhancing mass lesion on the angiogram phase images. The ventricles, sulci, and cisterns are normal in configuration. [place]- white matter differentiation is preserved. No extra-axial fluid collection is seen. Thoracic aorta: Visualized portions of the thoracic aorta are normal in caliber. The aortic arch demonstrates standard 3-vessel anatomy. Right carotid arterial system: The right common carotid artery is widely patent, as are the right internal and external carotid arteries. Left carotid arterial system: The left common carotid artery is widely patent, as are the left internal and external carotid arteries. Minimal plaque is noted in the proximal internal carotid artery. Vertebral arteries: The vertebral arteries are widely patent bilaterally and codominant. Subclavian arteries: Widely patent bilaterally. Intracranial vasculature: The internal carotid arteries are patent at the skull base, as are the anterior and middle cerebral arteries bilaterally. The vertebrobasilar system and posterior cerebral arteries are widely patent. The vertebral arteries are codominant. There is no aneurysm, high-grade stenosis, or focal vessel cut off seen throughout the intracranial circulation. Jugular veins: Patent bilaterally. Dural sinuses: Patent. Lung apices: Partially visualized upper lobe lung parenchyma appears clear. Soft tissues: The visualized pharyngeal soft tissues are normal in appearance noting angiographic phase technique. The oropharyngeal airway appears widely patent. The salivary and thyroid glands are normal in appearance. No cervical lymphadenopathy is seen. Skeletal structures: The calvarium appears intact. The cervical spine is maintained noting mild spondylosis. There is postoperative change from anterior fusion seen at C5-C6. No lytic or blastic lesion is seen. Orbits: The bony orbits are intact. Orbital contents are normal as visualized. Sinuses and mastoids: There is mild mucosal thickening within the maxillary antra. A 3 cm retention cyst is noted on the left. Trace mucosal thickening is also seen within the frontal, sphenoid, and ethmoid sinuses. The mastoid air cells are well pneumatized. IMPRESSION: 1. There is no hemorrhage, mass effect, or evidence of acute territorial ischemia by CT criteria. 2. Unremarkable CT angiogram of the brain. 3. Unremarkable CT angiogram of the neck. ACT 112: Negative or not required by law. Electronically signed by: Filippo Webb M.D. 11/24/2020 5:52 PM Neck CTA 11/24/20 17:[address] OF THE BRAIN; CT ANGIOGRAM OF THE BRAIN; CT ANGIOGRAM OF THE NECK CLINICAL HISTORY: Strokelike symptoms. COMPARISON STUDY: CT of the brain dated 06/04/2020. TECHNIQUE: Unenhanced axial CT scan of the brain is performed. Subsequently, f ollowing the IV administration of 108 of Optiray 350, CT angiogram of the head and neck was performed from the aortic arch to the vertex. Images are reviewed in the axial, sagittal, and coronal planes. 3-D MIPS images are created and assessed. IV contrast was administered without complication. All measurements were calculated based on NASCET criteria. A dose lowering technique was utilized adhering to the principles of ALARA. CT DOSE: 1216.67 mGy.cm FINDINGS: Brain parenchyma: The brain parenchyma is normal in appearance. There is no hemorrhage, mass effect, or evidence of acute territorial ischemia by CT criteria. There is no evidence of enhancing mass lesion on the angiogram phase images. The ventricles, sulci, and cisterns are normal in configuration. [place]- white matter differentiation is preserved. No extra-axial fluid collection is seen. Thoracic aorta: Visualized portions of the thoracic aorta are normal in caliber. The aortic arch demonstrates standard 3-vessel anatomy. Right carotid arterial system: The right common carotid artery is widely patent, as are the right internal and external carotid arteries. Left carotid arterial system: The left common carotid artery is widely patent, as are the left internal and external carotid arteries. Minimal plaque is noted in the proximal internal carotid artery. Vertebral arteries: The vertebral arteries are widely patent bilaterally and codominant. Subclavian arteries: Widely patent bilaterally. Intracranial vasculature: The internal carotid arteries are patent at the skull base, as are the anterior and middle cerebral arteries bilaterally. The vertebrobasilar system and posterior cerebral arteries are widely patent. The vertebral arteries are codominant. There is no aneurysm, high-grade stenosis, or focal vessel cut off seen throughout the intracranial circulation. Jugular veins: Patent bilaterally. Dural sinuses: Patent. Lung apices: Partially visualized upper lobe lung parenchyma appears clear. Soft tissues: The visualized pharyngeal soft tissues are normal in appearance noting angiographic phase technique. The oropharyngeal airway appears widely patent. The salivary and thyroid glands are normal in appearance. No cervical lymphadenopathy is seen. Skeletal structures: The calvarium appears intact. The cervical spine is maintained noting mild spondylosis. There is postoperative change from anterior fusion seen at C5-C6. No lytic or blastic lesion is seen. Orbits: The bony orbits are intact. Orbital contents are normal as visualized. Sinuses and mastoids: There is mild mucosal thickening within the maxillary antra. A 3 cm retention cyst is noted on the left. Trace mucosal thickening is also seen within the frontal, sphenoid, and ethmoid sinuses. The mastoid air cells are well pneumatized. IMPRESSION: 1. There is no hemorrhage, mass effect, or evidence of acute territorial ischemia by CT criteria. 2. Unremarkable CT angiogram of the brain. 3. Unremarkable CT angiogram of the neck. ACT 112: Negative or not required by law. Electronically signed by: Filippo Webb M.D. 11/24/2020 5:52 PM ECG Additional Comments: ECG on 11/24/2020 with normal sinus rhythm, rate 79, no ischemic changes Code Status & VTE Plan Code Status Full code VTE Prophylaxis Plan VTE Prophylaxis will be ordered: Yes PG Care Time/CCT Total # of Minutes Spent Total Time Spent with Patient: Total time spent is greater than 50% in coordination of care (as documented) at patient's floor/unit and/or counseling patient: Coding Level of Care Code 96979 Initial Inpt Care Lvl 3 Diagnoses Vertigo R42 Acute encephalopathy G93.40 Fever R50.9 Nausea R11.0 Urinary retention R33.9 Migraine G43.909 Anxiety disorder F41.9 Chronic back pain M54.9; G89.29 Depression F32.9 Insomnia G47.00 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
[2020-11-24] MEDS ORDERED: MECLIZINE HCL 25 MG TAB PO STA (21:08)
[2020-11-24] MEDS ORDERED: KETOROLAC TROMETHAMINE 15 MG/ML VIAL IV STA (21:10)
[2020-11-24 22:06] LABS: Appearance Urine Clear (Clear); Bilirubin Urine Negative (Negative); Blood Urine Negative (Negative); Color Urine Yellow; Glucose Urine UA Negative (Negative); Ketones Urine Negative (Negative); Leukocyte Esterase Urine Negative (Negative); Nitrite Urine Negative (Negative); Protein Urine Negative (Negative); Specific Gravity Urine > 1.045 (1.000-1.030); Urobilinogen Urine Negative (Negative)
[2020-11-24 22:19] LABS: C Reactive Protein < 0.29 mg/dl (0-0.29)
[2020-11-25 00:19] LABS: Lyme Ab IgG w/WB Rflx Negative (Negative)
[2020-11-25 00:20] LABS: Lyme Ab IgM w/WB Rflx Negative (Negative)
--- NOTE | 2020-11-25 00:25 | Emergency Department Note ---
History of Present Illness General Chief complaint: Vertigo Stated complaint: VERTIGO, DIZZY, CANT WALK- DOC REF Time Seen by Provider: 11/24/20 17:00 Source: patient Mode of arrival: ambulatory Limitations: no limitations History of Present Illness Maximum Pain Intensity: 7 This patient is a 50-year-old male who presents to the emergency department for evaluation of dizziness, difficulty walking and confusion. History is obtained from the patient and his significant other. Patient reports that he was not feeling well yesterday afternoon, he had fatigue and a low-grade fever of 100.9 F at that time. This morning, he was still not feeling well. His left for an appointment and when she returned, he was having a hard time walking. They thought this was due to vertigo and possibly a sinus infection and were seen at a walk-in clinic. The patient was sent here for further evaluation. Patient does report a right-sided headache rated a 5/10. His states that he has been confused, seems to have a hard time staying focused on tasks. He is unable to walk due to significant balance issues. He reports a sensation of the room spinning around him which is worse when he moves or tries to walk. Denies any recent tick bites, neck pain/stiffness, chest pain, shortness of breath, numbness or weakness of his extremities. Patient has a history of PTSD, otherwise is generally healthy. He denies any drug use. He denies any recent head injuries. Home Medications Medication Instructions Recorded Confirmed Type albuterol sulfate [Proventil HFA] 2 inh INHALATION Q6H PRN #18 g 06/04/20 11/24/20 Rx lamotrigine [Lamictal] 50 mg PO BID 06/04/20 11/24/20 History lamotrigine [Lamictal] 200 mg PO BID 06/04/20 11/24/20 History quetiapine [Seroquel] 300 mg PO HS 06/04/20 11/24/20 History trazodone 100 mg PO HS 06/04/20 11/24/20 History Allergies Allergy/AdvReac Type Severity Reaction Status Date / Time sucralfate Allergy Mild HIVES Verified 11/24/20 17:14 buspirone AdvReac Intermediate Dizziness Verified 11/24/20 17:14 and agitation divalproex sodium AdvReac Intermediate face Verified 11/24/20 17:14 [From Depakote] drooping bupropion AdvReac Mild SEIZURE Verified 11/24/20 17:14 topiramate AdvReac Mild SEVERE Verified 11/24/20 17:14 HEADACHE valproic acid AdvReac Mild MAKE HIM Verified 11/24/20 17:14 FEEL LIKE HE GOES CRAZY AND UNABLE TO FUNCTION tramadol AdvReac Unknown Seizure Verified 11/24/20 17:14 Past Med/Surg History Medical History Anxiety disorder Chronic back pain Insomnia Migraine Nausea and vomiting Pseudoseizures PTSD (post-traumatic stress disorder) Seizure disorder Somatic dysfunction of lumbar region Weakness Surgical History History of appendectomy History of cervical spinal surgery History of lumbar fusion History of lumbosacral spine surgery History of tonsillectomy Family History (Updated 11/24/20 @ 22:21 by Demetria Mario MD) Mother Hypertension Father Osteoarthritis Sister Celiac disease Social History Smoking Status: Current every day smoker Years Smoked: 30; Cigarettes Per Day: 10; Hx Alcohol Use: Yes Alcohol Intake Frequency Comment: Six-pack of beer every 1- 2 months. Hx Substance Use: Yes Prescribed Medications: Marijuana Prescribed Medications Comment: daily Preferred Language: Romanian Communication Ability: Effective Roving Department End Finder Required: No Beliefs That Will Affect Care: None marital status: Current Living Situation: Spouse current occupational status: disabled current occupation: Disabled [employer] in 2007 Feels Safe at Home: Yes Assistive Devices: None Review of Systems A total of 10 systems reviewed and were otherwise negative Physical Exam Vital Signs Vital Signs - 24 hr 11/24/20 15:47 11/24/20 17:51 11/24/20 17:52 Temperature 37.0 C Temperature Source Oral Pulse Rate 83 75 Pulse Rate [Right Finger] 77 Pulse Rate from SpO2 Sensor 76 Pulse Rhythm Regular Pulse Strength Normal Respiratory Rate 18 18 21 Respiratory Effort / Characteristics Non-Labored Non-Labored Spontaneous Respiratory Depth Normal Normal Respiratory Pattern Regular Blood Pressure 139/82 124/76 Blood Pressure [Right Arm] 124/87 Blood Pressure Mean 101 92 Blood Pressure Mean [Right Arm] 99 Blood Pressure Position Sitting Blood Pressure Position [Right Arm] Lying Pulse Oximetry 98 96 Oxygen Delivery Method Room Air Room Air Sepsis Recent Fever Within 48 Hours No Sepsis New/Unexplained Change in Mental Status No Sepsis Action Taken by Nursing No Action Required 11/24/20 19:00 11/24/20 19:01 11/24/20 19:30 Temperature Temperature Source Pulse Rate 77 73 74 Pulse Rate [Right Finger] Pulse Rate from SpO2 Sensor 75 74 74 Pulse Rhythm Pulse Strength Respiratory Rate 18 16 16 Respiratory Effort / Characteristics Respiratory Depth Respiratory Pattern Blood Pressure 132/81 130/87 Blood Pressure [Right Arm] Blood Pressure Mean 98 101 Blood Pressure Mean [Right Arm] Blood Pressure Position Blood Pressure Position [Right Arm] Pulse Oximetry 96 96 97 Oxygen Delivery Method Sepsis Recent Fever Within 48 Hours Sepsis New/Unexplained Change in Mental Status Sepsis Action Taken by Nursing 11/24/20 20:00 11/24/20 20:30 11/24/20 21:00 Temperature Temperature Source Pulse Rate 71 74 70 Pulse Rate [Right Finger] Pulse Rate from SpO2 Sensor 71 73 Pulse Rhythm Pulse Strength Respiratory Rate 18 19 17 Respiratory Effort / Characteristics Respiratory Depth Respiratory Pattern Blood Pressure 120/75 149/90 H 136/85 Blood Pressure [Right Arm] Blood Pressure Mean 90 109 102 Blood Pressure Mean [Right Arm] Blood Pressure Position Blood Pressure Position [Right Arm] Pulse Oximetry 96 97 Oxygen Delivery Method Sepsis Recent Fever Within 48 Hours Sepsis New/Unexplained Change in Mental Status Sepsis Action Taken by Nursing 11/24/20 21:30 11/24/20 22:00 11/24/20 22:30 Temperature Temperature Source Pulse Rate 75 69 68 Pulse Rate [Right Finger] Pulse Rate from SpO2 Sensor 76 67 67 Pulse Rhythm Pulse Strength Respiratory Rate 18 21 12 Respiratory Effort / Characteristics Respiratory Depth Respiratory Pattern Blood Pressure 154/97 H 124/83 138/87 Blood Pressure [Right Arm] Blood Pressure Mean 116 96 104 Blood Pressure Mean [Right Arm] Blood Pressure Position Blood Pressure Position [Right Arm] Pulse Oximetry 97 97 96 Oxygen Delivery Method Sepsis Recent Fever Within 48 Hours Sepsis New/Unexplained Change in Mental Status Sepsis Action Taken by Nursing 11/24/20 23:00 Temperature Temperature Source Pulse Rate 70 Pulse Rate [Right Finger] Pulse Rate from SpO2 Sensor 70 Pulse Rhythm Pulse Strength Respiratory Rate 18 Respiratory Effort / Characteristics Respiratory Depth Respiratory Pattern Blood Pressure 135/85 Blood Pressure [Right Arm] Blood Pressure Mean 101 Blood Pressure Mean [Right Arm] Blood Pressure Position Blood Pressure Position [Right Arm] Pulse Oximetry 94 Oxygen Delivery Method Sepsis Recent Fever Within 48 Hours Sepsis New/Unexplained Change in Mental Status Sepsis Action Taken by Nursing VITALS: Vitals are noted on the nurse's note and reviewed by myself. Vital signs stable. GENERAL: This is a 50-year-old male, in no acute distress, well-developed well- nourished. SKIN: The skin was without rashes. HEAD: Normocephalic atraumatic. EARS: External auditory canals clear, tympanic membranes pearly arteaga without erythema or effusion bilaterally. EYES: Pupils equal round and reactive to light and accommodation. Extraocular movements intact. No nystagmus noted. NOSE: Patent, turbinates without inflammation or discharge. MOUTH: Mucous membranes moist. Tonsils are not enlarged. Pharynx without erythema or exudate. NECK: Supple without nuchal rigidity. No lymphadenopathy. No meningismus. HEART: Regular rate and rhythm without murmurs gallops or rubs. LUNGS: Clear to auscultation bilaterally without wheezes, rales or rhonchi. No retractions or accessory muscle use. ABDOMEN: Positive bowel sounds x 4. Soft, nontender to palpation. MUSCULOSKELETAL: Full range of motion throughout all extremities. Strength 5/5 throughout. Patient unable to ambulate. NEURO: Patient was alert and oriented to person place and time. He is slow to respond at times. Normal sensation to light and sharp touch. Some dysarthria noted with [id number] testing. Otherwise no focal neurological deficits. Course Consultations Consultation #1: Dr. Mario - [facility] [place] hospitalist Administered Medications Discontinued Medications Fentanyl Citrate (Fentanyl Citrate 100 Mcg/2 Ml Vial) 50 mcg IV NOW STA Stop: 11/24/20 18:21 Last Admin: 11/24/20 18:36 Dose: 50 mcg Documented by: [id number] Ioversol (Optiray 350 500ml) 108 ml IV ONCE ONE Stop: 11/24/20 17:35 Last Admin: 11/24/20 17:35 Dose: 108 ml Documented by: [id number] Ketorolac Tromethamine (Ketorolac Tromethamine 15 Mg/Ml Vial) 15 mg IV NOW STA Stop: 11/24/20 21:11 Last Admin: 11/24/20 22:49 Dose: 15 mg Documented by: [id number] Meclizine HCl (Meclizine Hcl 25 Mg Tab) 25 mg PO NOW STA Stop: 11/24/20 21:09 Last Admin: 11/24/20 22:50 Dose: 25 mg Documented by: [id number] Medical Decision Making Differential Diagnosis Infection, hypoglycemia, electrolyte abnormalities, overdose, toxicologic, cardiac sources, intracerebral event, neurologic, trauma, as well as other pathologies. Home Medications Current Medication List: was personally reviewed by me Laboratory Data Attestation: I reviewed the patient's lab results. Result diagrams: 11/24/20 17:15 11/24/20 18:19 Lab Results 11/24/20 11/24/20 11/24/20 Range/Units 16:20 17:15 17:15 WBC 10.33 (4.8-10.8) K/uL RBC 4.42 L (4.7-6.1) M/uL Hgb 14.2 (14.0-18.0) g/dL Hct 41.3 L (42-52) % MCV 93.4 (80-100) fL MCH 32.1 (25-34) pg MCHC 34.4 (32-36) g/dL RDW Std Deviation 45.6 (36.4-46.3) fL RDW Coeff of Argelia 13.3 (11.5-14.5) % Plt Count 327 (130-400) K/uL MPV 10.0 (7.4-10.4) fL Immature Gran % (Auto) 0.5 % Neut % (Auto) 70.7 % Lymph % (Auto) 16.9 % [place] % (Auto) 11.0 % Eos % (Auto) 0.7 % Baso % (Auto) 0.2 % Neut # (Auto) 7.30 H (1.4-6.5) K/uL Lymph # (Auto) 1.75 (1.2-3.4) K/uL [place] # (Auto) 1.14 H (0.11-0.59) K/uL Eos # (Auto) 0.07 (0-0.5) K/uL Baso # (Auto) 0.02 (0-0.2) K/uL Immature Gran # (Auto) 0.05 H (0.00-0.02) K/uL ESR (0-20) mm/hr PT 9.8 (9.0-12.0) Seconds INR 1.0 (0.9-1.1) APTT 22.7 (21.0-31.0) Seconds PTT Ratio 0.9 Sodium (136-145) mmol/L Potassium (3.5-5.1) mmol/L Chloride (98-107) mmol/L Carbon Dioxide (21-32) mmol/L Anion Gap (3-11) BUN (7-18) mg/dl Creatinine (0.6-1.4) mg/dl Est Cr Clr Drug Dosing Est GFR ( Amer) Est GFR (Non-Af Amer) BUN/Creatinine Ratio (10-20) Glucose (70-99) mg/dl Lactate (0.4-2.0) mmol/L Calcium (8.5-10.1) mg/dl Magnesium (1.8-2.4) mg/dl Total Bilirubin (0.2-1) mg/dl AST (15-37) U/L ALT (12-78) U/L Alkaline Phosphatase (45-117) U/L Ammonia (11-32) umol/L Troponin I (0-0.045) ng/ml C-Reactive Protein (0-0.29) mg/dl Total Protein (6.4-8.2) gm/dl Albumin (3.4-5.0) gm/dl Globulin (2.5-4.0) gm/dl Albumin/Globulin Ratio (0.9-2) Procalcitonin (0-0.5) ng/ml TSH (0.300-4.500) uIu/ml Urine Color Urine Appearance (Clear) Urine pH (4.5-7.5) Ur Specific [place] (1.000-1.030) Urine Protein (Negative) Urine Glucose (UA) (Negative) Urine Ketones (Negative) Urine Blood (Negative) Urine Nitrite (Negative) Urine Bilirubin (Negative) Urine Urobilinogen (Negative) Ur Leukocyte Esterase (Negative) Urine Opiates Screen Neg (Neg) Ur Methadone, Qual Neg (Neg) Urine Barbiturates Neg (Neg) Ur Phencyclidine (PCP) Neg (Neg) U Amphetamin/Meth Scrn Neg (Neg) MDMA (Ecstasy) Screen Neg (Neg) U Benzodiazepines Scrn Neg (Neg) Ur Cocaine Metabolite Neg (Neg) U Marijuana (THC) Screen Pos H (Neg) Lyme Disease IgG Ab (Negative) Lyme Disease IgM Ab (Negative) COVID-19 Eval Order SARS-CoV-2 (PCR) (Negative) Influenza Type A (PCR) (Neg) Influenza Type B (PCR) (Neg) RSV (RT-PCR) (Neg) Blood Type Antibody Screen 11/24/20 11/24/20 11/24/20 Range/Units 17:15 17:15 17:53 WBC (4.8-10.8) K/uL RBC (4.7-6.1) M/uL Hgb (14.0-18.0) g/dL Hct (42-52) % MCV (80-100) fL MCH (25-34) pg MCHC (32-36) g/dL RDW Std Deviation (36.4-46.3) fL RDW Coeff of Argelia (11.5-14.5) % Plt Count (130-400) K/uL MPV (7.4-10.4) fL Immature Gran % (Auto) % Neut % (Auto) % Lymph % (Auto) % [place] % (Auto) % Eos % (Auto) % Baso % (Auto) % Neut # (Auto) (1.4-6.5) K/uL Lymph # (Auto) (1.2-3.4) K/uL [place] # (Auto) (0.11-0.59) K/uL Eos # (Auto) (0-0.5) K/uL Baso # (Auto) (0-0.2) K/uL Immature Gran # (Auto) (0.00-0.02) K/uL ESR 2 (0-20) mm/hr PT (9.0-12.0) Seconds INR (0.9-1.1) APTT (21.0-31.0) Seconds PTT Ratio Sodium 138 (136-145) mmol/L Potassium (3.5-5.1) mmol/L Chloride 107 (98-107) mmol/L Carbon Dioxide 27 (21-32) mmol/L Anion Gap 5.0 (3-11) BUN 9 (7-18) mg/dl Creatinine 0.89 (0.6-1.4) mg/dl Est Cr Clr Drug Dosing Not Reportable Est GFR ( Amer) 115.6 Est GFR (Non-Af Amer) 99.7 BUN/Creatinine Ratio 9.8 L (10-20) Glucose 86 (70-99) mg/dl Lactate (0.4-2.0) mmol/L Calcium 9.3 (8.5-10.1) mg/dl Magnesium (1.8-2.4) mg/dl Total Bilirubin 0.3 (0.2-1) mg/dl AST (15-37) U/L ALT 24 (12-78) U/L Alkaline Phosphatase 114 (45-117) U/L Ammonia (11-32) umol/L Troponin I < 0.015 (0-0.045) ng/ml C-Reactive Protein (0-0.29) mg/dl Total Protein 7.3 (6.4-8.2) gm/dl Albumin 4.1 (3.4-5.0) gm/dl Globulin 3.2 (2.5-4.0) gm/dl Albumin/Globulin Ratio 1.3 (0.9-2) Procalcitonin (0-0.5) ng/ml TSH (0.300-4.500) uIu/ml Urine Color Urine Appearance (Clear) Urine pH (4.5-7.5) Ur Specific [place] (1.000-1.030) Urine Protein (Negative) Urine Glucose (UA) (Negative) Urine Ketones (Negative) Urine Blood (Negative) Urine Nitrite (Negative) Urine Bilirubin (Negative) Urine Urobilinogen (Negative) Ur Leukocyte Esterase (Negative) Urine Opiates Screen (Neg) Ur Methadone, Qual (Neg) Urine Barbiturates (Neg) Ur Phencyclidine (PCP) (Neg) U Amphetamin/Meth Scrn (Neg) MDMA (Ecstasy) Screen (Neg) U Benzodiazepines Scrn (Neg) Ur Cocaine Metabolite (Neg) U Marijuana (THC) Screen (Neg) Lyme Disease IgG Ab (Negative) Lyme Disease IgM Ab (Negative) COVID-19 Eval Order [facility]Rsv at [facility] SARS-CoV-2 (PCR) (Negative) Influenza Type A (PCR) (Neg) Influenza Type B (PCR) (Neg) RSV (RT-PCR) (Neg) Blood Type Antibody Screen 11/24/20 11/24/20 11/24/20 Range/Units 17:53 18:10 18:10 WBC (4.8-10.8) K/uL RBC (4.7-6.1) M/uL Hgb (14.0-18.0) g/dL Hct (42-52) % MCV (80-100) fL MCH (25-34) pg MCHC (32-36) g/dL RDW Std Deviation (36.4-46.3) fL RDW Coeff of Argelia (11.5-14.5) % Plt Count (130-400) K/uL MPV (7.4-10.4) fL Immature Gran % (Auto) % Neut % (Auto) % Lymph % (Auto) % [place] % (Auto) % Eos % (Auto) % Baso % (Auto) % Neut # (Auto) (1.4-6.5) K/uL Lymph # (Auto) (1.2-3.4) K/uL [place] # (Auto) (0.11-0.59) K/uL Eos # (Auto) (0-0.5) K/uL Baso # (Auto) (0-0.2) K/uL Immature Gran # (Auto) (0.00-0.02) K/uL ESR (0-20) mm/hr PT (9.0-12.0) Seconds INR (0.9-1.1) APTT (21.0-31.0) Seconds PTT Ratio Sodium (136-145) mmol/L Potassium (3.5-5.1) mmol/L Chloride (98-107) mmol/L Carbon Dioxide (21-32) mmol/L Anion Gap (3-11) BUN (7-18) mg/dl Creatinine (0.6-1.4) mg/dl Est Cr Clr Drug Dosing Est GFR ( Amer) Est GFR (Non-Af Amer) BUN/Creatinine Ratio (10-20) Glucose (70-99) mg/dl Lactate 1.0 (0.4-2.0) mmol/L Calcium (8.5-10.1) mg/dl Magnesium (1.8-2.4) mg/dl Total Bilirubin (0.2-1) mg/dl AST (15-37) U/L ALT (12-78) U/L Alkaline Phosphatase (45-117) U/L Ammonia < 10.0 L (11-32) umol/L Troponin I (0-0.045) ng/ml C-Reactive Protein (0-0.29) mg/dl Total Protein (6.4-8.2) gm/dl Albumin (3.4-5.0) gm/dl Globulin (2.5-4.0) gm/dl Albumin/Globulin Ratio (0.9-2) Procalcitonin (0-0.5) ng/ml TSH (0.300-4.500) uIu/ml Urine Color Urine Appearance (Clear) Urine pH (4.5-7.5) Ur Specific [place] (1.000-1.030) Urine Protein (Negative) Urine Glucose (UA) (Negative) Urine Ketones (Negative) Urine Blood (Negative) Urine Nitrite (Negative) Urine Bilirubin (Negative) Urine Urobilinogen (Negative) Ur Leukocyte Esterase (Negative) Urine Opiates Screen (Neg) Ur Methadone, Qual (Neg) Urine Barbiturates (Neg) Ur Phencyclidine (PCP) (Neg) U Amphetamin/Meth Scrn (Neg) MDMA (Ecstasy) Screen (Neg) U Benzodiazepines Scrn (Neg) Ur Cocaine Metabolite (Neg) U Marijuana (THC) Screen (Neg) Lyme Disease IgG Ab (Negative) Lyme Disease IgM Ab (Negative) COVID-19 Eval Order SARS-CoV-2 (PCR) NEGATIVE (Negative) Influenza Type A (PCR) Negative (Neg) Influenza Type B (PCR) Negative (Neg) RSV (RT-PCR) Negative (Neg) Blood Type Antibody Screen 11/24/20 11/24/20 11/24/20 Range/Units 18:10 18:19 18:19 WBC (4.8-10.8) K/uL RBC (4.7-6.1) M/uL Hgb (14.0-18.0) g/dL Hct (42-52) % MCV (80-100) fL MCH (25-34) pg MCHC (32-36) g/dL RDW Std Deviation (36.4-46.3) fL RDW Coeff of Argelia (11.5-14.5) % Plt Count (130-400) K/uL MPV (7.4-10.4) fL Immature Gran % (Auto) % Neut % (Auto) % Lymph % (Auto) % [place] % (Auto) % Eos % (Auto) % Baso % (Auto) % Neut # (Auto) (1.4-6.5) K/uL Lymph # (Auto) (1.2-3.4) K/uL [place] # (Auto) (0.11-0.59) K/uL Eos # (Auto) (0-0.5) K/uL Baso # (Auto) (0-0.2) K/uL Immature Gran # (Auto) (0.00-0.02) K/uL ESR (0-20) mm/hr PT (9.0-12.0) Seconds INR (0.9-1.1) APTT (21.0-31.0) Seconds PTT Ratio Sodium (136-145) mmol/L Potassium 4.4 (3.5-5.1) mmol/L Chloride (98-107) mmol/L Carbon Dioxide (21-32) mmol/L Anion Gap (3-11) BUN (7-18) mg/dl Creatinine (0.6-1.4) mg/dl Est Cr Clr Drug Dosing Est GFR ( Amer) Est GFR (Non-Af Amer) BUN/Creatinine Ratio (10-20) Glucose (70-99) mg/dl Lactate (0.4-2.0) mmol/L Calcium (8.5-10.1) mg/dl Magnesium 2.2 (1.8-2.4) mg/dl Total Bilirubin (0.2-1) mg/dl AST 8 L (15-37) U/L ALT (12-78) U/L Alkaline Phosphatase (45-117) U/L Ammonia (11-32) umol/L Troponin I (0-0.045) ng/ml C-Reactive Protein < 0.29 (0-0.29) mg/dl Total Protein (6.4-8.2) gm/dl Albumin (3.4-5.0) gm/dl Globulin (2.5-4.0) gm/dl Albumin/Globulin Ratio (0.9-2) Procalcitonin (0-0.5) ng/ml TSH 1.070 (0.300-4.500) uIu/ml Urine Color Urine Appearance (Clear) Urine pH (4.5-7.5) Ur Specific [place] (1.000-1.030) Urine Protein (Negative) Urine Glucose (UA) (Negative) Urine Ketones (Negative) Urine Blood (Negative) Urine Nitrite (Negative) Urine Bilirubin (Negative) Urine Urobilinogen (Negative) Ur Leukocyte Esterase (Negative) Urine Opiates Screen (Neg) Ur Methadone, Qual (Neg) Urine Barbiturates (Neg) Ur Phencyclidine (PCP) (Neg) U Amphetamin/Meth Scrn (Neg) MDMA (Ecstasy) Screen (Neg) U Benzodiazepines Scrn (Neg) Ur Cocaine Metabolite (Neg) U Marijuana (THC) Screen (Neg) Lyme Disease IgG Ab (Negative) Lyme Disease IgM Ab (Negative) COVID-19 Eval Order SARS-CoV-2 (PCR) (Negative) Influenza Type A (PCR) (Neg) Influenza Type B (PCR) (Neg) RSV (RT-PCR) (Neg) Blood Type O Positive Antibody Screen NEGATIVE 11/24/20 11/24/20 11/24/20 Range/Units 21:20 22:36 22:36 WBC (4.8-10.8) K/uL RBC (4.7-6.1) M/uL Hgb (14.0-18.0) g/dL Hct (42-52) % MCV (80-100) fL MCH (25-34) pg MCHC (32-36) g/dL RDW Std Deviation (36.4-46.3) fL RDW Coeff of Argelia (11.5-14.5) % Plt Count (130-400) K/uL MPV (7.4-10.4) fL Immature Gran % (Auto) % Neut % (Auto) % Lymph % (Auto) % [place] % (Auto) % Eos % (Auto) % Baso % (Auto) % Neut # (Auto) (1.4-6.5) K/uL Lymph # (Auto) (1.2-3.4) K/uL [place] # (Auto) (0.11-0.59) K/uL Eos # (Auto) (0-0.5) K/uL Baso # (Auto) (0-0.2) K/uL Immature Gran # (Auto) (0.00-0.02) K/uL ESR (0-20) mm/hr PT (9.0-12.0) Seconds INR (0.9-1.1) APTT (21.0-31.0) Seconds PTT Ratio Sodium (136-145) mmol/L Potassium (3.5-5.1) mmol/L Chloride (98-107) mmol/L Carbon Dioxide (21-32) mmol/L Anion Gap (3-11) BUN (7-18) mg/dl Creatinine (0.6-1.4) mg/dl Est Cr Clr Drug Dosing Est GFR ( Amer) Est GFR (Non-Af Amer) BUN/Creatinine Ratio (10-20) Glucose (70-99) mg/dl Lactate (0.4-2.0) mmol/L Calcium (8.5-10.1) mg/dl Magnesium (1.8-2.4) mg/dl Total Bilirubin (0.2-1) mg/dl AST (15-37) U/L ALT (12-78) U/L Alkaline Phosphatase (45-117) U/L Ammonia (11-32) umol/L Troponin I (0-0.045) ng/ml C-Reactive Protein (0-0.29) mg/dl Total Protein (6.4-8.2) gm/dl Albumin (3.4-5.0) gm/dl Globulin (2.5-4.0) gm/dl Albumin/Globulin Ratio (0.9-2) Procalcitonin < 0.05 (0-0.5) ng/ml TSH (0.300-4.500) uIu/ml Urine Color Yellow Urine Appearance Clear (Clear) Urine pH 7.0 (4.5-7.5) Ur Specific [place] > 1.045 H (1.000-1.030) Urine Protein Negative (Negative) Urine Glucose (UA) Negative (Negative) Urine Ketones Negative (Negative) Urine Blood Negative (Negative) Urine Nitrite Negative (Negative) Urine Bilirubin Negative (Negative) Urine Urobilinogen Negative (Negative) Ur Leukocyte Esterase Negative (Negative) Urine Opiates Screen (Neg) Ur Methadone, Qual (Neg) Urine Barbiturates (Neg) Ur Phencyclidine (PCP) (Neg) U Amphetamin/Meth Scrn (Neg) MDMA (Ecstasy) Screen (Neg) U Benzodiazepines Scrn (Neg) Ur Cocaine Metabolite (Neg) U Marijuana (THC) Screen (Neg) Lyme Disease IgG Ab Negative (Negative) Lyme Disease IgM Ab Negative (Negative) COVID-19 Eval Order SARS-CoV-2 (PCR) (Negative) Influenza Type A (PCR) (Neg) Influenza Type B (PCR) (Neg) RSV (RT-PCR) (Neg) Blood Type Antibody Screen Imaging Data Attestation: I personally reviewed and interpreted this imaging study as follows: Radiologist's Impression: Head CT 11/24/20 17:[address] OF THE BRAIN; CT ANGIOGRAM OF THE BRAIN; CT ANGIOGRAM OF THE NECK CLINICAL HISTORY: Strokelike symptoms. COMPARISON STUDY: CT of the brain dated 06/04/2020. TECHNIQUE: Unenhanced axial CT scan of the brain is performed. Subsequently, following the IV administration of 108 of Optiray 350, CT angiogram of the head and neck was performed from the aortic arch to the vertex. Images are reviewed in the axial, sagittal, and coronal planes. 3-D MIPS images are created and assessed. IV contrast was administered without complication. All measurements were calculated based on NASCET criteria. A dose lowering technique was utilized adhering to the principles of ALARA. CT DOSE: 1216.67 mGy.cm FINDINGS: Brain parenchyma: The brain parenchyma is normal in appearance. There is no hemorrhage, mass effect, or evidence of acute territorial ischemia by CT criteria. There is no evidence of enhancing mass lesion on the angiogram phase images. The ventricles, sulci, and cisterns are normal in configuration. [place]- white matter differentiation is preserved. No extra-axial fluid collection is seen. Thoracic aorta: Visualized portions of the thoracic aorta are normal in caliber. The aortic arch demonstrates standard 3-vessel anatomy. Right carotid arterial system: The right common carotid artery is widely patent, as are the right internal and external carotid arteries. Left carotid arterial system: The left common carotid artery is widely patent, as are the left internal and external carotid arteries. Minimal plaque is noted in the proximal internal carotid artery. Vertebral arteries: The vertebral arteries are widely patent bilaterally and codominant. Subclavian arteries: Widely patent bilaterally. Intracranial vasculature: The internal carotid arteries are patent at the skull base, as are the anterior and middle cerebral arteries bilaterally. The vertebrobasilar system and posterior cerebral arteries are widely patent. The vertebral arteries are codominant. There is no aneurysm, high-grade stenosis, or focal vessel cut off seen throughout the intracranial circulation. Jugular veins: Patent bilaterally. Dural sinuses: Patent. Lung apices: Partially visualized upper lobe lung parenchyma appears clear. Soft tissues: The visualized pharyngeal soft tissues are normal in appearance noting angiographic phase technique. The oropharyngeal airway appears widely patent. The salivary and thyroid glands are normal in appearance. No cervical lymphadenopathy is seen. Skeletal structures: The calvarium appears intact. The cervical spine is maintained noting mild spondylosis. There is postoperative change from anterior fusion seen at C5-C6. No lytic or blastic lesion is seen. Orbits: The bony orbits are intact. Orbital contents are normal as visualized. Sinuses and mastoids: There is mild mucosal thickening within the maxillary antra. A 3 cm retention cyst is noted on the left. Trace mucosal thickening is also seen within the frontal, sphenoid, and ethmoid sinuses. The mastoid air cells are well pneumatized. IMPRESSION: 1. There is no hemorrhage, mass effect, or evidence of acute territorial ischemia by CT criteria. 2. Unremarkable CT angiogram of the brain. 3. Unremarkable CT angiogram of the neck. ACT 112: Negative or not required by law. Electronically signed by: Filippo Webb M.D. 11/24/2020 5:52 PM Head CTA 11/24/20 17:[address] OF THE BRAIN; CT ANGIOGRAM OF THE BRAIN; CT ANGIOGRAM OF THE NECK CLINICAL HISTORY: Strokelike symptoms. COMPARISON STUDY: CT of the brain dated 06/04/2020. TECHNIQUE: Unenhanced axial CT scan of the brain is performed. Subsequently, following the IV administration of 108 of Optiray 350, CT angiogram of the head and neck was performed from the aortic arch to the vertex. Images are reviewed in the axial, sagittal, and coronal planes. 3-D MIPS images are created and assessed. IV contrast was administered without complication. All measurements were calculated based on NASCET criteria. A dose lowering technique was utilized adhering to the principles of ALARA. CT DOSE: 1216.67 mGy.cm FINDINGS: Brain parenchyma: The brain parenchyma is normal in appearance. There is no hemorrhage, mass effect, or evidence of acute territorial ischemia by CT criteria. There is no evidence of enhancing mass lesion on the angiogram phase images. The ventricles, sulci, and cisterns are normal in configuration. [place]- white matter differentiation is preserved. No extra-axial fluid collection is seen. Thoracic aorta: Visualized portions of the thoracic aorta are normal in caliber. The aortic arch demonstrates standard 3-vessel anatomy. Right carotid arterial system: The right common carotid artery is widely patent, as are the right internal and external carotid arteries. Left carotid arterial system: The left common carotid artery is widely patent, as are the left internal and external carotid arteries. Minimal plaque is noted in the proximal internal carotid artery. Vertebral arteries: The vertebral arteries are widely patent bilaterally and codominant. Subclavian arteries: Widely patent bilaterally. Intracranial vasculature: The internal carotid arteries are patent at the skull base, as are the anterior and middle cerebral arteries bilaterally. The vertebrobasilar system and posterior cerebral arteries are widely patent. The vertebral arteries are codominant. There is no aneurysm, high-grade stenosis, or focal vessel cut off seen throughout the intracranial circulation. Jugular veins: Patent bilaterally. Dural sinuses: Patent. Lung apices: Partially visualized upper lobe lung parenchyma appears clear. Soft tissues: The visualized pharyngeal soft tissues are normal in appearance noting angiographic phase technique. The oropharyngeal airway appears widely patent. The salivary and thyroid glands are normal in appearance. No cervical lymphadenopathy is seen. Skeletal structures: The calvarium appears intact. The cervical spine is maintained noting mild spondylosis. There is postoperative change from anterior fusion seen at C5-C6. No lytic or blastic lesion is seen. Orbits: The bony orbits are intact. Orbital contents are normal as visualized. Sinuses and mastoids: There is mild mucosal thickening within the maxillary antra. A 3 cm retention cyst is noted on the left. Trace mucosal thickening is also seen within the frontal, sphenoid, and ethmoid sinuses. The mastoid air cells are well pneumatized. IMPRESSION: 1. There is no hemorrhage, mass effect, or evidence of acute territorial ischemia by CT criteria. 2. Unremarkable CT angiogram of the brain. 3. Unremarkable CT angiogram of the neck. ACT 112: Negative or not required by law. Electronically signed by: Filippo Webb M.D. 11/24/2020 5:52 PM Neck CTA 11/24/20 17:[address] OF THE BRAIN; CT ANGIOGRAM OF THE BRAIN; CT ANGIOGRAM OF THE NECK CLINICAL HISTORY: Strokelike symptoms. COMPARISON STUDY: CT of the brain dated 06/04/2020. TECHNIQUE: Unenhanced axial CT scan of the brain is performed. Subsequently, following the IV administration of 108 of Optiray 350, CT angiogram of the head and neck was performed from the aortic arch to the vertex. Images are reviewed in the axial, sagittal, and coronal planes. 3-D MIPS images are created and assessed. IV contrast was administered without complication. All measurements were calculated based on NASCET criteria. A dose lowering technique was uti lized adhering to the principles of ALARA. CT DOSE: 1216.67 mGy.cm FINDINGS: Brain parenchyma: The brain parenchyma is normal in appearance. There is no hemorrhage, mass effect, or evidence of acute territorial ischemia by CT criteria. There is no evidence of enhancing mass lesion on the angiogram phase images. The ventricles, sulci, and cisterns are normal in configuration. [place]- white matter differentiation is preserved. No extra-axial fluid collection is seen. Thoracic aorta: Visualized portions of the thoracic aorta are normal in caliber. The aortic arch demonstrates standard 3-vessel anatomy. Right carotid arterial system: The right common carotid artery is widely patent, as are the right internal and external carotid arteries. Left carotid arterial system: The left common carotid artery is widely patent, as are the left internal and external carotid arteries. Minimal plaque is noted in the proximal internal carotid artery. Vertebral arteries: The vertebral arteries are widely patent bilaterally and codominant. Subclavian arteries: Widely patent bilaterally. Intracranial vasculature: The internal carotid arteries are patent at the skull base, as are the anterior and middle cerebral arteries bilaterally. The vertebrobasilar system and posterior cerebral arteries are widely patent. The vertebral arteries are codominant. There is no aneurysm, high-grade stenosis, or focal vessel cut off seen throughout the intracranial circulation. Jugular veins: Patent bilaterally. Dural sinuses: Patent. Lung apices: Partially visualized upper lobe lung parenchyma appears clear. Soft tissues: The visualized pharyngeal soft tissues are normal in appearance noting angiographic phase technique. The oropharyngeal airway appears widely patent. The salivary and thyroid glands are normal in appearance. No cervical lymphadenopathy is seen. Skeletal structures: The calvarium appears intact. The cervical spine is maintained noting mild spondylosis. There is postoperative change from anterior fusion seen at C5-C6. No lytic or blastic lesion is seen. Orbits: The bony orbits are intact. Orbital contents are normal as visualized. Sinuses and mastoids: There is mild mucosal thickening within the maxillary antra. A 3 cm retention cyst is noted on the left. Trace mucosal thickening is also seen within the frontal, sphenoid, and ethmoid sinuses. The mastoid air cells are well pneumatized. IMPRESSION: 1. There is no hemorrhage, mass effect, or evidence of acute territorial ischemia by CT criteria. 2. Unremarkable CT angiogram of the brain. 3. Unremarkable CT angiogram of the neck. ACT 112: Negative or not required by law. Electronically signed by: Filippo Webb M.D. 11/24/2020 5:52 PM ECG Data Attestation: I personally reviewed and interpreted this ECG as follows: Indication: + other Rate (beats per minute): 79 Rhythm: + normal sinus ECG Intervals/blocks: + Normal QRS ECG ST segments: + Normal ST segments Change: no significant change MDM Narrative Continuous monitor and storage bin tender: Order was placed for continuous monitor and storage bin tender. Patient was placed on the monitor and storage bin tender. Patient was noted to be in normal sinus rhythm at an initial rate of 83 bpm. The patient is a 50-year-old male who presents today for evaluation of dizziness, difficulty walking and mild confusion. On exam, patient is alert and oriented but does seem slow to answer at times. His reports that he has been confused and had difficulty focusing on tasks. He is unable to ambulate. Additionally, patient was found to be in urinary retention here. His labs show no leukocytosis, anemia or concerning electrolyte abnormalities. Ammonia is not elevated. CT of the head as well as CT angiogram of the head and neck were performed and show no acute findings. Patient unfortunately unable to receive an MRI due to history of stimulator with abandoned leads. I do feel the patient will need further work-up for the etiology of his symptoms. There is certainly concern for a cerebellar CVA. He does have a psychiatric history and that could be contributing. Certainly could be a case of polypharmacy, although patient has been on his medications for quite some time with no recent changes and denies any misuse of his medications. His presentation is not consistent with meningitis. The case was discussed with the [facility] hospitalist service, who agreed to evaluate the patient for further care. Impression & Plan Acute encephalopathy, Vertigo, Urinary retention, Ambulatory dysfunction Discharge Plan Visit Data Chief Complaint: Vertigo Stated Complaint: VERTIGO, DIZZY, CANT WALK- DOC REF ED Provider: Filippo Overton ED Midlevel Provider: Amaya Baldwin Discharge Problem: Acute encephalopathy, Vertigo, Urinary retention, Ambulatory dysfunction
[2020-11-25] MEDS ORDERED: ALBUTEROL HFA 8 GM INHALER INH PRN (00:41)
[2020-11-25] MEDS ORDERED: ACETAMINOPHEN 500 MG TAB PO PRN (00:41)
[2020-11-25] MEDS ORDERED: ONDANSETRON INJ 2 MG/ML 2 ML VIAL IV PRN (00:41)
[2020-11-25] MEDS ORDERED: MECLIZINE HCL 25 MG TAB PO PRN (00:41)
[2020-11-25] MEDS: ACETAMINOPHEN 500 MG TAB PO PRN ×2 (01:03→20:07)
[2020-11-25] MEDS: QUEtiapine FUMARATE 300 MG TABLET PO SCH ×2 (01:04→20:55)
[2020-11-25] MEDS: lamoTRIgine 25 MG TAB PO SCH ×3 (01:04→20:54)
[2020-11-25] MEDS: lamoTRIgine 100 MG TAB PO SCH ×3 (01:05→20:54)
[2020-11-25] MEDS: traZODone HCL 100 MG TAB PO SCH (01:06)
[2020-11-25] MEDS: SODIUM CHLORIDE 0.9% 1000ML 1,000 ML IV SCH ×2 (01:10→11:56)
[2020-11-25] MEDS: TAMSULOSIN HCL 0.4 MG CAP PO SCH ×2 (01:13→20:55)
[2020-11-25] MEDS: cefTRIAXone SODIUM 2,000 MG in DEXTROSE 5% 50 ML IV SCH (01:14)
[2020-11-25] MEDS ORDERED: MoRPHine SULFATE 2 MG/ML CARP IV STA ×2 (02:03→07:05)
[2020-11-25] MEDS: KETOROLAC TROMETHAMINE 15 MG/ML VIAL IV PRN ×2 (05:00→11:38)
[2020-11-25 06:02] LABS: Basophils # (auto) 0.02 K/uL (0-0.2); Basophils % (auto) 0.3 %; Eosinophils # (auto) 0.21 K/uL (0-0.5); Eosinophils % (auto) 2.9 %; Hemoglobin 12.8 g/dL (14.0-18.0); Lymphocytes % (auto) 36.5 %; Mean Corpuscular Hemoglobin 31.7 pg (25-34); Mean Corpuscular Hgb Conc 34.6 g/dL (32-36); Mean Corpuscular Volume 91.6 fL (80-100); Mean Platelet Volume 9.9 fL (7.4-10.4); Monocytes # (auto) 0.76 K/uL (0.11-0.59); Monocytes % (auto) 10.7 %; Neutrophils # (auto) 3.54 K/uL (1.4-6.5); Neutrophils % (auto) 49.6 %; Platelet Count 276 K/uL (130-400); RDW Coefficient of Variation 13.4 % (11.5-14.5); RDW Standard Deviation 45.1 fL (36.4-46.3); Red Blood Count 4.04 M/uL (4.7-6.1); White Blood Count 7.13 K/uL (4.8-10.8)
[2020-11-25 06:35] LABS: Albumin Level 3.4 gm/dl (3.4-5.0); BUN Creatinine Ratio 9.4 (10-20); Calcium 8.3 mg/dl (8.5-10.1); Creatinine Clr Calc Pharmacy 107.1 ml/min; Est GFR (African American) 118.3; Est GFR (Non-African American) 102.1; Magnesium 2.2 mg/dl (1.8-2.4); Potassium 3.5 mmol/L (3.5-5.1)
[2020-11-25 06:39] LABS: Albumin Globulin Ratio 1.3 (0.9-2); Bilirubin Direct 0.1 mg/dl (0-0.2); Bilirubin,Total 0.4 mg/dl (0.2-1); Globulin 2.6 gm/dl (2.5-4.0)
[2020-11-25 07:00] LABS: Estimated Average Glucose 114 mg/dl; Hemoglobin A1C 5.6 % (4.5-5.6)
[2020-11-25] MEDS: ASPIRIN 81 MG ECTAB PO SCH (07:35)
--- NOTE | 2020-11-25 08:26 | Urology Consultation ---
Date of Consultation November 25, 2020 Assessment & Plan (1) Urinary retention: Patient is undergoing further work-up and management of his significant headache with long history of severe migraines and multiple issues. Patient has been on a number of medications. Is being managed and worked up further. Had a low-grade infection and at presentation was concern for possible infection. Also found to be in urinary retention with over 500 cc. Patient is tolerating catheter. No major bleeding or infection. Has had some lower urinary tract symptoms in the past. Has not been formally worked up. Patient's complicated medical and surgical history with his pseudoseizure disorder and episodes of encephalopathy were reviewed and summarized as above. Patient's lab work was all reviewed please see chart for full record. As well as patient's vitals. Patient did not have any recent abdominal imaging but previous imaging from the last few years was reviewed. Discussed at length options for patient. Will likely need cystoscopy and further assessment and work-up to determine issues that may be contributing. Discussed bladder outlet issues. Discussed other issues and concerns especially related to patient's significant neurologic/seizure disorder. Discussed possible effects on autonomic functions/spinal reflex functions. Discussed patient's medications and possible effects they also may be having. We will have patient maintain catheter to be removed in the office prior to discharge or if after discharge in our office within a week to 2 weeks. We will set this up through nursing. We will then plan to have patient return 4 to 6 weeks for reassessment and likely cystoscopy. Discussed plans for management and monitoring as well as plans for intervention if patient has significant issues. Patient had been started on tamsulosin for management of likely prostate related issues. Patient has been tolerating thus far. We will plan follow-up as above. (2) Ambulatory dysfunction: (3) Fever: (4) Nausea and vomiting: (5) Chronic back pain: History of Present Illness Attending Physician: Demetria Mario MD History of Present Illness Consult for urinary issues with incomplete emptying and UTI/dysuria with concerns for worsening infection. Patient had severe headache and head pain and issues. This is been an ongoing intermittent issue patient has dealt with and has been admitted for in the past. During work-up found to have significant signs of infection. Was placed on broad-spectrum antibiotics and was admitted for supportive care, active management of infection, broad-spectrum antibiotics, and hydration. Patient is also undergoing work-up for his significant head ache and discomfort with known history of multiple medical issues. Patient has mild to moderate discomfort in pelvis and groin going to back and side in waves. Is dealing with acute illness. Has been deconditioned from this. Has decreased mobility significantly with acute issues. Patient has not had complete return to normal bowel function. Has had some minor urinary issues in the past. Denies bleeding. No severe nausea or vomiting. Currently no fevers. Discussed with patient multifactorial nature of urinary issues, retention, and incomplete bladder emptying. Discussed concerns and issues. Discussed decreased mobility and trouble voiding. Discussed issues related to deconditioning and weakened state. Discussed possibility that patient had more moderate to severe issues and with the acute illness and deconditioning these issues became more prevalent and obvious. Discussed bowel function and possible issues related to decrease in function and its relation to other pelvic organs and systems. Discussed different medications, will use during hospitalization and their effect on ability to empty. Allergies Allergy/AdvReac Type Severity Reaction Status Date / Time sucralfate Allergy Mild HIVES Verified 11/24/20 17:14 buspirone AdvReac Intermediate Dizziness Verified 11/24/20 17:14 and agitation divalproex sodium AdvReac Intermediate face Verified 11/24/20 17:14 [From Depakote] drooping bupropion AdvReac Mild SEIZURE Verified 11/24/20 17:14 topiramate AdvReac Mild SEVERE Verified 11/24/20 17:14 HEADACHE valproic acid AdvReac Mild MAKE HIM Verified 11/24/20 17:14 FEEL LIKE HE GOES CRAZY AND UNABLE TO FUNCTION tramadol AdvReac Unknown Seizure Verified 11/24/20 17:14 Home Medications Medication Instructions Recorded Confirmed Type albuterol sulfate [Proventil HFA] 2 inh INHALATION Q6H PRN #18 g 06/04/20 11/24/20 Rx lamotrigine [Lamictal] 50 mg PO BID 06/04/20 11/24/20 History lamotrigine [Lamictal] 200 mg PO BID 06/04/20 11/24/20 History quetiapine [Seroquel] 300 mg PO HS 06/04/20 11/24/20 History trazodone 100 mg PO HS 06/04/20 11/24/20 History Patient History Medical History Anxiety disorder Chronic back pain Insomnia Migraine Nausea and vomiting Pseudoseizures PTSD (post-traumatic stress disorder) Seizure disorder Somatic dysfunction of lumbar region Weakness Surgical History History of appendectomy History of cervical spinal surgery History of lumbar fusion History of lumbosacral spine surgery History of tonsillectomy Family History Mother Hypertension Father Osteoarthritis Sister Celiac disease Social History Smoking Status: Current every day smoker Years Smoked: 30; Cigarettes Per Day: 1 pack; Hx Alcohol Use: Yes Alcohol Intake Frequency Comment: Six-pack of beer every 1- 2 months. 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 Patient is well nourished and well kept. HEENT: Normocephalic Atraumatic. Inspection normal. Cranial Nerves 2-12 Grossly intact. Nares are clear. Neck is supple. Normal inspection of face. Normal inspection of neck. Neurologic: No deficits on inspection. Baseline for motor function and sensory. Psychologic: Normal affect. Respiratory: Nonlabored. No use of accessory muscles. No tachypnea or dyspnea. Cardiovascular: No tachycardia Skin: [place] and Dry. No rashes or visible lesions. Extremities: Moving without issues. No motor deficits on inspection Lymphatics: No edema Abdomen: Soft Non-distended. No acites. No rebound or guarding. Results & Data ([facility]) Vital Signs (Past 12 Hours) Vital Signs Temp Pulse Pulse Resp BP BP Pulse Ox 11/25/20 07:00 72 11/25/20 04:37 36.6 C 74 18 128/70 96 11/25/20 01:18 68 11/24/20 23:00 70 18 135/85 94 11/24/20 22:30 68 12 138/87 96 11/24/20 22:00 69 21 124/83 97 11/24/20 21:30 75 18 154/97 H 97 11/24/20 21:00 70 17 136/85 11/24/20 20:30 74 19 149/90 H 97 PG Care Time/CCT Total # of Minutes Spent Total Time Spent with Patient: Total time spent is greater than 50% in coordination of care (as documented) at patient's floor/unit and/or counseling patient: Coding Level of Care Code 01243 Inpt Consult Level 5 Diagnoses Urinary retention R33.9 Ambulatory dysfunction R26.2 Fever R50.9 Nausea and vomiting R11.2 Chronic back pain M54.9; G89.29
--- NOTE | 2020-11-25 09:55 | Electrocardiogram Report ---
Test Reason : Blood Pressure : / mmHG Vent. Rate : 079 BPM Atrial Rate : 079 BPM P-R Int : 166 ms QRS Dur : 084 ms QT Int : 362 ms P-R-T Axes : 072 014 035 degrees QTc Int : 415 ms Normal sinus rhythm Possible Left atrial enlargement Borderline ECG When compared with ECG of 04-JUN-2020 16:06, No significant change was found Confirmed by Ramiro Graff ([id number]) on 11/25/2020 9:54:33 AM Referred By: REFERRED SELF Confirmed By:Ramiro Graff
--- NOTE | 2020-11-25 11:38 | Consultation Report ---
DATE OF CONSULTATION: 11/25/2020 REASON FOR CONSULTATION: Headache, dizziness. HISTORY OF PRESENT ILLNESS: The patient is a 50-year-old right-handed male with a history of remote migraine, anxiety, chronic back pain, status post multiple surgeries and dorsal column stimulator placement, depression, insomnia, history of pseudoseizures, and PTSD. On this background, 2 days prior to admission, the patient noted fever of about 101. He had mild diffuse aches. Intermittent fever persisted, I believe with subsequent maximum of 100.7, which would at least transiently respond to Aleve. The patient did not have any ed sore throat, ear pain, cough, diarrhea. There is no evidence of a rash or a tick bite. He has not had any recent medical or dental procedures. Two days into the illness, he developed a right-sided pressure headache which was nonthrobbing and not accompanied by any light or sound sensitivity. He may have occasionally seen some sparkles in his vision, but he has experienced that remotely with headaches in the past. He denied any photophobia, phonophobia or neck stiffness. The headache did not respond to Aleve and has persisted. The patient has a history of vertigo in the past. I believe based on my discussion with the patient that his vertigo in the past, was likely positional. He had migraines in his 20s, which were also right sided and could be accompanied by vertigo, but for the most part, his migrainous headaches had resolved and he would episodically have brief vertigo with standing up, not accompanied by a headache. This illness was associated with vertigo upon standing up, although the patient has difficulty committing as to whether or not the vertigo was very positional and would be better with holding still. He also felt unsteady. He has some chronic nonpulsatile intermittent tinnitus. No hearing loss or ear pain. He has not recently had any head or neck injury or chiropractic manipulation of the neck. With the vertigo, there was no double vision, slurred speech, unilateral weakness or numbness. The patient reports chronic numbness primarily in his left hand and his left leg, which he attributes to his "back." In the Emergency Room, Dr. Mario examined him and had him found that he had a positive Chiquis-Hallpike maneuver. He was also found to be in urinary retention. The patient has had trouble with incomplete bladder emptying for several months. He has not had any dysuria. None of his medicines are new or changed in dose. PAST MEDICAL HISTORY: As above. PAST SURGICAL HISTORY: Appendectomy, cervical spine surgery, lumbar fusion, lumbar spine surgery, dorsal column stimulator with removal of the pec, but with residual wires, history of tonsillectomy. FAMILY HISTORY: Mother, hypertension. Father osteoarthritis and stroke. Sister, celiac disease. SOCIAL HISTORY: The patient smokes, but does not drink alcohol and has medical marijuana prescribed for him. MEDICATIONS: Home medicines are albuterol, Lamictal, which I believe is being used for mood stabilization 250 mg b.i.d., Seroquel 300 mg at bedtime and trazodone 100 mg at bedtime. ALLERGIES: SUCRALFATE, BUSPIRONE, DEPAKOTE, BUPROPION, TOPAMAX, DEPAKOTE AND TRAMADOL, WHICH THE PATIENT WAS SAID TO HAVE HAD A SEIZURE WITH. It appears that on this admission his T-max has been 37, currently is 36.7, pulse 75, respirations 18, 112/67, 82, 95% on room air. LABORATORY DATA: Notable for marginally elevated white count of 10.3, white count today is 7.1, H and H 12.8/37, platelet count 276. Electrolytes notable on admission for no evidence of dehydration with a BUN and creatinine ratio of 9.8, AST 8. Ammonia less than 10. Transaminases normal. TSH normal. Procalcitonin negative. Urinalysis notable for a urine specific gravity of 1.045. Tox screen notable for positive marijuana. Lyme negative. COVID-19 negative. SARS negative. Influenza A and B and RSV negative. CT of the head with and without contrast and CTA of the head and neck were unremarkable. There was no high-grade stenosis or acute territorial infarct. The patient's electrocardiogram showed normal sinus rhythm, possible left atrial enlargement, borderline EKG. PHYSICAL EXAMINATION: GENERAL: The patient is awake and alert. Mentation is very mildly slow, but he is entirely accurate and he is oriented x3. There is no right/left confusion. Naming is normal. Affect appropriate. VITAL SIGNS: Blood pressure 112/67, pulse 75, respirations 18, temperature 36.7, 95%. NECK: There are no carotid bruits. HEART: No heart murmurs. Heart is regular rate and rhythm. NECK: Supple. Kernig's and Brudzinski sign is negative. There is no spinal tenderness or CP angle tenderness. HEART: Regular rate and rhythm. ABDOMEN: Soft and nontender and bowel sounds are normal. There is no calf swelling or tenderness. Feet are warm and dry. No peripheral embolic phenomenon are noted. The conjunctivae are mildly injected. NEUROLOGIC: Pupils are equal, round and reactive to light. I could not visualize the optic nerve on the right, on the left it appeared grossly normal. There is normal motility without nystagmus. Normal visual carrion, normal facial sensation and facial symmetry. Gross hearing was intact. Tongue was midline. Motor: Normal bulk and tone. Full strength, no drift. Normal rapid alternating movements. Ucuphl-[id number] and pkss-ba-[id number] are normal. Reflexes are symmetric. Right knee jerk may be minimally depressed compared to left. Toes are downgoing. Sensation is intact to light touch, temperature and vibration, inguinal sensation is intact as is sacral or buttock sensation. Provocative head maneuvers are negative. Gait was not tested. IMPRESSION: This patient has had headaches in the setting of a febrile illness, it is hypothesized that he may have prostatitis given his subacute complaints of incomplete bladder emptying and his worsening urinary retention. As a side note I agree that at least his Seroquel could be causing urinary retention as well. Appreciate Urology consultation. I see no meningeal signs on exam. The patient notes vertigo and history giving is somewhat difficult, i.e., he does not currently give a history that it is positional, but it sounds as if he has had positional vertigo in the past. Dr. Mario was able to invoke a positive [place]-Hallpike, which suggest a peripheral etiology. PLAN: Given that a small vessel posterior circulation stroke cannot be excluded at present and the patient cannot have an MRI of the brain, I would recommend as Dr. Mario is planning a repeat CT in 24 hours. I would use aspirin and do a vascular workup with telemetric monitoring and an echocardiography. I am reassured that I see no central signs on exam. If the patient continues to have headache and is not improving or headache is worsening or the patient remains or becomes febrile and a CT shows no contraindication such as a large cerebellar stroke, I would recommend at that point, a lumbar puncture. I discussed the case with Dr. Mario. I will follow with you.
[2020-11-25] MEDS: MoRPHine SULFATE 2 MG/ML CARP IV PRN ×2 (12:34→18:05)
--- NOTE | 2020-11-25 12:55 | CT Scan Report ---
CT OF THE HEAD WITHOUT CONTRAST CLINICAL HISTORY: vertigo,f/u 24 hrs for CVA COMPARISON STUDY: Head CT and CTA of the head November 24, 2020. CT DOSE: 537.48 mGy.cm TECHNIQUE: Helical axial images of the head were obtained without IV contrast. Automated exposure con trol was utilized for the study. A dose lowering technique was utilized adhering to the principles o f ALARA. FINDINGS: No acute intracranial hemorrhage, midline shift or mass effect is present. The ventricular system is unremarkable. The basal cisterns are patent. No extra-axial collections are present. There are no findings to suggest acute dural sinus thrombosis or acute territorial infarct. No significant calvarial abnormalities are present. Visualized portions of the sinuses and mastoid air cells are angela ar. IMPRESSION: No acute intracranial findings. ACT 112: Negative or not required by law. Electronically signed by: Castro Méndez M.D. 11/25/2020 12:53 PM
--- NOTE | 2020-11-25 13:18 | Hospitalist Progress Note ---
Date of Service November 25, 2020 Assessment & Plan (1) Vertigo: Presents with dizziness that started at 11 AM on 11/24 and is associated with right-sided migraine headache and nausea. Also with a recent low-grade fever on 11/23 at home He has a positive Belcourt-Hallpike on examination on admission and some horizontal nystagmus as well CT angiogram of the head neck, CT noncontrast of the head without evidence of stroke or large vessel occlusion or stenosis Could perhaps have a small cerebellar stroke although seems more consistent with BPPV or perhaps vertiginous migraine None of his medications have changed recently. Vital signs are stable. No renal abnormalities or electrolyte abnormalities that could be contributing. 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 every 6 hours but change to scheduled dosing for vertigo -PT/OT consultations pending lipids and A1C good, no statin indicated as no CVA -Neurochecks -if has fever or not improving, Neuro recommends checking LP tomorrow (2) Acute encephalopathy: Likely secondary to febrile illness although no fever here, but reported low-grade fever at home on 11/23 He is oriented and no focal neuro deficits, seems much improved today although he still reports feeling a bit confused Work-up for fever and infection as below -Supportive care (3) Fever: With a low-grade fever at home to 100.9 on 11/23 as per the , with right sided frontal headache No meningismus on examination and only very mild encephalopathic-do not suspect encephalitis Does not need LP at this time, but if spikes fever or not improving, consider LP for tomorrow as per Neuro No fevers here and mental status improved today -CT head negative, but does show some trace mucosal thickening in the maxillary antra, frontal, sphenoid, and ethmoid sinuses, but doubt acute sinusitis -Covid/influenza/RSV test is negative -With urinary retention, could have an acute prostatitis despite negative urinalysis -Watch for fevers here -Follow blood cultures- NGTD -Ur cx pending -continue empiric treatment with antibiotics in the form of ceftriaxone to cover for acute prostatitis - Lyme disease titer negative PCT, ESR, CRP normal Perhaps some other viral issue? (4) Nausea: Associated with vertigo Zofran as needed Meclizine Clear liquids diet only for now Advance as tolerated Give 2 L of normal saline-finishing today (5) Urinary retention: Noted to have difficulty with urination in the ER as per his report having to strain to get urine out Bladder scan for 500 and was not able to urinate at all Prakash catheter was placed in the ER Consult urology and start Flomax -He is on multiple medications which could cause anticholinergic effects, however he has never had issues like this before and this may represent an acute prostatitis especially given the fever (6) Migraine: With right-sided headache, perhaps induced by recent febrile illness Has a long history of migraines which have been well controlled on Lamictal for many years Consult neurology appreciated Continue Lamictal not improving with IV Toradol, meclizine, or tylenol Morphine helps somewhat but does not last Tylenol 1000 mg p.o. 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 RN reports it took 2 people to help him stand up today without falling over. He is tolerating clear liquids but thinking about advancing diet makes him feel nauseated. No fevers. Is making urine in Prakash. As it turns out, he reports a previous migraine associated with vertigo about 20 years ago. Also reports many months of straining ot get urine out but never as bad as yesterday Tele with NSR rates 70-80s Review of Systems Review of Systems: All systems reviewed & are unremarkable except as noted in HPI & below Physical Exam Constitutional: WD/WN, vitals as above (more alert and not slow to speak today) Eyes: PERRL, conjunctivae normal, anicteric sclerae + nystagmus (With extraocular movements laterally,very mild) ENMT: external ear and nose normal, oropharynx normal Ears: no hearing impairment and no external ear abnormality Nose: no external nose abnormality Neck: trachea midline, no thyromegaly Respiratory: normal respiratory effort, lungs clear to auscultation Cardiovascular: RRR, no murmur, no edema Chest (Breasts): Chest: normal inspection of chest Gastrointestinal (Abdomen): normal bowel sounds, soft, nontender, no hepatosplenomegaly Musculoskeletal: Extremities: extremities normal to inspection; no cyanosis and no clubbing Skin: no rashes, warm and dry Neurologic: PERRL, EOMI, accommodation nl, no face palsy, no dysarthria moves all extremities and awake; no focal motor deficits and not confused Speech / Cognition: normal speech and normal cognition Motor/Sensory: no tremor Psychiatric: A+Ox3, euthymic affect Lymphatic: no lymphedema Results & Data Results & Data ([facility]) Vital Signs (Past 12 Hours) Vital Signs Temp Pulse Pulse Resp BP BP Pulse Ox 11/25/20 11:15 36.7 C 76 16 122/70 94 11/25/20 07:00 36.7 C 72 75 18 112/67 95 11/25/20 04:37 36.6 C 74 18 128/70 96 11/25/20 01:18 68 Laboratory Results 11/25/20 11/25/20 11/25/20 Range/Units 05:38 05:38 05:38 WBC 7.13 (4.8-10.8) K/uL RBC 4.04 L (4.7-6.1) M/uL Hgb 12.8 L (14.0-18.0) g/dL Hct 37.0 L (42-52) % MCV 91.6 (80-100) fL MCH 31.7 (25-34) pg MCHC 34.6 (32-36) g/dL RDW Std Deviation 45.1 (36.4-46.3) fL RDW Coeff of [place] 13.4 (11.5-14.5) % Plt Count 276 (130-400) K/uL MPV 9.9 (7.4-10.4) fL Immature Gran % (Auto) 0.0 % Neut % (Auto) 49.6 % Lymph % (Auto) 36.5 % [place] % (Auto) 10.7 % Eos % (Auto) 2.9 % Baso % (Auto) 0.3 % Neut # (Auto) 3.54 (1.4-6.5) K/uL Lymph # (Auto) 2.60 (1.2-3.4) K/uL [place] # (Auto) 0.76 H (0.11-0.59) K/uL Eos # (Auto) 0.21 (0-0.5) K/uL Baso # (Auto) 0.02 (0-0.2) K/uL Immature Gran # (Auto) 0.00 (0.00-0.02) K/uL ESR (0-20) mm/hr PT (9.0-12.0) Seconds INR (0.9-1.1) APTT (21.0-31.0) Seconds PTT Ratio Sodium 140 (136-145) mmol/L Potassium 3.5 D (3.5-5.1) mmol/L Chloride 110 H (98-107) mmol/L Carbon Dioxide 26 (21-32) mmol/L Anion Gap 4.0 (3-11) BUN 8 (7-18) mg/dl Creatinine 0.84 (0.6-1.4) mg/dl Est Cr Clr Drug Dosing 107.1 Est GFR ( Amer) 118.3 Est GFR (Non-Af Amer) 102.1 BUN/Creatinine Ratio 9.4 L (10-20) Glucose 102 H (70-99) mg/dl Estimat Average Glucose 114 mg/dl Hemoglobin A1c 5.6 (4.5-5.6) % Lactate (0.4-2.0) mmol/L Calcium 8.3 L (8.5-10.1) mg/dl Magnesium 2.2 (1.8-2.4) mg/dl Total Bilirubin 0.4 (0.2-1) mg/dl Direct Bilirubin 0.1 (0-0.2) mg/dl AST 8 L (15-37) U/L ALT 21 (12-78) U/L Alkaline Phosphatase 107 (45-117) U/L Ammonia (11-32) umol/L Troponin I (0-0.045) ng/ml C-Reactive Protein (0-0.29) mg/dl Total Protein 6.0 L (6.4-8.2) gm/dl Albumin 3.4 (3.4-5.0) gm/dl Globulin 2.6 (2.5-4.0) gm/dl Albumin/Globulin Ratio 1.3 (0.9-2) Triglycerides 124 (0-150) mg/dl Cholesterol 192 (0-200) mg/dl LDL Cholesterol, Calc 121 mg/dl VLDL Cholesterol, Calc 25 mg/dl HDL Cholesterol 46 mg/dl Cholesterol/HDL Ratio 4 Procalcitonin (0-0.5) ng/ml TSH (0.300-4.500) uIu/ml Urine Color Urine Appearance (Clear) Urine pH (4.5-7.5) Ur Specific [place] (1.000-1.030) Urine Protein (Negative) Urine Glucose (UA) (Negative) Urine Ketones (Negative) Urine Blood (Negative) Urine Nitrite (Negative) Urine Bilirubin (Negative) Urine Urobilinogen (Negative) Ur Leukocyte Esterase (Negative) Urine Opiates Screen (Neg) Ur Methadone, Qual (Neg) Urine Barbiturates (Neg) Ur Phencyclidine (PCP) (Neg) U Amphetamin/Meth Scrn (Neg) MDMA (Ecstasy) Screen (Neg) U Benzodiazepines Scrn (Neg) Ur Cocaine Metabolite (Neg) U Marijuana (THC) Screen (Neg) U Marijuana THC Carboxy Lyme Disease IgG Ab (Negative) Lyme Disease IgM Ab (Negative) COVID-19 Eval Order SARS-CoV-2 (PCR) (Negative) Influenza Type A (PCR) (Neg) Influenza Type B (PCR) (Neg) RSV (RT-PCR) (Neg) Blood Type Antibody Screen 11/24/20 11/24/20 11/24/20 Range/Units 22:36 22:36 21:20 WBC (4.8-10.8) K/uL RBC (4.7-6.1) M/uL Hgb (14.0-18.0) g/dL Hct (42-52) % MCV (80-100) fL MCH (25-34) pg MCHC (32-36) g/dL RDW Std Deviation (36.4-46.3) fL RDW Coeff of [place]gelia (11.5-14.5) % Plt Count (130-400) K/uL MPV (7.4-10.4) fL Immature Gran % (Auto) % Neut % (Auto) % Lymph % (Auto) % [place] % (Auto) % Eos % (Auto) % Baso % (Auto) % Neut # (Auto) (1.4-6.5) K/uL Lymph # (Auto) (1.2-3.4) K/uL [place] # (Auto) (0.11-0.59) K/uL Eos # (Auto) (0-0.5) K/uL Baso # (Auto) (0-0.2) K/uL Immature Gran # (Auto) (0.00-0.02) K/uL ESR (0-20) mm/hr PT (9.0-12.0) Seconds INR (0.9-1.1) APTT (21.0-31.0) Seconds PTT Ratio Sodium (136-145) mmol/L Potassium (3.5-5.1) mmol/L Chloride (98-107) mmol/L Carbon Dioxide (21-32) mmol/L Anion Gap (3-11) BUN (7-18) mg/dl Creatinine (0.6-1.4) mg/dl Est Cr Clr Drug Dosing Est GFR ( Amer) Est GFR (Non-Af Amer) BUN/Creatinine Ratio (10-20) Glucose (70-99) mg/dl Estimat Average Glucose mg/dl Hemoglobin A1c (4.5-5.6) % Lactate (0.4-2.0) mmol/L Calcium (8.5-10.1) mg/dl Magnesium (1.8-2.4) mg/dl Total Bilirubin (0.2-1) mg/dl Direct Bilirubin (0-0.2) mg/dl AST (15-37) U/L ALT (12-78) U/L Alkaline Phosphatase (45-117) U/L Ammonia (11-32) umol/L Troponin I (0-0.045) ng/ml C-Reactive Protein (0-0.29) mg/dl Total Protein (6.4-8.2) gm/dl Albumin (3.4-5.0) gm/dl Globulin (2.5-4.0) gm/dl Albumin/Globulin Ratio (0.9-2) Triglycerides (0-150) mg/dl Cholesterol (0-200) mg/dl LDL Cholesterol, Calc mg/dl VLDL Cholesterol, Calc mg/dl HDL Cholesterol mg/dl Cholesterol/HDL Ratio Procalcitonin < 0.05 (0-0.5) ng/ml TSH (0.300-4.500) uIu/ml Urine Color Yellow Urine Appearance Clear (Clear) Urine pH 7.0 (4.5-7.5) Ur Specific [place] > 1.045 H (1.000-1.030) Urine Protein Negative (Negative) Urine Glucose (UA) Negative (Negative) Urine Ketones Negative (Negative) Urine Blood Negative (Negative) Urine Nitrite Negative (Negative) Urine Bilirubin Negative (Negative) Urine Urobilinogen Negative (Negative) Ur Leukocyte Esterase Negative (Negative) Urine Opiates Screen (Neg) Ur Methadone, Qual (Neg) Urine Barbiturates (Neg) Ur Phencyclidine (PCP) (Neg) U Amphetamin/Meth Scrn (Neg) MDMA (Ecstasy) Screen (Neg) U Benzodiazepines Scrn (Neg) Ur Cocaine Metabolite (Neg) U Marijuana (THC) Screen (Neg) U Marijuana THC Carboxy Lyme Disease IgG Ab Negative (Negative) Lyme Disease IgM Ab Negative (Negative) COVID-19 Eval Order SARS-CoV-2 (PCR) (Negative) Influenza Type A (PCR) (Neg) Influenza Type B (PCR) (Neg) RSV (RT-PCR) (Neg) Blood Type Antibody Screen 11/24/20 11/24/20 11/24/20 Range/Units 18:19 18:19 18:10 WBC (4.8-10.8) K/uL RBC (4.7-6.1) M/uL Hgb (14.0-18.0) g/dL Hct (42-52) % MCV (80-100) fL MCH (25-34) pg MCHC (32-36) g/dL RDW Std Deviation (36.4-46.3) fL RDW Coeff of [place]gelia (11.5-14.5) % Plt Count (130-400) K/uL MPV (7.4-10.4) fL Immature Gran % (Auto) % Neut % (Auto) % Lymph % (Auto) % [place] % (Auto) % Eos % (Auto) % Baso % (Auto) % Neut # (Auto) (1.4-6.5) K/uL Lymph # (Auto) (1.2-3.4) K/uL [place] # (Auto) (0.11-0.59) K/uL Eos # (Auto) (0-0.5) K/uL Baso # (Auto) (0-0.2) K/uL Immature Gran # (Auto) (0.00-0.02) K/uL ESR (0-20) mm/hr PT (9.0-12.0) Seconds INR (0.9-1.1) APTT (21.0-31.0) Seconds PTT Ratio Sodium (136-145) mmol/L Potassium 4.4 (3.5-5.1) mmol/L Chloride (98-107) mmol/L Carbon Dioxide (21-32) mmol/L Anion Gap (3-11) BUN (7-18) mg/dl Creatinine (0.6-1.4) mg/dl Est Cr Clr Drug Dosing Est GFR ( Amer) Est GFR (Non-Af Amer) BUN/Creatinine Ratio (10-20) Glucose (70-99) mg/dl Estimat Average Glucose mg/dl Hemoglobin A1c (4.5-5.6) % Lactate (0.4-2.0) mmol/L Calcium (8.5-10.1) mg/dl Magnesium 2.2 (1.8-2.4) mg/dl Total Bilirubin (0.2-1) mg/dl Direct Bilirubin (0-0.2) mg/dl AST 8 L (15-37) U/L ALT (12-78) U/L Alkaline Phosphatase (45-117) U/L Ammonia (11-32) umol/L Troponin I (0-0.045) ng/ml C-Reactive Protein < 0.29 (0-0.29) mg/dl Total Protein (6.4-8.2) gm/dl Albumin (3.4-5.0) gm/dl Globulin (2.5-4.0) gm/dl Albumin/Globulin Ratio (0.9-2) Triglycerides (0-150) mg/dl Cholesterol (0-200) mg/dl LDL Cholesterol, Calc mg/dl VLDL Cholesterol, Calc mg/dl HDL Cholesterol mg/dl Cholesterol/HDL Ratio Procalcitonin (0-0.5) ng/ml TSH 1.070 (0.300-4.500) uIu/ml Urine Color Urine Appearance (Clear) Urine pH (4.5-7.5) Ur Specific [place] (1.000-1.030) Urine Protein (Negative) Urine Glucose (UA) (Negative) Urine Ketones (Negative) Urine Blood (Negative) Urine Nitrite (Negative) Urine Bilirubin (Negative) Urine Urobilinogen (Negative) Ur Leukocyte Esterase (Negative) Urine Opiates Screen (Neg) Ur Methadone, Qual (Neg) Urine Barbiturates (Neg) Ur Phencyclidine (PCP) (Neg) U Amphetamin/Meth Scrn (Neg) MDMA (Ecstasy) Screen (Neg) U Benzodiazepines Scrn (Neg) Ur Cocaine Metabolite (Neg) U Marijuana (THC) Screen (Neg) U Marijuana THC Carboxy Lyme Disease IgG Ab (Negative) Lyme Disease IgM Ab (Negative) COVID-19 Eval Order SARS-CoV-2 (PCR) (Negative) Influenza Type A (PCR) (Neg) Influenza Type B (PCR) (Neg) RSV (RT-PCR) (Neg) Blood Type O Positive Antibody Screen NEGATIVE 11/24/20 11/24/20 11/24/20 Range/Units 18:10 18:10 17:53 WBC (4.8-10.8) K/uL RBC (4.7-6.1) M/uL Hgb (14.0-18.0) g/dL Hct (42-52) % MCV (80-100) fL MCH (25-34) pg MCHC (32-36) g/dL RDW Std Deviation (36.4-46.3) fL RDW Coeff of [place] (11.5-14.5) % Plt Count (130-400) K/uL MPV (7.4-10.4) fL Immature Gran % (Auto) % Neut % (Auto) % Lymph % (Auto) % [place] % (Auto) % Eos % (Auto) % Baso % (Auto) % Neut # (Auto) (1.4-6.5) K/uL Lymph # (Auto) (1.2-3.4) K/uL [place] # (Auto) (0.11-0.59) K/uL Eos # (Auto) (0-0.5) K/uL Baso # (Auto) (0-0.2) K/uL Immature Gran # (Auto) (0.00-0.02) K/uL ESR (0-20) mm/hr PT (9.0-12.0) Seconds INR (0.9-1.1) APTT (21.0-31.0) Seconds PTT Ratio Sodium (136-145) mmol/L Potassium (3.5-5.1) mmol/L Chloride (98-107) mmol/L Carbon Dioxide (21-32) mmol/L Anion Gap (3-11) BUN (7-18) mg/dl Creatinine (0.6-1.4) mg/dl Est Cr Clr Drug Dosing Est GFR ( Amer) Est GFR (Non-Af Amer) BUN/Creatinine Ratio (10-20) Glucose (70-99) mg/dl Estimat Average Glucose mg/dl Hemoglobin A1c (4.5-5.6) % Lactate 1.0 (0.4-2.0) mmol/L Calcium (8.5-10.1) mg/dl Magnesium (1.8-2.4) mg/dl Total Bilirubin (0.2-1) mg/dl Direct Bilirubin (0-0.2) mg/dl AST (15-37) U/L ALT (12-78) U/L Alkaline Phosphatase (45-117) U/L Ammonia < 10.0 L (11-32) umol/L Troponin I (0-0.045) ng/ml C-Reactive Protein (0-0.29) mg/dl Total Protein (6.4-8.2) gm/dl Albumin (3.4-5.0) gm/dl Globulin (2.5-4.0) gm/dl Albumin/Globulin Ratio (0.9-2) Triglycerides (0-150) mg/dl Cholesterol (0-200) mg/dl LDL Cholesterol, Calc mg/dl VLDL Cholesterol, Calc mg/dl HDL Cholesterol mg/dl Cholesterol/HDL Ratio Procalcitonin (0-0.5) ng/ml TSH (0.300-4.500) uIu/ml Urine Color Urine Appearance (Clear) Urine pH (4.5-7.5) Ur Specific [place] (1.000-1.030) Urine Protein (Negative) Urine Glucose (UA) (Negative) Urine Ketones (Negative) Urine Blood (Negative) Urine Nitrite (Negative) Urine Bilirubin (Negative) Urine Urobilinogen (Negative) Ur Leukocyte Esterase (Negative) Urine Opiates Screen (Neg) Ur Methadone, Qual (Neg) Urine Barbiturates (Neg) Ur Phencyclidine (PCP) (Neg) U Amphetamin/Meth Scrn (Neg) MDMA (Ecstasy) Screen (Neg) U Benzodiazepines Scrn (Neg) Ur Cocaine Metabolite (Neg) U Marijuana (THC) Screen (Neg) U Marijuana THC Carboxy Lyme Disease IgG Ab (Negative) Lyme Disease IgM Ab (Negative) COVID-19 Eval Order SARS-CoV-2 (PCR) NEGATIVE (Negative) Influenza Type A (PCR) Negative (Neg) Influenza Type B (PCR) Negative (Neg) RSV (RT-PCR) Negative (Neg) Blood Type Antibody Screen 11/24/20 11/24/20 11/24/20 Range/Units 17:53 17:15 17:15 WBC (4.8-10.8) K/uL RBC (4.7-6.1) M/uL Hgb (14.0-18.0) g/dL Hct (42-52) % MCV (80-100) fL MCH (25-34) pg MCHC (32-36) g/dL RDW Std Deviation (36.4-46.3) fL RDW Coeff of [place] (11.5-14.5) % Plt Count (130-400) K/uL MPV (7.4-10.4) fL Immature Gran % (Auto) % Neut % (Auto) % Lymph % (Auto) % [place] % (Auto) % Eos % (Auto) % Baso % (Auto) % Neut # (Auto) (1.4-6.5) K/uL Lymph # (Auto) (1.2-3.4) K/uL [place] # (Auto) (0.11-0.59) K/uL Eos # (Auto) (0-0.5) K/uL Baso # (Auto) (0-0.2) K/uL Immature Gran # (Auto) (0.00-0.02) K/uL ESR 2 (0-20) mm/hr PT (9.0-12.0) Seconds INR (0.9-1.1) APTT (21.0-31.0) Seconds PTT Ratio Sodium 138 (136-145) mmol/L Potassium (3.5-5.1) mmol/L Chloride 107 (98-107) mmol/L Carbon Dioxide 27 (21-32) mmol/L Anion Gap 5.0 (3-11) BUN 9 (7-18) mg/dl Creatinine 0.89 (0.6-1.4) mg/dl Est Cr Clr Drug Dosing Not Reportable Est GFR ( Amer) 115.6 Est GFR (Non-Af Amer) 99.7 BUN/Creatinine Ratio 9.8 L (10-20) Glucose 86 (70-99) mg/dl Estimat Average Glucose mg/dl Hemoglobin A1c (4.5-5.6) % Lactate (0.4-2.0) mmol/L Calcium 9.3 (8.5-10.1) mg/dl Magnesium (1.8-2.4) mg/dl Total Bilirubin 0.3 (0.2-1) mg/dl Direct Bilirubin (0-0.2) mg/dl AST (15-37) U/L ALT 24 (12-78) U/L Alkaline Phosphatase 114 (45-117) U/L Ammonia (11-32) umol/L Troponin I < 0.015 (0-0.045) ng/ml C-Reactive Protein (0-0.29) mg/dl Total Protein 7.3 (6.4-8.2) gm/dl Albumin 4.1 (3.4-5.0) gm/dl Globulin 3.2 (2.5-4.0) gm/dl Albumin/Globulin Ratio 1.3 (0.9-2) Triglycerides (0-150) mg/dl Cholesterol (0-200) mg/dl LDL Cholesterol, Calc mg/dl VLDL Cholesterol, Calc mg/dl HDL Cholesterol mg/dl Cholesterol/HDL Ratio Procalcitonin (0-0.5) ng/ml TSH (0.300-4.500) uIu/ml Urine Color Urine Appearance (Clear) Urine pH (4.5-7.5) Ur Specific [place] (1.000-1.030) Urine Protein (Negative) Urine Glucose (UA) (Negative) Urine Ketones (Negative) Urine Blood (Negative) Urine Nitrite (Negative) Urine Bilirubin (Negative) Urine Urobilinogen (Negative) Ur Leukocyte Esterase (Negative) Urine Opiates Screen (Neg) Ur Methadone, Qual (Neg) Urine Barbiturates (Neg) Ur Phencyclidine (PCP) (Neg) U Amphetamin/Meth Scrn (Neg) MDMA (Ecstasy) Screen (Neg) U Benzodiazepines Scrn (Neg) Ur Cocaine Metabolite (Neg) U Marijuana (THC) Screen (Neg) U Marijuana THC Carboxy Lyme Disease IgG Ab (Negative) Lyme Disease IgM Ab (Negative) COVID-19 Eval Order CovFluRsv at [facility] SARS-CoV-2 (PCR) (Negative) Influenza Type A (PCR) (Neg) Influenza Type B (PCR) (Neg) RSV (RT-PCR) (Neg) Blood Type Antibody Screen 11/24/20 11/24/20 11/24/20 Range/Units 17:15 17:15 16:20 WBC 10.33 (4.8-10.8) K/uL RBC 4.42 L (4.7-6.1) M/uL Hgb 14.2 (14.0-18.0) g/dL Hct 41.3 L (42-52) % MCV 93.4 (80-100) fL MCH 32.1 (25-34) pg MCHC 34.4 (32-36) g/dL RDW Std Deviation 45.6 (36.4-46.3) fL RDW Coeff of [place] 13.3 (11.5-14.5) % Plt Count 327 (130-400) K/uL MPV 10.0 (7.4-10.4) fL Immature Gran % (Auto) 0.5 % Neut % (Auto) 70.7 % Lymph % (Auto) 16.9 % [place] % (Auto) 11.0 % Eos % (Auto) 0.7 % Baso % (Auto) 0.2 % Neut # (Auto) 7.30 H (1.4-6.5) K/uL Lymph # (Auto) 1.75 (1.2-3.4) K/uL [place] # (Auto) 1.14 H (0.11-0.59) K/uL Eos # (Auto) 0.07 (0-0.5) K/uL Baso # (Auto) 0.02 (0-0.2) K/uL Immature Gran # (Auto) 0.05 H (0.00-0.02) K/uL ESR (0-20) mm/hr PT 9.8 (9.0-12.0) Seconds INR 1.0 (0.9-1.1) APTT 22.7 (21.0-31.0) Seconds PTT Ratio 0.9 Sodium (136-145) mmol/L Potassium (3.5-5.1) mmol/L Chloride (98-107) mmol/L Carbon Dioxide (21-32) mmol/L Anion Gap (3-11) BUN (7-18) mg/dl Creatinine (0.6-1.4) mg/dl Est Cr Clr Drug Dosing Est GFR ( Amer) Est GFR (Non-Af Amer) BUN/Creatinine Ratio (10-20) Glucose (70-99) mg/dl Estimat Average Glucose mg/dl Hemoglobin A1c (4.5-5.6) % Lactate (0.4-2.0) mmol/L Calcium (8.5-10.1) mg/dl Magnesium (1.8-2.4) mg/dl Total Bilirubin (0.2-1) mg/dl Direct Bilirubin (0-0.2) mg/dl AST (15-37) U/L ALT (12-78) U/L Alkaline Phosphatase (45-117) U/L Ammonia (11-32) umol/L Troponin I (0-0.045) ng/ml C-Reactive Protein (0-0.29) mg/dl Total Protein (6.4-8.2) gm/dl Albumin (3.4-5.0) gm/dl Globulin (2.5-4.0) gm/dl Albumin/Globulin Ratio (0.9-2) Triglycerides (0-150) mg/dl Cholesterol (0-200) mg/dl LDL Cholesterol, Calc mg/dl VLDL Cholesterol, Calc mg/dl HDL Cholesterol mg/dl Cholesterol/HDL Ratio Procalcitonin (0-0.5) ng/ml TSH (0.300-4.500) uIu/ml Urine Color Urine Appearance (Clear) Urine pH (4.5-7.5) Ur Specific [place] (1.000-1.030) Urine Protein (Negative) Urine Glucose (UA) (Negative) Urine Ketones (Negative) Urine Blood (Negative) Urine Nitrite (Negative) Urine Bilirubin (Negative) Urine Urobilinogen (Negative) Ur Leukocyte Esterase (Negative) Urine Opiates Screen (Neg) Ur Methadone, Qual (Neg) Urine Barbiturates (Neg) Ur Phencyclidine (PCP) (Neg) U Amphetamin/Meth Scrn (Neg) MDMA (Ecstasy) Screen (Neg) U Benzodiazepines Scrn (Neg) Ur Cocaine Metabolite (Neg) U Marijuana (THC) Screen (Neg) U Marijuana THC Carboxy Pending Lyme Disease IgG Ab (Negative) Lyme Disease IgM Ab (Negative) COVID-19 Eval Order SARS-CoV-2 (PCR) (Negative) Influenza Type A (PCR) (Neg) Influenza Type B (PCR) (Neg) RSV (RT-PCR) (Neg) Blood Type Antibody Screen 11/24/20 Range/Units 16:20 WBC (4.8-10.8) K/uL RBC (4.7-6.1) M/uL Hgb (14.0-18.0) g/dL Hct (42-52) % MCV (80-100) fL MCH (25-34) pg MCHC (32-36) g/dL RDW Std Deviation (36.4-46.3) fL RDW Coeff of [place]gelia (11.5-14.5) % Plt Count (130-400) K/uL MPV (7.4-10.4) fL Immature Gran % (Auto) % Neut % (Auto) % Lymph % (Auto) % [place] % (Auto) % Eos % (Auto) % Baso % (Auto) % Neut # (Auto) (1.4-6.5) K/uL Lymph # (Auto) (1.2-3.4) K/uL [place] # (Auto) (0.11-0.59) K/uL Eos # (Auto) (0-0.5) K/uL Baso # (Auto) (0-0.2) K/uL Immature Gran # (Auto) (0.00-0.02) K/uL ESR (0-20) mm/hr PT (9.0-12.0) Seconds INR (0.9-1.1) APTT (21.0-31.0) Seconds PTT Ratio Sodium (136-145) mmol/L Potassium (3.5-5.1) mmol/L Chloride (98-107) mmol/L Carbon Dioxide (21-32) mmol/L Anion Gap (3-11) BUN (7-18) mg/dl Creatinine (0.6-1.4) mg/dl Est Cr Clr Drug Dosing Est GFR ( Amer) Est GFR (Non-Af Amer) BUN/Creatinine Ratio (10-20) Glucose (70-99) mg/dl Estimat Average Glucose mg/dl Hemoglobin A1c (4.5-5.6) % Lactate (0.4-2.0) mmol/L Calcium (8.5-10.1) mg/dl Magnesium (1.8-2.4) mg/dl Total Bilirubin (0.2-1) mg/dl Direct Bilirubin (0-0.2) mg/dl AST (15-37) U/L ALT (12-78) U/L Alkaline Phosphatase (45-117) U/L Ammonia (11-32) umol/L Troponin I (0-0.045) ng/ml C-Reactive Protein (0-0.29) mg/dl Total Protein (6.4-8.2) gm/dl Albumin (3.4-5.0) gm/dl Globulin (2.5-4.0) gm/dl Albumin/Globulin Ratio (0.9-2) Triglycerides (0-150) mg/dl Cholesterol (0-200) mg/dl LDL Cholesterol, Calc mg/dl VLDL Cholesterol, Calc mg/dl HDL Cholesterol mg/dl Cholesterol/HDL Ratio Procalcitonin (0-0.5) ng/ml TSH (0.300-4.500) uIu/ml Urine Color Urine Appearance (Clear) Urine pH (4.5-7.5) Ur Specific [place] (1.000-1.030) Urine Protein (Negative) Urine Glucose (UA) (Negative) Urine Ketones (Negative) Urine Blood (Negative) Urine Nitrite (Negative) Urine Bilirubin (Negative) Urine Urobilinogen (Negative) Ur Leukocyte Esterase (Negative) Urine Opiates Screen Neg (Neg) Ur Methadone, Qual Neg (Neg) Urine Barbiturates Neg (Neg) Ur Phencyclidine (PCP) Neg (Neg) U Amphetamin/Meth Scrn Neg (Neg) MDMA (Ecstasy) Screen Neg (Neg) U Benzodiazepines Scrn Neg (Neg) Ur Cocaine Metabolite Neg (Neg) U Marijuana (THC) Screen Pos H (Neg) U Marijuana THC Carboxy Lyme Disease IgG Ab (Negative) Lyme Disease IgM Ab (Negative) COVID-19 Eval Order SARS-CoV-2 (PCR) (Negative) Influenza Type A (PCR) (Neg) Influenza Type B (PCR) (Neg) RSV (RT-PCR) (Neg) Blood Type Antibody Screen Diagnostic Findings Head CT 11/25/20 11:00 CT OF THE HEAD WITHOUT CONTRAST CLINICAL HISTORY: vertigo,f/u 24 hrs for CVA COMPARISON STUDY: Head CT and CTA of the head November 24, 2020. CT DOSE: 537.48 mGy.cm TECHNIQUE: Helical axial images of the head were obtained without IV contrast. Automated exposure control was utilized for the study. A dose lowering technique was utilized adhering to the principles of ALARA. FINDINGS: No acute intracranial hemorrhage, midline shift or mass effect is present. The ventricular system is unremarkable. The basal cisterns are patent. No extra-axial collections are present. There are no findings to suggest acute dural sinus thrombosis or acute territorial infarct. No significant calvarial abnormalities are present. Visualized portions of the sinuses and mastoid air cells are clear. IMPRESSION: No acute intracranial findings. ACT 112: Negative or not required by law. Electronically signed by: Castro Méndez M.D. 11/25/2020 12:53 PM PG Care Time/CCT Total # of Minutes Spent Total Time Spent with Patient: Total time spent is greater than 50% in coordination of care (as documented) at patient's floor/unit and/or counseling patient: Coding Level of Care Code 95641 Subseq Hosp Care Lvl 3 Diagnoses Vertigo R42 Acute encephalopathy G93.40 Fever R50.9 Nausea R11.0 Urinary retention R33.9 Migraine G43.909 Anxiety disorder F41.9 Chronic back pain M54.9; G89.29 Depression F32.9 Insomnia G47.00 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
[2020-11-25] MEDS: MECLIZINE HCL 25 MG TAB PO SCH ×2 (13:28→17:38)
[2020-11-25] MEDS ORDERED: oxyCODONE/ACETAMINOPHEN 5mg/325mg TAB PO STA (20:46)
--- NOTE | 2020-11-25 20:50 | Communication Note ---
Date of Service: November 25, 2020 Called to bedside by nursing for continuing headache complaints by patient. 01/27, mildly improving with morphine 2 hours ago but now has returned. Hx of improvement with percocet, dilaudid for longer acting control. Denies blurring of vision. Nausea persisting, no new numbness/weakness/tingling. Dayteam notes reviewed -- discussed with pt doing lumbar puncture in AM since his pain is persisting. in the meantime will try 5/325 percocet for control as he says this has helped before.
[2020-11-26] MEDS: MECLIZINE HCL 25 MG TAB PO SCH ×5 (00:08→23:51)
[2020-11-26] MEDS: traZODone HCL 100 MG TAB PO SCH ×2 (00:08→22:44)
[2020-11-26] MEDS: MoRPHine SULFATE 2 MG/ML CARP IV PRN ×7 (00:08→23:51)
[2020-11-26] MEDS: oxyCODONE/ACETAMINOPHEN 5mg/325mg TAB PO PRN ×6 (00:41→21:40)
[2020-11-26] MEDS: cefTRIAXone SODIUM 2,000 MG in DEXTROSE 5% 50 ML IV SCH (00:43)
[2020-11-26 07:36] LABS: Basophils # (auto) 0.02 K/uL (0-0.2); Basophils % (auto) 0.2 %; Eosinophils # (auto) 0.26 K/uL (0-0.5); Eosinophils % (auto) 3.2 %; Hematocrit (blood only) 36.8 % (42-52); Hemoglobin 12.5 g/dL (14.0-18.0); Immature Granulocytes # (auto) 0.02 K/uL (0.00-0.02); Immature Granulocytes % (auto) 0.2 %; Lymphocytes # (auto) 2.48 K/uL (1.2-3.4); Lymphocytes % (auto) 30.5 %; Mean Corpuscular Hemoglobin 31.3 pg (25-34); Mean Corpuscular Volume 92.2 fL (80-100); Mean Platelet Volume 9.8 fL (7.4-10.4); Monocytes # (auto) 0.96 K/uL (0.11-0.59); Monocytes % (auto) 11.8 %; Neutrophils % (auto) 54.1 %; Platelet Count 286 K/uL (130-400); RDW Coefficient of Variation 13.4 % (11.5-14.5); RDW Standard Deviation 45.2 fL (36.4-46.3); Red Blood Count 3.99 M/uL (4.7-6.1); White Blood Count 8.14 K/uL (4.8-10.8)
[2020-11-26 08:08] LABS: Albumin Level 3.5 gm/dl (3.4-5.0); BUN Creatinine Ratio 8.3 (10-20); Calcium 8.5 mg/dl (8.5-10.1); Creatinine Clr Calc Pharmacy 122.7 ml/min; Magnesium 2.1 mg/dl (1.8-2.4); Potassium 3.4 mmol/L (3.5-5.1)
[2020-11-26 08:11] LABS: Albumin Globulin Ratio 1.3 (0.9-2); Bilirubin,Total 0.3 mg/dl (0.2-1); Globulin 2.7 gm/dl (2.5-4.0); Total Protein 6.2 gm/dl (6.4-8.2)
[2020-11-26] MEDS: ASPIRIN 81 MG ECTAB PO SCH (08:17)
[2020-11-26] MEDS: lamoTRIgine 25 MG TAB PO SCH ×2 (08:17→20:44)
[2020-11-26] MEDS: lamoTRIgine 100 MG TAB PO SCH ×2 (08:18→20:44)
--- NOTE | 2020-11-26 10:20 | Hospitalist Progress Note ---
Date of Service November 26, 2020 Assessment & Plan (1) Vertigo: Presents with dizziness that started at 11 AM on 11/24 and is associated with right-sided migraine headache and nausea. Also with a recent low-grade fever on 11/23 at home He had a positive Chiquis-Hallpike on examination on admission and some horizontal nystagmus as well which is now improved CT angiogram of the head neck, CT noncontrast of the head without evidence of stroke or large vessel occlusion or stenosis Differential diagnosis included a small cerebellar stroke although seems more consistent with BPPV or perhaps a vertiginous migraine: he has a h/o migraine with vertigo over 20 years ago None of his medications have changed recently. Vital signs are stable. No renal abnormalities or electrolyte abnormalities that could be contributing. He cannot have an MRI due to abandoned leads from an old spinal cord stimulator that is not MRI compatible as per his Repeat head CT 24 hrs later on 11/25 again negative for acute issues/CVA -Vertigo persists but is finally starting to improve on 11/26 -Headache also down to a 5/10 in severity with use of Percocet and morphine. See headache below Appreciate Neuro consult -continue telemetry-no abnormal arrhythmias -completed CVA workup with ECHO with bubble study-negative -Can discontinue aspirin -continue to treat with meclizine 25 mg p.o. every 6 hours for vertigo -PT/OT consultations-OT is recommending rehab versus home with home health, PT is pending and hopeful that they will perform Davy maneuvers with him lipids and A1C good, no statin indicated as no CVA -Neurochecks -LP performed on 11/26 and does not appear to have meningitis, but West Nile, Lyme, and cultures are pending. Meningitis bio fire panel is negative and there were 0 whites, no xanthochromia. Cryptococcal antigen negative, AFB smear and culture pending. (2) Acute encephalopathy: Likely secondary to febrile illness although no fever here, but reported low-grade fever at home on 11/23 He is oriented and no focal neuro deficits, seems much improved to resolved at this point Work-up for fever and infection as below -Supportive care (3) Fever: With a low-grade fever at home to 100.9 on 11/23 as per the , with right sided frontal headache No meningismus on examination and only very mild encephalopathic-do not suspect encephalitis He has not had a single fever since admission here Now status post LP with results as above Follow-up on all final results of LP -CT head negative, but does show some trace mucosal thickening in the maxillary antra, frontal, sphenoid, and ethmoid sinuses, but doubt acute sinusitis -Covid/influenza/RSV test is negative -With urinary retention, could have an acute prostatitis despite negative urinalysis -Watch for fevers here -Follow blood cultures- NGTD -Ur cx no growth but does not rule out prostatitis -continue empiric treatment with antibiotics in the form of ceftriaxone to cover for acute prostatitis and would recommend completing a course of 10 days of p.o. antibiotics for prostatitis after discharge - Lyme disease titer negative PCT, ESR, CRP normal Perhaps some other viral issue? (4) Nausea: Associated with vertigo, slightly improved today as vertigo is slightly improved Zofran as needed Meclizine Advance diet to full liquids Advance diet as tolerated Received 2 L of normal saline in the beginning of the admission (5) Urinary retention: Noted to have difficulty with urination in the ER as per his report having to strain to get urine out Bladder scan for 500 mL and was not able to urinate at all Prakash catheter was placed in the ER Consult urology and started Flomax -He is on multiple medications which could cause anticholinergic effects, however he has never had issues like this before and this may represent an acute prostatitis especially given the fever -Plan is to go home with Prakash catheter and follow-up with urology in the office in 1 to 2 weeks for trial of void and then plan for cystoscopy at 4 to 6 weeks (6) Migraine: With right-sided headache, perhaps induced by recent febrile illness Has a long history of migraines which have been well controlled on Lamictal for many years CT of the head x2 - ESR normal Consult neurology appreciated Continue Lamictal not improved with IV Toradol, meclizine, or tylenol Morphine helps somewhat but does not last Tylenol 1000 mg p.o. 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 intake Replace Follow BMP and magnesium in the morning (14) DVT prophylaxis: SCDs, avoid Lovenox as had LP today Disposition-continued stay on medical floor with telemetry, but possibly discharged home in the next 1 to 2 days if vertigo and migraine are improving Full code Care discussed with his on the phone at length on 11/26. She is requesting home health especially as he will be going home with a Prakash catheter and will need PT/OT given the vertigo if he does not go to rehab Admission and Anticipated Discharge Date Admission Date: November 24, 2020 Subjective Patient reports he still has a migraine headache on the right side of his forehead, however it is down to a 5/10 in severity after taking Percocet alternating with morphine. His dizziness is still present but is a little bit improved from previous. He feels like he can maybe try to tolerate a full liquids diet today. He has not had any fevers. No other new symptoms. I discussed his care with neurology as well as radiology in efforts to coordinate getting his lumbar puncture done today as requested by neurology. Telemetry with normal sinus rhythm with rates in the 70s to 80s Review of Systems Review of Systems: All systems reviewed & are unremarkable except as noted in HPI & below Physical Exam Constitutional: WD/WN, vitals as above (Mentation much improved and normal speech fluency) Eyes: + anicteric sclerae ENMT: Ears: no hearing impairment and no external ear abnormality Nose: no external nose abnormality Neck: trachea midline, no thyromegaly Respiratory: normal respiratory effort, lungs clear to auscultation Cardiovascular: RRR, no murmur, no edema Chest (Breasts): Chest: normal inspection of chest Gastrointestinal (Abdomen): normal bowel sounds, soft, nontender, no hepatosplenomegaly Musculoskeletal: Extremities: extremities normal to inspection; no cyanosis and no clubbing Skin: no rashes, warm and dry Neurologic: moves all extremities and awake; no focal motor deficits and not confused Speech / Cognition: normal speech and normal cognition Motor/Sensory: no tremor Psychiatric: A+Ox3, euthymic affect Genitourinary: Prakash catheter in place draining clear yellow urine Lymphatic: no lymphedema Results & Data Results & Data ([facility]) Vital Signs (Past 12 Hours) Vital Signs Temp Pulse Pulse Resp BP Pulse Ox 11/26/20 07:07 72 11/26/20 07:00 36.6 C 72 18 141/80 H 90 11/26/20 04:00 36.7 C 73 18 120/69 91 11/26/20 01:02 83 11/25/20 23:00 36.8 C 77 18 130/77 93 Laboratory Results 11/26/20 11/26/20 11/26/20 Range/Units 14:04 12:28 12:28 WBC (4.8-10.8) K/uL RBC (4.7-6.1) M/uL Hgb (14.0-18.0) g/dL Hct (42-52) % MCV (80-100) fL MCH (25-34) pg MCHC (32-36) g/dL RDW Std Deviation (36.4-46.3) fL RDW Coeff of Argelia (11.5-14.5) % Plt Count (130-400) K/uL MPV (7.4-10.4) fL Immature Gran % (Auto) % Neut % (Auto) % Lymph % (Auto) % [place] % (Auto) % Eos % (Auto) % Baso % (Auto) % Neut # (Auto) (1.4-6.5) K/uL Lymph # (Auto) (1.2-3.4) K/uL [place] # (Auto) (0.11-0.59) K/uL Eos # (Auto) (0-0.5) K/uL Baso # (Auto) (0-0.2) K/uL Immature Gran # (Auto) (0.00-0.02) K/uL Sodium (136-145) mmol/L Potassium (3.5-5.1) mmol/L Chloride (98-107) mmol/L Carbon Dioxide (21-32) mmol/L Anion Gap (3-11) BUN (7-18) mg/dl Creatinine (0.6-1.4) mg/dl Est Cr Clr Drug Dosing ml/min Est GFR ( Amer) Est GFR (Non-Af Amer) BUN/Creatinine Ratio (10-20) Glucose 95 (70-99) mg/dl Calcium (8.5-10.1) mg/dl Magnesium (1.8-2.4) mg/dl Total Bilirubin (0.2-1) mg/dl AST (15-37) U/L ALT (12-78) U/L Alkaline Phosphatase (45-117) U/L Total Protein (6.4-8.2) gm/dl Albumin (3.4-5.0) gm/dl Globulin (2.5-4.0) gm/dl Albumin/Globulin Ratio (0.9-2) Fluid Comment CSF Appearance CSF Color Xanthrochromic CSF WBC (0-5) /uL CSF RBC (0-) /uL CSF Cell Count Tube # CSF Chemistry Tube # CSF Glucose (40-70) mg/dl CSF Total Protein CSF VDRL CSF Lyme IgG (Immblot) Cancelled CSF Lyme IgG Bands Det Cancelled CSF Lyme IgM (Immblot) Cancelled CSF Lyme IgM Bands Det Cancelled CSF C.neoform/gat PCR (NotDetected) CSF CMV DNA (PCR) (NotDetected) CSF Enterovirus (PCR) (NotDetected) CSF E. coli K1 (PCR) (NotDetected) CSF H. influenzae (PCR) (NotDetected) CSF HSV I (PCR) (NotDetected) CSF HSV II (PCR) (NotDetected) CSF HHV 6 (PCR) (NotDetected) CSF L.monocytogenes PCR (NotDetected) CSF N. meningitidis PCR (NotDetected) CSF Parechovirus (PCR) (NotDetected) CSF S. agalactiae (PCR) (NotDetected) CSF S. pneumoniae (PCR) (NotDetected) CSF VZV DNA (PCR) (NotDetected) CSF West Nile IgM Ab Pending CMV Specimen Source CMV Qnt PCR IU/mL CMV Qnt PCR log IU/mL Enterovirus Source Enterovirus RNA RT-PCR EBV Source EBV DNA, Quant EBV DNA (PCR) Herpes Virus Source HSV I DNA PCR HSV II DNA PCR Herpesvirus 6 Source HHV-6 DNA (PCR) Varicella-Zoster Source VZV DNA (PCR) 11/26/20 11/26/20 11/26/20 Range/Units 12:28 12:28 12:28 WBC (4.8-10.8) K/uL RBC (4.7-6.1) M/uL Hgb (14.0-18.0) g/dL Hct (42-52) % MCV (80-100) fL MCH (25-34) pg MCHC (32-36) g/dL RDW Std Deviation (36.4-46.3) fL RDW Coeff of Argelia (11.5-14.5) % Plt Count (130-400) K/uL MPV (7.4-10.4) fL Immature Gran % (Auto) % Neut % (Auto) % Lymph % (Auto) % [place] % (Auto) % Eos % (Auto) % Baso % (Auto) % Neut # (Auto) (1.4-6.5) K/uL Lymph # (Auto) (1.2-3.4) K/uL [place]t # (Auto) (0.11-0.59) K/uL Eos # (Auto) (0-0.5) K/uL Baso # (Auto) (0-0.2) K/uL Immature Gran # (Auto) (0.00-0.02) K/uL Sodium (136-145) mmol/L Potassium (3.5-5.1) mmol/L Chloride (98-107) mmol/L Carbon Dioxide (21-32) mmol/L Anion Gap (3-11) BUN (7-18) mg/dl Creatinine (0.6-1.4) mg/dl Est Cr Clr Drug Dosing ml/min Est GFR ( Amer) Est GFR (Non-Af Amer) BUN/Creatinine Ratio (10-20) Glucose (70-99) mg/dl Calcium (8.5-10.1) mg/dl Magnesium (1.8-2.4) mg/dl Total Bilirubin (0.2-1) mg/dl AST (15-37) U/L ALT (12-78) U/L Alkaline Phosphatase (45-117) U/L Total Protein (6.4-8.2) gm/dl Albumin (3.4-5.0) gm/dl Globulin (2.5-4.0) gm/dl Albumin/Globulin Ratio (0.9-2) Fluid Comment CSF Appearance CSF Color Xanthrochromic CSF WBC (0-5) /uL CSF RBC (0-) /uL CSF Cell Count Tube # CSF Chemistry Tube # CSF Glucose (40-70) mg/dl CSF Total Protein Cancelled CSF VDRL Pending CSF Lyme IgG (Immblot) Pending CSF Lyme IgG Bands Det Pending CSF Lyme IgM (Immblot) Pending CSF Lyme IgM Bands Det Pending CSF C.neoform/gat PCR (NotDetected) CSF CMV DNA (PCR) (NotDetected) CSF Enterovirus (PCR) (NotDetected) CSF E. coli K1 (PCR) (NotDetected) CSF H. influenzae (PCR) (NotDetected) CSF HSV I (PCR) (NotDetected) CSF HSV II (PCR) (NotDetected) CSF HHV 6 (PCR) (NotDetected) CSF L.monocytogenes PCR (NotDetected) CSF N. meningitidis PCR (NotDetected) CSF Parechovirus (PCR) (NotDetected) CSF S. agalactiae (PCR) (NotDetected) CSF S. pneumoniae (PCR) (NotDetected) CSF VZV DNA (PCR) (NotDetected) CSF West Nile IgM Ab CMV Specimen Source Cancelled CMV Qnt PCR IU/mL Cancelled CMV Qnt PCR log IU/mL Cancelled Enterovirus Source Cancelled Enterovirus RNA RT-PCR Cancelled EBV Source Pending EBV DNA, Quant Pending EBV DNA (PCR) Pending Herpes Virus Source Cancelled HSV I DNA PCR Cancelled HSV II DNA PCR Cancelled Herpesvirus 6 Source Cancelled HHV-6 DNA (PCR) Cancelled Varicella-Zoster Source Cancelled VZV DNA (PCR) Cancelled 11/26/20 11/26/20 11/26/20 Range/Units 12:27 12:27 12:27 WBC (4.8-10.8) K/uL RBC (4.7-6.1) M/uL Hgb (14.0-18.0) g/dL Hct (42-52) % MCV (80-100) fL MCH (25-34) pg MCHC (32-36) g/dL RDW Std Deviation (36.4-46.3) fL RDW Coeff of Argelia (11.5-14.5) % Plt Count (130-400) K/uL MPV (7.4-10.4) fL Immature Gran % (Auto) % Neut % (Auto) % Lymph % (Auto) % [place] % (Auto) % Eos % (Auto) % Baso % (Auto) % Neut # (Auto) (1.4-6.5) K/uL Lymph # (Auto) (1.2-3.4) K/uL [place]t # (Auto) (0.11-0.59) K/uL Eos # (Auto) (0-0.5) K/uL Baso # (Auto) (0-0.2) K/uL Immature Gran # (Auto) (0.00-0.02) K/uL Sodium (136-145) mmol/L Potassium (3.5-5.1) mmol/L Chloride (98-107) mmol/L Carbon Dioxide (21-32) mmol/L Anion Gap (3-11) BUN (7-18) mg/dl Creatinine (0.6-1.4) mg/dl Est Cr Clr Drug Dosing ml/min Est GFR ( Amer) Est GFR (Non-Af Amer) BUN/Creatinine Ratio (10-20) Glucose (70-99) mg/dl Calcium (8.5-10.1) mg/dl Magnesium (1.8-2.4) mg/dl Total Bilirubin (0.2-1) mg/dl AST (15-37) U/L ALT (12-78) U/L Alkaline Phosphatase (45-117) U/L Total Protein (6.4-8.2) gm/dl Albumin (3.4-5.0) gm/dl Globulin (2.5-4.0) gm/dl Albumin/Globulin Ratio (0.9-2) Fluid Comment CSF Appearance Clear CSF Color Colorless Xanthrochromic No xanthochromia CSF WBC 0 (0-5) /uL CSF RBC 1 (0-) /uL CSF Cell Count Tube # 3 CSF Chemistry Tube # 1 CSF Glucose 63 (40-70) mg/dl CSF Total Protein CSF VDRL Cancelled CSF Lyme IgG (Immblot) CSF Lyme IgG Bands Det CSF Lyme IgM (Immblot) CSF Lyme IgM Bands Det CSF C.neoform/gat PCR Not Detected (NotDetected) CSF CMV DNA (PCR) Not Detected (NotDetected) CSF Enterovirus (PCR) Not Detected (NotDetected) CSF E. coli K1 (PCR) Not Detected (NotDetected) CSF H. influenzae (PCR) Not Detected (NotDetected) CSF HSV I (PCR) Not Detected (NotDetected) CSF HSV II (PCR) Not Detected (NotDetected) CSF HHV 6 (PCR) Not Detected (NotDetected) CSF L.monocytogenes PCR Not Detected (NotDetected) CSF N. meningitidis PCR Not Detected (NotDetected) CSF Parechovirus (PCR) Not Detected (NotDetected) CSF S. agalactiae (PCR) Not Detected (NotDetected) CSF S. pneumoniae (PCR) Not Detected (NotDetected) CSF VZV DNA (PCR) Not Detected (NotDetected) CSF West Nile IgM Ab CMV Specimen Source CMV Qnt PCR IU/mL CMV Qnt PCR log IU/mL Enterovirus Source Enterovirus RNA RT-PCR EBV Source EBV DNA, Quant EBV DNA (PCR) Herpes Virus Source HSV I DNA PCR HSV II DNA PCR Herpesvirus 6 Source HHV-6 DNA (PCR) Varicella-Zoster Source VZV DNA (PCR) 11/26/20 11/26/20 Range/Units 07:02 07:02 WBC 8.14 (4.8-10.8) K/uL RBC 3.99 L (4.7-6.1) M/uL Hgb 12.5 L (14.0-18.0) g/dL Hct 36.8 L (42-52) % MCV 92.2 (80-100) fL MCH 31.3 (25-34) pg MCHC 34.0 (32-36) g/dL RDW Std Deviation 45.2 (36.4-46.3) fL RDW Coeff of Argelia 13.4 (11.5-14.5) % Plt Count 286 (130-400) K/uL MPV 9.8 (7.4-10.4) fL Immature Gran % (Auto) 0.2 % Neut % (Auto) 54.1 % Lymph % (Auto) 30.5 % [place] % (Auto) 11.8 % Eos % (Auto) 3.2 % Baso % (Auto) 0.2 % Neut # (Auto) 4.40 (1.4-6.5) K/uL Lymph # (Auto) 2.48 (1.2-3.4) K/uL [place] # (Auto) 0.96 H (0.11-0.59) K/uL Eos # (Auto) 0.26 (0-0.5) K/uL Baso # (Auto) 0.02 (0-0.2) K/uL Immature Gran # (Auto) 0.02 (0.00-0.02) K/uL Sodium 139 (136-145) mmol/L Potassium 3.4 L (3.5-5.1) mmol/L Chloride 109 H (98-107) mmol/L Carbon Dioxide 24 (21-32) mmol/L Anion Gap 7.0 (3-11) BUN 6 L (7-18) mg/dl Creatinine 0.75 (0.6-1.4) mg/dl Est Cr Clr Drug Dosing 122.7 ml/min Est GFR ( Amer) 124.0 Est GFR (Non-Af Amer) 107.0 BUN/Creatinine Ratio 8.3 L (10-20) Glucose 107 H (70-99) mg/dl Calcium 8.5 (8.5-10.1) mg/dl Magnesium 2.1 (1.8-2.4) mg/dl Total Bilirubin 0.3 (0.2-1) mg/dl AST 11 L (15-37) U/L ALT 18 (12-78) U/L Alkaline Phosphatase 102 (45-117) U/L Total Protein 6.2 L (6.4-8.2) gm/dl Albumin 3.5 (3.4-5.0) gm/dl Globulin 2.7 (2.5-4.0) gm/dl Albumin/Globulin Ratio 1.3 (0.9-2) Fluid Comment CSF Appearance CSF Color Xanthrochromic CSF WBC (0-5) /uL CSF RBC (0-) /uL CSF Cell Count Tube # CSF Chemistry Tube # CSF Glucose (40-70) mg/dl CSF Total Protein CSF VDRL CSF Lyme IgG (Immblot) CSF Lyme IgG Bands Det CSF Lyme IgM (Immblot) CSF Lyme IgM Bands Det CSF C.neoform/gat PCR (NotDetected) CSF CMV DNA (PCR) (NotDetected) CSF Enterovirus (PCR) (NotDetected) CSF E. coli K1 (PCR) (NotDetected) CSF H. influenzae (PCR) (NotDetected) CSF HSV I (PCR) (NotDetected) CSF HSV II (PCR) (NotDetected) CSF HHV 6 (PCR) (NotDetected) CSF L.monocytogenes PCR (NotDetected) CSF N. meningitidis PCR (NotDetected) CSF Parechovirus (PCR) (NotDetected) CSF S. agalactiae (PCR) (NotDetected) CSF S. pneumoniae (PCR) (NotDetected) CSF VZV DNA (PCR) (NotDetected) CSF West Nile IgM Ab CMV Specimen Source CMV Qnt PCR IU/mL CMV Qnt PCR log IU/mL Enterovirus Source Enterovirus RNA RT-PCR EBV Source EBV DNA, Quant EBV DNA (PCR) Herpes Virus Source HSV I DNA PCR HSV II DNA PCR Herpesvirus 6 Source HHV-6 DNA (PCR) Varicella-Zoster Source VZV DNA (PCR) Blood cultures-no growth to date Urine culture-negative PG Care Time/CCT Total # of Minutes Spent Total Time Spent with Patient: Total time spent is greater than 50% in coordination of care (as documented) at patient's floor/unit and/or counseling patient: Coding Level of Care Code 96910 Subseq Hosp Care Lvl 3 Diagnoses Vertigo R42 Acute encephalopathy G93.40 Fever R50.9 Nausea R11.0 Urinary retention R33.9 Migraine G43.909 Anxiety disorder F41.9 Chronic back pain M54.9; G89.29 Depression F32.9 Insomnia G47.00 Pseudoseizures F44.5 PTSD (post-traumatic stress disorder) F43.10 Hypokalemia E87.6 DVT prophylaxis Z29.9
--- NOTE | 2020-11-26 11:33 | XCELERA ---
[id number]
[2020-11-26 12:49] LABS: Appearance CSF Clear; CSF Count Tube # 3; CSF Xanthrochromic No xanthochromia; Color CSF Colorless
[2020-11-26 12:50] LABS: Red Blood Cell CSF (A) 1 /uL (0-); Red Blood Cell CSF (B) 0 /uL (0-); White Blood Cell CSF (A) 0 /uL (0-5); White Blood Cell CSF (B) 0 /uL (0-5)
--- NOTE | 2020-11-26 12:51 | Progress Notes ---
DATE: 11/26/2020 SUBJECTIVE: I am seeing the patient in followup of headache associated with a febrile illness and vertigo. The patient feels better from a vertigo perspective, although OT attempted to get him up and could only transfer him to a chair. He felt immediately vertiginous. Headache has persisted. Medications are helpful, but when they wear off, the headache continues. No new neurologic symptoms. PHYSICAL EXAMINATION: VITAL SIGNS: The patient has been afebrile 36.6, 74, 130/74, 94% on room air. GENERAL: The patient is awake and alert. His speech is a little less slow than it had been. He follows commands easily. There is normal extraocular motility, facial symmetry, normal [id number] and azxb-by-cudc. Gait was not tested. IMPRESSION: 1. I suspect the patient's vertigo is peripheral. Recommend physical therapy for Davy maneuver . 2. Ongoing headache in the setting of fever. The patient may have prostatitis, but really no way to prove that. Recommend lumbar puncture, which I will attempt. If the lumbar puncture is unremarkable, would agree with a short course of prednisone to break the cycle of this headache associated with a febrile illness.
[2020-11-26 13:00] LABS: CSF Glucose 63 mg/dl (40-70)
[2020-11-26 13:23] LABS: CSF Chemistry Tube # 1
--- NOTE | 2020-11-26 13:57 | Operative Report (OR) ---
DATE OF OPERATION: 11/26/2020 LUMBAR PUNCTURE PROCEDURE NOTE After informed consent, the patient was prepped and draped in sterile fashion. 1% lidocaine was given at L3-L4 interspace. The interspace was cannulated easily. The CSF was initially blood-tinged, but then cleared. The patient tolerated the procedure well and the CSF was spent for appropriate studies. The patient will lie flat in bed for approximately 6 hours, encouraged fluids. I attest to the content of the Intraoperative Record and any orders documented therein. Any exception s are noted below.
[2020-11-26 14:27] LABS: Cryptococcus neoformans/ga PCR Not Detected (NotDetected); Cytomegalovirus PCR Not Detected (NotDetected); Enterovirus PCR Not Detected (NotDetected); Escherichia coli K1 PCR Not Detected (NotDetected); Haemophilius influenzae PCR Not Detected (NotDetected); Herpes Simplex Virus 1 PCR Not Detected (NotDetected); Herpes Simplex Virus 2 PCR Not Detected (NotDetected); Human Herpes Virus 6 PCR Not Detected (NotDetected); Human Parechovirus PCR Not Detected (NotDetected); Listeria monocytogenes PCR Not Detected (NotDetected); Neisseria meningitidis PCR Not Detected (NotDetected); Streptococcus agalactiae PCR Not Detected (NotDetected); Streptococcus pneumoniae PCR Not Detected (NotDetected); Varicella Zoster Virus PCR Not Detected (NotDetected)
[2020-11-26] MEDS: predniSONE 20 MG TAB PO SCH (16:26)
[2020-11-26] MEDS ORDERED: POTASSIUM CHLORIDE CRTAB 20 MEQ TABCR PO STA (19:06)
[2020-11-26] MEDS: IBUPROFEN 800 MG TAB PO SCH (20:43)
[2020-11-26] MEDS: TAMSULOSIN HCL 0.4 MG CAP PO SCH (20:44)
[2020-11-26] MEDS: QUEtiapine FUMARATE 300 MG TABLET PO SCH (20:44)
[2020-11-27] MEDS: cefTRIAXone SODIUM 2,000 MG in DEXTROSE 5% 50 ML IV SCH (00:51)
[2020-11-27] MEDS: oxyCODONE/ACETAMINOPHEN 5mg/325mg TAB PO PRN ×5 (01:15→21:51)
[2020-11-27] MEDS: MoRPHine SULFATE 2 MG/ML CARP IV PRN ×2 (03:22→08:24)
[2020-11-27] MEDS: MECLIZINE HCL 25 MG TAB PO SCH ×4 (06:11→21:52)
[2020-11-27 07:04] LABS: Hematocrit (blood only) 40.8 % (42-52); Immature Granulocytes # (auto) 0.02 K/uL (0.00-0.02); Immature Granulocytes % (auto) 0.2 %; Lymphocytes # (auto) 0.61 K/uL (1.2-3.4); Lymphocytes % (auto) 6.8 %; Mean Corpuscular Hemoglobin 31.7 pg (25-34); Mean Corpuscular Hgb Conc 34.3 g/dL (32-36); Mean Corpuscular Volume 92.3 fL (80-100); Mean Platelet Volume 9.7 fL (7.4-10.4); Monocytes # (auto) 0.37 K/uL (0.11-0.59); Monocytes % (auto) 4.1 %; Neutrophils # (auto) 7.97 K/uL (1.4-6.5); Neutrophils % (auto) 88.9 %; Platelet Count 353 K/uL (130-400); RDW Standard Deviation 44.2 fL (36.4-46.3); Red Blood Count 4.42 M/uL (4.7-6.1); White Blood Count 8.97 K/uL (4.8-10.8)
[2020-11-27 07:31] LABS: Albumin Level 3.9 gm/dl (3.4-5.0); BUN Creatinine Ratio 6.7 (10-20); Calcium 8.7 mg/dl (8.5-10.1); Creatinine Clr Calc Pharmacy 96.5 ml/min; Est GFR (African American) 110.6; Est GFR (Non-African American) 95.4; Potassium 3.7 mmol/L (3.5-5.1)
[2020-11-27 07:33] LABS: Albumin Globulin Ratio 1.3 (0.9-2); Bilirubin,Total 0.4 mg/dl (0.2-1); Globulin 3.1 gm/dl (2.5-4.0)
[2020-11-27] MEDS: predniSONE 20 MG TAB PO SCH (08:21)
[2020-11-27] MEDS: lamoTRIgine 100 MG TAB PO SCH ×2 (08:22→20:21)
[2020-11-27] MEDS: IBUPROFEN 800 MG TAB PO SCH ×3 (08:22→20:14)
[2020-11-27] MEDS: lamoTRIgine 25 MG TAB PO SCH ×2 (08:22→20:11)
[2020-11-27] MEDS: QUEtiapine FUMARATE 300 MG TABLET PO SCH (20:22)
[2020-11-27] MEDS: TAMSULOSIN HCL 0.4 MG CAP PO SCH (20:22)
--- NOTE | 2020-11-27 20:56 | Progress Notes ---
DATE: 11/27/2020 SUBJECTIVE: I am seeing Mr. Concepcion in followup of a headache accompanied by a febrile illness. Lumbar puncture to date has been unremarkable. There were 3 white cells, normal glucose. Cultures to date have been negative. Cryptococcal antigen negative. Bacterial meningitis PCR and viral PCR negative to date. His vertigo has improved with physical therapy. His headache is somewhat improved. Steroids have been begun. He is still requiring either Percocet or Dilaudid. PHYSICAL EXAMINATION: He is awake and alert. Speech and language are normal. There is normal extraocular motility, facial symmetry. There is symmetric strength, normal ucxenf-[id number]-cmdv and vqqp-ny-wlik. His gait with a walker was unremarkable and Romberg was negative. IMPRESSION AND PLAN: Migrainous type headache in the setting of a febrile illness. No evidence of meningitis. Recommend a taper of prednisone as you are doing. Given the short duration of the headache, I do not think he needs anything prophylactic. One would need to explore with him in the past what has been used. HE APPEARS TO BE ALLERGIC TO DEPAKOTE WELL TOPIRAMATE, so they would not be options. I would likely avoid polypharmacy.
--- NOTE | 2020-11-27 21:02 | Progress Notes ---
DATE: 11/27/2020 ADDENDUM: IMPRESSION AND PLAN: 1. Headache in the setting of febrile illness. No evidence of meningitis. This headache has been somewhat migrainous. Would recommend a prednisone taper as you are doing. I doubt the patient needs anything prophylactic for headache. Would avoid Depakote as well as Topamax as the patient has had prior symptoms. If he needed something prophylactic, gabapentin might be an option, but mood would need to be monitored. 2. Vertigo, presumably labyrinthine. The patient's CTA of head and neck was unremarkable. The patient cannot have an MRI. Recommend ongoing physical therapy if needed. 3. History of pseudoseizures. The patient follows with neurology in [place]. Should he need further neurologic followup from this hospitalization. Recommend followup with his treating provider. We will sign off at present.
[2020-11-27] MEDS: traZODone HCL 100 MG TAB PO SCH (21:52)
--- NOTE | 2020-11-27 22:05 | Hospitalist Progress Note ---
Date of Service November 27, 2020 Assessment & Plan (1) Vertigo: Presents with dizziness that started at 11 AM on 11/24 and is associated with right-sided migraine headache and nausea. Also with a recent low-grade fever on 11/23 at home He had a positive [place]-Hallpike on examination on admission and some horizontal nystagmus as well which is now improved CT angiogram of the head neck, CT noncontrast of the head without evidence of stroke or large vessel occlusion or stenosis Differential diagnosis included a small cerebellar stroke although seems more consistent with BPPV or perhaps a vertiginous migraine: he has a h/o migraine with vertigo over 20 years ago None of his medications have changed recently. Vital signs are stable. No renal abnormalities or electrolyte abnormalities that could be contributing. He cannot have an MRI due to abandoned leads from an old spinal cord stimulator that is not MRI compatible as per his Repeat head CT 24 hrs later on 11/25 again negative for acute issues/CVA -Vertigo persists but is finally starting to improve on 11/26 -Headache also down to a 5/10 in severity with use of Percocet and morphine. See headache below Appreciate Neuro consult -continue telemetry-no abnormal arrhythmias -completed CVA workup with ECHO with bubble study-negative -Can discontinue aspirin -continue to treat with meclizine 25 mg p.o. every 6 hours for vertigo -PT/OT consultations-OT is recommending rehab versus home with home health, PT is pending and hopeful that they will perform Davy maneuvers with him lipids and A1C good, no statin indicated as no CVA -Neurochecks -LP performed on 11/26 and does not appear to have meningitis, but West Nile, Lyme, and cultures are pending. Meningitis bio fire panel is negative and there were 0 whites, no xanthochromia. Cryptococcal antigen negative, AFB smear and culture pending. On 11/27 Patient appears to be doing well. Likely migraine headache causing symptoms as BPPV seems unlikely as Physcial therapy was unable to worsen headache by maneuvers will try to limit opiates and continue NSAID. (2) Acute encephalopathy: Likely secondary to febrile illness although no fever here, but reported low-grade fever at home on 11/23 He is oriented and no focal neuro deficits, seems much improved to resolved at this point Work-up for fever and infection as below -Supportive care (3) Fever: With a low-grade fever at home to 100.9 on 11/23 as per the , with right sided frontal headache No meningismus on examination and only very mild encephalopathic-do not suspect encephalitis He has not had a single fever since admission here Now status post LP with results as above Follow-up on all final results of LP -CT head negative, but does show some trace mucosal thickening in the maxillary antra, frontal, sphenoid, and ethmoid sinuses, but doubt acute sinusitis -Covid/influenza/RSV test is negative -With urinary retention, could have an acute prostatitis despite negative ur inalysis -Watch for fevers here -Follow blood cultures- NGTD -Ur cx no growth but does not rule out prostatitis -continue empiric treatment with antibiotics in the form of ceftriaxone to cover for acute prostatitis and would recommend completing a course of 10 days of p.o. antibiotics for prostatitis after discharge - Lyme disease titer negative PCT, ESR, CRP normal Perhaps some other viral issue? (4) Nausea: Associated with vertigo, slightly improved today as vertigo is slightly improved Zofran as needed Meclizine Advance diet to full liquids Advance diet as tolerated Received 2 L of normal saline in the beginning of the admission (5) Urinary retention: Noted to have difficulty with urination in the ER as per his report having to strain to get urine out Bladder scan for 500 mL and was not able to urinate at all Prakash catheter was placed in the ER Consult urology and started Flomax -He is on multiple medications which could cause anticholinergic effects, however he has never had issues like this before and this may represent an acute prostatitis especially given the fever -Plan is to go home with Prakash catheter and follow-up with urology in the office in 1 to 2 weeks for trial of void and then plan for cystoscopy at 4 to 6 weeks (6) Migraine: With right-sided headache, perhaps induced by recent febrile illness Has a long history of migraines which have been well controlled on Lamictal for many years CT of the head x2 - ESR normal Consult neurology appreciated Continue Lamictal not improved with IV Toradol, meclizine, or tylenol Morphine helps somewhat but does not last Tylenol 1000 mg p.o. 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 intake Replace Follow BMP and magnesium in the morning (14) DVT prophylaxis: SCDs, avoid Lovenox as had LP today Disposition-continued stay on medical floor with telemetry, but possibly discharged home in the next 1 to 2 days if vertigo and migraine are improving Full code Care discussed with his on the phone at length on 11/26. She is requesting home health especially as he will be going home with a Prakash catheter and will need PT/OT given the vertigo if he does not go to rehab Admission and Anticipated Discharge Date Admission Date: November 24, 2020 Subjective Patient reports that his headaches have improved. It is a 4/10. His dizziness is still present but it is improved from where he was earlier. Review of Systems Review of Systems: All systems reviewed & are unremarkable except as noted in HPI & below Physical Exam Physical Exam: Constitutional: WD/WN, vitals as above Eyes: + anicteric sclerae ENMT: Ears: no hearing impairment and no external ear abnormality Nose: no external nose abnormality Neck: trachea midline, no thyromegaly Respiratory: normal respiratory effort, lungs clear to auscultation Cardiovascular: RRR, no murmur, no edema Chest (Breasts): Chest: normal inspection of chest Gastrointestinal (Abdomen): normal bowel sounds, soft, nontender, no hepatosplenomegaly Musculoskeletal: Extremities: extremities normal to inspection; no cyanosis and no clubbing Skin: no rashes, warm and dry Neurologic: moves all extremities and awake; no focal motor deficits and not confused Speech / Cognition: normal speech and normal cognition Motor/Sensory: no tremor Psychiatric: A+Ox3, euthymic affect Genitourinary: Prakash catheter in place draining clear yellow urine Lymphatic: no lymphedema Results & Data Results & Data ([facility]) Vital Signs (Past 12 Hours) Vital Signs Temp Pulse Pulse Pulse Resp BP BP 11/27/20 19:00 36.5 C 95 H 18 151/82 H 11/27/20 14:55 86 11/27/20 14:34 37.0 C 92 H 18 139/74 11/27/20 11:22 36.6 C 79 13 126/72 Pulse Ox 11/27/20 19:00 92 11/27/20 14:55 11/27/20 14:34 94 11/27/20 11:22 95 PG Care Time/CCT Total # of Minutes Spent Total Time Spent with Patient: Total time spent is greater than 50% in coordination of care (as documented) at patient's floor/unit and/or counseling patient: Coding Level of Care Code 09905 Subseq Hosp Care Lvl 3 Diagnoses Vertigo R42 Acute encephalopathy G93.40 Fever R50.9 Nausea R11.0 Urinary retention R33.9 Migraine G43.909 Anxiety disorder F41.9 Chronic back pain M54.9; G89.29 Depression F32.9 Insomnia G47.00 Pseudoseizures F44.5 PTSD (post-traumatic stress disorder) F43.10 Hypokalemia E87.6 DVT prophylaxis Z29.9 Time Spent (min) 45 Comment updated
[2020-11-28] MEDS: cefTRIAXone SODIUM 2,000 MG in DEXTROSE 5% 50 ML IV SCH (00:21)
[2020-11-28] MEDS: oxyCODONE/ACETAMINOPHEN 5mg/325mg TAB PO PRN ×4 (02:21→16:06)
[2020-11-28] MEDS: MECLIZINE HCL 25 MG TAB PO SCH ×3 (06:23→17:01)
[2020-11-28] MEDS: lamoTRIgine 100 MG TAB PO SCH (07:51)
[2020-11-28] MEDS: predniSONE 20 MG TAB PO SCH (07:51)
[2020-11-28] MEDS: lamoTRIgine 25 MG TAB PO SCH (07:52)
[2020-11-28] MEDS: IBUPROFEN 800 MG TAB PO SCH ×2 (08:56→13:43)
[2020-12-02 20:39] LABS: EBV DNA Quant PCR <200 copies/mL (<200); EBV DNA Quant Source CSF; Lyme IgG Band Pattern CSF DNR; Lyme IgG CSF NO BANDS DETECTED; Lyme IgM Band Pattern CSF DNR; Lyme IgM CSF NO BANDS DETECTED; VDRL Qualitative CSF Nonreactive (Nonreactive)
--- NOTE | 2020-12-03 21:39 | Discharge Summary ---
Date of Service November 27, 2020 Admission HPI Per Admitting Provider This patient is a 50-year-old male with a history of nonepileptogenic seizures, chronic migraine, bipolar disorder, anxiety and depression, chronic back pain, who presents to the ER with reports of a fever yesterday of 100.9, confusion, and dizziness along with a right-sided frontal headache. Yesterday, he reports having the low-grade fever and body aches all over, but denied any sinus pressure or nasal congestion, no sore throat, no chest pain or shortness of breath, no cough, no abdominal pain or diarrhea. He does however report having to strain to get his urine out, but denies dysuria. Then he developed a fairly significant right-sided headache in the middle the night last night that has been a 7-8/10 in severity and is throbbing, not associated with photophobia or phonophobia, not associated with nausea or vomiting unless he has vertigo which then causes his nausea. He developed vertigo starting around 11 AM today where he feels the room spinning around him especially with turning his head to the l eft or right and with going from seated to standing positions or lying to sitting positions. He is not lightheaded or passing out. He has been unable to walk without running into [place]ard and almost falling over. He went to an urgent care today and the thought was to treat him with vertigo medications, but given that he was having significant issues with headache and inability to walk, he was referred to the ER for rule out stroke. His is very concerned that he is slow to respond and seems a lot more confused than his baseline. For me, while his speech is somewhat slowed, he is completely oriented and remembers details about his recent and remote medical history. He did have some slight difficulty remembering which month it was but was looking for the white board and he knew where to look for this. He was afebrile here in the ER. In the ER, he had a borderline elevated WBC count of 10.3 with neutrophilia, ESR was normal at 2, coags normal, ammonia level less than 10, lactate normal at 1.0, CMP negative, troponin negative, negative urinalysis, and urine drug screen positive for marijuana which he admits to smoking on it daily basis. His Covid test was negative, as was his influenza a/B and RSV test. A urinalysis had not yet been collected and he ended up having to be catheterized 500 mL of urine. UA collected at that time and showed dehydration with an elevated specific gravity, but was otherwise normal. CT angiogram the head and neck were negative. ECG was normal, and blood cultures were drawn which are pending. Principal Diagnosis vertigo Discharge Exam Constitutional: WD/WN, vitals as above Eyes: + anicteric sclerae ENMT: Ears: no hearing impairment and no external ear abnormality Nose: no external nose abnormality Neck: trachea midline, no thyromegaly Respiratory: normal respiratory effort, lungs clear to auscultation Cardiovascular: RRR, no murmur, no edema Chest (Breasts): Chest: normal inspection of chest Gastrointestinal (Abdomen): normal bowel sounds, soft, nontender, no hepatosplenomegaly Musculoskeletal: Extremities: extremities normal to inspection; no cyanosis and no clubbing Skin: no rashes, warm and dry Neurologic: moves all extremities and awake; no focal motor deficits and not confused Speech / Cognition: normal speech and normal cognition Motor/Sensory: no tremor Psychiatric: A+Ox3, euthymic affect Genitourinary: Prakash catheter in place draining clear yellow urine Lymphatic: no lymphedema Discharge Data Allergies Allergy/AdvReac Type Severity Reaction Status Date / Time sucralfate Allergy Mild HIVES Verified 11/24/20 17:14 buspirone AdvReac Intermediate Dizziness Verified 11/24/20 17:14 and agitation divalproex sodium AdvReac Intermediate face Verified 11/24/20 17:14 [From Depakote] drooping bupropion AdvReac Mild SEIZURE Verified 11/24/20 17:14 topiramate AdvReac Mild SEVERE Verified 11/24/20 17:14 HEADACHE valproic acid AdvReac Mild MAKE HIM Verified 11/24/20 17:14 FEEL LIKE HE GOES CRAZY AND UNABLE TO FUNCTION tramadol AdvReac Unknown Seizure Verified 11/24/20 17:14 Consultations 11/24/20 19:23 ED Decision to Admit Stat 11/25/20 00:41 Consult Neurology Routine Consult Urology Routine Ordered Studies 11/24/20 17:22 CT angio head w con Stat CT angio neck with con Stat CT head/brain wo con Stat 11/25/20 11:00 CT head/brain wo con Routine Hospital Course (1) Vertigo: Presents with dizziness that started at 11 AM on 11/24 and is associated with right-sided migraine headache and nausea. Also with a recent low-grade fever on 11/23 at home He had a positive [place]-Hallpike on examination on admission and some horizontal nystagmus as well which is now improved CT angiogram of the head neck, CT noncontrast of the head without evidence of stroke or large vessel occlusion or stenosis Differential diagnosis included a small cerebellar stroke although seems more consistent with BPPV or perhaps a vertiginous migraine: he has a h/o migraine with vertigo over 20 years ago None of his medications have changed recently. Vital signs are stable. No renal abnormalities or electrolyte abnormalities that could be contributing. He cannot have an MRI due to abandoned leads from an old spinal cord stimulator that is not MRI compatible as per his Repeat head CT 24 hrs later on 11/25 again negative for acute issues/CVA -Vertigo persists but is finally starting to improve on 11/26 -Headache also down to a 5/10 in severity with use of Percocet and morphine. See headache below Appreciate Neuro consult -continue telemetry-no abnormal arrhythmias -completed CVA workup with ECHO with bubble study-negative -Can discontinue aspirin -continue to treat with meclizine 25 mg p.o. every 6 hours for vertigo -PT/OT consultations-OT is recommending rehab versus home with home health, PT is pending and hopeful that they will perform Davy maneuvers with him lipids and A1C good, no statin indicated as no CVA -Neurochecks -LP performed on 11/26 and does not appear to have meningitis, but West Nile, Lyme, and cultures are pending. Meningitis bio fire panel is negative and there were 0 whites, no xanthochromia. Cryptococcal antigen negative, AFB smear and culture pending. On 11/27 Patient appears to be doing well. Likely migraine headache causing symptoms as BPPV seems unlikely as Physcial therapy was unable to worsen headache by maneuvers will try to limit opiates and continue NSAID. On 11/28 Patient felt better. agreeable to discharge will place on prednisone taper will continue bactrim for 14 days (2) Acute encephalopathy: Likely secondary to febrile illness although no fever here, but reported low-grade fever at home on 11/23 He is oriented and no focal neuro deficits, seems much improved to resolved at this point Work-up for fever and infection as below -Supportive care (3) Fever: With a low-grade fever at home to 100.9 on 11/23 as per the , with right sided frontal headache No meningismus on examination and only very mild encephalopathic-do not suspect encephalitis He has not had a single fever since admission here Now status post LP with results as above Follow-up on all final results of LP -CT head negative, but does show some trace mucosal thickening in the maxillary antra, frontal, sphenoid, and ethmoid sinuses, but doubt acute sinusitis -Covid/influenza/RSV test is negative -With urinary retention, could have an acute prostatitis despite negative urina lysis -Watch for fevers here -Follow blood cultures- NGTD -Ur cx no growth but does not rule out prostatitis -continue empiric treatment with antibiotics in the form of ceftriaxone to cover for acute prostatitis and would recommend completing a course of 10 days of p.o. antibiotics for prostatitis after discharge - Lyme disease titer negative PCT, ESR, CRP normal Perhaps some other viral issue? (4) Nausea: Associated with vertigo, slightly improved today as vertigo is slightly improved Zofran as needed Meclizine Advance diet to full liquids Advance diet as tolerated Received 2 L of normal saline in the beginning of the admission Now on room air (5) Urinary retention: Noted to have difficulty with urination in the ER as per his report having to strain to get urine out Bladder scan for 500 mL and was not able to urinate at all Prakash catheter was placed in the ER Consult urology and started Flomax -He is on multiple medications which could cause anticholinergic effects, however he has never had issues like this before and this may represent an acute prostatitis especially given the fever -Plan is to go home with Prakash catheter and follow-up with urology in the office in 1 to 2 weeks for trial of void and then plan for cystoscopy at 4 to 6 weeks (6) Migraine: With right-sided headache, perhaps induced by recent febrile illness Has a long history of migraines which have been well controlled on Lamictal for many years CT of the head x2 - ESR normal Consult neurology appreciated Continue Lamictal not improved with IV Toradol, meclizine, or tylenol Morphine helps somewhat but does not last Tylenol 1000 mg p.o. 3 times daily as needed Now somewhat improved with addition of Percocet Now status post LP and no signs of meningitis-neurology gives the okay to start oral steroids Start prednisone 60 mg once daily Okay to continue Percocet although this is not a great choice for migraine headache, but would avoid triptans in the setting given the vertigo Will discharge on oxycodone. 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 intake Replace Follow BMP and magnesium in the morning (14) DVT prophylaxis: SCDs, avoid Lovenox as had LP today Disposition-continued stay on medical floor with telemetry, but possibly discharged home in the next 1 to 2 days if vertigo and migraine are improving Full code Care discussed with his on the phone at length on 11/26. Total Time Total Time Spent Total Time Spent (In Minutes): 32 Total Time Includes: Examination of the Patient, Discharge Planning and Medication Reconciliation Discharge Plan Discharge Items Patient Disposition: Home - Self-Care Reason For Visit: VERTIGO,HEADACHE Discharge Diagnosis: vertigo Activity: Resume your previous activity Non-emergency contact: Primary Care Provider Call non-emergency contact if: you have any medication questions Follow-up/Referrals: Ezequiel Cuellar [Primary Care Provider] - Diet: Regular Addtl Attending Provider Instructions: Plan is to go home with Prakash catheter and follow-up with urology in the office in 1 to 2 weeks for trial of void and then plan for cystoscopy at 4 to [address] on bactrim twice a day for 14 days for possible prostatitis In regards to your headache, will place on prednisone taper Step schilling approach for pain relief Take tylenol first 1 gr q8h prn If no relief, may take ibuprofen 800 mg TID prn If no relief, may take oxycodone 5 mg PO q8h Goal of pain is 4. if you are a 4, do not take your pain medicine. Will order Riboflavin, magnesium and propranolol for migraine prevention. Take these meds daily even if feeling well. Pending Studies at Discharge: No Stand-Alone Forms: [facility], Smoking Cessation Medications and DC Order Prescriptions: New ibuprofen 800 mg Tablet 800 mg PO TID Qty: 45 RF: 0 acetaminophen 500 mg Tablet 1,000 mg PO Q8 PRN (Reason: headache) Qty: 60 RF: 0 tamsulosin 0.4 mg Capsule 0.4 mg PO HS Qty: 30 RF: 0 meclizine 25 mg Tablet 25 mg PO Q6 Qty: 30 RF: 0 prednisone 10 mg tablet See Rx Instructions .ROUTE .COMPLEX Qty: 30 RF: 0 famotidine 20 mg tablet 20 mg PO BID 14 Days Qty: 28 RF: 0 oxycodone 5 mg tablet 5 mg PO Q8H PRN (Reason: pain (scale score 7-10)) Qty: 20 RF: 0 propranolol 20 mg tablet 20 mg PO BID Qty: 60 RF: 0 magnesium 200 mg tablet 200 mg PO DAILY Qty: 30 RF: 0 riboflavin (vitamin B2) 400 mg tablet 400 mg PO DAILY Qty: 30 RF: 0 sulfamethoxazole-trimethoprim [Bactrim DS] 800-160 mg tablet 1 tab PO BID 14 Days Qty: 28 RF: 0 Continued albuterol sulfate [Proventil HFA] 90 mcg/actuation HFA aerosol inhaler 2 inh inhalation Q6H PRN (Reason: shortness of breath or wheezing) Qty: 18 RF: 0 lamotrigine [Lamictal] 200 mg tablet 200 mg PO BID RF: 0 quetiapine [Seroquel] 300 mg tablet 300 mg PO HS RF: 0 lamotrigine [Lamictal] 25 mg tablet 50 mg PO BID RF: 0 trazodone 100 mg tablet 100 mg PO HS RF: 0 Discharge Orders: Discharge Order (Routine); Ordered 11/28/20 Ordered By: Jovani Celaya Admission Data Admit Date/Time: 11/24/20 21:06 Attending Provider: Jovani Celaya Admit Provider: Demetria Mario Primary Care Provider: Ezequiel Cuellar Other Providers: Maliha Carvalho ; Solange Jaimes ; Trevor Guido Other Interventions: Discharge Summary Assessment (RN) Last Done: 11/28/20 19:15 Coding Level of Care Code D/C Day Management >30 mins Diagnoses Vertigo R42 Acute encephalopathy G93.40 Fever R50.9 Nausea R11.0 Urinary retention R33.9 Migraine G43.909 Anxiety disorder F41.9 Chronic back pain M54.9; G89.29 Depression F32.9 Insomnia G47.00 Pseudoseizures F44.5 PTSD (post-traumatic stress disorder) F43.10 Hypokalemia E87.6 DVT prophylaxis Z29.9
--- NOTE | 2020-12-07 11:06 | Coding Query ---
CODING QUERY To promote full compliance with coding requirements relating to patient care, provider participation is requested in all cases of clark driver uncertainty. Please assist us with the question(s) below: Coding Question(s): Patient admitted with Vertigo, LP negative for infectious etiology. Progress notes mention BPPV or Migraine as possible sources of vertigo, with Davy Manuever suggested as Outpatient . DS documented Vertigo. Please document, if known or suspected, the etiology of the Vertigo. Thank you !! Leodan Cole IRRIGATOR [facility] Physician's Response(s): possible complex migraine Principal Diagnosis: "that condition established after study, to be chiefly responsible for occasioning the admission of the patient to the hospital for care." Co-Existing Principal Diagnosis: "when two or more diagnoses equally meet the criteria for principal diagnosis as determined by the circumstances of admission, diagnostic work up, and/or therapy provided, and the Alphabetic Index, Tabular List, or another coding guideline does not provide sequencing direction, any one of the diagnoses may be sequenced first." "When the physician has documented what appears to be a current diagnosis in the body of the record, but has not included the diagnosis in the final diagnostic statement, the physician should be asked whether the diagnosis should be added." ([facility] 2 QTR90. p3-4) FAIZAN
== END 2020-11-28 19:10 | disposition home or self-care (01) | DRG 103 ==
LOC: ED 15:34 → SUATTDRO 21:06 → 2N 21:06